=== PATIENT | male | born 1940 | race Caucasian/White ===

== ENCOUNTER 2016-10-06 17:19 | Inpatient (IN) | payer MEDICARE ==
[~2016-10-06 17:19] MED LIST: ACAR50TA3 PO; ACET325C PO; CARB15DR74 OP; CARV25TA2 PO; CHOL200025 PO; CLON0.1T PO; CYAN10008 PO; DOXA8TAB73 PO; FELO10TA3 PO; FERR-83 PO; FOLI1TAB18 PO; FURO40TA4 PO; GABA-502 PO; GLIP5TAB21 PO; MELA5TAB14 PO; METR500T19 PO; MULT-1073 PO; OXYC-474 PO; PRAV40TA PO; WARF4TAB6 PO; Warfarin per Pharmacist XX
[2016-10-06 17:32] VITALS: BP 134/61; PULSE 84; RESP 17; O2SAT 89
--- NOTE | 2016-10-06 18:15 | ED.REPORT ---
HPI-Dizziness / Weakness Date of Service Oct 06, 2016 ED Provider: Doc,Ed The patient is a 76 year old male with history of diabetes, hyperlipidemia, hypertension, CHF, atrial fibrillation, subacute caudate stroke, and peripheral neuropathy, who was brought to the emergency department by EMS for confusion and weakness. The patient has been in a nursing home home over the last few weeks. He has been improving and was going to be discharged home today. When his son called the patient today he noticed that he was confused and slurring his words. He was also weaker than normal today and has had some mild tremors to his upper extremities. He was normal last week. Nursing Notes Stated Complaint: WEAKNESS Chief Complaint: General Complaint Nursing Notes Reviewed: Yes Allergies: Coded Allergies: Penicillins (Verified Allergy, Unknown, 10/06/16) Scheduled ([Warfarin per Pharmacist]) 1 EA EA 1 EA XX DAILY@17 Acarbose (Acarbose) 50 Mg Tablet 50 MG PO DAILYWD Carboxymethylcellulose Sodium (Refresh Tears) 15 Ml Drops 15 ML OP BID 2 DROPS IN EACH EYE Carvedilol (Carvedilol) 25 Mg Tablet 25 MG PO BID Cholecalciferol (Vitamin D3) (Vitamin D3) 2,000 Unit Tablet 2,000 UNIT PO DAILY Clonidine (Clonidine) 0.1 Mg Tablet 0.1 MG PO BID Cyanocobalamin (Vitamin B-12) (Vitamin B-12) 1,000 Mcg Tablet 2,000 MCG PO DAILY Doxazosin Mesylate (Doxazosin Mesylate) 8 Mg Tablet 8 MG PO HS Felodipine ER (Felodipine ER) 10 Mg Tab.er.24h 10 MG PO QAM Ferrous Sulfate (Ferrous Sulfate) 325 Mg Tablet 325 MG PO DAILY Folic Acid (Folic Acid) 1 Mg Tablet 1 MG PO DAILY Furosemide (Furosemide) 40 Mg Tablet 40 MG PO BID Gabapentin (Gabapentin) 300 Mg Capsule 300 MG PO TID Glipizide ER (Glipizide ER) 10 Mg Tab.er.24 10 MG PO QAM Metronidazole (Metronidazole) 500 Mg Tablet 500 MG PO TID Multivits-Min/FA/Lycopene/Lut (Centrum Silver Tablet) 1 Each Tablet 1 EACH PO DAILY Pravastatin (Pravastatin) 40 Mg Tablet 40 MG PO HS Warfarin Sodium (Warfarin Sodium) 4 Mg Tablet 8 MG PO DAILY Scheduled PRN Acetaminophen (Acetaminophen) 325 Mg Capsule 650 MG PO Q4HR PRN PRN For Pain Melatonin (Melatonin) 5 Mg Tablet 5 MG PO HS PRN PRN For Insomnia Oxycodone (Roxicodone) 5 Mg Tablet 5 MG PO Q4H PRN PRN For Pain General Time Seen by MD: 18:15 Chief Complaint Generalized weakness, Other (confusion) Hx Obtained From: Patient, EMS Arrived By: Ambulance Onset Occurred: 1 day ago Symptom Duration: Since onset Severity: Current: No pain currently Severity: Maximum: No pain Recent Healthcare: No recent hospitalization Similar Sx Previous: Yes Past Medical History Past Medical History Notes: bilateral leg edema for several years 08/22/2016 Past Medical History 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) Peripheral neuropathy Arthritis cellulitis Urinary urgency/BPH Cataracts Hiatal hernia and GERD DM type II Depression Reports: Bleeding disorder, Congestive heart failure, Hyperlipidemia, Hypertension Reports: Atrial fibrillation Past Surgical History right knee replacement Reports: Cataract surgery, Tonsillectomy Family History Cancer in mother, cardiac in father Smoking History Unknown if Ever Smoker Social History Alcohol Use: Denies alcohol use Drug Use: Denies drug use Other Social History: Good social support, Lives in [place], Local resident Occupation lives with son 08/22/2016 Ambulatory Status Independent Review of Systems Constitutional: Reports: Weakness - generalized Neurologic: Reports: Confusion, Shaking, Slurred speech, Weakness Complete sys rev & neg: except as marked. Physical Exam Initial Vital Signs Vital Signs (First) Date Time Temp Pulse Resp B/P Pulse Ox O2 Delivery O2 Flow Rate FiO2 10/06/16 17:32 37.0 84 17 134/61 89 Room Air Initial VS: Reviewed ENT: Mucous membranes moist, Conjunctiva normal, No scleral icterus Neck: Supple, Non-tender, Full range of motion Abdomen / GI: Soft, Non-tender, No guarding, No rebound, No distention Lymphatic: No lymphadenopathy Extremities: Vascular intact, Neuro intact, No tenderness Skin: Warm, Dry, No cyanosis Psychiatric: Mood/affect normal, Behavior normal, Normal thought content General/Constitutional: Awake, Alert, No acute distress Smells of urine Head / Eyes: Atraumatic, Normocephalic, PERRL, EOMI, No nystagmus, Conjunctiva NL Respiratory / Chest: Atraumatic, Breath sounds NL, Breath sounds = bilat, No respiratory distress, No rales, No rhonchi, No wheezing Cardiovascular: Heart rate NL, Regular rhythm, Heart sounds NL, No murmurs, No rubs Lower Ext Edema: Positive: Bilateral 2+, Pitting Neurologic: Oriented X3, Speech NL Moving all extremities Interpretation & Diagnostics Lab Results Interpretation Result Diagram: 10/06/16190210/06/161902 Test 10/06/16 19:03 10/06/16 21:35 White Blood Count 15.9th/mm3 (3.8-10.1) Red Blood Count 3.93mil/mm3 (4.40-5.80) Hemoglobin 9.7g/dL (13.8-17.2) Hematocrit 32.3% (41.0-50.0) Mean Corpuscular Volume 82.2fL (81-100) Mean Corpuscular Hemoglobin 24.7pg (27.0-35.0) Mean Corpuscular Hemoglobin Concent 30.0% (32.0-37.0) Red Cell Distribution Width 17.6% (12.3-15.4) Platelet Count 243bil/L (150-400) Neutrophils (%) (Auto) 79.6% (40-74) Lymphocytes (%) (Auto) 10.1% (14-46) Monocytes (%) (Auto) 7.4% (4-12) Eosinophils (%) (Auto) 2.3% (0-5) Basophils (%) (Auto) 0.3% (0-3) Prothrombin Time 20.1sec (8.1-12.5) Prothromb Time International Ratio 1.85ratio Activated Partial Thromboplast Time 40.4sec (22.8-33.0) Sodium Level 141mEq/L (134-144) Potassium Level 3.7mEq/L (3.5-5.2) Chloride Level 100mEq/L (97-108) Carbon Dioxide Level 30mmol/L (18-29) Blood Urea Nitrogen 31mg/dL (8-27) Creatinine 1.49mg/dL (0.76-1.27) Estimat Glomerular Filtration Rate 49mL/min (>59) Glucose Level 130mg/dL (60-99) Calcium Level 8.7mg/dL (8.5-10.1) Total Bilirubin 0.5mg/dL (0.0-1.2) Aspartate Amino Transf (AST/SGOT) 11U/L (0-50) Alanine Aminotransferase (ALT/SGPT) 12U/L (0-44) Alkaline Phosphatase 63U/L (25-160) Ammonia 35ug/dL (18-53) Troponin T < 0.010ug/L (0.0-0.011) Pro-B-Type Natriuretic Peptide 2555pg/mL (0-486) Total Protein 7.4g/dL (6.4-8.4) Albumin 3.1g/dL (3.4-5.0) Hold Tapia Top Tube Received (Received) Urine Color Dark yellow (YELLOW) Urine Appearance Cloudy (CLEAR,HAZY) Urine pH 5.5 (5.0-8.0) Urine Specific [place] 1.020 (1.003-1.035) Urine Protein 100mg/dL (NEG,TRACE) Urine Glucose (UA) Negativemg/dL (NEGATIVE) Urine Ketones Negativemg/dL (NEGATIVE) Urine Occult Blood Large (NEGATIVE) Urine Nitrite Positive (NEGATIVE) Urine Bilirubin Negative (NEGATIVE) Urine Urobilinogen Normalmg/dL (NORMAL) Urine Leukocyte Esterase Moderate (NEGATIVE) Urine RBC Packed/hpf (0-2) Urine WBC Packed/hpf (0-5) Urine Epithelial Cells Few/hpf (NONE-MOD) Urine Crystals None seen (NONE SEEN) Urine Bacteria Many/hpf (NONE-FEW) Urine Hyaline Casts None/lpf (NONE) Urine Granular Casts None seen (NONE SEEN) Urine Waxy Casts None seen (NONE SEEN) Urine Red Blood Cell Casts None seen (NONE SEEN) Urine White Blood Cell Casts None seen (NONE SEEN) Urine Mucus None seen (None Seen) Urine Trichomonas None seen (NONE SEEN) Urine Yeast None (NONE SEEN) Urine Culture Reflexed Indicated ECG Interpretation ECG Interpretation: No STEMI Atrial fibrillation with a rate of 83 T wave inversion in aVR and aVL Unchanged from prior Time: 18:46 Interpreted by: ED physician X-Ray Chest Interpretation Chest Xray Interpretation: IMPRESSION: Trace right-sided pleural effusion. Patchy opacity in the right lung base compatible with atelectasis versus pneumonia. Dictated by: Maria E Beckford MD, PhD on 10/06/2016 at 19:34 Interpretation / Wet Read by: Interpret - Radiologist Re-Eval/Medical Decision Med Decision/Clinical Course 76-year-old male with extensive past medical history including hypertension, diabetes, CHF brought in by EMS for altered mental status. His son states that he is more confused and somnolent than usual. Patient has no complaints at this time. Differential diagnosis includes but is not limited to electrolyte abnormality versus urinary tract infection versus pneumonia versus hepatic encephalopathy. CBC shows leukocytosis worse from patient's baseline. Patient does have evidence of UTI. He has mild acute kidney injury. His proBNP is also elevated. I have not given him fluids as I am concerned for mild fluid overload. He does have evidence of pneumonia on chest x-ray, along with a urinary tract infection, both of which I treated with Rocephin. Given patient is altered from his urinary tract infection, and pneumonia, I have admitted him to the hospital. He is aware and amenable to plan at this time. Source of Hx: Old records, EMS, Family Consultation : Referral / Consult Name: Ny Cheney Consulted With: Hospitalist Call Returned at: 22:25 Enrollment Management Vice President: Will see patient, Agrees with eval, Agrees with plan, Accepts admit Counseled Regarding: Diagnosis, Lab results, Need for admission Patient Discharge & Departure Impression: Primary Impression: UTI (urinary tract infection) Urinary tract infection type: site unspecified Hematuria presence: without hematuria Qualified Code: N39.0 - Urinary tract infection, site not specified Disposition: ADMITTED TO HOSPITAL Discharge Condition All VS Reviewed: Yes Condition: Stable Referrals: Conner Newton MD (PCP) Maddie Attestation Portions of this note were transcribed by Aaliyah Saldivar. I, Dr. Teresa personally performed the history, physical exam and medical decision-making; I reviewed and confirmed the accuracy of the information in the transcribed note. Signed by : Maddie Manrique, 10/06/2016 and 2230. Conner Newton MD, Rebecca A MD Oct 06, 2016 18:15 Yariel,Aaliyah Thomas Oct 06, 2016 18:34
[2016-10-06 19:17] LABS: BASOPHILS % (AUTO) 0.3 % (0-3); EOSINOPHILS % (AUTO) 2.3 % (0-5); MONOCYTES % (AUTO) 7.4 % (4-12); Mean Corpuscular Hemoglobin 24.7 pg (27.0-35.0); Mean Corpuscular Volume 82.2 fL (81-100); NEUTROPHILS % (AUTO) 79.6 % (40-74); Platelet Count 243 bil/L (150-400)
[2016-10-06 19:34] LABS: INR 1.85 ratio
--- NOTE | 2016-10-06 19:36 | DRSVH ---
PROCEDURE: X-RAY CHEST ONE VIEW, PORTABLE ([id number]) INDICATIONS: confused TECHNIQUE: One view of the chest was acquired. COMPARISON: [facility], CR, XR CHEST 1VW (PORTABLE), 09/14/2016, 12:05. FINDINGS: Surgical changes and devices: None. Lungs and pleura: Trace right-sided pleural fluid collection is noted. Patchy airspace opacity note d in the right lung base which could represent atelectasis versus pneumonia. Mediastinum: Mediastinal contours appear normal. Heart size is normal. Bones and chest wall: No suspicious bony lesions. Overlying soft tissues appear unremarkable. IMPRESSION: Trace right-sided pleural effusion. Patchy opacity in the right lung base compatible wi th atelectasis versus pneumonia. Dictated by: Maria E Beckford MD, PhD on 10/06/2016 at 19:34 Approved by: Maria E Beckford MD, PhD on 10/06/2016 at 19:34
[2016-10-06 19:41] LABS: TROPONIN T < 0.010 ug/L (0.0-0.011)
[2016-10-06 21:31] VITALS: BP 130/74; PULSE 85; RESP 20; O2SAT 94
[2016-10-06 22:24] LABS: COLOR,URINE DARK YELLOW (YELLOW)
[2016-10-06 22:25] LABS: APPEARANCE,URINE CLOUDY (CLEAR,HAZY); OCCULT BLOOD,URINE LARGE (NEGATIVE); PH,URINE 5.5 (5.0-8.0); UROBILINOGEN,URINE NORMAL (NORMAL)
[2016-10-06] MEDS ORDERED: cefTRIAXone Inj 1,000 MG in IV Premix 1 EACH IV ONE (22:25)
[2016-10-06] MEDS ORDERED: Polyethylene Glycol (PEG) 17 Gm Powder PO PRN (22:35)
[2016-10-06] MEDS ORDERED: Alum-Mag Hydrox-Simeth 30 mL Suspension PO PRN (22:35)
[2016-10-06] MEDS ORDERED: Ondansetron 2 mg/mL 2 mL Inj IVPUSH PRN (22:35)
[2016-10-06 22:46] VITALS: BP 111/76; RESP 18; O2SAT 95
[2016-10-06 23:22] VITALS: BP 148/67; PULSE 83; RESP 18; O2SAT 93
[2016-10-06] MEDS ORDERED: 0.9% Sodium Chloride 250 ML ONE (23:30)
--- NOTE | 2016-10-06 23:30 | NUR ---
Admission Note pt admitted on stretcher to [facility] from ER at 2300, alert, oriented x2 (place and year),denies any pain/SOB/NV/Fever/chills, but burning sensation with urination. BP148/67 HR85, SPO2 94% on O2 2l per nc, afebrile. Morbid obese, 4-PA transfer stretcher to bed. Moderately decreased lung sounds bilaterally, few fine crackles at posterior LLs. HR regular, no murmur. Abdomen soft,nontender, BT hypoactive. Bilateral LEs: generalized dark red,non pitting edema, skin break down with a little serosanguineous drainage at left posterior LE. skin breakdown about 2x2 cm at left inner upper thigh. Redness,foul smell at bilateral groin, Panus and perineum. Nystatin requested. Some deformity of penis (not like this a month ago per son), Dr. Cheney made aware. ABX administered, call light oriented to pt. Care ongoing. Nasal MRSA sent.
[2016-10-07] VITALS (10 sets, daily range): BP systolic 121–167; BP diastolic 50–73; PULSE 82–109; RESP 18–32; O2SAT 88–98
--- NOTE | 2016-10-07 01:15 | PCM.HPMED ---
Subjective Date of Service Oct 07, 2016 Primary Provider: Admitting Physician: Ny Cheney DO Primary Care Physician: Conner Newton MD Attending Physician: Ny Cheney DO Admit Status: From the Emergency Department Chief Complaint: confusion, decreased ability to ambulate, urinary frequency and incontinence History of Present Illness: 76yoM with past history of CHF, CKD, diabetes, atrial fibrillation on chronic anticoagulation, CVA (02/2016), with recent admission admitted prior to discharge from [facility] due to increased confusion and decreased ability to ambulate. History obtained from son as patient is confused and difficult to interview. Patient was scheduled to discharge from [facility] the day of admission. Son noticed some increased confusion prior to discharge and decreased ability to ambulate and brought father to [facility] ED. No mention of slurring of words during interview. Review of Systems: Complete review of systems obtained. Positive as per HPI otherwise negative. Allergies Coded Allergies: Penicillins (Verified Allergy, Unknown, 10/06/16) oxycodone (Verified Adverse Reaction, Severe, 10/07/16) make pt very drowsy,stay in bed for a week per son. tramadol (Verified Adverse Reaction, Severe, 10/07/16) make pt very drowsy,stay in bed for a week per son. Home Medications No medication list available from [facility] pending As per last discharge 09/16/2016 Discharge Medications ([Warfarin per Pharmacist]) 1 EA EA 1 EA XX DAILY@17 Prescribed by: ANJALI KAHN DO Acarbose (Acarbose) 50 Mg Tablet 50 MG PO DAILYWD (Reported) Carboxymethylcellulose Sodium (Refresh Tears) 15 Ml Drops 15 ML OP BID (Reported ) 2 DROPS IN EACH EYE Carvedilol (Carvedilol) 25 Mg Tablet 25 MG PO BID Prescribed by: BETO KWONG MD Cholecalciferol (Vitamin D3) (Vitamin D3) 2,000 Unit Tablet 2,000 UNIT PO DAILY (Reported) Clonidine (Clonidine) 0.1 Mg Tablet 0.1 MG PO BID (Reported) Cyanocobalamin (Vitamin B-12) (Vitamin B-12) 1,000 Mcg Tablet 2,000 MCG PO DAILY (Reported) Doxazosin Mesylate (Doxazosin Mesylate) 8 Mg Tablet 8 MG PO HS (Reported) Felodipine ER (Felodipine ER) 10 Mg Tab.er.24h 10 MG PO QAM (Reported) Ferrous Sulfate (Ferrous Sulfate) 325 Mg Tablet 325 MG PO DAILY (Reported) Folic Acid (Folic Acid) 1 Mg Tablet 1 MG PO DAILY (Reported) Furosemide (Furosemide) 40 Mg Tablet 40 MG PO BID Prescribed by: ANJALI KAHN DO Gabapentin (Gabapentin) 300 Mg Capsule 300 MG PO TID (Reported) Glipizide ER (Glipizide ER) 10 Mg Tab.er.24 10 MG PO QAM (Reported) Metronidazole (Metronidazole) 500 Mg Tablet 500 MG PO TID Prescribed by: LEONORA TIRADO MD Multivits-Min/FA/Lycopene/Lut (Centrum Silver Tablet) 1 Each Tablet 1 EACH PO DAILY (Reported) Pravastatin (Pravastatin) 40 Mg Tablet 40 MG PO HS (Reported) Warfarin Sodium (Warfarin Sodium) 4 Mg Tablet 8 MG PO DAILY Prescribed by: ANJALI KAHN DO As needed Acetaminophen (Acetaminophen) 325 Mg Capsule 650 MG PO Q4HR PRN PRN For Pain ( Reported) Melatonin (Melatonin) 5 Mg Tablet 5 MG PO HS PRN PRN For Insomnia Prescribed by: BETO KWONG MD Oxycodone (Roxicodone) 5 Mg Tablet 5 MG PO Q4H PRN PRN For Pain (Reported) Additional med instructions Warfarin per anticoagulation clinic. PMH bilateral leg edema for several years 08/22/2016 Cataracts 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) Peripheral neuropathy Arthritis cellulitis Bleeding disorder, Congestive heart failure, Diabetes mellitus, Hyperlipidemia , Hypertension Atrial fibrillation history of cardioversion Hiatal hernia and GERD DM type II Depression Past Surgical History Urinary urgency/BPH right knee replacement tonsillectomy claudication evaluation per PCP Family History Mother: cancer Father: cardiac Social History Occupation: retired Hx Alcohol Use: Yes Alcoholic Drinks Per Day: occasionally 1 beer once a couple month Hx Substance Use: No Smoking Status: Unknown if Ever Smoker Exam Vital Signs Vital Sign - Last Date Time Temp Pulse Resp B/P Pulse Ox O2 Delivery O2 Flow Rate FiO2 10/06/16 23:22 36.7 83 18 148/67 93 Nasal Cannula 2.00 Intake and Output 10/06/16 10/06/16 10/07/16 Cumulative From/Thru 15:00 23:00 07:00 10/06/16 17:32 - 10/07/16 00:36 Intake Total 51 ml 51 ml Output Total 60 ml 60 ml Balance -60 ml 51 ml -9 ml Intake IV Total 51 ml 51 ml Output Urine Total 60 ml 60 ml Exam Exam General: Alert, Oriented to self, date, difficulties with location, Cooperative , No acute Distress Eyes: PERRLA, Scleral Anicteric Mouth: Mouth Normal, Dry Membranes Moist/[place] Neck: Supple, no Thyromegaly, jaeger present. Chest & Lungs: Clear to auscultation & percussion, No adventitious breath sounds, no crackles, no wheeze Cardiovascular: Normal S1, Normal S2, No Murmurs/Rubs/Gallops, Regular Rate/ Rhythm, (+ peripheral edema, unable to assess JVD) Pulses: Radial (present and equal), Dorsalis Pedi (present and equal) Abdomen: Soft, mild tenderness of skin under pannus with erythema, Normoactive bowel tones. Musculoskeletal: Unremarkable. Normal range of motion, no swollen or erythematous joints Extremities: + edema, chronic skin changes bilat erythema mild cyanosis, venous stasis, no clubbing, onychomycosis Skin: as per extremity and abdomen Neurological: Grossly neurologically intact, Normal Speech, Sensation Intact Lymphatic: Lymph nodes Cervical and Axillary not palpable. Lab and Diagnostics Result Diagram: 10/06/16190210/06/161902 X-Rays, CTs and MRIs Patient Name: SUSANA SHOOK JR MR#: [id number] Location: [facility] Ordering Phys: Naomie Teresa MD Date of Service: 10/06/161824 PROCEDURE: X-RAY CHEST ONE VIEW, PORTABLE ([id number]) INDICATIONS: confused TECHNIQUE: One view of the chest was acquired. COMPARISON: [facility], CR, XR CHEST 1VW (PORTABLE), 09/14/2016, 12 :05. FINDINGS: Surgical changes and devices: None. Lungs and pleura: Trace right-sided pleural fluid collection is noted. Patchy airspace opacity noted in the right lung base which could represent atelectasis versus pneumonia. Mediastinum: Mediastinal contours appear normal. Heart size is normal. Bones and chest wall: No suspicious bony lesions. Overlying soft tissues appear unremarkable. IMPRESSION: Trace right-sided pleural effusion. Patchy opacity in the right lung base compatible with atelectasis versus pneumonia. Assessment & Plan 76yoM with past history of CHF, CKD, diabetes, atrial fibrillation on chronic anticoagulation, CVA (02/2016), with recent admission admitted prior to discharge from [facility] due to increased confusion and decreased ability to ambulate found to have urinalysis consistent with UTI. UTI, acute, POA -anatomy concerning for genital abscess, consider US / urology consult -h/o BPH, increased frequency, incontinence -continue ceftriaxone -follow up cultures Delirium, acute, POA - likely secondary to acute UTI, potential a/w polypharmacy - treatment as above Leukocytosis, subacute, POA -history of chronically elevated WBC as per entries in EMR -elevated beyond past levels with left shift -secondary to infection Diastolic CHF, chronic -not with acute exacerbation -continue home medications when med rec is complete, currently pending Lower extremity edema, chronic -chronic as per EMR, with reported worsening of skin as per son -chronic venous insufficiency, mild increase erythema bilateral, low threshold to broaden abx coverage if worsening erythema -consider wound consult for leg care management HTN, chronic Atrial fibrillation, chronic -continue home medications when med rec complete currently pending -continue warfarin, dose per pharmacy, INR subtherapeutic (repeat INR in am) Subtherapeutic INR, acute -mildly subtherapeutic INR, will repeat in am -pharmacy to dose warfarin CKD, chronic -at baseline creatinine ~1.4 -continue to monitor -avoid nephrotoxic medications Diabetes, chronic -SSI, hold home medications BPH -continue home medications when med rec complete, currently pending Peripheral Neuropathy -continue home medications when med rec complete, currently pending Ny Cheney DO Oct 07, 2016 01:15 Ny Cheney DO Oct 07, 2016 01:15
[2016-10-07] MEDS: Nystatin 100,000 Unit/Gm 15 Gm Powder TOPICAL SCH ×3 (01:25→20:30)
[2016-10-07] MEDS ORDERED: Glucose 40% Oral Gel 15 Gm Tube PO PRN (01:45)
[2016-10-07] MEDS ORDERED: PRAV40TA PO (03:41)
[2016-10-07] MEDS ORDERED: LISI-571 PO (03:41)
[2016-10-07] MEDS ORDERED: WARF4TAB PO (03:41)
[2016-10-07] MEDS ORDERED: OXYB5TAB PO (03:41)
[2016-10-07 06:19] LABS: BASOPHILS % (AUTO) 0.3 % (0-3); EOSINOPHILS % (AUTO) 2.4 % (0-5); MONOCYTES % (AUTO) 7.7 % (4-12); Mean Corpuscular Hemoglobin 24.9 pg (27.0-35.0); Mean Corpuscular Volume 82.5 fL (81-100); NEUTROPHILS % (AUTO) 79.4 % (40-74); Platelet Count 235 bil/L (150-400)
--- NOTE | 2016-10-07 06:40 | NUR ---
Critical measure H/H Critical measure received at 0667: Hb/HCT 6.9/20.6. Previous once 9.7/32.3. VSS. Dr. Brewer paged at 1339, waiting for response.
[2016-10-07] MEDS ORDERED: Albuterol-Ipratropium 3 mL Inhalation Solution NEB PRN (07:30)
[2016-10-07] MEDS ORDERED: Furosemide 10 mg/mL 2 mL Inj IVPUSH ONE (07:35)
--- NOTE | 2016-10-07 07:44 | ABG ---
DateTimeAnalyzed 07:36:00 -_ pH ____7.266 - 7.350 7.450 pCO2 ___73.9__ -mmHg 35.0 45.0 pO2 ___52.6__ -mmHg 70.0 100 HCO3- ___32.5__ -mmol/L 22.0 26.0 ABE ____4.3__ -mmol/L -2.0 2.0 tHb ___10.4__ -g/dL 12.0 18.0 O2Hb ___76.7__ -% 95.0 COHb ____1.5__ -% 1.5 MetHb ____1.2__ -% 0.4 1.5 sO2 ___78.8__ -% 25.0 FIO2 ___21.0__ -% Drawn By lw - Date/Time Notified____ 07:43:00 -_ Oxygen Device 1 NRB - Notified By lw - Notified Whom ___Dr. Mlaughlin - B 737 -mmHg tO2 ___11.3__ -Vol% Marcell test _Positive -
--- NOTE | 2016-10-07 07:59 | NUR ---
attempted to give pt a nebulizer tx but unable. SaO2 decreased to 72% on neb tx. Pt returned to NRB.
[2016-10-07] MEDS: Insulin LISPRO 300 Unit/3 mL Inj SUBQ SCH ×4 (08:00→22:00)
--- NOTE | 2016-10-07 08:08 | DRSVH ---
PROCEDURE: X-RAY CHEST ONE VIEW, PORTABLE ([id number]) INDICATIONS: worsening SHORTNESS OF BREATH TECHNIQUE: One view of the chest was acquired. COMPARISON: [facility], CR, XR CHEST 1VW (PORTABLE), 10/06/2016, 18:40. FINDINGS: Surgical changes and devices: None. Lungs and pleura: Increased pulmonary vascularity. Mediastinum: Mediastinal contours appear normal. Heart size is normal. Bones and chest wall: No suspicious bony lesions. Overlying soft tissues appear unremarkable. IMPRESSION: Increased pulmonary vascularity, suggestive of edema. Dictated by: Liberty Yuen M.D. on 10/07/2016 at 8:07 Approved by: Liberty Yuen M.D. on 10/07/2016 at 8:07
[2016-10-07] MEDS ORDERED: Influenza (Adult) Vaccine 0.5 mL Syringe IM ONE (08:30)
[2016-10-07] MEDS ORDERED: Azithromycin Inj 500 MG in Dextrose 5% w/Vial Mate 250 ML IV SCH (08:30)
--- NOTE | 2016-10-07 08:49 | NUR ---
Transfer to [facility] Patient found hypoxic-SPO2in 80's, NC patient had removed nasal canula and was dusky in color. ABG's drawn, Lazix IV push given. Patient changed to rebreather mask at 15 ltr. Then transferred to [facility]. Report given to Navya Cruz.
[2016-10-07 10:29] LABS: INR 1.53 ratio
--- NOTE | 2016-10-07 10:44 | ABG ---
DateTimeAnalyzed 07:36:00 -_ pH ____7.266 - pCO2 ___73.9__ -mmHg pO2 ___52.6__ -mmHg HCO3- ___32.5__ -mmol/L ABE ____4.3__ -mmol/L tHb ___10.4__ -g/dL O2Hb ___76.7__ -% COHb ____1.5__ -% MetHb ____1.2__ -% sO2 ___78.8__ -% FIO2 __100.0__ -% Drawn By lw - Date/Time Notified____ 07:43:00 -_ Notified By lw - Notified Whom ___Dr. Mlaughlin - B 737 -mmHg tO2 ___11.3__ -Vol% Marcell test _Positive -
--- NOTE | 2016-10-07 11:52 | NUR ---
Rec'd to room 2020 from [facility]. Somnolent, unable to arouse significantly. Saturations low 90's on NRB 15L. Attempts to remove mask. Transitioned to BIPAP at 60% 05/06, tolerates without removing mask or agitation for ~2 hours at which time he will no longer leave mask in place, dismantles mask parts and is moderately agitated regarding continuing BiPAP. Switched to 5L NC with saturations 92-94%, RR 18-22, no evidence distress. Pt agreeable to O2 NC but adamantly refuses further use of BiPAP.
--- NOTE | 2016-10-07 13:37 | PCM.CONPHA ---
Subjective Date of Service: Oct 07, 2016 confusion, decreased ability to ambulate, urinary frequency and incontinence Reason for Pharmacy Consult: Anticoagulation Management Objective Vital Signs Date Time Temp Pulse Resp B/P Pulse Ox O2 Delivery O2 Flow Rate FiO2 10/07/16 12:55 95 22 121/61 94 60 10/07/16 11:30 81 20 92 10/07/16 08:45 95 22 121/61 94 60 10/07/16 07:47 37.4 109 32 163/73 88 Non-Rebreather 15.00 10/07/16 05:00 36.9 87 20 144/72 90 Nasal Cannula 3.00 10/06/16 23:22 36.7 83 18 148/67 93 Nasal Cannula 2.00 10/06/16 22:46 18 111/76 95 10/06/16 21:32 37.4 10/06/16 21:31 85 20 130/74 94 Room Air 10/06/16 20:15 Supplement Oxygen 10/06/16 17:32 37.0 84 17 134/61 89 Room Air Intake and Output 10/05/16 10/06/16 10/07/16 00:00 00:00 00:00 Output Total 60 ml Balance -60 ml Weight (Kilograms): 142.27 Test 10/06/16 19:03 10/06/16 21:35 10/07/16 05:50 10/07/16 10:02 Activated Partial Thromboplast Time 40.4sec (22.8-33.0) Total Bilirubin 0.5mg/dL (0.0-1.2) Aspartate Amino Transf (AST/SGOT) 11U/L (0-50) Alanine Aminotransferase (ALT/SGPT) 12U/L (0-44) Alkaline Phosphatase 63U/L (25-160) Ammonia 35ug/dL (18-53) Pro-B-Type Natriuretic Peptide 2555pg/mL (0-486) Total Protein 7.4g/dL (6.4-8.4) Albumin 3.1g/dL (3.4-5.0) Hold Tapia Top Tube Received (Received) Urine Color Dark yellow (YELLOW) Urine Appearance Cloudy (CLEAR,HAZY) Urine pH 5.5 (5.0-8.0) Urine Specific Smith 1.020 (1.003-1.035) Urine Protein 100mg/dL (NEG,TRACE) Urine Glucose (UA) Negativemg/dL (NEGATIVE) Urine Ketones Negativemg/dL (NEGATIVE) Urine Occult Blood Large (NEGATIVE) Urine Nitrite Positive (NEGATIVE) Urine Bilirubin Negative (NEGATIVE) Urine Urobilinogen Normalmg/dL (NORMAL) Urine Leukocyte Esterase Moderate (NEGATIVE) Urine RBC Packed/hpf (0-2) Urine WBC Packed/hpf (0-5) Urine Epithelial Cells Few/hpf (NONE-MOD) Urine Crystals None seen (NONE SEEN) Urine Bacteria Many/hpf (NONE-FEW) Urine Hyaline Casts None/lpf (NONE) Urine Granular Casts None seen (NONE SEEN) Urine Waxy Casts None seen (NONE SEEN) Urine Red Blood Cell Casts None seen (NONE SEEN) Urine White Blood Cell Casts None seen (NONE SEEN) Urine Mucus None seen (None Seen) Urine Trichomonas None seen (NONE SEEN) Urine Yeast None (NONE SEEN) Urine Culture Reflexed Indicated White Blood Count 15.5th/mm3 (3.8-10.1) Red Blood Count 3.82mil/mm3 (4.40-5.80) Hemoglobin 9.5g/dL (13.8-17.2) Hematocrit 31.5% (41.0-50.0) Mean Corpuscular Volume 82.5fL (81-100) Mean Corpuscular Hemoglobin 24.9pg (27.0-35.0) Mean Corpuscular Hemoglobin Concent 30.2% (32.0-37.0) Red Cell Distribution Width 17.8% (12.3-15.4) Platelet Count 235bil/L (150-400) Neutrophils (%) (Auto) 79.4% (40-74) Lymphocytes (%) (Auto) 9.9% (14-46) Monocytes (%) (Auto) 7.7% (4-12) Eosinophils (%) (Auto) 2.4% (0-5) Basophils (%) (Auto) 0.3% (0-3) Sodium Level 145mEq/L (134-144) Potassium Level 3.9mEq/L (3.5-5.2) Chloride Level 102mEq/L (97-108) Carbon Dioxide Level 30mmol/L (18-29) Blood Urea Nitrogen 27mg/dL (8-27) Creatinine 1.35mg/dL (0.76-1.27) Estimat Glomerular Filtration Rate 55mL/min (>59) Glucose Level 157mg/dL (60-99) Calcium Level 8.3mg/dL (8.5-10.1) Procalcitonin 0.07ng/mL (See Comment) Prothrombin Time 16.5sec (8.1-12.5) Prothromb Time International Ratio 1.53ratio Troponin T < 0.010ug/L (0.0-0.011) Assessment/Plan Assessment/Plan Pharmacy to dose warfarin. Indication: atrial fibrillation INR goal: 2-3 Antibiotics: levofloxacin. Called and spoke to Joahna in medical records at [facility] ([phone]). Received the following information: - Home dose: 9 mg on Monday, 8 mg on all other days of the week. - Last INR check prior to hospitalization: 2.21 on 10/03/16 - Last dose of warfarin: 10/05/16. INR: 10/07/2016: 1.53 Resume home dose of warfarin. Give warfarin 8 mg PO today at 1700. Pharmacy to continue to monitor and adjust dose. Thank you, Loly Sherwood Pharmacist Loly Sherwood Oct 07, 2016 13:37
[2016-10-07] MEDS: levoFLOXacin 500 mg Tablet PO SCH (14:04)
--- NOTE | 2016-10-07 17:19 | PCM.PNMED ---
Subjective Date of Service Oct 07, 2016 Subjective Patient is a 76yom with MHx significant for CKD, DMII, chronic afib, cva, and BPH who was recently discharged from [facility] for acute decompensated diastolic heart failure, while on his last day of rehab at [facility], he developed tremors and confusion. Upon admission, he was found to have florid UTI. Possible prostatitis. Patient was found on 15L Max Oxymask, somnolence, sating in the low 80s, with ABG acidotic, CO2 retained. Lasix 20mg IV was given,he was transfer to CCU/PCC for higher acuity of care. He was briefly placed on BIPAP with good effects and weened off to nasal canula. CRX showed b/l cephalization. On return visit, patient was alert, agitated with BIPAP. Exam Vital Signs Vital Sign - Last Date Time Temp Pulse Resp B/P Pulse Ox O2 Delivery O2 Flow Rate FiO2 10/07/16 12:55 95 22 121/61 94 60 10/07/16 11:45 CPAP/BIPAP 10/07/16 07:47 37.4 15.00 Intake and Output 10/06/16 10/06/16 10/07/16 Cumulative From/Thru 15:00 23:00 07:00 10/06/16 17:32 - 10/07/16 06:44 Intake Total 1651 ml 1651 ml Output Total 60 ml 2000 ml 2060 ml Balance -60 ml -349 ml -409 ml Intake Oral 1600 ml 1600 ml IV Total 51 ml 51 ml Output Urine Total 60 ml 2000 ml 2060 ml # Voids 4 4 # Bowel Movements 0 0 Exam Gen: morbidly obese. lying at 30 degree head tilt HEENT: Normocephalic, atraumatic. External ears without defect. Pupils equal, round, and reactive to light and accommodation. Anicteric sclerae, moist conjunctivae, and no lid lag. Neck: supple, large neck, cannot appreciate any JVD Cardio: irregular irregular rate and rhythm. cannot appreciate any murmurs, rubs, or gallops. Pulm: b/l air sound, no wheezes, rhonchi, crackles on the bases Abd: positive bowel tone. Soft, nontender, nondistended. Extremities: No clubbing, cyanosis, mild lower leg edema and lymphadenopathy. Skin: Normal temperature, turgor, and texture; raised nonerythematous lesion on foreskin of penile gland. Neuro: Cranial nerves grossly intact. Normal muscle strength, tone, and bulk. Awake and moving equally on all 4 limbs Psyc: alert and agitated. IVs and Medications Medications Reviewed: Medications were reviewed in detail Lab and Diagnostics Result Diagram: 10/07/16 0550 10/07/16 0550 X-Rays, CTs and MRIs Patient Name: SUSANA SHOOK JR MR#: [id number] Location: SED Ordering Phys: Naomie Teresa MD Date of Service: 10/06/16 7138 PROCEDURE: X-RAY CHEST ONE VIEW, PORTABLE ([id number]) INDICATIONS: confused TECHNIQUE: One view of the chest was acquired. COMPARISON: [facility], CR, XR CHEST 1VW (PORTABLE), 09/14/2016, 12 :05. FINDINGS: Surgical changes and devices: None. Lungs and pleura: Trace right-sided pleural fluid collection is noted. Patchy airspace opacity noted in the right lung base which could represent atelectasis versus pneumonia. Mediastinum: Mediastinal contours appear normal. Heart size is normal. Bones and chest wall: No suspicious bony lesions. Overlying soft tissues appear unremarkable. IMPRESSION: Trace right-sided pleural effusion. Patchy opacity in the right lung base compatible with atelectasis versus pneumonia. Assessment & Plan 76yoM with past history of CHF, CKD, diabetes, atrial fibrillation on chronic anticoagulation, CVA (02/2016), with recent admission admitted prior to discharge from [facility] due to increased confusion and decreased ability to ambulate found to have urinalysis consistent with UTI. Acute decompensated heart failure with preserved EF, present on admission, stable -- Echo () showed hypertensive heart. "concentric LV hypertrophy". -- Patient found hypoxic Hypercapnic respiratory failure 8hrs into inpatient. -- Initial bolus fluids likely trigger decompensation of diastolic heart failure. -- Symptoms improved with diurese, augment by BIPAP -- Repeat echo looking for wall motion abnormalities in the setting of elevated troponin. -- Lasix 40mg PO BID Complicated UTI, acute, POA -- UTI possible prostatitis in the setting BPH -- UA culture grew E.coli -- Started Levaquin 500mg daily. will need to continue this for 21days Delirium, acute, POA -- likely secondary to acute UTI and hypoxemia/hypercapnia Leukocytosis, subacute, POA -- history of chronically elevated WBC as per entries in EMR -- elevated beyond past levels with left shift -- secondary to infection Lower extremity edema, chronic -- likely a combination of venous valve incompetency and lymphadenia HTN, chronic -- Cont home meds includes clonidine, lisinopril, doxazosin, and felodipine -- Hold this meds if SBP <90 or MAP <65 Atrial fibrillation, chronic -- Cont home carvedilol -- continue warfarin, dose per pharmacy, INR subtherapeutic (repeat INR in am) Subtherapeutic INR, acute -- mildly subtherapeutic INR, will repeat in am -- pharmacy to dose warfarin CKD, chronic -- at baseline creatinine ~1.4 -- continue to monitor -- avoid nephrotoxic medications Diabetes, chronic -- SSI, holding glipizide BPH -- Cont oxybutynin Peripheral Neuropathy -- Cont home gabapentin Hypercholesteromeia, present on admission, stable -- Cont home pravastatin Disposition: anticipate patient will be here 24-48hrs for treatment before medically ready for discharge. VTE Mechanical Devices: Intermittant Pneumatic CD Time spent 35 minutes Attending Statement I have seen and evaluated patient at bedside in addition to directly supervising care provided by resident physician. I agree with above documentation. Given respiratory decompensation, urgent evaluation including ABG demonstrated a respiratory acidosis, likely secondary to poor breathing effort, possibly in setting of volume overload. Given indications for more aggressive therapy pt was transferred to PCU with BiPAP therapy and closer observation. He responded will to respiratory supper and diuresis, breathing improved by afternoon. Daniel Coleman DO Oct 07, 2016 17:19 Joe Huang DO Oct 08, 2016 12:20
--- NOTE | 2016-10-07 17:27 | DRSVH ---
[facility] [address] [place] [address] Echocardiogram Report Name: SUSANA SHOOK Study Date: 10/07/2016 Height: 70 in Hospital Exam Location: [facility] Weight: 314 lb Gender: Male BSA: 2.5 m2 : 1940 Age: 76 yrs BP: 121/61 mmHg Reason For Study: DECOMPENSATED DIASTOLIC HEART FAILURE Ordering Physician: HOSPITALIST SILVIOerformed By: David White Referring Physician: SYDNEY BELL Interpretation Summary The left ventricle is normal in size. There is mild concentric left ventricular hypertrophy. The ejection fraction is estimated to be 55-60%. There are no obvious focal wall motion abnormalities noted but poor endocardial definition reduces the sensitivity for the detection of such. The right ventricle is borderline dilated. Right ventricular systolic function is mildly reduced. The IVC is dilated (diameter is greater than 2.1 cm) yet it collapses greater than 50% with a sniff. This suggests a right atrial pressure of 8 mm Hg. There is mild aortic stenosis. No other echocardiographic abnormalities seen. Compared to the prior echo report on 05/06/2016, there is no significant change. Procedure: A two-dimensional transthoracic echocardiogram with color flow and Doppler was performed. The study quality was technically difficult. A contrast injection of Definity was performed to improve assessment of LV function. Comparison is made with the echocardiogram of 05/06/16. The patient was in atrial fibrillation with heart rates between 72-102 bpm during the exam. Left Ventricle: The left ventricle is normal in size. There is mild concentric left ventricular hypertrophy. The ejection fraction is estimated to be 55-60%. There are no obvious focal wall motion abnormalities noted but poor endocardial definition reduces the sensitivity for the detection of such. Diastolic function could not be accurately assessed due to atrial fibrillation. Right Ventricle: The right ventricle is borderline dilated. Right ventricular systolic function is mildly reduced. Atria: Both atria are severely dilated. The interatrial septum is intact with no evidence for an atrial septal defect. Mitral Valve: The mitral valve leaflets appear borderline thickened, but open well. The mitral valve leaflets are mildly calcified. There is no mitral regurgitation noted. Aortic Valve: The aortic valve is trileaflet. The aortic valve is mildly calcified. The peak aortic velocity is 2.3 m/sec. The aortic valve mean gradient is 12 mmHg. There is mild aortic stenosis. No aortic regurgitation is present. Tricuspid Valve: The tricuspid valve is not well visualized, but is grossly normal. Pulmonary artery pressures cannot be estimated because of the lack of a measurable TR jet velocity. Pulmonic Valve: The pulmonic valve is not well visualized. Great Vessels: The aortic root is normal size. The ascending aorta is mildly enlarged. The pulmonary artery is normal size. The IVC is dilated (diameter is greater than 2.1 cm) yet it collapses greater than 50% with a sniff. This suggests a right atrial pressure of 8 mm Hg. Pericardium/ Pleura There is no pericardial effusion. There is no pleural effusion. MMode/2D Measurements & Calculations LVIDd: 5.7 cm RA long axis LVOT diam LVIDs: 4.1 cm LA A2 area: 33.4 cm FS: 27.1 % LA A4 area: 35.3 cm RA area AoV Opening EPSS: 0.57 cm LA length (vol): 7.7 cm IVSd: 1.1 cm LA vol: 130.0 ml : 44.1 cm Ao root diam LVPWd: 1.2 cm LA vol index RA vol : 204.ml asc Aorta RA Diam: 3.9 cm IVC diam: 3.1 cm : 80.7 mm2 LV peterson. diameter/BSA LV sys. diameter/BSA (cm/m^2): 2.2 (cm/m^2): 1.6 Doppler Measurements & Calculations Ao V2 max: 232.0 cm/secMVA(VTI): 2.1 cm2Med Peak E' Damir TR max damir Ao max P.5 mmHg : 254.0 cm/sec Ao mean P.4 mmHg Lat Peak E' Damir TR max PG LVOT Max Damir : 11.2 cm/sec : 25.8 mmHg : 88.1 cm/sec PA V2 max ADALGISA(I,D): 1.6 cm : 101.3 cm/sec sev ratio: 0.40 PA mean PG : 2.1 mmHg MV V2 mean: 88.8 cm/secAo V2 mean LV V1 max PG PA V2 mean MV mean P.9 mmHg : 168.5 cm/sec : 68.4 cm/sec MV V2 VTI: 33.1 cm Ao V2 VTI LV V1 VTI: 18.1 cm PA pr(Accel) : 9.1 mmHg ADALGISA(V,D): 1.5 cm2 ADALGISA indexed to BSA (cm^2/m^2): 0.62 Reading Physician:05:26 PM
--- NOTE | 2016-10-07 18:24 | CONS ---
[address] [address] CONSULTATION REPORT PATIENT: SUSANA SHOOK : 1940 MR#: [id number] ADMIT: 10/06/2016 JOB ID: [id number] DATE OF SERVICE: 10/07/2016 INFECTIOUS DISEASE CONSULTATION: REASON FOR CONSULTATION: Complicated urinary tract infection in a debilitated obese gentleman. HISTORY OF PRESENT ILLNESS: The patient is a 76-year-old gentleman with a wide variety of medical problems including organic heart disease, diabetes, peripheral neuropathy, venous stasis changes and lymphedema, recurrent cellulitis, and unstable gait and inability to ambulate. The patient has had a wide has had a variety of hospitalizations recently including hospitalizations for diverticulitis, CHF, and group B strep bacteremia due to leg infections. He has been bouncing back and forth between this hospital, [facility], and his home on [place] which he shares with his adult son. Most recently the patient was at this facility with CHF exacerbation and was sent to [facility]. Yesterday his son went to [facility] to pick him up and take him home and found that the patient was obtunded and for that reason he was once again brought to this facility, admitted, and reevaluated. There is early evidence that the patient's encephalopathy may be due to a UTI and his mental status has already improved. ID consultation is requested regarding optimal antibiotic management and duration of therapy. The patient is not a terribly good historian, especially with respect to the chronology of recent events. He seems a bit unsure as to why he was sent back from [facility] to this location and really denies much in the way of focal complaints today. His son, who is with him in the room, says that about three weeks ago he had an abscess or a lesion on the right side of his scrotum which was of concern. The son is also very concerned about the father's ongoing urinary incontinence. At various times the patient has had Kenny catheters to try and manage this incontinence but he at this point, refuses to maintain them. He is apparently able to walk short distances and transfer using walker and other devices. This afternoon the patient and son both report his mental status is dramatically better and returning somewhere close to normal. The patient this afternoon denies pulmonary or GI symptoms. He continues to be incontinent of urine and has some itching in his legs. Otherwise he feels reasonably well. PAST MEDICAL HISTORY: 1. Organic heart disease. a. AFIB. b. CHF. 2. Hypertension. 3. Diabetes. 4. Peripheral neuropathy. 5. Chronic venous stasis changes with lymphedema of both lower extremities. 6. Caudate stroke 2016. 7. Limited mobility. 8. Morbid obesity. 9. Hyperlipidemia. 10. BPH. 11. Status post right total knee. SOCIAL HISTORY: The patient lives at [place] with his son. He is a nonsmoker and rarely drinks. 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 FAMILY HISTORY: Positive for stroke. Negative for TB. REVIEW OF SYSTEMS: Was done today. The patient is a man of few words but basically states that he has no headache. He does have visual change in that he had cataract surgery two months ago and his vision is dramatically better. No sores in the mouth. No trouble swallowing. No significant cough, shortness of breath, chest pain, nausea, vomiting, or diarrhea. He is incontinent of urine and has been for quite some time. He reports itching and chafing between his legs. He notes that his legs are red and swollen and have been for quite some time between the knee and ankle bilaterally. PHYSICAL EXAMINATION: Reveals a morbidly obese gentleman, weight 142 kg. He is afebrile, temp of 37.4. Blood pressure 121/61, pulse 100, respiratory rate 20, respirations 15 or so. He is saturating well. The patient is alert and as I remember him from my visit seeing him this summer in terms of his overall mentation. Head: Without trauma. Eyes: Without scleral icterus or conjunctivitis. Oral cavity: No thrush or hairy leukoplakia. Neck: Supple. Lungs: Reasonably clear anteriorly. Cardiac: Tones distant, without notable murmur. Abdomen: Quite obese. Soft and nontender. He has no Kenny catheter. There is no suprapubic fullness. The penis and scrotum were carefully examined. There is no evidence of genital abnormality or scrotal abscess. The area between the thighs is erythematous. According to the son, it is constantly wet due to his urinary incontinence and ill-fitting diapers. Below the knees the patient has a more classic venous stasis type change with some almost bubble-like features to the lymphedema. The pulses in his feet are somewhat diminished and his feet are swollen. There is no evidence for acute cellulitis of the lower extremities, however, at this point. The patient can move his extremities but is weak and has been bed-bound and quite limited here in the past few weeks due to his multiple hospitalizations and going back and forth to the SNF. LABORATORIES: Include white count 16,000 yesterday evening when he was transferred here, today is still 15, neutrophils 80%. Creatinine 1.35. Procalcitonin 0.07. Urinalysis packed with white cells. Urine culture: Gram-negative rods greater than 100,000 colonies. Sensitivities are pending. A MRSA screen is back and negative. A flu screen is back and negative. In terms of prior cultures, the patient had group B strep in his blood back in April secondary to cellulitis and that is the reason I saw him at that time. Otherwise he has not really had anything in the way of positive cultures. IMAGING: We have a chest x-ray which shows a possible mild pulmonary edema. IMPRESSION: The most parsimonious explanation for the patient's obtundation, which has already rapidly improved, is that he has had a complicated urinary tract infection due to gram-negative rods. There is no reason to think at this point that the patient is bacteremic as result of this process, but we do not actually have any blood cultures. The patient's son, and apparently some of the physicians, were concerned about a genital abnormality or scrotal abscess but we see no evidence for that at this time and the son reports that the abscess he saw on the right side of the scrotum three weeks ago has completely resolved based on our examining the area with his son today. At this point, I think the most appropriate course would be to simply wait and see what gram-negative maxwell grows in the urine and if it is sensitive to Cipro and/or levo we could discharge the patient in the relatively near future on an oral quinolone for about a two week course. Urology has been asked to see the patient and certainly if they believe that he has prostatitis that could be extended for four weeks. RECOMMENDATIONS: 1. Continue with levofloxacin as our sole antibiotic. 2. We await the culture and susceptibility tomorrow. If this organism is susceptible to quinolones I would embark on a two week course unless we get other directions from Urology. 3. We discussed with the son the need to keep the patient as clean and dry as possible to avoid skin irritation, which is obviously difficult in such a large and somewhat independent gentleman who does not wish to have a Kenny or any other apparatus. Obviously putting a Kenny in the patient would solve one problem in terms of skin irritation from incontinence but would create yet another way for this patient to become infected.
[2016-10-07] MEDS ORDERED: Furosemide 10 mg/mL 4 mL Inj ONE (19:59)
--- NOTE | 2016-10-07 20:10 | NUR ---
Mentation/Oxygenation.. [place] 0845 [place] [facility] [place] and worsening ABG. Placed on Bipap and slept for an hour. After that awoke, pulled off bipap and refused to have it replaced. Placed on oxymask and transitioned to a 6 liter nasal cannula which he tolerated well throughout shift. Was alert, conversant and appropriate but demanding and refusing care at times. Changed to floor care status per Dr Mueller. This evening pt had worsening Spo2 and was placed on the oxymask and Spo2 continued to worsen. Pt then placed on bipap and then had improved oxygenation. Son has been at the bedside and updated on status and plan of care.
[2016-10-07] MEDS: cloNIDine 0.1 mg Tablet PO SCH ×2 (20:30→23:12)
[2016-10-07] MEDS ORDERED: cefTRIAXone Inj 2,000 MG in Dextrose 5% Minibag Plus 50 ML IV SCH (23:30)
[2016-10-08] VITALS (10 sets, daily range): BP systolic 110–143; BP diastolic 50–70; PULSE 73–98; RESP 16–35; O2SAT 89–99
--- NOTE | 2016-10-08 01:05 | NUR ---
Mentation/BIPAP Pt took off BIPAP and SpO2 quickly dropped to low 80s/high 70s. Pt did report some SOB during obvious distress, but was more focused on the fact that he wanted a drink of water. This focus was almost to the point of obsession. Will only intermittently comply with BIPAP and will take off BIPAP (SpO2 high 90s on BIPAP) and wears Oxymask 8L. SpO2 only low 90s on Oxymask, but pt does not appear to be in distress. Extremely fidgety and constantly pulls off cords and monitoring equipment. When asked directly, he is A&O x 3. He does seem confused and very forgetful at times. Difficult to reason with pt. Will continue to monitor closely. Care ongoing
[2016-10-08 03:31] LABS: BASOPHILS % (AUTO) 0.3 % (0-3); EOSINOPHILS % (AUTO) 1.2 % (0-5); MONOCYTES % (AUTO) 6.3 % (4-12); Mean Corpuscular Hemoglobin 24.8 pg (27.0-35.0); Mean Corpuscular Volume 83.2 fL (81-100); NEUTROPHILS % (AUTO) 82.6 % (40-74); Platelet Count 224 bil/L (150-400)
[2016-10-08 03:49] LABS: INR 1.46 ratio
--- NOTE | 2016-10-08 05:37 | ABG ---
DateTimeAnalyzed 05:30:38 -_ pH ____7.497 - 7.350 7.450 pCO2 ___44.5__ -mmHg 35.0 45.0 pO2 127 -mmHg 70.0 100 HCO3- ___34.4__ -mmol/L 22.0 26.0 ABE ___10.3__ -mmol/L -2.0 2.0 tHb ____9.1__ -g/dL 12.0 18.0 O2Hb ___98.3__ -% 95.0 COHb ____1.1__ -% 1.5 MetHb ____0.1__ -% 0.4 1.5 sO2 ___99.5__ -% 25.0 FIO2 ___21.0__ -% PEEP ____9.0__ -cmH2O Set_RR 14 -b/min Vt __589.0__ -L Drawn By MD - Date/Time Notified____ 05:36:00 -_ Spontaneous_RR 19 -b/min Oxygen Device 1 ____BIPAP - Notified By MD - Notified Whom RN C.LORENZO - B 737 -mmHg K+ ____3.6__ -mmol/L tO2 ___12.9__ -Vol% Marcell test _Positive -
[2016-10-08] MEDS ORDERED: Potassium Chloride Oral 20 mEq SR Tab(K 3 - 3.7 & Creat < 2) PO ONE (06:40)
[2016-10-08] MEDS: Nystatin 100,000 Unit/Gm 15 Gm Powder TOPICAL SCH ×2 (07:34→19:54)
--- NOTE | 2016-10-08 07:46 | NUR ---
Agitation/Restlessness/BIPAP Pt continues to be agitated with care and pulls and O2 and monitor cords and lines. Agitated that night MD wanted him NPO for possible intubation d/t respiratory failure. Only intermittently wears BIPAP. Can only tolerate for ~1 hour and he rips off and start yelling. Uses call light frequently and inappropriately (feels it is negligence that we do not have more hospital staff available to scratch his arms and legs, despite several staff members who did so). MD and next shift aware. Care ongoing.
[2016-10-08] MEDS: levoFLOXacin 500 mg Tablet PO SCH (07:54)
[2016-10-08] MEDS: Felodipine 5 mg ER24 Tablet PO SCH (07:55)
[2016-10-08] MEDS: cloNIDine 0.1 mg Tablet PO SCH ×2 (07:56→19:54)
[2016-10-08] MEDS: Insulin LISPRO 300 Unit/3 mL Inj SUBQ SCH ×4 (08:00→23:23)
[2016-10-08] MEDS ORDERED: Influenza (Adult) Vaccine 0.5 mL Syringe IM ONE (08:30)
--- NOTE | 2016-10-08 12:03 | NUR ---
Social work Note - Initial Assessment Simeon Jimenez Jr is a 76 yr old who was admitted from [facility] for UTI. Pt has CHF, CKD, Afib and CVA in 2016. EMR reviewed: Pt has Medicare and AARP. His PCP is Dr Newton. Readmit score is 6 - High. See attached CM initial assessment. TRUCK DRIVER HELPER met with pt - pt was awake, grumpy. He states that he has been staying at [facility] for the past few weeks - he states that he hates it there - wants to go home with his son. He is living with son in [facility]. He was independent at baseline, drove. But he admits that he is weaker and dependent on care. He asked TRUCK DRIVER HELPER to call his son Madison. Madison identifies that he is DPOA. He states that he is worried that [facility] keeps getting pt infected and he would prefer to take pt home - BUT only if pt is able to ambulate on his own. PT evaluation is pending. Family will need him to return to [facility] if PT recommends SNF for rehab. Madison identifies that he is taking FMLA to be home with dad for the next three months. Pt has O2 at home through [facility]. TRUCK DRIVER HELPER spoke with Aracely at [facility] - [phone]. She states that pt can return at d/c if agreeable. Access given, Paperwork on chart. Plan: PT eval pending - To [facility] if recommended vs home with son and HH. BOYD Green Addendum: 10/08/16 at 1210 by ZANDRA KEE SS Amended: Links added.
--- NOTE | 2016-10-08 12:11 | NUR ---
MERCURY RECOVERER witnessed [facility]"s signature. Lorenza Macedo, SOL[employer]
[2016-10-08] MEDS ORDERED: Potassium Chloride 20 mEq SR Tablet PO ONE (16:45)
[2016-10-08] MEDS ORDERED: Furosemide 10 mg/mL 4 mL Inj IVPUSH ONE (16:45)
--- NOTE | 2016-10-08 17:29 | PCM.PNMED ---
Subjective Date of Service Oct 08, 2016 Subjective Simeon Jimenez is a 76 year old male with past medical history significant for CHF, CKD, diabetes, atrial fibrillation on chronic anticoagulation, CVA (02/2016) , with recent admission and discharge to [facility]. He is admitted from [facility] due to increased confusion and decreased ability to ambulate thought to be secondary to UTI. Hospital day 2. Overnight: Patient had increased oxygen requirements. Refused BiPAP at times and desaturated. Today: Patient on oxygen mask at 8 L. Patient states he has some shortness of breath but denies any chest pain, palpitations, dysuria, nausea, or vomiting. Discussed that it is important that he works with physical therapy today and continues to stay active. Remaining review of systems negative. Exam Vital Signs Vital Sign - Last Date Time Temp Pulse Resp B/P Pulse Ox O2 Delivery O2 Flow Rate FiO2 10/08/16 07:50 37.0 80 35 110/51 89 OxyMask 8.00 10/08/16 04:30 70 Intake and Output 10/07/16 10/07/16 10/08/16 Cumulative From/Thru 15:00 23:00 07:00 10/06/16 17:32 - 10/08/16 06:32 Intake Total 240 ml 800 ml 2691 ml Output Total 2060 ml Balance 240 ml 800 ml 631 ml Intake Oral 240 ml 800 ml 2640 ml IV Total 51 ml Output Urine Total 2060 ml # Voids 3 3 10 # Bowel Movements 2 1 3 Exam General: Morbidly obese, well-developed, well-nourished, appropriately interactive on oxygen mask HEENT: Normocephalic, atraumatic. Anicteric sclerae, moist conjunctivae, and no lid lag. Neck: Supple with full range of motion. Mild JVD. Cardiovascular: Irregularly irregular with no murmurs, rubs, or gallops appreciated Pulmonary: Clear to auscultation bilaterally with faint crackles in bases bilaterally. Requiring oxygen mask at 10-15 L. Abdomen: Bowel tones present. Soft and nontender Extremities: Chronic venous stasis and lower extremity edema. Neurological: Cranial nerves grossly intact. Psychiatric: Normal mood and affect. Alert and oriented to person, place, and time. Lab and Diagnostics Result Diagram: 10/08/16 0315 10/08/16 0315 X-Rays, CTs and MRIs X-RAY CHEST ONE VIEW, PORTABLE IMPRESSION: Increased pulmonary vascularity, suggestive of edema. Dictated by: Liberty Yuen M.D. on 10/07/2016 at 8:07 Approved by: Liberty Yuen M.D. on 10/07/2016 at 8:07 X-RAY CHEST ONE VIEW, PORTABLE IMPRESSION: Trace right-sided pleural effusion. Patchy opacity in the right lung base compatible with atelectasis versus pneumonia. Dictated by: Maria E Beckford MD, PhD on 10/06/2016 at 19:34 Approved by: Maria E Beckford MD, PhD on 10/06/2016 at 19:34 Cardiac Echo Impressions Echocardiogram Report Interpretation Summary The left ventricle is normal in size. There is mild concentric left ventricular hypertrophy. The ejection fraction is estimated to be 55-60%. There are no obvious focal wall motion abnormalities noted but poor endocardial definition reduces the sensitivity for the detection of such. The right ventricle is borderline dilated. Right ventricular systolic function is mildly reduced. The IVC is dilated (diameter is greater than 2.1 cm) yet it collapses greater than 50% with a sniff. This suggests a right atrial pressure of 8 mm Hg. There is mild aortic stenosis. No other echocardiographic abnormalities seen. Compared to the prior echo report on 05/06/2016, there is no significant change. Reading Physician:05:26 PM Additional Diagnostics DateTimeAnalyzed 05:30:38 -_ pH ____7.497 - 7.350 7.450 pCO2 ___44.5__ -mmHg 35.0 45.0 pO2 127 -mmHg 70.0 100 HCO3- ___34.4__ -mmol/L 22.0 26.0 Assessment & Plan Simeon Jimenez is a 76 year old male with past medical history significant for CHF, CKD, diabetes, atrial fibrillation on chronic anticoagulation, CVA (02/2016) , with recent admission and discharge to [facility]. He is admitted from [facility] due to increased confusion and decreased ability to ambulate thought to be secondary to UTI. Hospital day 2. 1. Acute decompensated heart failure with preserved EF, present on admission, worsening. -- Echo on 10/07 showed no significant change from that on 05/06/16. EF 55-60%. -- Patient with increasing oxygen needs. -- Additional dose of Lasix 40 mg IV given. -- Chest x-ray 10/07 showed increased pulmonary edema. Will repeat tomorrow. -- Lasix 40mg PO BID 2. Complicated UTI, present on admission, active. -- Urine culture grew ESBL. -- Antibiotics switched from Levaquin to ertapenem 1000 mg every 24 hours on . -- Infectious disease consulted. Appreciate time and expertise. 3. Delirium, as on admission, resolved. -- Likely secondary to acute UTI and hypoxemia/hypercapnia 4. Hypertension, present on admission, chronic. -- Home medications continued as follows: Lisinopril 5 mg daily Carvedilol 25 mg twice a day Clonidine 0.1 mg twice a day Felodipine 10 mg daily Doxazosin 8 mg nightly. 5. Atrial fibrillation, present on admission, chronic. -- Rate control with carvedilol. -- Continued warfarin per pharmacy. -- Monitoring on telemetry. 6. Subtherapeutic INR, present on admission -- mildly subtherapeutic INR, will repeat in am -- pharmacy to dose warfarin 7. Chronic kidney disease, present on admission, stable. -- Baseline creatinine 1.4. -- Avoid nephrotoxic medications. -- Continue to monitor. 8. Diabetes, present on admission, chronic. -- Insulin lispro per protocol. 9. BPH, present on admission, chronic. -- Continue oxybutynin 5 mg 3 times a day. 10. Peripheral neuropathy, present on admission, chronic. -- Continue gabapentin 300 mg 3 times a day. 11. Hypercholesterolemia, present on admission, stable -- Continue pravastatin 40 mg nightly. Disposition: Discharged likely to SNF. Discharge pending improvement in respiratory status and need for IV antibiotics. Pain Evaluation: Adequate Pain Control GI Prophylaxis: Not indicated VTE Prophylaxis: Theraputic Anticoag with Warfarin VTE Mechanical Devices: Intermittant Pneumatic CD Resuscitation Status: CPR: Attempt Resuscitation Attending Statement The patient was seen and examined together with Resident/House-staff on 10/08/16 and I agree with the history, exam and plan as outlined in the note above. BROCK KEENE DO Oct 08, 2016 08:06 Claude Mancini Oct 08, 2016 17:42
--- NOTE | 2016-10-08 17:45 | NUR ---
Respiratory/systemic/Cardiac Increasing oxygen demands, pt wearing 10 to 15L per oxy-mask. Desaturates down to mid 80s with minimal exertion, recovers slowly. Tolerated bipap while resting this afternoon. Atrial fib per bisque ware dipper, rate controlled. Normotensive. Low grade fever, 38.0 axillary. Remains alert and oriented x 3. Denies pain. Dr Nicholson updated on change in patient status, 40mg IV lasix & po potassium ordered.
[2016-10-08] MEDS ORDERED: 0.9% Sodium Chloride 250 ML ONE (17:59)
[2016-10-08] MEDS: Ertapenem Inj 1,000 MG in 0.9% Sodium Chloride 50 ML IV SCH (18:05)
[2016-10-09] VITALS (10 sets, daily range): BP systolic 122–147; BP diastolic 55–66; PULSE 73–90; RESP 16–20; O2SAT 88–97
[2016-10-09 03:35] LABS: BASOPHILS % (AUTO) 0.2 % (0-3); EOSINOPHILS % (AUTO) 1.7 % (0-5); MONOCYTES % (AUTO) 9.6 % (4-12); Mean Corpuscular Hemoglobin 25.2 pg (27.0-35.0); NEUTROPHILS % (AUTO) 71.9 % (40-74); Platelet Count 216 bil/L (150-400)
--- NOTE | 2016-10-09 05:51 | NUR ---
Respiratory/Agitation: SpO2: 94% on 15L oxymask at start of shift. Pt. placed in BiPAP, 70% FiO2 at HS. Pt. wearing BiPAP for large majority of shift, SpO2: 97-99% while wearing BiPAP. Pt. pleasant and cooperative throughout majority of shift, however at approximately 0500, pt. awoke and became extremely demanding towards staff, despite staff attempting to accommodate pt.'s multiple demands. Additionally, pt. began inappropriately using call britt at extremely high frequency despite staff members being in room very frequently to attempt to meet his multiple demands.
[2016-10-09] MEDS ORDERED: Potassium Chloride 20 mEq SR Tablet PO SCH (08:00)
--- NOTE | 2016-10-09 08:37 | DRSVH ---
PROCEDURE: X-RAY CHEST ONE VIEW, PORTABLE ([id number]) INDICATIONS: SHORTNESS OF BREATH TECHNIQUE: One view of the chest was acquired. COMPARISON: [facility], CR, XR CHEST 1VW (PORTABLE), 10/07/2016, 7:39. FINDINGS: Surgical changes and devices: None. Lungs and pleura: There is slightly improved aeration of the lungs when compared with the study dated 10/07/16. Diffuse interstitial opacities persist. Mediastinum: Mediastinal contours appear normal. Heart size is enlarged, as before. Bones and chest wall: No suspicious bony lesions. Overlying soft tissues appear unremarkable. IMPRESSION: Slightly improved aeration of the lungs with decreased interstitial opacities in the sett ing of cardiomegaly suggesting partial diuresis. Dictated by: Mary Ellen Perkins M.D. on 10/09/2016 at 8:34 Approved by: Mary Ellen Perkins M.D. on 10/09/2016 at 8:35
[2016-10-09] MEDS: Nystatin 100,000 Unit/Gm 15 Gm Powder TOPICAL SCH ×2 (09:00→20:18)
[2016-10-09] MEDS: Insulin LISPRO 300 Unit/3 mL Inj SUBQ SCH ×4 (09:08→23:30)
[2016-10-09] MEDS: Ertapenem Inj 1,000 MG in 0.9% Sodium Chloride 50 ML IV SCH (09:11)
[2016-10-09] MEDS: Felodipine 5 mg ER24 Tablet PO SCH (09:13)
[2016-10-09] MEDS: cloNIDine 0.1 mg Tablet PO SCH ×2 (09:13→20:07)
--- NOTE | 2016-10-09 11:00 | NUR ---
Evaluation completed. Please go to "Notes" then click on "Assessments and Notes" (bottom left corner of screen). Then select appropriate discipline tab on top of screen.
[2016-10-09 12:18] LABS: INR 1.45 ratio
--- NOTE | 2016-10-09 15:33 | PCM.PNMED ---
Subjective Date of Service Oct 09, 2016 Subjective Simeon Jimenez is a 76 year old male with past medical history significant for CHF, CKD, diabetes, atrial fibrillation on chronic anticoagulation, CVA (02/2016) , with recent admission and discharge to [facility]. He is admitted from [facility] due to increased confusion and decreased ability to ambulate thought to be secondary to UTI. Hospital day 3. Overnight: Patient became agitated and demanding towards the morning. Today: Patient was eating breakfast and was only complaining about the food choices. Patient states he has some shortness of breath but denies any chest pain, palpitations, dysuria, nausea, or vomiting. Remaining review of systems negative. Exam Vital Signs Vital Sign - Last Date Time Temp Pulse Resp B/P Pulse Ox O2 Delivery O2 Flow Rate FiO2 10/09/16 11:54 37.7 85 18 133/66 88 OxyMask 15.00 10/08/16 16:13 70 Intake and Output 10/08/16 10/08/16 10/09/16 Cumulative From/Thru 15:00 23:00 07:00 10/06/16 17:32 - 10/09/16 06:37 Intake Total 1550 ml 1162 ml 5403 ml Output Total 2060 ml Balance 1550 ml 1162 ml 3343 ml Intake Oral 1500 ml 1112 ml 5252 ml IV Total 50 ml 50 ml 151 ml Output Urine Total 2060 ml # Voids 4 3 17 # Bowel Movements 2 5 Exam General: Morbidly obese, well-developed, well-nourished, appropriately interactive on oxygen mask HEENT: Normocephalic, atraumatic. Anicteric sclerae, moist conjunctivae, and no lid lag. Neck: Supple with full range of motion. Mild JVD. Cardiovascular: Irregularly irregular with no murmurs, rubs, or gallops appreciated Pulmonary: Clear to auscultation bilaterally with faint crackles in bases bilaterally. Requiring oxygen mask at 10-15 L. Abdomen: Bowel tones present. Soft and nontender Extremities: Chronic venous stasis and lower extremity edema. Neurological: Cranial nerves grossly intact. Psychiatric: Normal mood and affect. Alert and oriented to person, place, and time. IVs and Medications Medications Reviewed: Medications were reviewed in detail Lab and Diagnostics Result Diagram: 10/09/16 0250 10/09/16 0250 X-Rays, CTs and MRIs X-RAY CHEST ONE VIEW, PORTABLE IMPRESSION: Increased pulmonary vascularity, suggestive of edema. Dictated by: Liberty Yuen M.D. on 10/07/2016 at 8:07 Approved by: Liberty Yuen M.D. on 10/07/2016 at 8:07 X-RAY CHEST ONE VIEW, PORTABLE IMPRESSION: Trace right-sided pleural effusion. Patchy opacity in the right lung base compatible with atelectasis versus pneumonia. Dictated by: Maria E Beckford MD, PhD on 10/06/2016 at 19:34 Approved by: Maria E Beckford MD, PhD on 10/06/2016 at 19:34 Cardiac Echo Impressions Interpretation Summary The left ventricle is normal in size. There is mild concentric left ventricular hypertrophy. The ejection fraction is estimated to be 55-60%. There are no obvious focal wall motion abnormalities noted but poor endocardial definition reduces the sensitivity for the detection of such.The right ventricle is borderline dilated. Right ventricular systolic function is mildly reduced. The IVC is dilated (diameter is greater than 2.1 cm) yet it collapses greater than 50% with a sniff. This suggests a right atrial pressure of 8 mm Hg. There is mild aortic stenosis. No other echocardiographic abnormalities seen. Compared to the prior echo report on 05/06/2016, there is no significant change. Reading Physician:05:26 PM Additional Diagnostics DateTimeAnalyzed 05:30:38 -_ pH ____7.497 - 7.350 7.450 pCO2 ___44.5__ -mmHg 35.0 45.0 pO2 127 -mmHg 70.0 100 HCO3- ___34.4__ -mmol/L 22.0 26.0 Assessment & Plan Simeon Jimenez is a 76 year old male with past medical history significant for CHF, CKD, diabetes, atrial fibrillation on chronic anticoagulation, CVA (02/2016) , with recent admission and discharge to [facility]. He is admitted from [facility] due to increased confusion and decreased ability to ambulate thought to be secondary to UTI. Hospital day 3. 1. Acute decompensated heart failure with preserved EF, present on admission, worsening. -Echo on 10/07 showed no significant change from that on 05/06/16. EF 55-60%. -Patient with increasing oxygen needs. -Chest x-ray 10/07 showed increased pulmonary edema, repeat chest x-ray does not really show much improvement -Lasix 40mg IV BID -Will add a one time dose of chlorthalidone and reassess 2. Complicated UTI, present on admission, active. -Urine culture grew ESBL. -Antibiotics switched from Levaquin to ertapenem on 10/08. -Infectious disease consulted. Appreciate time and expertise. -Per Dr. Raygoza patient can be discharged on 1 g ertapenem daily for the next 10 days. 3. Delirium, as on admission, resolved. -Likely secondary to acute UTI and hypoxemia/hypercapnia 4. Hypertension, present on admission, chronic. -Home medications continued as follows: Carvedilol 25 mg twice a day, Clonidine 0.1 mg twice a day, Felodipine 10 mg daily 5. Atrial fibrillation, present on admission, chronic. -Rate control with carvedilol. -Continued warfarin per pharmacy. -Monitoring on telemetry. 6. Subtherapeutic INR, present on admission -mildly subtherapeutic INR, will repeat in am -pharmacy to dose warfarin 7. CKD, present on admission, stable. -Uncertain if patient actually has CKD based on a few normal measurements of Cr in the last year. -Will hold Lisinopril for now -Continue to monitor 8. Diabetes, present on admission, chronic. -Insulin lispro per protocol. 9. BPH, present on admission, chronic. -Stop doxazosin 10. Peripheral neuropathy, present on admission, chronic. -Continue gabapentin 300 mg 3 times a day. 11. Hypercholesterolemia, present on admission, stable -Continue pravastatin 40 mg nightly. 12. Urinary incontinence -Patient was on doxazosin, which likely was contributing -Continue with oxybutynin Disposition: Discharged likely to SNF. Discharge pending improvement in respiratory status in the next couple of days. GI Prophylaxis: Not indicated VTE Prophylaxis: Theraputic Anticoag with Warfarin VTE Mechanical Devices: Intermittant Pneumatic CD Resuscitation Status: CPR: Attempt Resuscitation Attending Statement The patient was seen and examined together with Resident/House-staff on 10/09/16 and I agree with the history, exam and plan as outlined in the note above. Anna Phillips DO Oct 09, 2016 15:33 Claude Mancini Oct 09, 2016 17:13
--- NOTE | 2016-10-09 16:40 | PROG NOTE ---
[address] [address] PROGRESS NOTE PATIENT: SUSANA SHOOK : 1940 MR#: [id number] ADMIT: 10/06/2016 JOB ID: [id number] DATE: 10/09/2016 REASON FOR FOLLOWUP: Complicated urinary tract infection in a debilitated, morbidly obese gentleman. INTERVAL HISTORY: Recall this is a patient who was originally seen in consultation back on Monday, the . At that time, we were concerned that he had a complicated UTI but that he was not bacteremic. We were also worried about scrotal abscess but we did not find any evidence of that and recommended that a quinolone be continued as our primary antibiotic while we awaited susceptibilities. Over the weekend though susceptibilities have returned and it turns out, this is a very resistant gram-negative maxwell, which will not be amenable to treatment with quinolones. The patient was therefore switched to ertapenem by the house staff and they have discussed this decision with me this morning. The patient currently feels well. He reports that he is very weak and could only get out of bed with the help of two of the nursing staff but otherwise he feels relatively well. He denies fevers, chills, significant shortness of breath or belly pain. He states he would like to be discharged home as soon as possible to be with his son and his [place]. PHYSICAL EXAMINATION: Reveals a morbidly obese, almost immobile gentleman. I helped the nurses reposition him in bed and this was not easy to do suggesting he may not do well at home. Recall that he weighs almost 150 kg and is very debilitated. His current temperature 37.1, pulse 78, respiratory rate 18, blood pressure 129/59, saturating in the low 90s with supplemental oxygen. He is awake, alert. Oral cavity negative. Lungs with decreased breath sounds but no focal rales. Abdomen: Massively obese, soft, and nontender. The patient is not wearing a Kenny catheter. His backside was carefully examined. There is no skin breakdown or ulceration. No skin rashes noted. LABORATORIES: Include a white count which has declined to 9400. His creatinine is 1.53. His procalcitonin zero. Urine has grown an ESBL Klebsiella pneumoniae which is resistant to quinolones and really only sensitive to carbapenems. A chest x-ray done today shows improved aeration with decreased interstitial infiltrates. IMPRESSION: This is a complicated and debilitated gentleman with an extended-spectrum beta-lactamase Escherichia coli complicated urinary tract infection. There really are no other options besides ertapenem in terms of treating this patient. Meropenem or imipenem could be used but they would be unnecessarily broad. Aminoglycosides would be wildly toxic and inappropriate in this case. RECOMMENDATIONS: 1. Ertapenem 1 g once a day to be continued for a total of 10 days from the initiation day to the ertapenem. 2. This could be done in a group home facility which seems like a reasonable choice or the patient could be sent home with home IV infusion. It seems hard for me to believe that he will be able to be mobilized out of a recumbent position by his son, who is the only other person in the household and that he would require some intensive home health if he is to go home and be able to survive there with his son. I will be available to assist tomorrow if we decide to send him home with home IV antibiotics.
--- NOTE | 2016-10-09 18:44 | NUR ---
Hallucinating End of shift pt hallucinating trying to feed himself while RN at bs; son at bs states "he's been very tired and not wanting to wake up right now to eat." Oxymask 15L O2, SPO2 91-92% sometimes down to 86-87% and desats quickly when pt removes mask to talk on phone and eat SPO2 drops down to 68% and long time to recover. Will continue to monitor with frequent rounds.
[2016-10-09] MEDS: Furosemide 10 mg/mL 4 mL Inj IVPUSH SCH (20:05)
--- NOTE | 2016-10-09 20:20 | NUR ---
Obtunded: Pt. very difficult to wake during assessment. Requires repeated, loud verbal stimuli and light touch to even wake briefly. When pt. does wake briefly, he is only able to stay awake approximately 1 minute before falling back to sleep. Pt.'s speech mumbled and delayed. Son at bedside states that pt. "is not quite himself". Respiratory therapy notified, BiPAP placed on pt. FiO2: 70%. Physician notified of findings, orders received for ABG's. Addendum: 10/10/16 at 0430 by RASHEED HANSON RN ABG values in chart. Pt. remained on BiPAP throughout shift. Mentation cleared at this time.
[2016-10-09] MEDS ORDERED: Ertapenem Inj 1,000 MG in 0.9% Sodium Chloride 50 ML IV SCH (20:30)
--- NOTE | 2016-10-09 21:24 | ABG ---
DateTimeAnalyzed 21:18:00 -_ pH ____7.330 - 7.350 7.450 pCO2 ___68.2__ -mmHg 35.0 45.0 pO2 ___64.2__ -mmHg 69.0 116 HCO3- ___34.9__ -mmol/L 22.0 26.0 ABE ____7.9__ -mmol/L -2.0 2.0 tHb ____9.4__ -g/dL O2Hb ___90.0__ -% COHb ____1.4__ -% MetHb ____1.1__ -% sO2 ___92.3__ -% 25.0 FIO2 ___70.0__ -% CPAP __189.0__ -cmH2O Set_RR ___14.0__ -b/min Drawn By LT - Date/Time Notified____ 21:23:00 -_ Spontaneous_RR ___17.0__ -b/min Notified By LT - Notified Whom [facility] - B 747 -mmHg tO2 ___12.0__ -Vol% Marcell test _Positive -
--- NOTE | 2016-10-09 22:34 | PCM.EDPN ---
ED Note Date of Service Oct 09, 2016 The patient's son was accidentally exposed by needlestick to this patient's blood. The patient's chart was reviewed and no evidence of blood-borne pathogen testing was noted, so an exposure panel one was ordered by me. Bernard Goode MD Oct 09, 2016 22:34
[2016-10-10] VITALS (10 sets, daily range): BP systolic 111–138; BP diastolic 52–72; PULSE 65–88; RESP 16–25; O2SAT 90–96
--- NOTE | 2016-10-10 04:31 | NUR ---
Behavior: Pt. agitated towards staff, demanding non-urgent requests from staff at extremely high frequency. Using call britt for non-urgent needs approximately every 1-2 minutes. Discussed grouping requests with pt., however pt. does not appear to understand concept, as evidenced by pt. continuing to put call light on every couple of minutes. Charge nurse at bedside discussing pt.'s behavior with pt., however pt. continues to use call britt inappropriately.
[2016-10-10 05:02] LABS: BASOPHILS % (AUTO) 0.4 % (0-3); EOSINOPHILS % (AUTO) 4.1 % (0-5); MONOCYTES % (AUTO) 8.8 % (4-12); Mean Corpuscular Hemoglobin 24.9 pg (27.0-35.0); Mean Corpuscular Volume 86.5 fL (81-100); Platelet Count 247 bil/L (150-400)
[2016-10-10 05:18] LABS: INR 1.57 ratio
[2016-10-10 05:47] LABS: Magnesium 2.1 mg/dL (1.6-2.6)
[2016-10-10] MEDS ORDERED: KCl 40 mEq/D5W 500 mL 40 MEQ in IV Premix 500 EACH IV ONE (07:40)
[2016-10-10] MEDS: Ertapenem Inj 1,000 MG in 0.9% Sodium Chloride 50 ML IV SCH (08:52)
[2016-10-10] MEDS: Felodipine 5 mg ER24 Tablet PO SCH (08:56)
[2016-10-10] MEDS: Nystatin 100,000 Unit/Gm 15 Gm Powder TOPICAL SCH ×2 (08:56→20:43)
[2016-10-10] MEDS: Furosemide 10 mg/mL 4 mL Inj IVPUSH SCH ×2 (09:00→20:42)
[2016-10-10] MEDS: cloNIDine 0.1 mg Tablet PO SCH ×2 (09:00→20:42)
[2016-10-10] MEDS: Insulin LISPRO 300 Unit/3 mL Inj SUBQ SCH ×4 (09:01→20:43)
--- NOTE | 2016-10-10 09:46 | PCM.PHAPRO ---
Progress confusion, decreased ability to ambulate, urinary frequency and incontinence Warfarin Dosing Home dose 8mg/d x 9mg on Mon Admit IN 1.53 Recent Dosing: Date Oct 08-Oct 09-Oct 10-Oct 11-Oct 12-Oct 13-Oct 14-Oct 15-Sep INR 1.53 1.46 1.45 1.57 INR change -0.07 -0.01 0.12 Warf Dose 8 8 10X1 10mg x1 a/ Unclear resistance to warfarin, not vit K given p/ Another 10mg bump dose of 10mg Ziyad Oviedo S Pharm D Oct 10, 2016 09:46
--- NOTE | 2016-10-10 11:29 | PROG NOTE ---
[address] [address] PROGRESS NOTE PATIENT: SUSANA SHOOK : 1940 MR#: [id number] ADMIT: 10/06/2016 JOB ID: [id number] DATE: 10/10/2016 REASON FOR FOLLOWUP: Complicated ESBL urinary tract infection. INTERVAL HISTORY: Over the weekend, the patient has improved considerably. Today, he denies fevers, chills, or sweats. Says his respiratory status is "fine," and that he feels ready to go home. When pressed, however, the patient says he has not really gotten out of bed much in the past few days and is uncertain about his ability to transfer or take a few steps, which would be required for him to go home with his son. He has no residual symptoms of infection, however, at this time. PHYSICAL EXAMINATION: Reveals a bed-bound man who weighs 150 kg. Temperatures around 37 consistently, pulse 80, respiratory rate 16, blood pressure 128/52. He is saturating fairly well but requiring OxyMask to keep his sats above 90. He is awake and alert, and much more complete in his conversation than he has been in the past few days. His eyes are without conjunctivitis. Oral cavity negative. Lungs with relatively clear breath sounds anteriorly. Cardiac tones without new murmur. Abdomen quite obese, but nontender. LABORATORIES: Include a white count of 9200, platelets 247. Creatinine 1.43. LFTs are normal. HIV is negative. Micro studies include the Klebsiella pneumoniae which was isolated from urine on admission which is very resistant organism sensitive only to gentamicin and the carbapenems basically. Chest x-ray done yesterday shows slightly improved aeration of the lungs with decreased interstitial opacities consistent with improving congestive failure. IMPRESSION: This is a quite debilitated and morbidly obese, elderly gentleman, who I know from prior admissions, who was admitted this time with an extended spectrum beta-lactamases Klebsiella urinary tract infection. We have really no options other than ertapenem to successfully treat this highly resistant organism, and it should be continued to complete a total of 10 days of therapy, which would take us through until October 17, which would be another full week of treatment. RECOMMENDATIONS: 1. Ertapenem 1 g once a day through October 17. 2. At this point, I do not see this patient as being ready to go to the house on [address] with his adult son. The patient is very large and not very mobile at this point. In addition, he would require home IV infusions and probably would need a midline catheter through the . It would seem a better option to me that he go back to [facility] or some similar location and receive the ertapenem 1 g a day through October 17 through a peripheral IV as he simultaneously attempts to gain strength and mobility so that he can safely transitioned to the place on [address]. 3. The patient is doing great from an Infectious Disease point of view, and so I am going to go ahead and sign off, but if there is a need for me to become re-involved, especially to coordinate home IV therapy with antibiotics, please do not hesitate to call me.
--- NOTE | 2016-10-10 13:09 | NUR ---
Oxygenation PT on Oxymask 13L and sats are 90-93%, while eating the pt desats to 60's. NC applied at 6L and oxymask at bedside and will apply it as well when feeling SOB while eating only. After eating NC removed and just Oxymask is on. After lunch plan to use Bipap for a couple hours while napping.
--- NOTE | 2016-10-10 14:07 | NUR ---
NUTRITION ASSESSMENT Assess: 76 YO M admitted with UTI. Pt with mostly good PO intake. PMHX: bilateral leg edema, Subacute caudate stroke, peripheral neuropathy, arthritis, cellulitis, bleeding disorder, CHF, DM type 2, HLD, HTN, afib, hiatal hernia, GERD, Depression. DIET: Heart Healthy/Consistent Carb. PO intake 0-100%, mostly 100%. LABS: BUN 35, Cr 1.43, Glu 133, (10/09): Alb 2.6 MEDICATIONS: Reviewed. Coumadin, Lasix. GI: 3 BM (10/08) SKIN: No issues noted. WEIGHT: 147.6 kg, BMI 46.6 kg/m2, Ht: 70 in. Adj BW: 93.5 kg. ESTIMATED NEEDS: BMI Calories: 4808-1488 kcal/day (25-30 kcal/kg Adj. BW) Protein: 112-140 g/day (1.2-1.5 g/kg Adj. BW) NUTRITION DIAGNOSIS: 1) No diagnosis at this time. INTERVENTION: 1) No intervention at this time. MONITOR/EVALUATE: PO intake, diet tolerance, labs, GI/nutrition status. Follow per moderate nutrition risk guidelines.
--- NOTE | 2016-10-10 16:11 | PCM.PNMED ---
Subjective Date of Service Oct 10, 2016 Subjective Simeon Jimenez is a 76 year old male with past medical history significant for CHF, CKD, diabetes, atrial fibrillation on chronic anticoagulation, CVA (02/2016) , with recent admission and discharge to [facility]. He is admitted from [facility] due to increased confusion and decreased ability to ambulate thought to be secondary to UTI. Hospital day 4. Overnight: Patient became agitated and refused BPAP. Today: Patient states breathing is improved. He complains of not receiving breakfast yet this morning. Denies chest pain, palpitations, dysuria, nausea, or vomiting. Remaining review of systems negative. Exam Vital Signs Vital Sign - Last Date Time Temp Pulse Resp B/P Pulse Ox O2 Delivery O2 Flow Rate FiO2 10/10/16 04:02 37.0 85 20 135/68 96 BiPAP 70 10/09/16 20:03 14.00 Intake and Output 10/09/16 10/09/16 10/10/16 Cumulative From/Thru 15:00 23:00 07:00 10/06/16 17:32 - 10/10/16 06:02 Intake Total 1524 ml 1200 ml 8127 ml Output Total 1350 ml 3410 ml Balance 1524 ml -150 ml 4717 ml Intake Oral 1474 ml 1200 ml 7926 ml IV Total 50 ml 201 ml Output Urine Total 1350 ml 3410 ml # Voids 3 2 22 # Bowel Movements 5 Exam General: Morbidly obese, well-developed, well-nourished, appropriately interactive on oxygen mask HEENT: Normocephalic, atraumatic. Anicteric sclerae, moist conjunctivae, and no lid lag. Neck: Supple with full range of motion. Mild JVD. Cardiovascular: Irregularly irregular with no murmurs, rubs, or gallops appreciated Pulmonary: Clear to auscultation bilaterally with faint crackles in bases bilaterally. Requiring oxygen mask at 4-6 L. Abdomen: Bowel tones present. Soft and nontender Extremities: Chronic venous stasis and lower extremity edema. Neurological: Cranial nerves grossly intact. Psychiatric: Normal mood and affect. Alert and oriented to person, place, and time. Lab and Diagnostics Result Diagram: 10/10/16 0450 10/10/16 0450 X-Rays, CTs and MRIs X-RAY CHEST ONE VIEW, PORTABLE IMPRESSION: Increased pulmonary vascularity, suggestive of edema. Dictated by: Liberty Yuen M.D. on 10/07/2016 at 8:07 Approved by: Liberty Yuen M.D. on 10/07/2016 at 8:07 X-RAY CHEST ONE VIEW, PORTABLE IMPRESSION: Trace right-sided pleural effusion. Patchy opacity in the right lung base compatible with atelectasis versus pneumonia. Dictated by: Maria E Bcekford MD, PhD on 10/06/2016 at 19:34 Approved by: Maria E Beckford MD, PhD on 10/06/2016 at 19:34 Cardiac Echo Impressions Interpretation Summary The left ventricle is normal in size. There is mild concentric left ventricular hypertrophy. The ejection fraction is estimated to be 55-60%. There are no obvious focal wall motion abnormalities noted but poor endocardial definition reduces the sensitivity for the detection of such.The right ventricle is borderline dilated. Right ventricular systolic function is mildly reduced. The IVC is dilated (diameter is greater than 2.1 cm) yet it collapses greater than 50% with a sniff. This suggests a right atrial pressure of 8 mm Hg. There is mild aortic stenosis. No other echocardiographic abnormalities seen. Compared to the prior echo report on 05/06/2016, there is no significant change. Reading Physician:05:26 PM Assessment & Plan Simeon Jimenez is a 76 year old male with past medical history significant for CHF, CKD, diabetes, atrial fibrillation on chronic anticoagulation, CVA (02/2016) , with recent admission and discharge to [facility]. He is admitted from [facility] due to increased confusion and decreased ability to ambulate thought to be secondary to UTI. Hospital day 4. 1. Acute decompensated heart failure with preserved EF, present on admission, worsening. -Echo on 10/07 showed no significant change from that on 05/06/16. EF 55-60%. -Patient continues to require 3-4 L oxymask. -Chest x-ray 10/07 showed increased pulmonary edema, repeat chest x-ray shows minimal improvement. -Lasix 40mg IV BID. Additional 40 mg given this afternoon. 2. Complicated UTI, present on admission, active. -Urine culture grew ESBL. -Antibiotics switched from Levaquin to ertapenem on 10/08. -Infectious disease consulted. Appreciate time and expertise. -Per Dr. Raygoza patient can be discharged on 1 g ertapenem daily for the next 10 days. 3. Delirium, as on admission, resolved. -Likely secondary to acute UTI and hypoxemia/hypercapnia. 4. Hypertension, present on admission, chronic. -Home medications continued as follows: Carvedilol 25 mg twice a day, Clonidine 0.1 mg twice a day, Felodipine 10 mg daily 5. Atrial fibrillation, present on admission, chronic. -Rate control with carvedilol. -Continued warfarin per pharmacy. -Monitoring on telemetry. 6. Subtherapeutic INR, present on admission, -Mildly subtherapeutic INR, will repeat in am -Pharmacy to dose warfarin 7. CKD, present on admission, stable. -Uncertain if patient actually has CKD based on a few normal measurements of Cr in the last year. -Will hold Lisinopril for now -Continue to monitor 8. Diabetes, present on admission, chronic. -Insulin lispro per protocol. 9. BPH, present on admission, chronic. -Stop doxazosin 10. Peripheral neuropathy, present on admission, chronic. -Continue gabapentin 300 mg 3 times a day. 11. Hypercholesterolemia, present on admission, stable -Continue pravastatin 40 mg nightly. 12. Urinary incontinence -Patient was on doxazosin, which likely was contributing -Continue with oxybutynin Disposition: Discharged likely to SNF. Discharge pending improvement in respiratory status in the next couple of days. Pain Evaluation: Adequate Pain Control GI Prophylaxis: Not indicated VTE Prophylaxis: Theraputic Anticoag with Warfarin VTE Mechanical Devices: Intermittant Pneumatic CD Resuscitation Status: CPR: Attempt Resuscitation Attending Statement The patient was seen and examined together with Dr. Keene on 10/10/2016 and I agree with the history, exam and plan as outlined in the note above. . BROCK KEENE DO Oct 10, 2016 07:50 Natanael Phipps MD Oct 11, 2016 16:36
[2016-10-10] MEDS ORDERED: Furosemide 10 mg/mL 4 mL Inj IVPUSH ONE (16:20)
--- NOTE | 2016-10-10 19:08 | NUR ---
1530- 1700 DAYS Patient on 13L Oxymax and desats to low 80's when put on NC 6L to eat dinner. Sats in 90's with mask on, patient appears needy at times, repeated calls for ice, water, but does not want to be repositioned. VSS, dinner BG was 131, bilateral edema LE.
[2016-10-11] VITALS (11 sets, daily range): BP systolic 95–140; BP diastolic 51–78; PULSE 70–80; RESP 12–24; O2SAT 89–99
[2016-10-11 04:28] LABS: Mean Corpuscular Hemoglobin 24.5 pg (27.0-35.0); Mean Corpuscular Volume 84.6 fL (81-100)
[2016-10-11 04:44] LABS: INR 1.67 ratio
--- NOTE | 2016-10-11 07:25 | NUR ---
BIPAP/Itching Pt did well overnight. Put BIPAP on at 220 and tolerated for ~4 hours, then took off and was on 14L Oxymask through rest of night. SpO2 mid to high 90s. Appears to be breathing better and more comfortably. Efraín put out >3L last night. Will continue to monitor. Care ongoing Addendum: 10/11/16 at 0728 by PREMA VENTURA RN Pt also did report itching throughout body. Bed bath given as well as his lotion placed. He is requesting a possible anti itch lotion. Will mention to oncoming shift. Care ongoing
--- NOTE | 2016-10-11 08:15 | NUR ---
Social Work Note: Continued Discharge Planning Data& Assessment: Pt is not medically ready for discharge at this time. Pt was sleeping, EDUARDO confirmed discharge plan with pt son. Pt is accepted back at [facility] for continued rehab. EDUARDO met with pt and pt son at bedside. SW communicated that PT is recommended SNF and he will require continued rehab at time of discharge. Pt son explained pt will understand that he needs to go back to [facility]. Pt son is just anxious about pt medically improving at this time. Pt son denies any other needs at this time. SW to continue to follow. Plan: Anticipated return to [facility] for continued rehab when medically ready. No other discharge needs identified at this time. EDUARDO to continue to follow. AUDRA Lombardi
[2016-10-11] MEDS: Felodipine 5 mg ER24 Tablet PO SCH (09:13)
[2016-10-11] MEDS: Furosemide 10 mg/mL 4 mL Inj IVPUSH SCH ×2 (09:14→22:20)
[2016-10-11] MEDS: Ertapenem Inj 1,000 MG in 0.9% Sodium Chloride 50 ML IV SCH (09:15)
[2016-10-11] MEDS: Nystatin 100,000 Unit/Gm 15 Gm Powder TOPICAL SCH ×2 (09:15→22:21)
[2016-10-11] MEDS: Insulin LISPRO 300 Unit/3 mL Inj SUBQ SCH ×4 (09:23→22:00)
[2016-10-11] MEDS: cloNIDine 0.1 mg Tablet PO SCH ×2 (09:28→22:21)
[2016-10-11] MEDS ORDERED: Calamine 177 mL Lotion TOPICAL PRN (10:10)
[2016-10-11] MEDS ORDERED: Furosemide 10 mg/mL 2 mL Inj IVPUSH ONE (10:20)
--- NOTE | 2016-10-11 10:23 | PCM.PNMED ---
Subjective Date of Service Oct 11, 2016 Subjective Simeon Jimenez is a 76 year old male with past medical history significant for CHF, CKD, diabetes, atrial fibrillation on chronic anticoagulation, CVA (02/2016) , with recent admission and discharge to [facility]. He is admitted from [facility] due to increased confusion and decreased ability to ambulate thought to be secondary to UTI. Hospital day 5. Overnight: Patient alternated between BPAP and oxymask. No acute events. Today: Patient states breathing is improved. He continues to have diffuse itching will try applying calamine lotion. Denies chest pain, palpitations, dysuria, nausea, or vomiting. Remaining review of systems negative. Exam Vital Signs Vital Sign - Last Date Time Temp Pulse Resp B/P Pulse Ox O2 Delivery O2 Flow Rate FiO2 10/11/16 05:18 36.6 75 18 128/72 96 OxyMask 14.00 10/11/16 00:24 70 Intake and Output 10/10/16 10/10/16 10/11/16 Cumulative From/Thru 15:00 23:00 07:00 10/06/16 17:32 - 10/11/16 05:43 Intake Total 1474 ml 860 ml 11932 ml Output Total 3600 ml 7010 ml Balance 1474 ml -2740 ml 3451 ml Intake Oral 1474 ml 860 ml 98371 ml IV Total 201 ml Output Urine Total 3600 ml 7010 ml # Voids 3 25 # Bowel Movements 0 5 Exam General: Morbidly obese, well-developed, well-nourished, appropriately interactive on oxygen mask HEENT: Normocephalic, atraumatic. Anicteric sclerae, moist conjunctivae, and no lid lag. Neck: Supple with full range of motion. Mild JVD. Cardiovascular: Irregularly irregular with no murmurs, rubs, or gallops appreciated Pulmonary: Clear to auscultation bilaterally with faint crackles in bases bilaterally. Requiring oxygen mask at 4-6 L. Abdomen: Bowel tones present. Soft and nontender Extremities: Chronic venous stasis and lower extremity edema. Neurological: Cranial nerves grossly intact. Psychiatric: Normal mood and affect. Alert and oriented to person, place, and time. Lab and Diagnostics Result Diagram: 10/11/1634410/11/16344 X-Rays, CTs and MRIs X-RAY CHEST ONE VIEW, PORTABLE IMPRESSION: Increased pulmonary vascularity, suggestive of edema. Dictated by: Liberty Yuen M.D. on 10/07/2016 at 8:07 Approved by: Liberty Yuen M.D. on 10/07/2016 at 8:07 X-RAY CHEST ONE VIEW, PORTABLE IMPRESSION: Trace right-sided pleural effusion. Patchy opacity in the right lung base compatible with atelectasis versus pneumonia. Dictated by: Maria E Beckford MD, PhD on 10/06/2016 at 19:34 Approved by: Maria E Beckford MD, PhD on 10/06/2016 at 19:34 Cardiac Echo Impressions Interpretation Summary The left ventricle is normal in size. There is mild concentric left ventricular hypertrophy. The ejection fraction is estimated to be 55-60%. There are no obvious focal wall motion abnormalities noted but poor endocardial definition reduces the sensitivity for the detection of such.The right ventricle is borderline dilated. Right ventricular systolic function is mildly reduced. The IVC is dilated (diameter is greater than 2.1 cm) yet it collapses greater than 50% with a sniff. This suggests a right atrial pressure of 8 mm Hg. There is mild aortic stenosis. No other echocardiographic abnormalities seen. Compared to the prior echo report on 05/06/2016, there is no significant change. Reading Physician:05:26 PM Assessment & Plan Simeon Jimenez is a 76 year old male with past medical history significant for CHF, CKD, diabetes, atrial fibrillation on chronic anticoagulation, CVA (02/2016) , with recent admission and discharge to [facility]. He is admitted from [facility] due to increased confusion and decreased ability to ambulate thought to be secondary to UTI. Hospital day 5. 1. Acute decompensated heart failure with preserved EF, present on admission, improving. -Echo on 10/07 showed no significant change from that on 05/06/16. EF 55-60%. -Patient continues to require oxymask and BPAP overnight. -Chest x-ray 10/07 showed increased pulmonary edema, repeat chest x-ray shows minimal improvement. -Lasix 40mg IV BID. -UOP of 3600 ml over last 12 hours. 2. Complicated UTI, present on admission, active. -Urine culture grew ESBL. -Antibiotics switched from Levaquin to ertapenem on 10/08. -Ertapenem 1 g Q24H for 10 days. Course to be completed 10/17. -Infectious disease consulted. Appreciate time and expertise. 3. Delirium, present on admission, resolved. -Likely secondary to acute UTI and hypoxemia/hypercapnia. 4. Hypertension, present on admission, chronic. -Carvedilol 25 mg twice a day -Clonidine 0.1 mg twice a day -Felodipine 10 mg daily 5. Atrial fibrillation, present on admission, chronic. -Rate control with carvedilol. -Continued warfarin per pharmacy. -Monitoring on telemetry. 6. Subtherapeutic INR, present on admission, -Mildly subtherapeutic INR. -Current INR 1.67. -Pharmacy to dose warfarin 7. Acute on chronic kidney disease, present on admission, improving. -Uncertain if patient actually has CKD based on a few normal measurements of Cr in the last year. -Creatinine improved with aggressive diuresis will continue. -Will hold Lisinopril for now. -Continue to monitor. 8. Diabetes, present on admission, chronic. -Hemoglobin A1c 6.3 on 08/22/16. -Home regimen is Glipizide ER 10 mg QAM. -Insulin lispro per protocol. 9. BPH, present on admission, chronic. -Doxazosin stopped. 10. Peripheral neuropathy, present on admission, chronic. -Continue gabapentin 300 mg 3 times a day. 11. Hypercholesterolemia, present on admission, stable -Continue Pravastatin 40 mg nightly. 12. Urinary incontinence -Patient was on doxazosin, which likely was contributing -Continue with oxybutynin Disposition: Discharge likely to SNF. Discharge pending improvement in respiratory status and diuresis in the next 1-2 days. Pain Evaluation: Adequate Pain Control GI Prophylaxis: Not indicated VTE Prophylaxis: Theraputic Anticoag with Warfarin VTE Mechanical Devices: Intermittant Pneumatic CD Resuscitation Status: CPR: Attempt Resuscitation Attending Statement The patient was seen and examined together with Dr. Keene on 10/11/2016 and I agree with the history, exam and plan as outlined in the note above. . BROCK KEENE DO Oct 11, 2016 07:52 Natanael Phipps MD Oct 11, 2016 16:37
--- NOTE | 2016-10-11 15:02 | PCM.PHAPRO ---
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 Trend reversed. p/ Resume home dose. Ziyad Oviedo S Pharm D Oct 11, 2016 15:02
--- NOTE | 2016-10-11 18:45 | NUR ---
Pt. uncooperative Pt. uncooperative this afternoon, frequently taking off leads and oxy mask. Educated on need for all leads to remain in place. Pt. said he would be more comfortable sitting in a chair. More cooperative once we got him comfortably in a chair.
[2016-10-12] VITALS (7 sets, daily range): BP systolic 124–151; BP diastolic 54–73; PULSE 69–81; RESP 15–20; O2SAT 93–96
[2016-10-12 04:53] LABS: Mean Corpuscular Hemoglobin 24.5 pg (27.0-35.0); Mean Corpuscular Volume 83.4 fL (81-100)
[2016-10-12 05:10] LABS: INR 1.87 ratio
[2016-10-12 05:14] LABS: Magnesium 1.9 mg/dL (1.6-2.6); Phosphorus 4.1 mg/dL (2.5-4.9)
--- NOTE | 2016-10-12 05:35 | NUR ---
Respiratory/Fluid Restrictions Pt continued to remove oxymask during shift so 5L NC was applied in the place of 11L oxymask and would desat into the 70s-80s. Pt then began to remove the NC and would desat once again in the 70s-80s. Pt refused to abide by the 1500ml/24H fluid restriction and signed a waiver. The waiver is in the chart
[2016-10-12] MEDS: Ertapenem Inj 1,000 MG in 0.9% Sodium Chloride 50 ML IV SCH (08:33)
[2016-10-12] MEDS: Furosemide 10 mg/mL 4 mL Inj IVPUSH SCH ×2 (08:36→22:19)
[2016-10-12] MEDS: Felodipine 5 mg ER24 Tablet PO SCH (08:40)
[2016-10-12] MEDS: Nystatin 100,000 Unit/Gm 15 Gm Powder TOPICAL SCH ×2 (08:41→22:19)
[2016-10-12] MEDS: Insulin LISPRO 300 Unit/3 mL Inj SUBQ SCH ×4 (08:45→22:00)
[2016-10-12] MEDS: cloNIDine 0.1 mg Tablet PO SCH ×2 (08:51→22:18)
[2016-10-12] MEDS ORDERED: Potassium Chloride 20 mEq SR Tablet PO ONE (09:25)
--- NOTE | 2016-10-12 10:08 | DRSVH ---
PROCEDURE: X-RAY CHEST ONE VIEW, PORTABLE ([id number]) INDICATIONS: shortness of breath TECHNIQUE: One view of the chest was acquired. COMPARISON: [facility], CR, XR CHEST 1VW (PORTABLE), 10/09/2016, 6:03. FINDINGS: Surgical changes and devices: None. Lungs and pleura: No pleural effusions or pneumothorax. Lungs are difficult to accurately assess du e to very large body habitus and probably reduced inspiratory volume. There does appear to be a mild pulmonary edema pattern. Mediastinum: Mediastinal contours appear normal. Heart size is normal. Bones and chest wall: No suspicious bony lesions. Overlying soft tissues appear unremarkable. IMPRESSION: Suspect mild pulmonary edema given the appearance of the lung parenchyma, but body habitu s is large and inspiratory volume is reduced. False positive diagnosis of pulmonary edema is possibl e in this circumstance. Dictated by: Bright Wong M.D. on 10/12/2016 at 10:04 Approved by: Bright Wong M.D. on 10/12/2016 at 10:06
--- NOTE | 2016-10-12 10:24 | PCM.PNMED ---
Subjective Date of Service Oct 12, 2016 Subjective Simeon Jimenez is a 76 year old male with past medical history significant for CHF, CKD, diabetes, atrial fibrillation on chronic anticoagulation, CVA (02/2016) , with recent admission and discharge to [facility]. He is admitted from [facility] due to increased confusion and decreased ability to ambulate thought to be secondary to UTI. Hospital day 6. Overnight: Patient on oxymask overnight. Today: Patient without nasal cannula in place as he repeatedly removes and desaturated to the low 70s. Patient he does not feel he is improving. He denies chest pain, palpitations, dysuria, nausea, or vomiting. Remaining review of systems negative. Exam Vital Signs Vital Sign - Last Date Time Temp Pulse Resp B/P Pulse Ox O2 Delivery O2 Flow Rate FiO2 10/12/16 02:48 36.3 77 19 124/73 94 OxyMask 5.00 10/11/16 00:24 70 Intake and Output 10/11/16 10/11/16 10/12/16 Cumulative From/Thru 15:00 23:00 07:00 10/06/16 17:32 - 10/12/16 06:08 Intake Total 275 ml 936 ml 2046 ml 56640 ml Output Total 2950 ml 5100 ml 37608 ml Balance 275 ml -2014 ml -3054 ml -1342 ml Intake Oral 200 ml 936 ml 2026 ml 26347 ml IV Total 75 ml 0 ml 20 ml 296 ml Output Urine Total 2950 ml 5100 ml 39708 ml # Voids 25 # Bowel Movements 5 Exam General: Morbidly obese, well-developed, well-nourished, appropriately interactive. Nasal cannula off and patient desaturated to the low 70's. HEENT: Normocephalic, atraumatic. Anicteric sclerae, moist conjunctivae, and no lid lag. Neck: Supple with full range of motion. Mild JVD. Cardiovascular: Irregularly irregular with no murmurs, rubs, or gallops appreciated Pulmonary: Clear to auscultation bilaterally with faint crackles in bases bilaterally. Nasal cannula at 4 L. Abdomen: Bowel tones present. Soft and nontender Extremities: Chronic venous stasis and lower extremity edema. Neurological: Cranial nerves grossly intact. Psychiatric: Normal mood and affect. Alert and oriented to person, place, and time. Lab and Diagnostics Result Diagram: 10/12/16 0435 10/12/16 0435 X-Rays, CTs and MRIs X-RAY CHEST ONE VIEW, PORTABLE IMPRESSION: Suspect mild pulmonary edema given the appearance of the lung parenchyma, but body habitus is large and inspiratory volume is reduced. False positive diagnosis of pulmonary edema is possible in this circumstance. Dictated by: Bright Wong M.D. on 10/12/2016 at 10:04 Approved by: Bright Wong M.D. on 10/12/2016 at 10:06 X-RAY CHEST ONE VIEW, PORTABLE IMPRESSION: Increased pulmonary vascularity, suggestive of edema. Dictated by: Liberty Yuen M.D. on 10/07/2016 at 8:07 Approved by: Liberty Yuen M.D. on 10/07/2016 at 8:07 X-RAY CHEST ONE VIEW, PORTABLE IMPRESSION: Trace right-sided pleural effusion. Patchy opacity in the right lung base compatible with atelectasis versus pneumonia. Dictated by: Maria E Beckford MD, PhD on 10/06/2016 at 19:34 Approved by: Maria E Beckford MD, PhD on 10/06/2016 at 19:34 Cardiac Echo Impressions Interpretation Summary The left ventricle is normal in size. There is mild concentric left ventricular hypertrophy. The ejection fraction is estimated to be 55-60%. There are no obvious focal wall motion abnormalities noted but poor endocardial definition reduces the sensitivity for the detection of such.The right ventricle is borderline dilated. Right ventricular systolic function is mildly reduced. The IVC is dilated (diameter is greater than 2.1 cm) yet it collapses greater than 50% with a sniff. This suggests a right atrial pressure of 8 mm Hg. There is mild aortic stenosis. No other echocardiographic abnormalities seen. Compared to the prior echo report on 05/06/2016, there is no significant change. Reading Physician:05:26 PM Assessment & Plan Simeon Jimenez is a 76 year old male with past medical history significant for CHF, CKD, diabetes, atrial fibrillation on chronic anticoagulation, CVA (02/2016) , with recent admission and discharge to [facility]. He is admitted from [facility] due to increased confusion and decreased ability to ambulate thought to be secondary to UTI. Hospital day 6. 1. Acute decompensated heart failure with preserved EF, present on admission, improving. -Echo on 10/07 showed no significant change from that on 05/06/16. EF 55-60%. -Patient continues to require oxymask and BPAP overnight. -Chest x-ray 10/07 showed increased pulmonary edema, repeat chest x-ray today shows mild improvement. -Lasix 40 mg IV BID. Plan to switch to oral diuretics tomorrow. -UOP of 3 L over last 12 hours. 2. Complicated UTI, present on admission, active. -Urine culture grew ESBL. -Antibiotics switched from Levaquin to ertapenem on 10/08. -Ertapenem 1 g Q24H for 10 days. Course to be completed 10/17. -Infectious disease consulted. Appreciate time and expertise. 3. Delirium, present on admission, resolved. -Likely secondary to acute UTI and hypoxemia/hypercapnia. 4. Hypertension, present on admission, chronic. -Carvedilol 25 mg twice a day -Clonidine 0.1 mg twice a day -Felodipine 10 mg daily 5. Atrial fibrillation, present on admission, chronic. -Rate control with carvedilol. -Continued warfarin per pharmacy. -Monitoring on telemetry. 6. Subtherapeutic INR, present on admission, -Mildly subtherapeutic INR. -Current INR 1.67. -Pharmacy to dose warfarin 7. Acute on chronic kidney disease, present on admission, improving. -Uncertain if patient actually has CKD based on a few normal measurements of Cr in the last year. -Creatinine improved with aggressive diuresis will continue. -Will hold Lisinopril for now. -Continue to monitor. 8. Diabetes, present on admission, chronic. -Hemoglobin A1c 6.3 on 08/22/16. -Home regimen is Glipizide ER 10 mg QAM. -Insulin lispro per protocol. 9. BPH, present on admission, chronic. -Doxazosin stopped. 10. Peripheral neuropathy, present on admission, chronic. -Continue gabapentin 300 mg 3 times a day. 11. Hypercholesterolemia, present on admission, stable -Continue Pravastatin 40 mg nightly. 12. Urinary incontinence -Patient was on doxazosin, which likely was contributing. -Continue with oxybutynin. Disposition: Discharge likely to SNF. Discharge pending improvement in respiratory status and diuresis in the next 1-2 days. GI Prophylaxis: Not indicated VTE Prophylaxis: Theraputic Anticoag with Warfarin VTE Mechanical Devices: Intermittant Pneumatic CD Resuscitation Status: CPR: Attempt Resuscitation Attending Statement The patient was seen and examined together with Dr. Keene on 10/12/2016 and I agree with the history, exam and plan as outlined in the note above. . BROCK KEENE DO Oct 12, 2016 07:57 Natanael Phipps MD Oct 13, 2016 07:38
--- NOTE | 2016-10-12 11:58 | ABG ---
DateTimeAnalyzed 11:53:00 -_ pH ____7.394 - 7.350 7.450 pCO2 ___66.7__ -mmHg 35.0 45.0 pO2 ___65.7__ -mmHg 69.0 116 HCO3- ___39.9__ -mmol/L 22.0 26.0 ABE ___13.1__ -mmol/L -2.0 2.0 tHb ___10.0__ -g/dL O2Hb ___89.6__ -% COHb ____1.4__ -% MetHb ____1.2__ -% sO2 ___92.0__ -% 25.0 FIO2 ___90.0__ -% Drawn By jmw - Date/Time Notified____ 11:57:00 -_ Liter_Flow ___15.0__ -L/min Oxygen Device 1 __OXYMASK - Notified By JMW - Notified Whom DR YECENIA - B 764 -mmHg tO2 ___12.7__ -Vol% Marcell test _Positive -
--- NOTE | 2016-10-12 17:47 | NUR ---
Up in room with PT today, amb'd in room, sat in chair for some time, tolerated without incident. Has been more compliant with keeping his 02 on, desaturating quickly into the 60-70%s on room air. Denies SOB. Potassium replacement per protocol, follow-up level is 4.0. Brisk UOP via clemens cath, BMs X2. Remains in contact precautions. Supportive son at bedside intermittently.
[2016-10-13 03:23] VITALS: BP 137/68; PULSE 73; RESP 18; O2SAT 94
[2016-10-13 04:27] VITALS: PULSE 77
[2016-10-13 05:03] LABS: BASOPHILS % (AUTO) 0.2 % (0-3); EOSINOPHILS % (AUTO) 13.6 % (0-5); Mean Corpuscular Hemoglobin 24.9 pg (27.0-35.0); Mean Corpuscular Volume 83.3 fL (81-100); NEUTROPHILS % (AUTO) 64.1 % (40-74); Platelet Count 303 bil/L (150-400)
[2016-10-13 05:10] LABS: INR 2.12 ratio
--- NOTE | 2016-10-13 06:42 | NUR ---
Fluid Restrictions/GI/O2&Leads Pt was compliant with the fluid restrictions of 1500ml/24H and did not go over this amount of fluid intake. Pt was incontinent of 2 large bowel movements and two complete linen changes were made. Pt would remove O2 and tele leads multiple times during the shift. When pt removes O2 pt quickly desats into the 70s-80s.
[2016-10-13 08:00] VITALS: BP 138/67; PULSE 107; PULSE 74; PULSE 81; RESP 21; O2SAT 95
[2016-10-13] MEDS: Ertapenem Inj 1,000 MG in 0.9% Sodium Chloride 50 ML IV SCH (09:06)
[2016-10-13] MEDS: Felodipine 5 mg ER24 Tablet PO SCH (09:06)
[2016-10-13] MEDS: Nystatin 100,000 Unit/Gm 15 Gm Powder TOPICAL SCH ×2 (09:08→22:04)
[2016-10-13] MEDS: Insulin LISPRO 300 Unit/3 mL Inj SUBQ SCH ×4 (09:08→22:00)
--- NOTE | 2016-10-13 09:54 | PCM.PNMED ---
Subjective Date of Service Oct 13, 2016 Subjective Simeon Jimenez is a 76 year old male with past medical history significant for CHF, CKD, diabetes, atrial fibrillation on chronic anticoagulation, CVA (02/2016) , with recent admission and discharge to [facility]. He is admitted from [facility] due to increased confusion and decreased ability to ambulate thought to be secondary to UTI. Hospital day 7. Overnight: Patient on nasal cannula at 5L overnight. Patient continues to be very oxygen sensitive. Desaturating into the 60s if oxygen is removed. Today: Patient sitting in chair with nasal cannula in place. States breathing is improved. Up with physical therapy yesterday but only walked a few steps. He denies chest pain, palpitations, dysuria, nausea, or vomiting. Remaining review of systems negative. Exam Vital Signs Vital Sign - Last Date Time Temp Pulse Resp B/P Pulse Ox O2 Delivery O2 Flow Rate FiO2 10/13/16 04:27 77 10/13/16 03:23 36.7 18 137/68 94 Nasal Cannula 5.00 10/11/16 00:24 70 Intake and Output 10/12/16 10/12/16 10/13/16 Cumulative From/Thru 15:00 23:00 07:00 10/06/16 17:32 - 10/13/16 06:56 Intake Total 1086 ml 300 ml 00201 ml Output Total 1650 ml 3100 ml 49413 ml Balance -564 ml -2800 ml -4706 ml Intake Oral 1036 ml 300 ml 70428 ml IV Total 50 ml 346 ml Output Urine Total 1650 ml 3100 ml 65609 ml # Voids 25 # Bowel Movements 1 2 8 Exam General: Morbidly obese, well-developed, well-nourished, appropriately interactive. Nasal cannula in place. HEENT: Normocephalic, atraumatic. Anicteric sclerae, moist conjunctivae, and no lid lag. Neck: Supple with full range of motion. Mild JVD. Cardiovascular: Irregularly irregular with no murmurs, rubs, or gallops appreciated Pulmonary: Clear to auscultation bilaterally with decreased air movement in bases bilaterally. Nasal cannula at 4 L. Abdomen: Bowel tones present. Soft and nontender. Extremities: Chronic venous stasis and lower extremity edema. Neurological: Cranial nerves grossly intact. Psychiatric: Normal mood and affect. Alert and oriented to person, place, and time. Lab and Diagnostics Result Diagram: 10/13/16 0430 10/13/16 0430 X-Rays, CTs and MRIs X-RAY CHEST ONE VIEW, PORTABLE IMPRESSION: Suspect mild pulmonary edema given the appearance of the lung parenchyma, but body habitus is large and inspiratory volume is reduced. False positive diagnosis of pulmonary edema is possible in this circumstance. Dictated by: Bright Wong M.D. on 10/12/2016 at 10:04 Approved by: Bright Wong M.D. on 10/12/2016 at 10:06 X-RAY CHEST ONE VIEW, PORTABLE IMPRESSION: Increased pulmonary vascularity, suggestive of edema. Dictated by: Liberty Yuen M.D. on 10/07/2016 at 8:07 Approved by: Liberty Yuen M.D. on 10/07/2016 at 8:07 X-RAY CHEST ONE VIEW, PORTABLE IMPRESSION: Trace right-sided pleural effusion. Patchy opacity in the right lung base compatible with atelectasis versus pneumonia. Dictated by: Maria E Beckford MD, PhD on 10/06/2016 at 19:34 Approved by: Maria E Beckford MD, PhD on 10/06/2016 at 19:34 Cardiac Echo Impressions Interpretation Summary The left ventricle is normal in size. There is mild concentric left ventricular hypertrophy. The ejection fraction is estimated to be 55-60%. There are no obvious focal wall motion abnormalities noted but poor endocardial definition reduces the sensitivity for the detection of such.The right ventricle is borderline dilated. Right ventricular systolic function is mildly reduced. The IVC is dilated (diameter is greater than 2.1 cm) yet it collapses greater than 50% with a sniff. This suggests a right atrial pressure of 8 mm Hg. There is mild aortic stenosis. No other echocardiographic abnormalities seen. Compared to the prior echo report on 05/06/2016, there is no significant change. Reading Physician:05:26 PM Assessment & Plan Simeon Jimenez is a 76 year old male with past medical history significant for CHF, CKD, diabetes, atrial fibrillation on chronic anticoagulation, CVA (02/2016) , with recent admission and discharge to [facility]. He is admitted from [facility] due to increased confusion and decreased ability to ambulate thought to be secondary to UTI. Hospital day 7. 1. Acute decompensated heart failure with preserved EF, present on admission, improving. -Echo on 10/07 showed no significant change from that on 05/06/16. EF 55-60%. -Patient continues to require oxymask and BPAP overnight. -Chest x-ray 10/07 showed increased pulmonary edema, repeat chest x-ray today shows mild improvement. -Lasix 40 mg IV BID stopped on 10/12. -Torsemide 20 mg QD started on 10/13. -UOP of 2 L over last 12 hours. 2. Complicated UTI, present on admission, active. -Urine culture grew ESBL. -Antibiotics switched from Levaquin to ertapenem on 10/08. -Ertapenem 1 g Q24H for 10 days. Course to be completed 10/17. -Infectious disease consulted. Appreciate time and expertise. 3. Acute hypoxemic respiratory failure, present on admission, active. - Etiology likely multifactorial including decompensated diastolic heart failure , decondition, and possible underlying lung pathology. - Patient very oxygen sensitive. Oxygen requirements decreased. - CT chest planned for today. - Bilateral lower extremity doppler planned for today. 4. Delirium, present on admission, resolved. -Likely secondary to acute UTI and hypoxemia/hypercapnia. 5. Hypertension, present on admission, chronic. -Carvedilol 25 mg twice a day -Clonidine 0.1 mg twice a day -Felodipine 10 mg daily 6. Atrial fibrillation, present on admission, chronic. -Rate control with carvedilol. -Continued warfarin per pharmacy. -Monitoring on telemetry. 7. Subtherapeutic INR, present on admission, resolved. -Mildly subtherapeutic INR on admission. -Pharmacy to dose warfarin 8. Acute on chronic kidney disease, present on admission, improving. -Uncertain if patient actually has CKD based on a few normal measurements of Cr in the last year. -Creatinine improved with aggressive diuresis will continue. -Will hold Lisinopril for now. -Continue to monitor. 9. Diabetes, present on admission, chronic. -Hemoglobin A1c 6.3 on 08/22/16. -Home regimen is Glipizide ER 10 mg QAM. -Insulin lispro per protocol. 10. BPH, present on admission, chronic. -Doxazosin stopped. 11. Peripheral neuropathy, present on admission, chronic. -Continue gabapentin 300 mg 3 times a day. 12. Hypercholesterolemia, present on admission, stable -Continue Pravastatin 40 mg nightly. 13. Urinary incontinence -Patient was on doxazosin, which likely was contributing. -Continue with oxybutynin. -Outpatient urology follow up needed. Further discussion about possible condom catheter. Disposition: Discharge likely to SNF. Discharge pending improvement in respiratory status and diuresis in the next 1-2 days. Pain Evaluation: Adequate Pain Control GI Prophylaxis: Not indicated VTE Prophylaxis: Theraputic Anticoag with Warfarin VTE Mechanical Devices: Intermittant Pneumatic CD Resuscitation Status: CPR: Attempt Resuscitation Attending Statement The patient was seen and examined together with Dr. Keene on 10/13/2016 and I agree with the history, exam and plan as outlined in the note above. . BROCK KEENE DO Oct 13, 2016 09:54 Natanael Phipps MD Oct 15, 2016 15:17
[2016-10-13] MEDS: cloNIDine 0.1 mg Tablet PO SCH ×2 (10:17→22:03)
[2016-10-13 12:32] VITALS: BP 139/57; PULSE 77; RESP 22; O2SAT 95
--- NOTE | 2016-10-13 14:08 | NUR ---
Dcd Kenny cath at 1400 - tolerated well.
--- NOTE | 2016-10-13 14:09 | NUR ---
Brandond tele at 1400 per MD order.
--- NOTE | 2016-10-13 14:18 | DRSVH ---
PROCEDURE: CT CHEST WITHOUT CONTRAST ([id number]) INDICATIONS: shortness of breath TECHNIQUE: Noncontrast 5 mm thick sections acquired from the pulmonary apices to the posterior costophrenic angl es. 7 mm thick coronal and sagittal MIP reformats were then acquired. For radiation dose reduction, the following was used: automated exposure control, adjustment of mA and/or kV according to patient size. COMPARISON: None. FINDINGS: Image quality: Excellent. Lungs and pleura: Consolidation is present at the dependent lung bases bilaterally. There is mild int erlobular septal thickening and scattered groundglass opacities in the upper and mid lung suspicious for a component of pulmonary edema. There are small low density bilateral pleural effusions. No pneum othorax. Mediastinum: Heart size is enlarged. There are scattered atheromatous coronary artery calcifications . No pericardial effusion. There are borderline enlarged AP window lymph nodes. There are multiple sh otty subcentimeter mediastinal nodes as well. No hilar adenopathy. Thoracic aorta and central pulmona ry arteries are normal in size. Scattered atheromatous calcifications are present within the aortic a rch. Esophagus is normal in caliber. No hiatal hernia. Bones and chest wall: No suspicious bony lesions. No vertebral body compression fractures. No axil camila or supraclavicular adenopathy by size criteria. Thyroid gland is unremarkable. Abdomen: Visualized upper abdominal solid organs and bowel loops appear normal in the absence of con trast. IMPRESSION: 1. Consolidation at the bilateral lung bases with small pleural effusions suspicious for aspiration/i nfection. Short interval followup is recommended with resolution of the patient's symptoms to ensure there is no underlying pulmonary pathology. 2. Borderline enlarged mediastinal lymph nodes which may be reactive in nature. However, short interv al follow up is recommended. Dictated by: Mary Ellen Perkins M.D. on 10/13/2016 at 14:12 Approved by: Mary Ellen Perkins M.D. on 10/13/2016 at 14:16
[2016-10-13 16:22] VITALS: BP 135/75; PULSE 71; RESP 22; O2SAT 96
--- NOTE | 2016-10-13 18:05 | DRSVH ---
PROCEDURE: US VENOUS LEG DUPLEX BILATERAL INDICATIONS: shortness of breath TECHNIQUE: Real-time imaging, as well as color and pulse Doppler interrogation, were performed of the deep veins of both legs from the inguinal ligament to the popliteal fossa. COMPARISON: None. FINDINGS: The deep veins are normally compressible, and free of intraluminal thrombus. Color and pu lse Doppler demonstrate normal phasic intravascular flow. There is normal augmentation response to d istal compression maneuver. IMPRESSION: No evidence for deep venous thrombosis is found in the right lower extremity with this d uplex venous Doppler study. No evidence for deep venous thrombosis is found in the left lower extremity with this duplex venous D oppler study. Dictated by: Eric Schneider M.D. on 10/13/2016 at 18:02 Approved by: Eric Schneider M.D. on 10/13/2016 at 18:04
[2016-10-13 21:55] VITALS: BP 130/60; PULSE 75; RESP 16; O2SAT 96
[2016-10-14] VITALS (7 sets, daily range): BP systolic 111–142; BP diastolic 57–79; PULSE 67–78; RESP 16–20; O2SAT 96–100
[2016-10-14 03:55] LABS: BASOPHILS % (AUTO) 0.3 % (0-3); EOSINOPHILS % (AUTO) 13.2 % (0-5); MONOCYTES % (AUTO) 7.5 % (4-12); Mean Corpuscular Hemoglobin 24.7 pg (27.0-35.0); Mean Corpuscular Volume 84.4 fL (81-100); NEUTROPHILS % (AUTO) 61.8 % (40-74); Platelet Count 308 bil/L (150-400)
[2016-10-14 04:34] LABS: Magnesium 2.1 mg/dL (1.6-2.6)
--- NOTE | 2016-10-14 06:03 | NUR ---
Rest/GI/Skin/Respiratory Pt was able to sleep for a long period of time during the shift. Pt was incontinent during sleep and had to have a complete linen change. Pt c/o itchy skin after being incontinent and then cleaned up. Calamine lotion was applied to the pt's skin to help relieve the pt's itchiness without scratching and compromising the integrity of the pt's skin. Pt kept the 5L O2 via NC on throughout the shift and has not c/o SOB.
[2016-10-14] MEDS: Ertapenem Inj 1,000 MG in 0.9% Sodium Chloride 50 ML IV SCH (07:58)
[2016-10-14] MEDS: cloNIDine 0.1 mg Tablet PO SCH ×2 (07:59→20:41)
[2016-10-14] MEDS: Felodipine 5 mg ER24 Tablet PO SCH (07:59)
[2016-10-14] MEDS: Insulin LISPRO 300 Unit/3 mL Inj SUBQ SCH ×4 (08:00→21:45)
[2016-10-14] MEDS: Nystatin 100,000 Unit/Gm 15 Gm Powder TOPICAL SCH ×2 (08:30→20:42)
[2016-10-14 10:03] LABS: INR 2.09 ratio
--- NOTE | 2016-10-14 10:40 | PCM.PNMED ---
Subjective Date of Service Oct 14, 2016 Subjective Simeon Jimenez is a 76 year old male with past medical history significant for CHF, CKD, diabetes, atrial fibrillation on chronic anticoagulation, CVA (02/2016) , with recent admission and discharge to [facility]. He is admitted from [facility] due to increased confusion and decreased ability to ambulate thought to be secondary to UTI. Hospital day 8. Overnight: Patient on nasal cannula at 5L overnight. Patient continues to be very oxygen sensitive. Desaturating into the 60s if oxygen is removed. Today: Patient sitting in chair with nasal cannula in place. States breathing is improved. Up with physical therapy yesterday but only walked a few steps. He denies chest pain, palpitations, dysuria, nausea, or vomiting. Remaining review of systems negative. Exam Vital Signs Vital Sign - Last Date Time Temp Pulse Resp B/P Pulse Ox O2 Delivery O2 Flow Rate FiO2 10/14/16 03:42 36.6 67 20 139/79 96 Nasal Cannula 5.00 10/11/16 00:24 70 Intake and Output 10/13/16 10/13/16 10/14/16 Cumulative From/Thru 15:00 23:00 07:00 10/06/16 17:32 - 10/14/16 06:03 Intake Total 732 ml 400 ml 63512 ml Output Total 1300 ml 09210 ml Balance -568 ml 400 ml -4874 ml Intake Oral 672 ml 400 ml 13003 ml IV Total 60 ml 406 ml Output Urine Total 1300 ml 43019 ml # Voids 3 28 # Bowel Movements 1 9 Exam General: Morbidly obese, well-developed, well-nourished, appropriately interactive. Nasal cannula in place. HEENT: Normocephalic, atraumatic. Anicteric sclerae, moist conjunctivae, and no lid lag. Neck: Supple with full range of motion. Mild JVD. Cardiovascular: Irregularly irregular with no murmurs, rubs, or gallops appreciated Pulmonary: Clear to auscultation bilaterally with decreased air movement in bases bilaterally. Nasal cannula at 5 L. Abdomen: Bowel tones present. Soft and nontender. Extremities: Chronic venous stasis and lower extremity edema. Neurological: Cranial nerves grossly intact. Psychiatric: Normal mood and affect. Alert and oriented to person, place, and time. Lab and Diagnostics Result Diagram: 10/14/16 0340 10/14/16 0340 X-Rays, CTs and MRIs CT CHEST WITHOUT CONTRAST IMPRESSION: 1. Consolidation at the bilateral lung bases with small pleural effusions suspicious for aspiration/infection. Short interval followup is recommended with resolution of the patient's symptoms to ensure there is no underlying pulmonary pathology. 2. Borderline enlarged mediastinal lymph nodes which may be reactive in nature. However, short interval follow up is recommended. Dictated by: Mary Ellen Perkins M.D. on 10/13/2016 at 14:12 Approved by: Mary Ellen Perkins M.D. on 10/13/2016 at 14:16 X-RAY CHEST ONE VIEW, PORTABLE IMPRESSION: Suspect mild pulmonary edema given the appearance of the lung parenchyma, but body habitus is large and inspiratory volume is reduced. False positive diagnosis of pulmonary edema is possible in this circumstance. Dictated by: Bright Wong M.D. on 10/12/2016 at 10:04 Approved by: Bright Wong M.D. on 10/12/2016 at 10:06 X-RAY CHEST ONE VIEW, PORTABLE IMPRESSION: Increased pulmonary vascularity, suggestive of edema. Dictated by: Liberty Yuen M.D. on 10/07/2016 at 8:07 Approved by: Liberty Yuen M.D. on 10/07/2016 at 8:07 X-RAY CHEST ONE VIEW, PORTABLE IMPRESSION: Trace right-sided pleural effusion. Patchy opacity in the right lung base compatible with atelectasis versus pneumonia. Dictated by: Maria E Beckford MD, PhD on 10/06/2016 at 19:34 Approved by: Maria E Beckford MD, PhD on 10/06/2016 at 19:34 Cardiac Echo Impressions Interpretation Summary The left ventricle is normal in size. There is mild concentric left ventricular hypertrophy. The ejection fraction is estimated to be 55-60%. There are no obvious focal wall motion abnormalities noted but poor endocardial definition reduces the sensitivity for the detection of such.The right ventricle is borderline dilated. Right ventricular systolic function is mildly reduced. The IVC is dilated (diameter is greater than 2.1 cm) yet it collapses greater than 50% with a sniff. This suggests a right atrial pressure of 8 mm Hg. There is mild aortic stenosis. No other echocardiographic abnormalities seen. Compared to the prior echo report on 05/06/2016, there is no significant change. Reading Physician:05:26 PM Assessment & Plan Simeon Jimenez is a 76 year old male with past medical history significant for CHF, CKD, diabetes, atrial fibrillation on chronic anticoagulation, CVA (02/2016) , with recent admission and discharge to [facility]. He is admitted from [facility] due to increased confusion and decreased ability to ambulate thought to be secondary to UTI. Hospital day 8. 1. Acute decompensated heart failure with preserved EF, present on admission, improving. -Echo on 10/07 showed no significant change from that on 05/06/16. EF 55-60%. -Patient continues to require 5L nasal cannula. No need for BPAP overnight at this time. -Chest x-ray 10/07 showed increased pulmonary edema, repeat chest x-ray today shows mild improvement. -Torsemide 20 mg QD started on 10/13. 2. Complicated UTI, present on admission, active. -Urine culture grew ESBL. -Antibiotics switched from Levaquin to ertapenem on 10/08. -Ertapenem 1 g Q24H for 10 days. Course to be completed 10/17. -Infectious disease consulted. Appreciate time and expertise. 3. Acute hypoxemic respiratory failure, present on admission, active. - Etiology likely multifactorial including decompensated diastolic heart failure , decondition, and possible underlying lung pathology. - Patient very oxygen sensitive. Oxygen requirements decreased. - CT chest with consolidation at the bilateral lung bases with small pleural effusions and borderline enlarged mediastinal lymph nodes. - Bilateral lower extremity doppler negative for DVTs. - Pulmonology consulted. Appreciate time and expertise. 4. Delirium, present on admission, resolved. -Likely secondary to acute UTI and hypoxemia/hypercapnia. 5. Hypertension, present on admission, chronic. -Carvedilol 25 mg twice a day -Clonidine 0.1 mg twice a day -Felodipine 10 mg daily -Lisinopril 5 mg daily. -Torsemide 20 mg daily. 6. Atrial fibrillation, present on admission, chronic. -Rate control with carvedilol. -Continued warfarin per pharmacy. -Monitoring on telemetry. 7. Subtherapeutic INR, present on admission, resolved. -Mildly subtherapeutic INR on admission. -Pharmacy to dose warfarin 8. Acute on chronic kidney disease, present on admission, improving. -Uncertain if patient actually has CKD based on a few normal measurements of Cr in the last year. -Creatinine improved with aggressive diuresis. -Continue to monitor. 9. Diabetes, present on admission, chronic. -Hemoglobin A1c 6.3 on 08/22/16. -Home regimen is Glipizide ER 10 mg QAM. -Insulin lispro per protocol. 10. BPH, present on admission, chronic. -Doxazosin stopped. 11. Peripheral neuropathy, present on admission, chronic. -Continue gabapentin 300 mg 3 times a day. 12. Hypercholesterolemia, present on admission, stable -Continue Pravastatin 40 mg nightly. 13. Urinary incontinence -Patient was on doxazosin, which likely was contributing. -Continue with oxybutynin. -Outpatient urology follow up needed. Further discussion about possible condom catheter. Disposition: Discharge likely to SNF or home health. Discharge pending improvement in respiratory status in the next 1-2 days. GI Prophylaxis: Not indicated VTE Prophylaxis: Theraputic Anticoag with Warfarin VTE Mechanical Devices: Intermittant Pneumatic CD Resuscitation Status: CPR: Attempt Resuscitation Attending Statement The patient was seen and examined together with Dr. Keene on 10/14/2016 and I agree with the history, exam and plan as outlined in the note above. . BROCK KEENE DO Oct 14, 2016 10:40 Natanael Phipps MD Oct 15, 2016 15:17
--- NOTE | 2016-10-14 10:44 | PCM.CHPMED ---
Subjective Date of Service: Oct 14, 2016 Provider requesting consult: BROCK KEENE DO Primary Physician: Admitting Physician: Ny Cheney DO Primary Care Physician: Conner Newton MD Attending Physician: Ny Cheney DO Chief Complaint: Chief Complaint: Increasing oxygenation needs. History of Present Illness: Pulmonary consultation note: Problems: Acute hypoxic, (likely a chronic component at work here) hypercapnic respiratory failure requiring increased oxygen supplementation and intermittent BiPAP at night. Heart failure with preserved ejection fraction, multiple exacerbations. Metabolic alkalosis (likely secondary to chronic respiratory acidosis and contraction alkalosis d/t recent diuresis) with compensatory respiratory response, and a concomitant respiratory acidosis Klebsiella pneumoniae ESBL reproducer UTI with leukocytosis Acute kidney injury on Chronic kidney disease with chronic normocytic anemia Hypernatremia likely secondary to diuresis Atrial fibrillation on warfarin Diabetes type II Morbid obesity with severe deconditioning Simeon is a 76-year-old obese gentleman with history of heart failure with preserved ejection fraction (discharge from this hospital on 09/15/16 following hospitalization for exacerbation of his CHF with hypoxic respiratory failure), CKD, atrial fibrillation on chronic anticoagulation with warfarin, diabetes mellitus type II, and history of CVA in February 2016 who presented from [facility] on 10/07/16 with increased confusion, increased urinary frequency, and weakness. He is currently being treated for an ESBL UTI, and fluid overload with significant diuresis over the last several days (he has had approximately 17L in urine output). His mentation is reportedly rapidly improved over the course of his care here. Unfortunately, he has been requiring increasing amounts of oxygen supplementation for unclear reasons per primary hospitalist team. He has at times throughout his hospitalization required supplementation up to a max of 15 L per min and biopsy mask, and is currently receiving 5 L/min biopsy mask with saturations in the mid 90s, but reports that he desaturates to the 70s when oxygen is removed. The patient is reportedly not on home O2. When he was first admitted he was on 2 L/min. He has also been needing intermittent NPPV (also at night) with setting such as 18-19/ and FiO2 is 0.7. He reportedly got up and worked with PT yesterday, but was only able to take a couple of steps. Interval changes: Overnight, incontinence continues (his Kenny catheter was removed yesterday in addition to telemetry). No other events overnight. Today, he reports not being very clear on the events leading up to his admission. Though he does report that he has never had breathing problems like this before. He has never been on home O2. He reports that even when his oxygen saturations are low (such as they are at times here in the hospital), he does not have any symptoms associated with it (i.e. air hunger, dyspnea, etc.). He reports remarkable fatigue, any inability to "take a nap at any time." He denies being told that he snores or episodes of apnea, and has never had a sleep study. He does report a dry cough that started while here in the hospital. It is nonproductive and only a problem when he takes a deep breath in. It does not feel like a tickle in his throat, but he indicates that it comes from deeper in the lungs. He denies fevers/chills, headache, difficulty swallowing, painful swallowing, chest pain, pleuritic pain, dyspnea at this time, abdominal pain, nausea/ vomiting, diarrhea/constipation, pain in his legs, rash. He also reports that he feels dry, and asks for milk. Overall, rather poor historian (especially for recent events). Review of systems is otherwise negative except as noted above PMH Past Medical History Chronic venous stasis with lymphedema and bilateral leg edema for several years Cataracts status post surgery bilaterally Subacute caudate stroke (02/2016) Peripheral neuropathy likely secondary to diabetes Arthritis Recent admission of this hospital in summer for lower extremity cellulitis with group B streptococcus Heart failure with preserved ejection fraction Atrial fibrillation history of cardioversion, on chronic anticoagulation with warfarin Hiatal hernia and GERD DM type II, not on insulin Depression Hypertension Hyperlipidemia Morbid obesity with severe deconditioning BPH History of gout Seborrheic keratosis History of AK's Past Surgical History right knee replacement 2009 tonsillectomy Family history Father had a stroke and heart attack at the age of 59 and . Mother had an unknown cancer and at the age of 72. His sister is alive and well reportedly His grandparents lived into their 80s Negative for TB SOCIAL HISTORY: He is a former cigarette smoker who reportedly quit in 1970, but never used heavily. Reports rare alcohol use. Denies all other drug use He was born and raised in [facility]. He served in the [employer] in [facility] for a period of time, but no special training or exposures. 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 He notes that the only exposure that he had during the course of this job was to [place]. He reports a fever during that time. He moved up to [place] about a year ago based on a recommendation by his physician down in [place], "I needed cooler air." Upon moving to [place] he lived with his son in a single story home in [place]. His baseline activity even at that time was generally sitting around and not doing much. He notes that all of the chores and yard work where paid for and performed by third-libert[employer] professionals. He recently got a new puppy, and notes that he has had dogs and cats in the past. He denies ever keeping birds, or rabbits. He denies any other exposures. He currently resides at [facility] ([facility] Bedside Blood Glucose: 136 Home Medications Acarbose 50 mg daily Acetaminophen 650 mg every 4 hours as needed for pain Refresh Tears eyedrops, 2 drops in each eye twice a day Carvedilol 25 mg twice a day Vitamin D3 2000 units daily Clonidine 0.1 mg twice a day Vitamin B12 2000 g daily Doxazosin 8 mg at the bedtime Felodipine 10 mg daily Ferrous sulfate 325 mg daily Folic acid 1 mg daily Furosemide 40 mg twice a day Gabapentin 300 mg 3 times a day Glipizide 10 mg daily Lisinopril 5 mg daily Melatonin 5 mg at bedtime as needed for insomnia Report of metronidazole 500 mg 3 times a day (this comes with a tablet count of 21, so unsure) Multivitamin daily Oxybutynin 5 mg daily Oxycodone 5 mg every 4 hours as needed for pain Pravastatin 40 mg at bedtime Warfarin 8 mg daily (note of 9 mg just on Mondays?) Allergies: Coded Allergies: Penicillins (Verified Allergy, Unknown, 10/06/16) oxycodone (Verified Adverse Reaction, Severe, 10/07/16) make pt very drowsy,stay in bed for a week per son. tramadol (Verified Adverse Reaction, Severe, 10/07/16) make pt very drowsy,stay in bed for a week per son. Social History Alcoholic Drinks Per Day: occasionally 1 beer once a couple month Exam Vital Signs Vital Sign - Last Date Time Temp Pulse Resp B/P Pulse Ox O2 Delivery O2 Flow Rate FiO2 10/14/16 03:42 36.6 67 20 139/79 96 Nasal Cannula 5.00 10/11/16 00:24 70 Intake and Output 10/13/16 10/13/16 10/14/16 Cumulative From/Thru 15:00 23:00 07:00 10/06/16 17:32 - 10/14/16 06:03 Intake Total 732 ml 400 ml 04463 ml Output Total 1300 ml 54598 ml Balance -568 ml 400 ml -4874 ml Intake Oral 672 ml 400 ml 66814 ml IV Total 60 ml 406 ml Output Urine Total 1300 ml 00803 ml # Voids 3 28 # Bowel Movements 1 9 Additional Information: Gen.: Morbidly obese elderly gentleman lying/sitting in hospital bed in no acute distress. HEENT: Pupils are equal and reactive to light bilaterally, EOM intact, mucous membranes are somewhat dry but otherwise oral mucosa is unremarkable. Nasal cannula in place. Chest: Difficult to hear with the isolation stethoscope, but do not appreciated any significant rales, wheeze, rhonchi. He does cough (dry nonproductive) with deep respiration. Respiratory effort normal without accessory muscle use or tripoding. Cardiovascular: Irregularly irregular sounding with no appreciable murmur though heart sounds are somewhat distant. Do not appreciate any JVD, though difficult to ascertain given his habitus and jaeger. Radial pulses are 2+ bilaterally, posterior tibial pulses are difficult to palpate in the lower extremities given the degree of edema in the brawniness of the skin. Abdomen: soft, bowel tones present. Extremities: marked hyperpigmentation of the bilateral lower legs with weeping. Skin is brawny. Mild to moderate pitting/nonpitting edema in the bilateral lower extremities, and the skin appears quite wrinkled (expected given his massive diuresis). Skin: Seborrheic keratoses are scattered throughout. There is an area of crusted/scabbed, somewhat punctate, almost like excoriation of a rash of some kind on the left shoulder (patient was surprised to hear this, and denies any itch or discomfort). I do not appreciate this finding anywhere else on his skin. Neuro: Grossly intact, but was significant recent memory impairment. Urine output of greater than 6 L yesterday, with 4400 mL out already today. Total fluid balance for this admission is currently -4.8 L. Currently on 5 L/min O2 through nasal cannula Lines: Left dorsal hand peripheral. Lab and Diagnostics Labs Neutrophils 61.8%, eosinophils 13.2% INR 2.09 Calcium is 9.4, magnesium 2.1 His BNP at time of admission was 2555, and has not been repeated Hepatitis B surface antigen and hepatitis C antibody are both negative, HIV negative. Micro- Urine culture growing Klebsiella pneumoniae ESBL: Quite resistant, sensitive to ertapenem, gentamicin, imipenem, nitrofurantoin MRSA screen is negative Rapid influenza screen is negative Respiratory PCR is negative Result Diagram: 10/14/16 0340 10/14/16 0340 X-Rays, CTs and MRIs His chest x-ray time of admission did demonstrate a trace right-sided pleural effusion with some opacity in the right base. Subsequent chest x-rays have demonstrated varying degrees of fluid overload. CT scan of the chest without contrast performed 10/13/16 is part of a prompted this consultation. It does demonstrate now bilateral opacities in the lung bases with small bilateral pleural effusions. There is also what appears to be perhaps borderline enlarged mediastinal lymph nodes. Bilateral lower extremity Doppler was negative for DVT. 12-lead ECG ECG performed 10/06/16 demonstrates atrial fibrillation with a rate of 83. Interval durations within normal limits. Poor R-wave progression. No ST or T- wave changes suggestive of acute ischemic event. Additional Diagnostics: Echocardiogram performed 10/07/16 shows LV normal in size but with mild concentric hypertrophy. Estimated EF is 55-60%. No obvious focal wall motion abnormalities noted but poor definition of daily reducing sensitivity. Right ventricle is borderline dilated with mild reduction in systolic function. The IVC though dilated collapses greater than 50% with a sniff. There is mild aortic stenosis. This did not demonstrate significant change from echo performed 05/06/16. ABG today DateTimeAnalyzed 11:53:00 -_ pH ____7.394 - 7.350 7.450 pCO2 ___66.7__ -mmHg 35.0 45.0 pO2 ___65.7__ -mmHg 69.0 116 HCO3- ___39.9__ -mmol/L 22.0 26.0 sO2 ___92.0__ -% 25.0 FIO2 ___90.0__ -% (15 L/min via Oxymask) Assessment & Plan Assessment 1. Acute hypoxic, hypercapnic respiratory failure requiring increased oxygen supplementation and intermittent BiPAP at night.-This gentleman presentation with worsening hypoxia and his even hypercapnia as noted on the gases is a little unclear at this time. There is certainly consideration for contribution from his obesity (such as an obesity hypoventilation syndrome), potentially from an obstructive sleep apnea (given his significant risk and daytime sleepiness), from his metabolic alkalosis (attempt to compensate through hypoventilation), from his A. fib (though certainly rate controlled at this time ), from his heart failure with fluid overload, from his anemia, and certainly from his severe deconditioning. Given the multifactorial nature of this presentation, there is some concern that his full workup will require outpatient studies (such as pulmonary function testing, and sleep study). In addition to the above, he also has this new onset dry cough (he has underlying GERD, and that workup for dry cough is his rather comprehensive), but I do not appreciate any other signs or symptoms, or other findings in his workup at this time to suggest a pulmonary infection. His CT scan performed yesterday does have new findings compared to a CT angiogram of the chest performed in August little over a month ago. Notably, the changes are the very small bilateral pulmonary effusions, bilateral basilar opacities that look more like an atelectasis than anything else. However, there is a rather dense opacification that almost appears to be lobar or along the fissure in the right lower lobe. The image becomes somewhat blurred from motion artifact throughout most of the examination of the bases, so this makes interpretation of the CAT scan somewhat difficult. The differential for this dense opacification (which was not there a little over a month ago) is unclear and broad at this time. Though given the time course cancer seems fairly unlikely, and given his lack of infectious type symptoms, infectious process also seems somewhat less likely. Given his metabolic alkalosis, he may need a little bit of fluid back in order to slow down his attempt to compensate through hypoventilation. In the meantime it does make sense to supplement him with oxygen and BiPAP at night if needed. His history (insofar as he is able to give a) does not clearly indicate a path for diagnostic workup beyond what is been stated already above. Other current medical conditions, both acute and chronic, which further complicated his pulmonary evaluation: Heart failure with preserved ejection fraction, multiple exacerbations. Status post significant significant 17 L diuresis over the last several days. Metabolic alkalosis (likely secondary to chronic respiratory acidosis and contraction alkalosis d/t recent diuresis) with compensatory respiratory response, and a concomitant respiratory acidosis * Metabolic alkalosis as noted above. The concomitant primary respiratory acidosis is likely secondary to many of the processes contributing to his hypoxemia (such as obesity hypoventilation, and DENISHA). Klebsiella pneumoniae ESBL reproducer UTI with leukocytosis-infectious disease is following patient is receiving ertapenem Acute kidney injury on Chronic kidney disease with chronic normocytic anemia- nephrology is following Hypernatremia likely secondary to diuresis Atrial fibrillation on warfarin Diabetes type II Morbid obesity with severe deconditioning-certainly recommend that physical therapy continues to work with this gentleman. Recommendations: -Continue oxygen supplementation and BiPAP at night if needed. -Consideration for giving him a little bit of fluid back given the degree of metabolic alkalosis -He certainly needs to follow up with outpatient pulmonology, and consideration for pulmonary rehabilitation -Recommend outpatient PFTs with volume study (this is assuming the patient will be able to perform such studies), but could consider in clinic spirometry to start. -Recommend outpatient sleep study, and consideration for CPAP -Certainly, optimization of his other chronic illnesses would certainly help his respiratory status as detailed above. Thank you for consulting the pulmonary service on this patient. We will continue to follow along with you. CODE STATUS: Patient is full code DVT prophylaxis: Therapeutic warfarin GI prophylaxis: None Time spent in the evaluation and care of this patient: 45 minutes Problems: Pain Evaluation: Adequate Pain Control Attending Statement The patient was seen and examined together with Dr. Romo on 10/14/2016 and I agree with the history, exam and plan as outlined in the note above William Romo DO Oct 14, 2016 10:33 Sonny Ye MD Oct 30, 2016 13:27
--- NOTE | 2016-10-14 12:34 | NUR ---
NUTRITION FOLLOW-UP Assess: 76 YO M admitted with UTI and acute CHF. Pt on nasal cannula. [address] in [address]. PMHX: bilateral leg edema, Subacute caudate stroke, peripheral neuropathy, arthritis, cellulitis, bleeding disorder, CHF, DM type 2, HLD, HTN, afib, hiatal hernia, GERD, Depression. DIET: Heart Healthy/Consistent Carb. PO intake 50-100% of most meals LABS: Na 149, CO2 38, BUN 34, Cr 1.28, Glu 147 MEDICATIONS: Reviewed. Coumadin, Torsemide GI: 3 BM (10/13) SKIN: No issues noted. WEIGHT: 133.7 kg, BMI 42.3 kg/m2, Ht: 70 in. Adj BW: 90.0 kg. ESTIMATED NEEDS: BMI Calories: 7248-7885 kcal/day (25-30 kcal/kg Adj. BW) Protein: 110-135 g/day (1.2-1.5 g/kg Adj. BW) NUTRITION DIAGNOSIS: 1) No diagnosis at this time. INTERVENTION: 1) No intervention at this time. MONITOR/EVALUATE: PO intake, labs, nutrition status, POC. Follow per moderate nutrition risk guidelines.
--- NOTE | 2016-10-14 12:41 | PCM.PHAPRO ---
Progress Increasing oxygenation needs. Warfarin Dosing Indication: AFib Home dose 8mg/d x 9mg on Mon Admit INR 1.53 Recent Dosing: [facility] MB gsf gsf gsf gsf gsf gsf gsf Date Oct 08-Oct 09-Oct 10-Oct 11-Oct 12-Oct 13-Oct 14-Oct 15-Oct 16-Oct 17- Sep INR 1.53 1.46 1.45 1.57 1.67 1.87 2.12 2.09 INR change -0.07 -0.01 0.12 0.1 0.2 0.25 -0.03 Warf Dose 8 8 10X1 10mg x1 8MG 8MG 8mg/d 8 p/ Continue with home dosing. Ziyad Oviedo Pharm D Oct 14, 2016 12:41
--- NOTE | 2016-10-14 14:50 | NUR ---
OOB w/Nsg as tolerated Pt is encouraged to and would benefit from getting up and OOB w/nursing staff as often as tolerated (dangle EOB, use BSC instead of urinal/bedpan, etc) to help progress functional strength.
--- NOTE | 2016-10-14 17:36 | NUR ---
Social Work: Readiness for Discharge D: Pt discussed in morning rounds. Per MD team, pt not medically stable for discharge at this time but may be ready over the weekend. Pt currently on IV ABX until the . Pt will not be able to discharge to [facility] until this is complete due to the expense of medications. FLAT GRINDER OPERATOR met with pt and son, Madison, at bedside to review dcp. They agree with plan to return to [facility] once medically stable; Pt comes from [facility]. PASSR on file. PPW on chart. A: Pt who has been accepted at [facility] for continued strengthening and rehab P: Anticipate pt to discharge to [facility] with Dr. Martinez to follow once IV Abx is complete. AUDRA Dutta
--- NOTE | 2016-10-14 18:01 | NUR ---
O2 Pt has required 5L O2 NC throughout today. SOB with ambulation or lying flat. Pt got up with PT today and tolerated well. Afib 70's and 80's. 1500cc fluid restriction Dc'd, pt non compliant. Agitated with nursing care. Incontinent of urine and stool. Brief on, able to ambulate with x2 SBA to BSC.
[2016-10-15 04:26] VITALS: BP 135/70; PULSE 72; RESP 18; O2SAT 96
[2016-10-15 05:35] LABS: Mean Corpuscular Hemoglobin 24.4 pg (27.0-35.0)
[2016-10-15 05:44] LABS: INR 2.09 ratio
--- NOTE | 2016-10-15 07:24 | NUR ---
Respiratory/GI/Skin Pt SpO2 on 5L NC is 98-100%. Pt was titrated down to 4L NC with SpO2 97-99%. Gave report to oncoming RN that we are trying to titrate the pt's O2 down and get the pt to baseline. Per pt he has O2 at home but refuses to use it. Pt was incontinent of urine and stool and got an entire linen change. Pt c/o of itchy skin and lotion that the pt's son brought in was applied to pt multiple times throughout the shift.
--- NOTE | 2016-10-15 07:54 | PCM.PHAPRO ---
Progress Increasing oxygenation needs. Date Oct 08-Oct 09-Oct 10-Oct 11-Oct 12-Oct 13-Oct 14-Oct 15-Sep INR 1.53 1.46 1.45 1.57 1.67 1.87 2.12 2.09 2.09 INR change -0.07 -0.01 0.12 0.1 0.2 0.25 -0.03 Warf Dose 8 8 10X1 10mg x1 8MG 8MG 8mg/d 8 8 Tahir Ayala Oct 15, 2016 07:54
[2016-10-15] MEDS: cloNIDine 0.1 mg Tablet PO SCH ×2 (08:30→19:51)
[2016-10-15] MEDS: Ertapenem Inj 1,000 MG in 0.9% Sodium Chloride 50 ML IV SCH (08:30)
[2016-10-15] MEDS: Insulin LISPRO 300 Unit/3 mL Inj SUBQ SCH ×4 (08:30→22:00)
[2016-10-15] MEDS: Felodipine 5 mg ER24 Tablet PO SCH (08:31)
[2016-10-15] MEDS: Nystatin 100,000 Unit/Gm 15 Gm Powder TOPICAL SCH ×3 (08:32→19:55)
[2016-10-15 09:00] VITALS: BP 149/66; PULSE 80; RESP 18; O2SAT 99
--- NOTE | 2016-10-15 10:49 | NUR ---
[facility] Signed
--- NOTE | 2016-10-15 12:34 | PCM.PNMED ---
Subjective Date of Service Oct 15, 2016 Subjective Simeon Jimenez is a 76 year old male with past medical history significant for CHF, CKD, diabetes, atrial fibrillation on chronic anticoagulation, CVA (02/2016) , with recent admission and discharge to [facility]. He is admitted from [facility] due to increased confusion and decreased ability to ambulate thought to be secondary to UTI. Hospital day 9. Overnight: Patient on nasal cannula at 5L overnight. No acute events. Today: Patient sitting in chair with nasal cannula at 3L. States breathing is improved. Up with physical therapy yesterday but only walked in room. He denies chest pain, palpitations, dysuria, nausea, or vomiting. Remaining review of systems negative. Exam Vital Signs Vital Sign - Last Date Time Temp Pulse Resp B/P Pulse Ox O2 Delivery O2 Flow Rate FiO2 10/15/16 10:04 Supplement Oxygen 10/15/16 09:00 36.8 80 18 149/66 99 3.00 10/14/16 16:30 70 Intake and Output 10/14/16 10/14/16 10/15/16 Cumulative From/Thru 15:00 23:00 07:00 10/06/16 17:32 - 10/15/16 06:08 Intake Total 872 ml 800 ml 94590 ml Output Total 935 ml 700 ml 66329 ml Balance -63 ml 100 ml -4837 ml Intake Oral 872 ml 800 ml 63487 ml IV Total 406 ml Output Urine Total 935 ml 700 ml 59270 ml # Voids 28 # Bowel Movements 2 1 12 Exam General: Morbidly obese, well-developed, well-nourished, appropriately interactive. Nasal cannula in place. HEENT: Normocephalic, atraumatic. Anicteric sclerae, moist conjunctivae, and no lid lag. Neck: Supple with full range of motion. Mild JVD. Cardiovascular: Irregularly irregular with no murmurs, rubs, or gallops appreciated Pulmonary: Clear to auscultation bilaterally with decreased air movement in bases bilaterally. Nasal cannula at 3 L. Abdomen: Bowel tones present. Soft and nontender. Extremities: Chronic venous stasis and lower extremity edema. Neurological: Cranial nerves grossly intact. Psychiatric: Normal mood and affect. Alert and oriented to person, place, and time. Lab and Diagnostics Result Diagram: 10/15/1642310/15/16423 X-Rays, CTs and MRIs CT CHEST WITHOUT CONTRAST IMPRESSION: 1. Consolidation at the bilateral lung bases with small pleural effusions suspicious for aspiration/infection. Short interval followup is recommended with resolution of the patient's symptoms to ensure there is no underlying pulmonary pathology. 2. Borderline enlarged mediastinal lymph nodes which may be reactive in nature. However, short interval follow up is recommended. Dictated by: Mary Ellen Perkins M.D. on 10/13/2016 at 14:12 Approved by: Mary Ellen Perkins M.D. on 10/13/2016 at 14:16 X-RAY CHEST ONE VIEW, PORTABLE IMPRESSION: Suspect mild pulmonary edema given the appearance of the lung parenchyma, but body habitus is large and inspiratory volume is reduced. False positive diagnosis of pulmonary edema is possible in this circumstance. Dictated by: Bright Wong M.D. on 10/12/2016 at 10:04 Approved by: Bright Wong M.D. on 10/12/2016 at 10:06 X-RAY CHEST ONE VIEW, PORTABLE IMPRESSION: Increased pulmonary vascularity, suggestive of edema. Dictated by: Liberty Yuen M.D. on 10/07/2016 at 8:07 Approved by: Liberty Yuen M.D. on 10/07/2016 at 8:07 X-RAY CHEST ONE VIEW, PORTABLE IMPRESSION: Trace right-sided pleural effusion. Patchy opacity in the right lung base compatible with atelectasis versus pneumonia. Dictated by: Maria E Beckford MD, PhD on 10/06/2016 at 19:34 Approved by: Maria E Beckford MD, PhD on 10/06/2016 at 19:34 Cardiac Echo Impressions Interpretation Summary The left ventricle is normal in size. There is mild concentric left ventricular hypertrophy. The ejection fraction is estimated to be 55-60%. There are no obvious focal wall motion abnormalities noted but poor endocardial definition reduces the sensitivity for the detection of such.The right ventricle is borderline dilated. Right ventricular systolic function is mildly reduced. The IVC is dilated (diameter is greater than 2.1 cm) yet it collapses greater than 50% with a sniff. This suggests a right atrial pressure of 8 mm Hg. There is mild aortic stenosis. No other echocardiographic abnormalities seen. Compared to the prior echo report on 05/06/2016, there is no significant change. Reading Physician:05:26 PM Assessment & Plan Simeon Jimenez is a 76 year old male with past medical history significant for CHF, CKD, diabetes, atrial fibrillation on chronic anticoagulation, CVA (02/2016) , with recent admission and discharge to [facility]. He is admitted from [facility] due to increased confusion and decreased ability to ambulate thought to be secondary to UTI. Hospital day 9. 1. Acute decompensated heart failure with preserved EF, present on admission, improving. - Echo on 10/07 showed no significant change from that on 05/06/16. EF 55-60%. - Patient continues to require 3L nasal cannula. No need for BPAP overnight for the last 3 days. - Chest x-ray 10/07 showed increased pulmonary edema, repeat chest x-ray 10/13 shows improvement. - Torsemide 20 mg QD started on 10/13. 2. Complicated UTI, present on admission, active. - Urine culture grew ESBL. - Antibiotics switched from Levaquin to ertapenem on 10/08. - Ertapenem 1 g Q24H for 10 days. Course to be completed 10/17. - Infectious disease consulted. Appreciate time and expertise. 3. Acute hypoxemic respiratory failure, present on admission, improving. - Etiology likely multifactorial including decompensated diastolic heart failure , decondition, and possible underlying lung pathology. - Patient very oxygen sensitive. Oxygen requirements decreased. - CT chest with consolidation at the bilateral lung bases with small pleural effusions and borderline enlarged mediastinal lymph nodes. - Bilateral lower extremity doppler negative for DVTs. - Recommend outpatient pulmonology follow up, PFTs, sleep study, and pulmonary rehabilitation. - Pulmonology consulted. Appreciate time and expertise. 4. Delirium, present on admission, resolved. - Likely secondary to acute UTI and hypoxemia/hypercapnia. 5. Hypertension, present on admission, chronic. - Carvedilol 25 mg twice a day - Clonidine 0.1 mg twice a day - Felodipine 10 mg daily - Lisinopril 5 mg daily. - Torsemide 20 mg daily. 6. Atrial fibrillation, present on admission, chronic. - Rate control with carvedilol. - Continued warfarin per pharmacy. - Monitoring on telemetry. 7. Subtherapeutic INR, present on admission, resolved. -Mildly subtherapeutic INR on admission. -Pharmacy to dose warfarin 8. Acute on chronic kidney disease, present on admission, improving. - Uncertain if patient actually has CKD based on a few normal measurements of Cr in the last year. - Creatinine improved with aggressive diuresis. Continue to monitor. May need to decrease torsemide if creatinine increases tomorrow. 9. Diabetes, present on admission, chronic. - Hemoglobin A1c 6.3 on 08/22/16. - Home regimen is Glipizide ER 10 mg QAM. - Insulin lispro per protocol. 10. BPH, present on admission, chronic. - Doxazosin stopped. 11. Peripheral neuropathy, present on admission, chronic. - Continue gabapentin 300 mg 3 times a day. 12. Hypercholesterolemia, present on admission, stable - Continue Pravastatin 40 mg nightly. 13. Urinary incontinence - Patient was on doxazosin, which likely was contributing. - Continue with oxybutynin. - Outpatient urology follow up needed. Further discussion about possible condom catheter. Disposition: Discharge likely to SNF or home health. Discharge pending completion of Ertapenem course on 10/17. Pain Evaluation: Adequate Pain Control GI Prophylaxis: Not indicated VTE Prophylaxis: Theraputic Anticoag with Warfarin VTE Mechanical Devices: Intermittant Pneumatic CD Resuscitation Status: CPR: Attempt Resuscitation Attending Statement The patient was seen and examined together with Dr. Keene on 10/15/2016 and I agree with the history, exam and plan as outlined in the note above. . BROCK KEENE DO Oct 15, 2016 12:34 Natanael Phipps MD Oct 15, 2016 15:18
--- NOTE | 2016-10-15 14:00 | PROG NOTE ---
[address] [address] PROGRESS NOTE PATIENT: SUSANA SHOOK : 1940 MR#: [id number] ADMIT: 10/06/2016 JOB ID: [id number] DATE: 10/15/2016 PULMONARY FOLLOW UP NOTE: PROBLEM LIST: Acute hypoxic hypercapnic respiratory failure. The patient denies any pulmonary symptomatology whatsoever. States that he cat naps quite frequently. Has been doing this more frequently since he has been in the hospital. OBJECTIVE: Temperature 36.8. Pulse 72-80. Respiratory rate 18, blood pressure 149/66, O2 sat on 3 L is 99%. On 4 L, he was 96%. General appearance: No acute distress. Sitting up in a chair at bedside. Awaiting lunch. Chest shows markedly distant breath sounds, especially at the bases. Some odd pulmonary adventitious signs. No use of accessory muscles. Heart tones seem normal. Somewhat irregular. Abdomen is soft. ASSESSMENT: 1. Acute hypoxemic hypercarbic respiratory failure. Doing reasonably well. He is awake, alert and interacting easily. Do not think we need to change his medication regimen at this time. 2. Sleep apnea. Likely has hypoventilation syndrome. Whether the urinary tract infection has resulted in some perturbations of the system and worsening of underlying pulmonary mechanics is unclear. In any case, I would continue with the current regimen and consider re-evaluating him as outpatient. PLAN: 1. Continue current regimen. 2. Much of the evaluations that likely needs to be done is of the long-term variety and would be best accomplished as an outpatient.
--- NOTE | 2016-10-15 15:10 | NUR ---
O2 titration O2 at 4L NC this am and sats are 96%-99%. By afternoon the pt is wearing NC1L and sats are 93%-96%. Will continue to monitor.
--- NOTE | 2016-10-15 16:45 | NUR ---
TRANSFER TO [facility] FROM [facility] ARRIVED ON FLOOR A/O X 3 IN NO APPARENT DISTRESS. HRR, BS CL DENIES COUGH.SON AWARE OF PT'S TRANSFER NAD ARRIVED AT BEDSIDE.
[2016-10-15 16:52] VITALS: BP 135/76; PULSE 68; RESP 18; O2SAT 95
--- NOTE | 2016-10-15 17:09 | NUR ---
Transfer Report called to Najma Vitale RN, [facility] at around 1500. Pt was transferred to room 1021 at about 1630. Pt voided prior to leaving and new brief was placed, A&Ox3, walked to wheelchair. Son was notified of room change. Medications taken along with all belongings including cell phone and cell phone tin roller [employer].
[2016-10-15 21:05] VITALS: BP 129/72; PULSE 70; RESP 16; O2SAT 92
--- NOTE | 2016-10-16 02:40 | NUR ---
activity patient sitting up in chair. states "i don't want to sleep in my bed tonight." reviewed fall precautions. verbalized understanding. care ongoing.
[2016-10-16 04:28] VITALS: BP 137/78; PULSE 86; RESP 18; O2SAT 95
[2016-10-16] MEDS: Nystatin 100,000 Unit/Gm 15 Gm Powder TOPICAL SCH ×2 (08:30→20:30)
[2016-10-16 09:21] LABS: Mean Corpuscular Hemoglobin 24.5 pg (27.0-35.0); Mean Corpuscular Volume 80.7 fL (81-100)
[2016-10-16] MEDS ORDERED: 0.9% Sodium Chloride 100 ML ONE (09:22)
[2016-10-16] MEDS: Insulin LISPRO 300 Unit/3 mL Inj SUBQ SCH ×4 (09:28→20:51)
[2016-10-16] MEDS: Felodipine 5 mg ER24 Tablet PO SCH (09:29)
[2016-10-16] MEDS: Ertapenem Inj 1,000 MG in 0.9% Sodium Chloride 50 ML IV SCH (09:30)
[2016-10-16 09:41] LABS: INR 1.91 ratio
[2016-10-16] MEDS: cloNIDine 0.1 mg Tablet PO SCH ×2 (12:01→20:41)
[2016-10-16 13:20] VITALS: BP 118/62; PULSE 70; RESP 16; O2SAT 94
--- NOTE | 2016-10-16 13:46 | NUR ---
Urine Pt stated feeling like "I can't get all my pee out." MD aware. Bladder scan done on pt and only has 56ml. Repeat UA ordered for pt, but not able to obtain sample yet. Pt is aware to call if he needs to void. Pt has call light in reach.
--- NOTE | 2016-10-16 17:47 | PROG NOTE ---
[address] [address] PROGRESS NOTE PATIENT: SUSANA SHOOK : 1940 MR#: [id number] ADMIT: 10/06/2016 JOB ID: [id number] DATE: 10/16/2016 PULMONARY FOLLOWUP NOTE: PROBLEM: Chronic Hypoxemic Hypercarbic Respiratory Failure. SUBJECTIVE: The patientnever felt there has been problems with his breathing. Does complain mostly of tiredness. No cough or sputum production. OBJECTIVE: Temperature 36.6, pulse 70, respiratory rate 16, blood pressure 118/62. O2 sat has been variably on room air nasal cannula at variable flows but not over 4 L. Currently O2 sat of 94. General appearance: Overweight. Tired appearing. Chest: Moderately decreased breath sounds in upper lobes. Absent breath sounds in the lower lobes. No use of accessory muscles. Heart: Regular rhythm. Abdomen soft. Extremities: Indurated lower extremities from chronic edema. ASSESSMENT: Chronic hypoxemic hypercarbic respiratory failure. Suspect he has the obesity hypoventilation syndrome. Doing reasonably well. Workup can be completed as an outpatient. PLAN: 1. Consider complete PFTs and sleep study as an outpatient. 2. O2 goal should be 88% to 93%. MTDD
--- NOTE | 2016-10-16 19:29 | NUR ---
Activity Pt had no c/o pain. Intermittently agreeable to care. Declined to have me check skin, but then was agreeable late. Pt has significant desaturation when on RA and takes O2 off. At one pt had taken oxygen off and [employer] was reading 75% while pt was sleeping. Immediately put O2 on pt at 4L NC and when pt argued about having it on I educated him that his brain and organs were not getting enough oxygen and it was dangerous. Pt kept oxygen on after that. Still need UA for pt.
[2016-10-16 20:19] VITALS: BP 153/71; PULSE 75; RESP 20; O2SAT 94
--- NOTE | 2016-10-16 23:37 | NUR ---
o2 sat/ comfort dewsaturates when sleeping-takes o2 off. on 4 l per nc runs mid 90s %. denied pain q shift.
--- NOTE | 2016-10-17 04:13 | NUR ---
Activity Pt on 3L O2 via NC overnight, CPox 92-93% O2 sats. Pt request for sleeping pill and Melatonin 5mg given. Denies pain/sob. Able to sleep intermittently throughout shift. BG at 0325 was 147. Continue to monitor. Addendum: 10/17/16 at 0417 by IVETTE HORTA RN Unable to obtain UA yet since pt has been incontinent x2, continuing to try.
[2016-10-17 06:19] VITALS: BP 148/78; PULSE 57; RESP 16; O2SAT 94
[2016-10-17 06:49] LABS: BASOPHILS % (AUTO) 0.3 % (0-3); EOSINOPHILS % (AUTO) 10.1 % (0-5); MONOCYTES % (AUTO) 6.9 % (4-12); Mean Corpuscular Hemoglobin 24.6 pg (27.0-35.0); Mean Corpuscular Volume 83.5 fL (81-100); NEUTROPHILS % (AUTO) 60.4 % (40-74); Platelet Count 316 bil/L (150-400)
[2016-10-17 06:57] LABS: INR 1.95 ratio
[2016-10-17] MEDS: Nystatin 100,000 Unit/Gm 15 Gm Powder TOPICAL SCH (08:14)
[2016-10-17] MEDS: Insulin LISPRO 300 Unit/3 mL Inj SUBQ SCH ×2 (08:15→12:06)
[2016-10-17] MEDS: cloNIDine 0.1 mg Tablet PO SCH (08:16)
[2016-10-17] MEDS: Felodipine 5 mg ER24 Tablet PO SCH (08:17)
[2016-10-17] MEDS: Ertapenem Inj 1,000 MG in 0.9% Sodium Chloride 50 ML IV SCH (08:22)
[2016-10-17 08:38] LABS: ERYTHROCYTE SEDIMENTATION RATE 63 mm/hr (0-30)
--- NOTE | 2016-10-17 09:27 | PCM.PNMED ---
Subjective Date of Service Oct 17, 2016 Subjective Patient has no new complaints, other than having a little bit of difficulty urinating. Exam Vital Signs Vital Sign - Last Date Time Temp Pulse Resp B/P Pulse Ox O2 Delivery O2 Flow Rate FiO2 10/17/16 06:19 36.8 57 16 148/78 94 Nasal Cannula 4.00 10/14/16 16:30 70 Intake and Output 10/16/16 10/16/16 10/17/16 Cumulative From/Thru 15:00 23:00 07:00 10/06/16 17:32 - 10/17/16 06:19 Intake Total 604 ml 450 ml 87975 ml Output Total 658 ml 06149 ml Balance 604 ml -208 ml -3284 ml Intake Oral 544 ml 450 ml 92302 ml IV Total 60 ml 546 ml Output Urine Total 658 ml 07177 ml # Voids 2 3 35 # Bowel Movements 1 0 13 Exam Patient is lying supine in bed in no apparent distress. He is quite somnolent, however it is easily arousable. HEENT: Head is atraumatic normocephalic. Eyes: Pupils are equally round and reactive to light and accommodation. Extraocular muscles are intact. Sclera are white anicteric. Subconjunctival mucosa is pink. Ears and nose are unremarkable. Oropharynx: There is no mucosal lesions, there is no thrush, there is no pharyngitis. Neck: Is supple, there are no nodes, or masses, or tenderness. Chest: Is clear to auscultation and percussion. There are no rales, rhonchi, wheezes or rubs. Heart: Rate rhythm is regular. There is no murmur, rub or gallop. Abdomen: Good bowel sounds are present. Abdomen is obese, soft, nontender, no organomegaly or masses were appreciated. Extremities: Are symmetrical and well perfused. There is 1-2+ edema with chronic stasis dermatitis of both lower extremities, there is no cellulitis, no rash. Neurologic: There are no focal neurological deficits. Cranial nerves II through XII are intact. There are no sensory or motor deficits. Psychiatric: Patients mood is calm and shows no sign of agitation. Genital: Deferred Rectal: Deferred Lab and Diagnostics Result Diagram: 10/17/16 0605 10/17/16 0605 Microbiology Specimen: [id number] Collected: 10/06/16 Status: COMP Req#: [id number] Received: 10/06/16 Source: URINE CC Sp Desc : PP Subm Dr: Naomie Teresa MD Ordered: URINE CULT Procedure Result Verified Site Microbiology KIKE CULT URINE Final 10/08/16 Organism 1 K. [employer] U COLONY COUNT/QUANTITY >100,000 CFU/ml FLOOR/DOCTOR: SANDRINE/SURENDRA PLEASE NOTE This isolate has developed multiple resistance mechanisms to various classes of antibiotics. Consider Contact isolation precautions for in-patients. Contact Pharmacy. Consider Infectious Disease Specialist Consultation. Called to Annika/IC 10/08/16935 1. K. [employer] M.I.C Interp --------- ------ * AMOXICILLIN/CLAVULATE 16 I * AMPICILLIN >=32 R * CEFAZOLIN >=64 R * CEFEPIME R * CEFTRIAXONE >=64 R * CEFUROXIME SODIUM >=64 R * CIPROFLOXACIN >=4 R * ERTAPENEM <=0.5 S * GENTAMICIN <=1 S * IMIPENEM <=1 S * LEVOFLOXACIN >=8 R * NITROFURANTOIN 32 S * TETRACYCLINE >=16 R * TOBRAMYCIN >=16 R * TRIMETHOPRIM/SULFAMETHOXAZOLE >=320 R X-Rays, CTs and MRIs CT CHEST WITHOUT CONTRAST IMPRESSION: 1. Consolidation at the bilateral lung bases with small pleural effusions suspicious for aspiration/infection. Short interval followup is recommended with resolution of the patient's symptoms to ensure there is no underlying pulmonary pathology. 2. Borderline enlarged mediastinal lymph nodes which may be reactive in nature. However, short interval follow up is recommended. Dictated by: Mary Ellen Perkins M.D. on 10/13/2016 at 14:12 Approved by: Mary Ellen Perkins M.D. on 10/13/2016 at 14:16 X-RAY CHEST ONE VIEW, PORTABLE IMPRESSION: Suspect mild pulmonary edema given the appearance of the lung parenchyma, but body habitus is large and inspiratory volume is reduced. False positive diagnosis of pulmonary edema is possible in this circumstance. Dictated by: Bright Wong M.D. on 10/12/2016 at 10:04 Approved by: Bright Wong M.D. on 10/12/2016 at 10:06 X-RAY CHEST ONE VIEW, PORTABLE IMPRESSION: Increased pulmonary vascularity, suggestive of edema. Dictated by: Liberty Yuen M.D. on 10/07/2016 at 8:07 Approved by: Liberty Yuen M.D. on 10/07/2016 at 8:07 X-RAY CHEST ONE VIEW, PORTABLE IMPRESSION: Trace right-sided pleural effusion. Patchy opacity in the right lung base compatible with atelectasis versus pneumonia. Dictated by: Maria E Beckford MD, PhD on 10/06/2016 at 19:34 Approved by: Maria E Beckford MD, PhD on 10/06/2016 at 19:34 Cardiac Echo Impressions Interpretation Summary The left ventricle is normal in size. There is mild concentric left ventricular hypertrophy. The ejection fraction is estimated to be 55-60%. There are no obvious focal wall motion abnormalities noted but poor endocardial definition reduces the sensitivity for the detection of such.The right ventricle is borderline dilated. Right ventricular systolic function is mildly reduced. The IVC is dilated (diameter is greater than 2.1 cm) yet it collapses greater than 50% with a sniff. This suggests a right atrial pressure of 8 mm Hg. There is mild aortic stenosis. No other echocardiographic abnormalities seen. Compared to the prior echo report on 05/06/2016, there is no significant change. Reading Physician:05:26 PM Assessment & Plan Simeon Jimenez is a 76 year old male with past medical history significant for CHF, CKD, diabetes, atrial fibrillation on chronic anticoagulation, CVA (02/2016) , with recent admission and discharge to [facility]. He is admitted from [facility] due to increased confusion and decreased ability to ambulate thought to be secondary to UTI. Hospital day 9. 1. Acute decompensated heart failure with preserved EF, present on admission, improving. - Echo on 10/07 showed no significant change from that on 05/06/16. EF 55-60%. - Patient continues to require 3L nasal cannula. No need for BPAP overnight for the last 3 days. - Chest x-ray 10/07 showed increased pulmonary edema, repeat chest x-ray 10/13 shows improvement. - Torsemide 20 mg QD started on 10/13. 2. Complicated UTI, present on admission, active. - Urine culture grew ESBL. - Antibiotics switched from Levaquin to ertapenem on 10/08. - Ertapenem 1 g Q24H for 10-14 days. - Infectious disease consulted. Appreciate time and expertise. 3. Acute hypoxemic respiratory failure, present on admission, improving. - Etiology likely multifactorial including decompensated diastolic heart failure , decondition, and possible underlying lung pathology. - Patient very oxygen sensitive. Oxygen requirements decreased. - CT chest with consolidation at the bilateral lung bases with small pleural effusions and borderline enlarged mediastinal lymph nodes. - Bilateral lower extremity doppler negative for DVTs. - Recommend outpatient pulmonology follow up, PFTs, sleep study, and pulmonary rehabilitation. - Pulmonology consulted. Appreciate time and expertise. 4. Delirium, present on admission, resolved. - Likely secondary to acute UTI and hypoxemia/hypercapnia. 5. Hypertension, present on admission, chronic. - Carvedilol 25 mg twice a day - Clonidine 0.1 mg twice a day - Felodipine 10 mg daily - Lisinopril 5 mg daily. - Torsemide 20 mg daily. 6. Atrial fibrillation, present on admission, chronic. - Rate control with carvedilol. - Continued warfarin per pharmacy. - Monitoring on telemetry. 7. Subtherapeutic INR, present on admission, resolved. -Mildly subtherapeutic INR on admission. -Pharmacy to dose warfarin 8. Acute on chronic kidney disease, present on admission, improving. - Uncertain if patient actually has CKD based on a few normal measurements of Cr in the last year. - Creatinine improved with aggressive diuresis. Continue to monitor. May need to decrease torsemide if creatinine increases tomorrow. 9. Diabetes, present on admission, chronic. - Hemoglobin A1c 6.3 on 08/22/16. - Home regimen is Glipizide ER 10 mg QAM. - Insulin lispro per protocol. 10. BPH, present on admission, chronic. - Doxazosin stopped. - At Flomax 0.4 mg by mouth daily start 11. Peripheral neuropathy, present on admission, chronic. - Continue gabapentin 300 mg 3 times a day. 12. Hypercholesterolemia, present on admission, stable - Continue Pravastatin 40 mg nightly. 13. Urinary incontinence - Patient was on doxazosin, which likely was contributing. - Continue with oxybutynin. - Outpatient urology follow up needed. Further discussion about possible condom catheter. Disposition: Discharge likely to SNF or home health. Pain Evaluation: Adequate Pain Control GI Prophylaxis: Not indicated VTE Prophylaxis: Theraputic Anticoag with Warfarin VTE Mechanical Devices: Intermittant Pneumatic CD Resuscitation Status: CPR: Attempt Resuscitation José Miguel Wright MD Oct 17, 2016 09:27
--- NOTE | 2016-10-17 09:50 | NUR ---
Social Work: DENI DENI signed
--- NOTE | 2016-10-17 11:25 | PCM.PHAPRO ---
Progress Warfarin Management by Pharmacy: -Indication: afib -Home dose 8mg/d x 9mg on Mon -Admit INR 1.53 Recent Dosing: [facility] gsf gsf gsf gsf gsf gsf gsf Date Oct 08-Oct 09-Oct 10-Oct 11-Oct 12-Oct 13-Oct 14-Oct 15-Oct 16-Oct 17- Sep INR 1.53 1.46 1.45 1.57 1.67 1.87 2.12 2.09 2.09 1.95 INR change -0.07 -0.01 0.12 0.1 0.2 0.25 -0.03 Warf Dose 8 8 10X1 10mg x1 8MG 8MG 8mg/d 8 -Plan: Inr 1.95 today. Will continue with pt's home dose of warfarin 9mg this evening [facility] Oct 17, 2016 11:25
[2016-10-17 11:36] LABS: APPEARANCE,URINE HAZY (CLEAR,HAZY); COLOR,URINE STRAW (YELLOW); OCCULT BLOOD,URINE NEGATIVE (NEGATIVE); UROBILINOGEN,URINE NORMAL (NORMAL)
--- NOTE | 2016-10-17 12:51 | PCM.DIMED ---
Discharge Instructions Date of Service Oct 17, 2016 Dates of Hospitalization Oct 06, 2016 at 22:15 Discharge Diagnosis Discharge Diagnosis UTI with an ESBL Klebsiella Diet Heart Healthy Activity Outpatient Physical Therapy (PT to evaluate and treat) Call your provider Fever or Chills, Shortness of breath, Bleeding, Chest pain, Vomitting, Excessive diarrhea, Weakness (unilateral), Other Patient Instructions Follow-up Provider: Conner Newton MD Follow-up with PCP in: 1 week José Miguel Wright MD Oct 17, 2016 12:51
[2016-10-17] MEDS ORDERED: TAMS0.4C98 PO (13:02)
[2016-10-17] MEDS ORDERED: TORS20TA PO (13:02)
[2016-10-17] MEDS ORDERED: IPRA3AMP NEB (13:02)
[2016-10-17] MEDS ORDERED: SENN-133 PO (13:02)
[2016-10-17 13:33] VITALS: BP 125/65; PULSE 67; RESP 18; O2SAT 99
--- NOTE | 2016-10-17 15:32 | NUR ---
Discharge note- Patient alert and oriented. Denies complaints. Up in chair and tolerated activity well. Discharged to [facility] with personal belongings via cabulance. Report given to admitting nurse.
--- NOTE | 2016-10-17 16:21 | NUR ---
Social Work: Readiness for discharge: sort line worker met with patient and patient's son at bedside and notified them of discharge orders. They voiced understanding and was in agreement. Patient will discharge to [facility] via cabulance. Patient diacharge packet and summary were faxed to the facility and Lyubov at [facility] confirmed receipt. Marisa Read LMSW, MOOK
--- NOTE | 2016-10-26 12:46 | PCM.DC.MED ---
Discharge Summary Date of Service Oct 17, 2016 Dates of Hospitalization Date of Hospital Admission Oct 06, 2016 at 22:15 Date of Discharge: Oct 17, 2016 Providers: Admitting Physician: Ny Cheney DO Primary Care Physician: Conner Newton MD Attending Physician: Ny Cheney DO Diagnosis at Time of Discharge Diagnosis at Time of Discharge UTI with an ESBL Klebsiella Consultations Pulmonary Consultation and Infectious Disease Procedures XRay, CTs & MRIs CT CHEST WITHOUT CONTRAST IMPRESSION: 1. Consolidation at the bilateral lung bases with small pleural effusions suspicious for aspiration/infection. Short interval followup is recommended with resolution of the patient's symptoms to ensure there is no underlying pulmonary pathology. 2. Borderline enlarged mediastinal lymph nodes which may be reactive in nature. However, short interval follow up is recommended. Dictated by: Mary Ellen Perkins M.D. on 10/13/2016 at 14:12 Approved by: Mary Ellen Perkins M.D. on 10/13/2016 at 14:16 X-RAY CHEST ONE VIEW, PORTABLE IMPRESSION: Suspect mild pulmonary edema given the appearance of the lung parenchyma, but body habitus is large and inspiratory volume is reduced. False positive diagnosis of pulmonary edema is possible in this circumstance. Dictated by: Bright Wong M.D. on 10/12/2016 at 10:04 Approved by: Bright Wong M.D. on 10/12/2016 at 10:06 X-RAY CHEST ONE VIEW, PORTABLE IMPRESSION: Increased pulmonary vascularity, suggestive of edema. Dictated by: Liberty Yuen M.D. on 10/07/2016 at 8:07 Approved by: Liberty Yuen M.D. on 10/07/2016 at 8:07 X-RAY CHEST ONE VIEW, PORTABLE IMPRESSION: Trace right-sided pleural effusion. Patchy opacity in the right lung base compatible with atelectasis versus pneumonia. Dictated by: Maria E Beckford MD, PhD on 10/06/2016 at 19:34 Approved by: Maria E Beckford MD, PhD on 10/06/2016 at 19:34 Cardiac Echo Impression Interpretation Summary The left ventricle is normal in size. There is mild concentric left ventricular hypertrophy. The ejection fraction is estimated to be 55-60%. There are no obvious focal wall motion abnormalities noted but poor endocardial definition reduces the sensitivity for the detection of such.The right ventricle is borderline dilated. Right ventricular systolic function is mildly reduced. The IVC is dilated (diameter is greater than 2.1 cm) yet it collapses greater than 50% with a sniff. This suggests a right atrial pressure of 8 mm Hg. There is mild aortic stenosis. No other echocardiographic abnormalities seen. Compared to the prior echo report on 05/06/2016, there is no significant change. Reading Physician:05:26 PM Brief History Simeon is a 76-year-old obese gentleman with history of heart failure with preserved ejection fraction (discharge from this hospital on 09/15/16 following hospitalization for exacerbation of his CHF with hypoxic respiratory failure), CKD, atrial fibrillation on chronic anticoagulation with warfarin, diabetes mellitus type II, and history of CVA in February 2016 who presented from [facility] on 10/07/16 with increased confusion, increased urinary frequency, and weakness. The patient was admitted to the hospitalist service for further evaluation and treatment. Hospital Course Simeon Jimenez is a 76 year old male with past medical history significant for CHF, CKD, diabetes, atrial fibrillation on chronic anticoagulation, CVA (02/2016) , with recent admission and discharge to [facility]. He is admitted from [facility] due to increased confusion and decreased ability to ambulate thought to be secondary to UTI. Hospital day 10. 1. Acute decompensated heart failure with preserved EF, present on admission, improving. - Echo on 10/07 showed no significant change from that on 05/06/16. EF 55-60%. - Patient continues to require 3L nasal cannula. No need for BPAP overnight for the last 3 days. - Chest x-ray 10/07 showed increased pulmonary edema, repeat chest x-ray 10/13 shows improvement. - Torsemide 20 mg QD started on 10/13. 2. Complicated UTI, present on admission, active. - Urine culture grew ESBL. - Antibiotics switched from Levaquin to ertapenem on 10/08. - Ertapenem 1 g Q24H for 10-14 days. - Infectious disease consulted. Appreciate time and expertise. 3. Acute hypoxemic respiratory failure, present on admission, improving. - Etiology likely multifactorial including decompensated diastolic heart failure , decondition, and possible underlying lung pathology. - Patient very oxygen sensitive. Oxygen requirements decreased. - CT chest with consolidation at the bilateral lung bases with small pleural effusions and borderline enlarged mediastinal lymph nodes. - Bilateral lower extremity doppler negative for DVTs. - Recommend outpatient pulmonology follow up, PFTs, sleep study, and pulmonary rehabilitation. - Pulmonology consulted. Appreciate time and expertise. 4. Delirium, present on admission, resolved. - Likely secondary to acute UTI and hypoxemia/hypercapnia. 5. Hypertension, present on admission, chronic. - Carvedilol 25 mg twice a day - Clonidine 0.1 mg twice a day - Felodipine 10 mg daily - Lisinopril 5 mg daily. - Torsemide 20 mg daily. 6. Atrial fibrillation, present on admission, chronic. - Rate control with carvedilol. - Continued warfarin per pharmacy. - Monitoring on telemetry. 7. Subtherapeutic INR, present on admission, resolved. -Mildly subtherapeutic INR on admission. -Pharmacy to dose warfarin 8. Acute on chronic kidney disease, present on admission, improving. - Uncertain if patient actually has CKD based on a few normal measurements of Cr in the last year. - Creatinine improved with aggressive diuresis. Continue to monitor. May need to decrease torsemide if creatinine increases tomorrow. 9. Diabetes, present on admission, chronic. - Hemoglobin A1c 6.3 on 08/22/16. - Home regimen is Glipizide ER 10 mg QAM. - Insulin lispro per protocol. 10. BPH, present on admission, chronic. - Doxazosin stopped. - At Flomax 0.4 mg by mouth daily start 11. Peripheral neuropathy, present on admission, chronic. - Continue gabapentin 300 mg 3 times a day. 12. Hypercholesterolemia, present on admission, stable - Continue Pravastatin 40 mg nightly. 13. Urinary incontinence - Patient was on doxazosin, which likely was contributing. - Continue with oxybutynin. - Outpatient urology follow up needed. Further discussion about possible condom catheter. Disposition: Discharge to [facility] today.. Exam Exam Patient is comfortable sitting up in a wheelchair waiting to be discharged back to [facility]. He is much more awake and alert and has no new complaints. HEENT: Head is atraumatic normocephalic. Eyes: Pupils are equally round and reactive to light and accommodation. Extraocular muscles are intact. Sclera are white anicteric. Subconjunctival mucosa is pink. Ears and nose are unremarkable. Oropharynx: There is no mucosal lesions, there is no thrush, there is no pharyngitis. Neck: Is supple, there are no nodes, or masses, or tenderness. Chest: Is clear to auscultation and percussion. There are no rales, rhonchi, wheezes or rubs. Heart: Rate, rhythm is regular. There is no murmur, rub or gallop. Abdomen: Good bowel sounds are present. Abdomen is obese, soft, nontender, no organomegaly or masses were appreciated. Extremities: Are symmetrical and well perfused. There is 1-2+ edema with chronic stasis dermatitis of both lower extremities, there is no cellulitis, no rash. Neurologic: There are no focal neurological deficits. Cranial nerves II through XII are intact. There are no sensory or motor deficits. Psychiatric: Patients mood is calm and shows no sign of agitation. Genital: Deferred Rectal: Deferred Test 10/06/16 19:03 10/07/16 10:02 10/09/16 22:59 10/12/16 04:35 Activated Partial Thromboplast Time 40.4sec (22.8-33.0) Ammonia 35ug/dL (18-53) Pro-B-Type Natriuretic Peptide 2555pg/mL (0-486) Hold Tapia Top Tube Received (Received) Troponin T < 0.010ug/L (0.0-0.011) Hepatitis B Surface Antigen Negative (Negative) Hepatitis C Antibody <0.1s/co ratio (0.0-0.9) HIV (1&2) Ag and Ab, 4th Generation Non reactive (Non Reactive) HIV (1&2) Antibody Rapid Negative (Negative) Phosphorus Level 4.1mg/dL (2.5-4.9) Test 10/15/16 04:24 10/17/16 06:05 10/17/16 11:10 Magnesium Level 2.0mg/dL (1.6-2.6) White Blood Count 10.8th/mm3 (3.8-10.1) Red Blood Count 4.23mil/mm3 (4.40-5.80) Hemoglobin 10.4g/dL (13.8-17.2) Hematocrit 35.3% (41.0-50.0) Mean Corpuscular Volume 83.5fL (81-100) Mean Corpuscular Hemoglobin 24.6pg (27.0-35.0) Mean Corpuscular Hemoglobin Concent 29.5% (32.0-37.0) Red Cell Distribution Width 17.2% (12.3-15.4) Platelet Count 316bil/L (150-400) Neutrophils (%) (Auto) 60.4% (40-74) Lymphocytes (%) (Auto) 21.9% (14-46) Monocytes (%) (Auto) 6.9% (4-12) Eosinophils (%) (Auto) 10.1% (0-5) Basophils (%) (Auto) 0.3% (0-3) Erythrocyte Sedimentation Rate 63mm/hr (0-30) Prothrombin Time 21.2sec (8.1-12.5) Prothromb Time International Ratio 1.95ratio Sodium Level 146mEq/L (134-144) Potassium Level 4.3mEq/L (3.5-5.2) Chloride Level 100mEq/L (97-108) Carbon Dioxide Level 34mmol/L (18-29) Blood Urea Nitrogen 42mg/dL (8-27) Creatinine 1.47mg/dL (0.76-1.27) Estimat Glomerular Filtration Rate 50mL/min (>59) Glucose Level 168mg/dL (60-99) Calcium Level 9.2mg/dL (8.5-10.1) Total Bilirubin 0.2mg/dL (0.0-1.2) Aspartate Amino Transf (AST/SGOT) 14U/L (0-50) Alanine Aminotransferase (ALT/SGPT) 20U/L (0-44) Alkaline Phosphatase 87U/L (25-160) C-Reactive Protein 1.6mg/dL (0.0-0.5) Total Protein 6.6g/dL (6.4-8.4) Albumin 2.8g/dL (3.4-5.0) Procalcitonin < 0.05ng/mL (See Comment) Urine Color Straw (YELLOW) Urine Appearance Hazy (CLEAR,HAZY) Urine pH 6.0 (5.0-8.0) Urine Specific [place] 1.015 (1.003-1.035) Urine Protein Negativemg/dL (NEG,TRACE) Urine Glucose (UA) Negativemg/dL (NEGATIVE) Urine Ketones Negativemg/dL (NEGATIVE) Urine Occult Blood Negative (NEGATIVE) Urine Nitrite Negative (NEGATIVE) Urine Bilirubin Negative (NEGATIVE) Urine Urobilinogen Normalmg/dL (NORMAL) Urine Leukocyte Esterase Negative (NEGATIVE) Urine RBC 0-2/hpf (0-2) Urine WBC 0-5/hpf (0-5) Urine Epithelial Cells Occasional/hpf (NONE-MOD) Urine Crystals None seen (NONE SEEN) Urine Bacteria None/hpf (NONE-FEW) Urine Hyaline Casts None/lpf (NONE) Urine Granular Casts None seen (NONE SEEN) Urine Waxy Casts None seen (NONE SEEN) Urine Red Blood Cell Casts None seen (NONE SEEN) Urine White Blood Cell Casts None seen (NONE SEEN) Urine Mucus None seen (None Seen) Urine Trichomonas None seen (NONE SEEN) Urine Yeast None (NONE SEEN) Urinalysis Comment None Urine Culture Reflexed Not indicated Microbiology Results Specimen: [id number] Collected: 10/06/16 Status: COMP Re#: [id number] Received: 10/06/16 Source: URINE CC Sp Desc : PP Subm Dr: Naomie Teresa MD Ordered: URINE CULT Procedure Result Verified Site Microbiology KIKE CULT URINE Final 10/08/16 Organism 1 K. PNEUMONIAE ESBL [employer] COUNSEL[employer] U COLONY COUNT/QUANTITY >100,000 CFU/ml FLOOR/DOCTOR: SANDRINE/SURENDRA PLEASE NOTE This isolate has developed multiple resistance mechanisms to various classes of antibiotics. Consider Contact isolation precautions for in-patients. Contact Pharmacy. Consider Infectious Disease Specialist Consultation. Called to Annika/NEW 10/08/16 0936 1. K. PNEUMONIAE [employer]BL [employer] COUN[employer] M.I.C Interp --------- ------ * AMOXICILLIN/CLAVULATE 16 I * AMPICILLIN >=32 R * CEFAZOLIN >=64 R * CEFEPIME R * CEFTRIAXONE >=64 R * CEFUROXIME SODIUM >=64 R * CIPROFLOXACIN >=4 R * ERTAPENEM <=0.5 S * GENTAMICIN <=1 S * IMIPENEM <=1 S * LEVOFLOXACIN >=8 R * NITROFURANTOIN 32 S * TETRACYCLINE >=16 R * TOBRAMYCIN >=16 R * TRIMETHOPRIM/SULFAMETHOXAZOLE >=320 R Discharge Medications Discharge Medications Carboxymethylcellulose Sodium (Refresh Tears) 15 Ml Drops 15 ML OP BID (Reported ) 2 DROPS IN EACH EYE Carvedilol (Carvedilol) 25 Mg Tablet 25 MG PO BID Prescribed by: BETO KWONG MD Cholecalciferol (Vitamin D3) (Vitamin D3) 2,000 Unit Tablet 2,000 UNIT PO DAILY (Reported) Clonidine (Clonidine) 0.1 Mg Tablet 0.1 MG PO BID (Reported) Cyanocobalamin (Vitamin B-12) (Vitamin B-12) 1,000 Mcg Tablet 2,000 MCG PO DAILY (Reported) Felodipine ER (Felodipine ER) 10 Mg Tab.er.24h 10 MG PO QAM (Reported) Ferrous Sulfate (Ferrous Sulfate) 325 Mg Tablet 325 MG PO DAILY (Reported) Folic Acid (Folic Acid) 1 Mg Tablet 1 MG PO DAILY (Reported) Gabapentin (Gabapentin) 300 Mg Capsule 300 MG PO TID (Reported) Glipizide ER (Glipizide ER) 10 Mg Tab.er.24 10 MG PO QAM (Reported) Lisinopril (Lisinopril) 5 Mg Tablet 5 MG PO DAILY (Reported) Metronidazole (Metronidazole) 500 Mg Tablet 500 MG PO TID Prescribed by: LEONORA TIRADO MD Multivits-Min/FA/Lycopene/Lut (Centrum Silver Tablet) 1 Each Tablet 1 EACH PO DAILY (Reported) Oxybutynin Chloride ER (Oxybutynin Chloride ER) 5 Mg Tab.er.24 5 MG PO DAILY ( Reported) Pravastatin (Pravastatin) 40 Mg Tablet 40 MG PO HS (Reported) Tamsulosin (Flomax) 0.4 Mg Capsule 0.4 MG PO DAILY Prescribed by: JOSE WRIGHT MD Torsemide (Demadex) 20 Mg Tablet 20 MG PO DAILY Prescribed by: JOSE WRIGHT MD Warfarin Sodium (Warfarin Sodium) 4 Mg Tablet 8 MG PO DAILY Prescribed by: ANJALI KAHN DO Warfarin Sodium (Coumadin) 4 Mg Tablet 9 MG PO QPM (Reported) take on monday As needed Acetaminophen (Acetaminophen) 325 Mg Capsule 650 MG PO Q4HR PRN PRN For Pain ( Reported) Ipratropium/Albuterol Sulfate (Iprat-Albut 0.5-3(2.5) mg/3 mL Inhalant Soln) 3 Ml Ampul.neb 3 ML NEB Q4H PRN PRN For Shortness of Breath Prescribed by: JOSE WRIGHT MD Melatonin (Melatonin) 5 Mg Tablet 5 MG PO HS PRN PRN For Insomnia Prescribed by: BETO KWONG MD Oxycodone (Roxicodone) 5 Mg Tablet 5 MG PO Q4H PRN PRN For Pain (Reported) Sennosides (Senna) 8.6 Mg Tablet 17.2 MG PO BID PRN PRN For Constipation Prescribed by: JOSE WRIGHT MD Followup Plan Disposition: The patient is being discharged to [facility] Discharge Diet: Heart Healthy Discharge Activity: Outpatient Physical Therapy (PT to evaluate and treat) Follow-up Provider: Conner Newton MD Follow-up with PCP in: 1 week Time spent Time spent on the discharge of this patient was over 30 minutes, over half of which was involved in the counseling and coordination of care. José Miguel Wright MD Oct 26, 2016 12:46
== END 2016-10-17 15:02 | DRG 291 ==
LOC: EDBD 17:19 → SED 17:19 → MPC 22:15 → PCC 10-07 08:45 → OSC 10-15 17:15
PROVIDERS: ADMIT Internal Medicine; ATTEND Internal Medicine
PROC: 4A033R1 Measurement of Arterial Saturation, Peripheral, Percutaneous Approach (ICD-10-PCS; principal; 2016-10-07)
PROC: 3E0234Z Introduction of Serum, Toxoid and Vaccine into Muscle, Percutaneous Approach (ICD-10-PCS; 2016-10-08)
DX: I50.33 Acute on chronic diastolic (congestive) heart failure (principal); J96.01 Acute respiratory failure with hypoxia; J96.02 Acute respiratory failure with hypercapnia; N39.0 Urinary tract infection, site not specified; E66.2 Morbid (severe) obesity with alveolar hypoventilation; Z68.42 Body mass index [BMI] 45.0-49.9, adult; E78.5 Hyperlipidemia, unspecified; Z79.01 Long term (current) use of anticoagulants; Z86.73 Personal history of transient ischemic attack (TIA), and cerebral infarction without residual deficits; K21.9 Gastro-esophageal reflux disease without esophagitis; R41.0 Disorientation, unspecified; I48.2 Chronic atrial fibrillation; I10 Essential (primary) hypertension; E11.42 Type 2 diabetes mellitus with diabetic polyneuropathy; E78.00 Pure hypercholesterolemia, unspecified; N40.0 Benign prostatic hyperplasia without lower urinary tract symptoms; B96.1 Klebsiella pneumoniae [K. pneumoniae] as the cause of diseases classified elsewhere; Z16.23 Resistance to quinolones and fluoroquinolones; Z79.84 Long term (current) use of oral hypoglycemic drugs; Z23 Encounter for immunization

== ENCOUNTER 2017-01-07 18:24 | Inpatient (IN) | payer MEDICARE ==
[~2017-01-07] VITALS: Ht 177.8 cm; Wt 130.4 kg
[~2017-01-07 18:24] MED LIST changes: -ACAR50TA3 PO; -DOXA8TAB73 PO; -FURO40TA4 PO; +IPRA3AMP NEB; +LISI-571 PO; +OXYB5TAB PO; +SENN-133 PO; +TAMS0.4C98 PO; +TORS20TA PO; +WARF4TAB PO; -Warfarin per Pharmacist XX
[2017-01-07 18:32] VITALS: BP 131/86; PULSE 71; O2SAT 100
--- NOTE | 2017-01-07 18:32 | ED.REPORT ---
HPI-Rash / Abscess Date of Service Jan 07, 2017 ED Provider: Bernard Goode MD A 76 year old male with a history of hypertension, peripheral neuropathy, cellulitis, diabetes, atrial fibrillation and chronic bilateral leg edema is brought to the ED via EMS due to worsening bilateral leg edema and itching. The pt's chronic lower extremity edema has worsened recently with increasing redness , swelling, itching and hives. The pt denies shortness of breath or respiratory distress. Nursing Notes Stated Complaint: RASH ON LEGS Nursing Notes Reviewed: Yes Allergies: Coded Allergies: Penicillins (Verified Allergy, Unknown, 10/06/16) oxycodone (Verified Adverse Reaction, Severe, 10/07/16) make pt very drowsy,stay in bed for a week per son. tramadol (Verified Adverse Reaction, Severe, 10/07/16) make pt very drowsy,stay in bed for a week per son. Scheduled Acarbose (Acarbose) 25 Mg Tablet 25 MG PO QID Ascorbic Acid (Vitamin C) 500 Mg Capsule.er 500 MG PO BID Carboxymethylcellulose Sodium (Refresh Tears) 15 Ml Drops 15 ML OP BID 2 DROPS IN EACH EYE Carvedilol (Carvedilol) 25 Mg Tablet 25 MG PO BID Chlorthalidone (Chlorthalidone) 25 Mg Tablet 25 MG PO DAILY Cholecalciferol (Vitamin D3) (Vitamin D3) 2,000 Unit Tablet 2,000 UNIT PO DAILY Cyanocobalamin (Vitamin B-12) (Vitamin B-12) 1,000 Mcg Tablet 2,000 MCG PO DAILY Ferrous Sulfate (Ferrous Sulfate) 325 Mg Tablet 325 MG PO DAILY Folic Acid (Folic Acid) 1 Mg Tablet 1 MG PO DAILY Gabapentin (Gabapentin) 300 Mg Capsule 300 MG PO TID Glipizide ER (Glipizide ER) 10 Mg Tab.er.24 10 MG PO QAM Insulin Glargine (Lantus U100 Solostar Insulin Pen) 100 Unit/1 Ml Insuln.pen 4 UNIT SUBQ HS Lisinopril (Lisinopril) 5 Mg Tablet 5 MG PO DAILY Metronidazole (Metronidazole) 500 Mg Tablet 500 MG PO TID Multivits-Min/FA/Lycopene/Lut (Centrum Silver Tablet) 1 Each Tablet 1 EACH PO DAILY Oxybutynin Chloride ER (Oxybutynin Chloride ER) 10 Mg Tab.er.24 10 MG PO DAILY Potassium Chloride (Potassium Chloride) 20 Meq Tab.er.prt 20 MEQ PO DAILY TAKE WITH FOOD Pravastatin (Pravastatin) 40 Mg Tablet 40 MG PO HS Sertraline HCl (Sertraline) 50 Mg Tablet 50 MG PO DAILY Spironolactone (Spironolactone) 50 Mg Tablet 50 MG PO DAILY Tamsulosin (Flomax) 0.4 Mg Capsule 0.4 MG PO DAILY Torsemide (Demadex) 20 Mg Tablet 20 MG PO DAILY Warfarin Sodium (Coumadin) 4 Mg Tablet 10 MG PO QPM Sun, Mon, Wed, Fri Warfarin Sodium (Warfarin Sodium) 7.5 Mg Tablet 7.5 MG PO , , Mon Scheduled PRN Acetaminophen (Acetaminophen) 325 Mg Capsule 650 MG PO Q4HR PRN PRN For Pain Melatonin (Melatonin) 5 Mg Tablet 5 MG PO HS PRN PRN For Insomnia General Time Seen by MD: 18:30 Chief Complaint Other (bilateral lower extremity edema) Hx Obtained From: Patient, EMS Arrived By: Ambulance Onset Occurred: 5 - 8 hours ago Symptom Duration: Since onset Recent Healthcare: Recent doctor visit, Recent hospitalization Similar Sx Previous: Yes Past Medical History Past Medical History Notes: bilateral leg edema for several years 08/22/2016 Past Medical History 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) Peripheral neuropathy Arthritis cellulitis Urinary urgency/BPH Cataracts Hiatal hernia and GERD DM type II Depression Reports: Bleeding disorder, Congestive heart failure, Hyperlipidemia, Hypertension Reports: Atrial fibrillation Past Surgical History right knee replacement Reports: Cataract surgery, Tonsillectomy Family History Cancer in mother, cardiac in father Social History Alcohol Use: Denies alcohol use Drug Use: Denies drug use Other Social History: Good social support, Lives in correction, Local resident Occupation lives with son 08/22/2016 Ambulatory Status Independent Review of Systems Review of Systems Note: lower extremity swelling and redness denies respiratory distress Respiratory: Denies: Non-productive cough, Shortness of breath Cardiovascular: Denies: Chest pain GI: Denies: Abdominal pain, Vomiting Skin: Reports Itching Allergy / Immune: Reports: Hives Complete sys rev & neg: except as marked. Physical Exam Initial Vital Signs Vital Signs (First) Date Time Temp Pulse Resp B/P Pulse Ox O2 Delivery O2 Flow Rate FiO2 01/07/17 18:32 36.6 71 131/86 100 Room Air 01/07/17 21:12 24 Initial VS: Reviewed General/Constitutional: Awake, Alert Skin: Atraumatic, Color NL, No rash, Warm, Dry Head / Eyes: Atraumatic, Normocephalic, PERRL, EOMI ENT: Atraumatic, Airway patent, Mucous membranes moist Respiratory / Chest: Atraumatic, Breath sounds NL, Breath sounds = bilat, No respiratory distress Cardiovascular: Heart rate NL, Regular rhythm, Heart sounds NL Upper Extremity / MS: Atraumatic, Full range of motion Lower Extremity / Pelvis / MS: Full range of motion chronic venous stasis changes lower extremities, severe with open ulcerations erythema, swelling and excoriation extending to knees Neurologic: Oriented X3, Speech NL, No motor deficits, No sensory deficits Neck: Atraumatic, Supple, Full range of motion Abdomen: Atraumatic, Soft, Non-tender Back: Atraumatic, Full range of motion Psychiatric: Affect NL, Mood NL Interpretation & Diagnostics Lab Results Interpretation Result Diagram: 01/07/17 1830 01/07/17 2203 Test 01/07/17 18:30 01/07/17 20:09 01/07/17 21:43 01/07/17 22:03 White Blood Count 11.6th/mm3 (3.8-10.1) Red Blood Count 4.65mil/mm3 (4.40-5.80) Hemoglobin 12.4g/dL (13.8-17.2) Hematocrit 39.5% (41.0-50.0) Mean Corpuscular Volume 84.9fL (81-100) Mean Corpuscular Hemoglobin 26.7pg (27.0-35.0) Mean Corpuscular Hemoglobin Concent 31.4% (32.0-37.0) Red Cell Distribution Width 20.7% (12.3-15.4) Platelet Count 394bil/L (150-400) Neutrophils (%) (Auto) 61.8% (40-74) Lymphocytes (%) (Auto) 25.8% (14-46) Monocytes (%) (Auto) 8.6% (4-12) Eosinophils (%) (Auto) 2.9% (0-5) Basophils (%) (Auto) 0.5% (0-3) Hold Purple Top Tube Received (Received) Prothrombin Time 26.6sec (8.1-12.5) Prothromb Time International Ratio 2.44ratio Hold Blue Top Tube Received (Received) Magnesium Level 2.1mg/dL (1.6-2.6) Total Bilirubin 0.4mg/dL (0.0-1.2) Aspartate Amino Transf (AST/SGOT) 15U/L (0-50) Alanine Aminotransferase (ALT/SGPT) 20U/L (0-44) Alkaline Phosphatase 70U/L (25-160) Total Protein 8.1g/dL (6.4-8.4) Albumin 3.8g/dL (3.4-5.0) Hold [place] Top Tube Received (Received) Lactic Acid Level 0.8mmol/L (0.4-2.0) Urine Color Yellow (YELLOW) Urine Appearance Clear (CLEAR,HAZY) Urine pH 5.5 (5.0-8.0) Urine Specific [place] 1.010 (1.003-1.035) Urine Protein Negativemg/dL (NEG,TRACE) Urine Glucose (UA) Negativemg/dL (NEGATIVE) Urine Ketones Negativemg/dL (NEGATIVE) Urine Occult Blood Negative (NEGATIVE) Urine Nitrite Negative (NEGATIVE) Urine Bilirubin Negative (NEGATIVE) Urine Urobilinogen Normalmg/dL (NORMAL) Urine Leukocyte Esterase Negative (NEGATIVE) Urine RBC 0-2/hpf (0-2) Urine WBC 0-5/hpf (0-5) Urine Epithelial Cells Occasional/hpf (NONE-MOD) Urine Crystals None seen (NONE SEEN) Urine Bacteria None/hpf (NONE-FEW) Urine Hyaline Casts None/lpf (NONE) Urine Granular Casts None seen (NONE SEEN) Urine Waxy Casts None seen (NONE SEEN) Urine Red Blood Cell Casts None seen (NONE SEEN) Urine White Blood Cell Casts None seen (NONE SEEN) Urine Mucus None seen (None Seen) Urine Trichomonas None seen (NONE SEEN) Urine Yeast None (NONE SEEN) Urine Culture Reflexed Not indicated Sodium Level 136mEq/L (134-144) Potassium Level 5.6mEq/L (3.5-5.2) Chloride Level 105mEq/L (97-108) Carbon Dioxide Level 18mmol/L (18-29) Blood Urea Nitrogen 75mg/dL (8-27) Creatinine 2.43mg/dL (0.76-1.27) Estimat Glomerular Filtration Rate 28mL/min (>59) Glucose Level 134mg/dL (60-99) Calcium Level 9.7mg/dL (8.5-10.1) ECG Interpretation ECG Interpretation: atrial fibrillation with a rate of 78 inferior infarct, old probable anterior infarct, old tall, peaked T waves Time: 20:04 Interpreted by: ED physician Re-Eval/Medical Decision Med Decision/Clinical Course 76-year-old male who presents for a worsening obvious rash on his legs. He has chronic venous stasis changes. It appears that he has been excoriating them. He has not have a fever and does not have a white count and the rash does not look significantly worse than when I saw him in September. However he is noted to be hyperkalemic and have acute on chronic kidney failure. He was treated aggressively with multiple modalities to reduce his potassium. This was effective. His case was discussed with Dr. Mcneill, hospitalist service and with Dr. Charlton, desktop operator. He will be admitted to the hospitalist service, [facility]. Source of Hx: Old records Re-Evaluation/Progress #1: Time of Eval: 21:10 Re-Evaluation/Progress Note: Spoke with the pt's son on the phone regarding the pt's case. Situation and plan for admission are discussed. Re-Evaluation/Progress #2: Time of Eval: 21:31 Patient Status: Condition improved Re-Evaluation/Progress Note: Pt rechecked, who is resting comfortably. He is informed of the diagnosis and need for admission. The pt understands and agrees with the plan. All questions are addressed at this time. Consultation #1: Referral / Consult Name: Rachel Dennison MD Consulted With: Nephrology Call Returned at: 21:35 Master Fire Control Technician: Agrees with eval, Agrees with plan Note: Consulted with Dr. Elizondo, nephrology, regarding pt's case. Dr. Elizondo agrees to consult. Consultation #2: Referral / Consult Name: Ministerio Mcneill MD Consulted With: Hospitalist Call Returned at: 22:12 Master Fire Control Technician: Agrees with eval, Agrees with plan, Accepts admit Note: Spoke to Dr. Mcneill, hospitalist, regarding pt's case. Dr. Mcneill requests a CT and accepts the pt's admission. Counseled Regarding: Diagnosis, Lab results, Need for admission Discharge & Departure Impression: Primary Impression: Hyperkalemia Additional Impression: [id number] kidney injury Disposition: ADMITTED TO HOSPITAL Discharge Condition All VS Reviewed: Yes Condition: Stable Referrals: Conner Newton MD (PCP) Crit Care Except Billable Proc Time Spent: 30-74 minutes Services Performed: Patient management by me, Time spent at bedside, Reviewing test results, Reviewing imaging, Discussing patient care, Documentation in record, Time with fam/surrogate Critical Care Notes: Aggressive multimodality one-to-one management of hyperkalemia secondary to acute renal failure. Shaunibyris Attestation Portions of this note were transcribed by Ian Sanchez. I, Dr. Goode personally performed the history, physical exam and medical decision-making; I reviewed and confirmed the accuracy of the information in the transcribed note. Signed by: Maddie Lynne, 01/07/17 and 1851. copies to: Conner Newton MD, Howard L MD Jan 07, 2017 18:32 IAN SANCHEZ Jan 07, 2017 18:49
[2017-01-07] MEDS ORDERED: Triamcinolone 0.1% 30 Gm Cream TOPICAL ONE (18:55)
[2017-01-07 19:36] LABS: BASOPHILS % (AUTO) 0.5 % (0-3); EOSINOPHILS % (AUTO) 2.9 % (0-5); MONOCYTES % (AUTO) 8.6 % (4-12); Mean Corpuscular Hemoglobin 26.7 pg (27.0-35.0); Mean Corpuscular Volume 84.9 fL (81-100); NEUTROPHILS % (AUTO) 61.8 % (40-74); Platelet Count 394 bil/L (150-400)
[2017-01-07 19:46] LABS: Magnesium 2.1 mg/dL (1.6-2.6)
[2017-01-07] MEDS ORDERED: 0.9% Sodium Chloride 1,000 ML IV ONE (20:04)
[2017-01-07] MEDS ORDERED: Furosemide 10 mg/mL 2 mL Inj IVPUSH ONE (20:05)
[2017-01-07] MEDS ORDERED: Sodium Bicarb (50 mEq) 8.4% 1 mEq/mL 50 mL Syringe IVPUSH ONE (20:05)
[2017-01-07] MEDS ORDERED: Insulin Human REGular-Omnicell 100 Unit/mL IV ONE (20:05)
[2017-01-07] MEDS ORDERED: Sodium Polystyrene Sulfonate 0.25 Gm/mL 500 mL Suspension PO ONE (20:05)
[2017-01-07] MEDS ORDERED: Calcium GLUCOnate 10% (Gm) 1 Gm/10 mL Inj IVPUSH PRN (20:10)
[2017-01-07 21:12] VITALS: BP 113/51; PULSE 75; RESP 24; O2SAT 96
[2017-01-07 22:12] LABS: APPEARANCE,URINE CLEAR (CLEAR,HAZY); COLOR,URINE YELLOW (YELLOW)
[2017-01-07 22:13] LABS: OCCULT BLOOD,URINE NEGATIVE (NEGATIVE); PH,URINE 5.5 (5.0-8.0); UROBILINOGEN,URINE NORMAL (NORMAL)
[2017-01-07] MEDS: 0.9% Sodium Chloride 1,000 ML IV SCH (22:14)
[2017-01-07] MEDS ORDERED: SERT50TA9 PO (22:15)
[2017-01-07] MEDS ORDERED: POTA20TA16 PO (22:15)
[2017-01-07] MEDS ORDERED: Ondansetron 2 mg/mL 2 mL Inj IVPUSH PRN (22:15)
[2017-01-07] MEDS ORDERED: ACAR25TA2 PO (22:15)
[2017-01-07] MEDS ORDERED: Polyethylene Glycol (PEG) 17 Gm Powder PO PRN (22:15)
[2017-01-07] MEDS ORDERED: OXYB10TA PO (22:15)
[2017-01-07] MEDS ORDERED: ASCO500C6 PO (22:15)
[2017-01-07] MEDS ORDERED: SPIR50TA2 PO (22:15)
[2017-01-07] MEDS ORDERED: HYG25 PO (22:15)
[2017-01-07] MEDS ORDERED: INSU100I13 SUBQ (22:15)
[2017-01-07] MEDS ORDERED: Alum-Mag Hydrox-Simeth 30 mL Suspension PO PRN (22:15)
[2017-01-07] MEDS ORDERED: WARF7.5T4 PO (22:15)
[2017-01-07 22:44] VITALS: BP 126/55; PULSE 80; RESP 15; O2SAT 97
[2017-01-07] MEDS ORDERED: Glucose 40% Oral Gel 15 Gm Tube PO PRN (23:00)
[2017-01-07 23:17] LABS: INR 2.44 ratio
[2017-01-07 23:33] VITALS: BP 130/75; PULSE 73; RESP 16; O2SAT 98
[2017-01-08] VITALS (8 sets, daily range): BP systolic 123–134; BP diastolic 62–88; PULSE 75–98; RESP 16–20; O2SAT 96–98
[2017-01-08] MEDS: Heparin 5,000 Unit/mL Inj SUBQ SCH ×3 (00:30→16:30)
--- NOTE | 2017-01-08 01:13 | NUR ---
NEW ADMIT Pt to the floor @ 2320, pt stated he could not walk or move from stretcher on his own, slide board used. Pt very agitated, resistant to care and agitated with admission process. Pt refused most of the physical assessment and IV fluids. Pt wished to be left alone. Nursing staff attempted to help change pts clothes, but pt became extremely agitated and refused all care. Pt stated he would take care of it himself. Call light within reach, admit complete.
--- NOTE | 2017-01-08 01:56 | NUR ---
TELE Pt removed his tele and refused to be monitored, and monitoring engineer aware. Addendum: 01/08/17 at 0503 by RICH MONTANO RN Pt's son was able to talk pt into putting tele back on. Pt is less combative and more cooperative with son in room.
--- NOTE | 2017-01-08 03:35 | PCM.HPMED ---
Subjective Date of Service Jan 07, 2017 Primary Provider: Admitting Physician: Ministerio Mcneill MD Primary Care Physician: Conner Newton MD Attending Physician: Ministerio Mcneill MD Admit Status: From the Emergency Department, Full Admit, [facility] Telemetry Chief Complaint: Worsening leg edema History of Present Illness: Simeon Jimenez JR is a 76 year old male with Hypertension, peripheral neuropathy, cellulitis, diabetes, Chronic atrial fibrillation and chronic bilateral leg edema is brought to [facility] Emergency department via EMS due to worsening bilateral leg edema and itching. The pt's chronic lower extremity edema has worsened recently with increasing redness, swelling, itching and hives. The pt denies shortness of breath or respiratory distress. He continued to have chronic wounds on both his legs with ongoing dressing and wound care. He denies any chest pain currently. He somehow is very uncooperative and refused to answers. Patient was on Bactrim for treatment of his leg wounds and cellulitis. He has chronic kidney disease stage 3. Case discussed with Dr Goode, he spoke to Dr Elizondo concerning the worsening kidney function and hyperkalemia. Review of Systems: Pertinent positives as noted in HPI. All other systems were reviewed and are negative Allergies Coded Allergies: Penicillins (Verified Allergy, Unknown, 10/06/16) oxycodone (Verified Adverse Reaction, Severe, 10/07/16) make pt very drowsy,stay in bed for a week per son. tramadol (Verified Adverse Reaction, Severe, 10/07/16) make pt very drowsy,stay in bed for a week per son. Home Medications From [facility], not yet confirmed Simeon Jimenez. [id number] 1940 01/02/2017 04:00 PM Page: 09/22 acarbose 50 mg tablet take 1 tablet by oral route 3 times every day at the start (with the first bite) of each main meal pt takes 50mg 3 times a day Acidophilus Probiotic Blend 175 mg capsule Bactrim DS 800 mg-160 mg tablet take 1 tablet by oral route every 12 hours blood-glucose meter kit check blood sugar 1-2 times a day carvedilol 25 mg tablet take 1 tablet by oral route 2 times every day with food chlorthalidone 25 mg tablet take 1 tablet by oral route every day ferrous sulfate 325 mg (65 mg iron) tablet,delayed release take 1 tablet by ORAL route 2 times every day folic acid 1 mg tablet take 1 tablet by oral route every day gabapentin 300 mg capsule take 1 capsule by oral route 3 times every day Centrum Silver 1 tablet by mouth daily glipizide ER 10 mg tablet, extended release 24 hr take 1 tablet by oral route every day with breakfast Humalog KwikPen 100 unit/mL subcutaneous inject by subcutaneous route 4 units 3 times a day with meals Humulin R 100 unit/mL injection solution 4 units subQ with each main meal and additional units per sliding scale KETOCONAZOLE 2% CRE Apply topically to affected area(s) of the face and back every day pt is not taking lancets check blood sugar once a day Lantus Solostar 100 unit/mL (3 mL) subcutaneous insulin pen inject by subcutaneous route 4 units at bedtime lisinopril 5 mg tablet take 1 tablet by oral route every day Lubricant Eye (cmc-glycerin) 0.5 %-0.9 % drops pt is not using this at this time melatonin 5 mg tablet Take 1 tablet 20 minutes prior to bedtime as needed for sleep oxybutynin chloride ER 10 mg tablet,extended release 24 hr take 1 tablet by oral route every day potassium chloride ER 20 mEq tablet,extended release take 1 tablet by oral route every day with food pravastatin 40 mg tablet take 1 tablet by oral route every day pt takes 40mg at bedtime senna 8.6 mg capsule take 2 capsule by oral route every day at bedtime sertraline 25 mg tablet take 1 tablet by oral route every day for 1 week, then increase to 2 tablets daily spironolactone 50 mg tablet take 1 tablet by oral route every day tamsulosin 0.4 mg capsule take 1 capsule by oral route every day 1/2 hour following the same meal each day torsemide 20 mg tablet take 1 tablet by oral route in the morning and 1 at noon or early afternoon TRIAMCINOLONE 0.1% CRE Apply by topical route two times daily a thin film to the affected skin areas of forearms and legs Tylenol Arthritis Pain 650 mg tablet,extended release take 1 tablet by ORAL route 4 times every day as needed for back pain Vitamin B-12 1,000 mcg tablet 2 tablets po QD Vitamin D3 2,000 unit Cap take 1 tablet by mouth daily warfarin 1 mg tablet take 3 tablet by oral route every day warfarin 5 mg tablet take 1.5 tablets (7.5mg) . and Sat. and 2 tablets (10mg) all other days of the week. 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 Surgical History right knee replacement tonsillectomy Family History Mother: cancer Father: cardiac Social History Hx Alcohol Use: No Hx Substance Use: No Hx Tobacco Use: No Smoking Status: Never Smoker Living Arrangement: Assisted Living (Where the Heart is) Exam Vital Signs Vital Sign - Last Date Time Temp Pulse Resp B/P Pulse Ox O2 Delivery O2 Flow Rate FiO2 01/07/17 22:44 80 15 126/55 97 Nasal Cannula 2 01/07/17 21:12 36.6 Exam General: Alert, Oriented X3, Cooperative, No acute Distress Eyes: PERRLA, Scleral Anicteric Mouth: Mouth Normal, Mucous Membranes Moist/[place] Neck: Supple, no Thyromegaly, trachea central. Chest & Lungs: Clear to auscultation & percussion, No adventitious breath sounds, no crackles, no wheeze Cardiovascular: Normal S1, Normal S2, No Murmurs/Rubs/Gallops, Regular Rate/ Rhythm, Murmur, Other (No JVD, no peripheral edema) Pulses: Radial (present and equal), Dorsalis Pedi (present and equal) Abdomen: Soft, Non-tender, Non-distended, Normoactive bowel tones. Musculoskeletal: Unremarkable. Normal range of motion, no swollen or erythematous joints Extremities: No edema, no cyanosis, no clubbing. Skin: No rashes. Warm and dry, no erythematous areas Neurological: Grossly neurologically intact, has generalized weakness, Normal Speech, Sensation Intact Lymphatic: Lymph nodes Cervical and Axillary not palpable. Lab and Diagnostics Labs Laboratory Tests Test 01/07/17 18:30 01/07/17 20:09 01/07/17 21:43 01/07/17 22:03 White Blood Count 11.6th/mm3 (3.8-10.1) Red Blood Count 4.65mil/mm3 (4.40-5.80) Hemoglobin 12.4g/dL (13.8-17.2) Hematocrit 39.5% (41.0-50.0) Mean Corpuscular Volume 84.9fL (81-100) Mean Corpuscular Hemoglobin 26.7pg (27.0-35.0) Mean Corpuscular Hemoglobin Concent 31.4% (32.0-37.0) Red Cell Distribution Width 20.7% (12.3-15.4) Platelet Count 394bil/L (150-400) Neutrophils (%) (Auto) 61.8% (40-74) Lymphocytes (%) (Auto) 25.8% (14-46) Monocytes (%) (Auto) 8.6% (4-12) Eosinophils (%) (Auto) 2.9% (0-5) Basophils (%) (Auto) 0.5% (0-3) Hold Purple Top Tube Received (Received) Hold Blue Top Tube Received (Received) Sodium Level 134mEq/L (134-144) 136mEq/L (134-144) Potassium Level 7.8mEq/L (3.5-5.2) 7.3mEq/L (3.5-5.2) 5.6mEq/L (3.5-5.2) Chloride Level 103mEq/L (97-108) 105mEq/L (97-108) Carbon Dioxide Level 19mmol/L (18-29) 18mmol/L (18-29) Blood Urea Nitrogen 78mg/dL (8-27) 75mg/dL (8-27) Creatinine 2.49mg/dL (0.76-1.27) 2.43mg/dL (0.76-1.27) Estimat Glomerular Filtration Rate 27mL/min (>59) 28mL/min (>59) Glucose Level 103mg/dL (60-99) 134mg/dL (60-99) Calcium Level 9.8mg/dL (8.5-10.1) 9.7mg/dL (8.5-10.1) Magnesium Level 2.1mg/dL (1.6-2.6) Total Bilirubin 0.4mg/dL (0.0-1.2) Aspartate Amino Transf (AST/SGOT) 15U/L (0-50) Alanine Aminotransferase (ALT/SGPT) 20U/L (0-44) Alkaline Phosphatase 70U/L (25-160) Total Protein 8.1g/dL (6.4-8.4) Albumin 3.8g/dL (3.4-5.0) Hold [place] Top Tube Received (Received) Lactic Acid Level 0.8mmol/L (0.4-2.0) Urine Color Yellow (YELLOW) Urine Appearance Clear (CLEAR,HAZY) Urine pH 5.5 (5.0-8.0) Urine Specific [place] 1.010 (1.003-1.035) Urine Protein Negativemg/dL (NEG,TRACE) Urine Glucose (UA) Negativemg/dL (NEGATIVE) Urine Ketones Negativemg/dL (NEGATIVE) Urine Occult Blood Negative (NEGATIVE) Urine Nitrite Negative (NEGATIVE) Urine Bilirubin Negative (NEGATIVE) Urine Urobilinogen Normalmg/dL (NORMAL) Urine Leukocyte Esterase Negative (NEGATIVE) Urine RBC 0-2/hpf (0-2) Urine WBC 0-5/hpf (0-5) Urine Epithelial Cells Occasional/hpf (NONE-MOD) Urine Crystals None seen (NONE SEEN) Urine Bacteria None/hpf (NONE-FEW) Urine Hyaline Casts None/lpf (NONE) Urine Granular Casts None seen (NONE SEEN) Urine Waxy Casts None seen (NONE SEEN) Urine Red Blood Cell Casts None seen (NONE SEEN) Urine White Blood Cell Casts None seen (NONE SEEN) Urine Mucus None seen (None Seen) Urine Trichomonas None seen (NONE SEEN) Urine Yeast None (NONE SEEN) Urine Culture Reflexed Not indicated Microbiology 01/07/17 Blood Culture, Received Pending Result Diagram: 01/07/17 1830 01/07/17 2203 Assessment & Plan Simeon Jimenez JR is a 76 year old male with Hypertension, peripheral neuropathy, cellulitis, diabetes, Chronic atrial fibrillation and chronic bilateral leg edema is brought to [facility] Emergency department via EMS due to worsening bilateral leg edema and itching. 1. Acute Hyperkalemia. Present on admission. improving Likely due to worsening kidney disease and also exposure to Bactrim. Spirolactone also causes Hyperkalemia - monitor on telemetry - Kayexalate given, Regular insulin - holding Spironolactone 2. Acute on Chronic Kidney Disease. 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 baseline creatinine ~1.4. No proteinuria. Patient was on Bactrim as outpatient for cellulitis. Possible patient has pre renal azotemia - avoid nephrotoxic insults - holding Lisinopril and diuretics - Dr Elizondo consulted - CT scan without contrast to rule out obstructive causes such as Kidney stones of Bladder obstructions 3 Diastolic CHF, chronic - not with acute exacerbation despite his worsening leg edema - hold diuretics and assess daily 4 Lower extremity edema, chronic Due to chronic venous insufficiency, mild increase erythema bilateral, low threshold to broaden abx coverage if worsening erythema - wound consult requested 5 Hypertension, chronic - continuing beta blockers while holding KELLIE inhibitor 6 Atrial fibrillation, chronic on Coumadin -continue rate control medications with Carvedilol 25 mg bid -continue warfarin, dose per pharmacy, INR checked 7 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 Resuscitation Status: CPR: Attempt Resuscitation Ministerio Mcneill MD Jan 07, 2017 22:52
[2017-01-08] MEDS: Insulin LISPRO 300 Unit/3 mL Inj SUBQ SCH ×4 (08:00→20:35)
--- NOTE | 2017-01-08 08:02 | DRSVH ---
PROCEDURE: CT ABDOMEN AND PELVIS WITHOUT CONTRAST ([id number]) INDICATIONS: acute kidney injury, rule out obstruction uropathy TECHNIQUE: Noncontrast 5 mm thick sections acquired from the diaphragms to the symphysis. 5 mm coronal and sagi ttal reformats were then performed. For radiation dose reduction, the following was used: automated exposure control, adjustment of mA and/or kV according to patient size. COMPARISON: None. FINDINGS: Image quality: Excellent. ABDOMEN: Lung bases: Atelectasis noted in the dependent portion of the lung bases. Heart size is enlarged. Solid organs: Liver and spleen are normal in size. Gallbladder is within normal limits. Pancreas i s normal in contours. No adrenal nodules. Kidneys are normal in size, without hydronephrosis. 2 mm nonobstructing stone is noted in the superior pole of the left kidney. Hypoattenuating lesions noted in the kidneys which may represent cysts, but cannot be definitively characterize without the benefit of intravenous contrast. Peritoneum and bowel: Unenhanced bowel loops demonstrate normal wall thickness and caliber. Scattere d colonic diverticula are noted without evidence of diverticulitis. No free fluid or air. The appendi x is normal. Nodes and vessels: No retroperitoneal or mesenteric adenopathy by size criteria. Aorta and inferior vena cava are normal in caliber. Scattered atherosclerotic calcifications noted in the abdominal pel sarmad vasculature. Miscellaneous: No ventral hernias. PELVIS: Genitourinary: Bladder wall thickness is normal. Miscellaneous: No inguinal hernias or adenopathy. Bones: No suspicious bony lesions. No vertebral body compression fractures. Degenerative disc disea se and facet arthropathy are noted in the spine. IMPRESSION: 1. No hydronephrosis. 2. 2 mm nonobstructing left renal stone. 3. Colonic diverticulosis without evidence of diverticulitis. 4. Atherosclerosis including the visualized coronary vasculature 5. Cardiomegaly. Dictated by: Maria E Beckford MD, PhD on 01/08/2017 at 7:54 Approved by: Maria E Beckford MD, PhD on 01/08/2017 at 8:00
[2017-01-08] MEDS: 0.9% Sodium Chloride 1,000 ML IV SCH ×2 (08:04→17:35)
[2017-01-08] MEDS ORDERED: TORS20TA3 PO (08:27)
[2017-01-08] MEDS ORDERED: WARF10TA4 PO (08:29)
[2017-01-08 08:30] LABS: Mean Corpuscular Hemoglobin 26.9 pg (27.0-35.0); Mean Corpuscular Volume 84.2 fL (81-100)
[2017-01-08 08:42] LABS: INR 1.98 ratio
--- NOTE | 2017-01-08 10:54 | NUR ---
Evaluation completed. Please go to "Notes" then click on "Assessments and Notes" (bottom left corner of screen). Then select appropriate discipline tab on top of screen.
--- NOTE | 2017-01-08 14:28 | PCM.PNMED ---
Subjective Date of Service Jan 08, 2017 Subjective Denies any new issues/complaints Exam Vital Signs Vital Sign - Last Date Time Temp Pulse Resp B/P Pulse Ox O2 Delivery O2 Flow Rate FiO2 01/08/17 12:13 36.9 82 20 134/88 96 Room Air 01/07/17 22:44 2 Intake and Output 01/07/17 01/07/17 01/08/17 Cumulative From/Thru 15:00 23:00 07:00 01/07/17 18:32 - 01/08/17 05:10 Intake Total 1000 ml 400 ml 1400 ml Output Total 500 ml 200 ml 700 ml Balance 500 ml 200 ml 700 ml Intake Oral 400 ml 400 ml IV Total 1000 ml 1000 ml Output Urine Total 500 ml 200 ml 700 ml Bladder Scan Volume Amount 559mls # Voids 2 2 General: Alert, Cooperative, No Acute Distress Head: Normal Eyes: Scleral Anicteric Mouth: Mucous Membr Moist/[place] Neck: Supple Chest & Lungs: Chest Wall Normal, Clear to auscultation & percussion Cardiovascular: Regular Rate/Rhythm Abdomen: Non-tender, Non-distended, Normoactive bowel tones, Soft Extremities: Edema (2+ edema in LE bilat) Skin: Other (chronic venous stasis change in LE bilat) Neurological: Grossly Neurologically Intact, Normal Speech IVs and Medications Medications Reviewed: Medications were reviewed in detail Lab and Diagnostics Result Diagram: 01/08/17 0801/08/17 0810 Assessment & Plan 76 year old male with Hypertension, peripheral neuropathy, cellulitis, diabetes , Chronic atrial fibrillation and chronic bilateral leg edema is brought to [facility] Emergency department via EMS due to worsening bilateral leg edema and itching. 1. Acute Hyperkalemia. Present on admission. Ongoing Likely due to worsening kidney disease and also exposure to Bactrim. Spirolactone also causes Hyperkalemia - monitor on telemetry - Kayexalate given, Regular insulin - holding Spironolactone - nephrology consulted. will followup with recs 2. Acute on Chronic Kidney Disease. Present on admission - possible urinary retention. Kenny cath placement today - avoid nephrotoxic insults - holding Lisinopril and diuretics - followup with nephrology consult recs 3. Diastolic CHF, chronic - not with acute exacerbation despite his worsening leg edema - hold diuretics and assess daily 4. Lower extremity edema, chronic Due to chronic venous insufficiency, mild increase erythema bilateral, low threshold to broaden abx coverage if worsening erythema - wound care consult 5. Hypertension, chronic - continuing beta blockers while holding KELLIE inhibitor 6. Atrial fibrillation, chronic on Coumadin - continue rate control medications with Carvedilol 25 mg bid - continue warfarin, dose per pharmacy, INR checked 7. 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 BPH - continue Flomax 0.4 mg daily Dispo: 2-4 days Resuscitation Status: CPR: Attempt Resuscitation Claude Mancini Jan 08, 2017 14:28
--- NOTE | 2017-01-08 15:04 | NUR ---
Social Work Note: Initial Assessment Data& Assessment: EMR reviewed. SW met with pt and pt son at bedside to discuss discharge planning, SW role explained. Jacob Jimenez Jr is a 76 year old male admitted on 01/07/2017 for hyperkalemia. Pt has Medicare and AARP insurance coverage. Pt sees Dr. Conner Newton for primary care. Pt lives at [facility] facility on the assisted side. Pt does not drive and uses a walker or wheelchair at baseline for ambulation assistance. Pt is currently open with [facility] and RN for wound care, pt and pt son would like to resume these services, access provided. Pt son also interested in a bath aid under [facility] if [facility] can guarantee a male bath aid. Pt has had a hx at [facility]. Pt does not have [facility] insurance or VA benefits. SW confirmed DPOA paperwork on file is current and placed a copy on pt chart. Wound Care consult pending. Pt son also interested in speaking with Palliative care as pt has struggled with multiple hospital admissions these past couple of months and pt son has noticed a decline in his overall health and motivation to thrive. Pt son explained he has started the conversations surrounding goals of care and quality of life with pt, but could use some extra support. Pt son also explained that pt would respond best to a male palliative care provider if possible. SW to communicate this to MD. Pt and pt son deny any other needs at this time. SW to continue to follow. Plan: Anticipated discharge back to the [facility] pending bedside assessment and with resume [facility], RN, and [facility]ER HAND. Pt son confirmed he will transport pt home when medically ready if [facility] is not able to transport pt. Pt and pt son deny any other needs at this time. SW to continue to follow. AUDRA Lombardi Addendum: 01/08/17 at 1512 by SEBAS STEWART Amended: Links added.
--- NOTE | 2017-01-08 15:21 | CONS ---
[address] [address] CONSULTATION REPORT PATIENT: SUSANA SHOOK : 1940 MR#: [id number] ADMIT: 01/07/2017 JOB ID: [id number] DATE OF SERVICE: 01/08/2017 REQUESTING PHYSICIAN: Dr. Mcneill REASON FOR CONSULTATION: Management of abnormal kidney function. CHIEF COMPLAINT: Worsening itching. PRESENT ILLNESS: This is a 76-year-old, male, with significant past medical history of chronic kidney disease stage 3, hypertension, type 2 diabetes, chronic lower extremity swelling, dyslipidemia, BPH, who presented to the hospital with a complaint of itchiness. The patient is known to our service. He has been followed up by Dr. Rogers. The last visit with Dr. Rogers was on December 20, 2016. During the visit, his blood pressure was well controlled at 128/62. The patient was on chlorthalidone, torsemide, and spironolactone, treating for lower extremity swelling and high blood pressure. He was taking lisinopril as well for the blood pressure control and proteinuria. During my visit today, he seems irritable. He does not provide me any history. However, his son is at the bedside with him. The son reported that he was started on Bactrim, treating for foot ulcers, and it was given by his family doctor. Of note, his initial blood work showed a potassium of 7.8, creatinine of 2.49. His baseline serum creatinine has ranged between 1.6-2. According to outpatient record, his serum creatinine was 1.9 and potassium was 4.8 on December 27, 2016. The patient reports no fever, no chills. No chest pain. No shortness of breath. No dysuria, no hematuria. He did not mention anything about difficulty urinating. CT of the abdomen and pelvis was done last night showed no hydronephrosis. The son reported that the lower extremity swelling has improved overall. The patient takes Tylenol. He does not use any NSAIDs. PAST MEDICAL HISTORY: 1. Chronic kidney disease, stage 3. 2. Hypertension with hypertensive nephrosclerosis. 3. Type 2 diabetes with nephropathy and neuropathy. 4. BPH. 5. Depression. 6. Chronic atrial fibrillation. 7. CHF. 8. Dyslipidemia. PAST SURGICAL HISTORY: Right knee replacement. Cataract surgery, tonsillectomy. FAMILY HISTORY: Positive for cancer in her mother and heart disease in her father. No kidney disease in the family. SOCIAL HISTORY: Denies current use of alcohol, tobacco, or illicit drugs. He lives in the assisted living. REVIEW OF SYSTEMS: Fourteen point review of system was performed. MEDICATIONS: Reviewed. PHYSICAL EXAMINATION: Vitals: Temperature 36.9, pulse 82, respiratory 20, blood pressure 134/88, O2 sat 96% on room air. General appearance: Awake, alert, oriented x3. No acute distress. Irritable. HEENT: No pallor. No jaundice. No JVD. No lymphadenopathy. No thyroid enlargement. Dry mucous membranes. Heart: Regular rhythm. Normal S1, S2. No murmur, rubs, or gallops. Lungs: Clear to auscultation bilaterally. No wheezing. No rhonchi. Abdomen: Soft, nontender, nondistended. Active bowel sounds. Positive for pressure-like symptoms on the suprapubic area. No hepatosplenomegaly. Extremity: Chronic skin changes noted on lower extremity and 1+ edema noted. Dressing on both feet. LABORATORY: Sodium 137, potassium 6.0, chloride 105, bicarb 17, BUN 71, creatinine 2.53. UA: PH 5.5, specific gravity 1.010, RBCs 0-2, WBCs 0-5, WBC 11.1. Hemoglobin 12.1. ASSESSMENT: 1. Severe hyperkalemia secondary to medications and renal insufficiency. Patient was recently started on Bactrim treating for ulcers. On top of that, patient is on lisinopril and spironolactone. Those medications obviously lead to hyperkalemia. 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 2. Acute kidney injury on chronic kidney disease stage 3 secondary to medication. We need to rule out urinary retention. Also need to rule out acute interstitial nephritis given recent administration of Bactrim. 3. Hypertension with hypertensive nephrosclerosis. 4. Type 2 diabetes with nephropathy and neuropathy. 5. Chronic atrial fibrillation on anticoagulant. 6. BPH with history of urinary retention. 7. Depression. 8. CHF. 9. Dyslipidemia. PLANS: 1. Continue to hold diuretic. Will recommend to check postvoid residual. Recommend to insert Kenny catheter if urine volume over 200 cc. 2. Avoid all nephrotoxins. 3. Hold Bactrim. 4. Check urine eosinophils. 5. Continue normal saline at 100 cc/hour for 1 L. 6. We will repeat BNP in the afternoon. Will give medical management for the hyperkalemia accordingly. Continue to monitor closely. No urgent dialysis indicated at this moment. Thank you for the consultation. We will monitor along with you. EMILYD
--- NOTE | 2017-01-08 17:42 | NUR ---
Agitation/Urine retention Patient is easily frustrated and agitated. Verbally lashes out at caregivers when upset. Calm reassuring approach helpful. Refuses care/ medication frequently, however his son can persuade him to cooperate for most things. Son is very helpful and say for us to call anytime. Patient unable to to urinate this AM. Attempted to bladder scan patient but patient stated it was painful and became extremely agitated. Clemens catheter placed by this RN per MD. 800 mL pale yellow urine immediately drained via catheter. Patient tolerating indwelling clemens well. Patient now denies abd pain when pressure applied.
--- NOTE | 2017-01-08 23:54 | NUR ---
TELE/CLEMENS/LEG WOUNDS Pt refused tele and clemens MD hannah d/c'd. Pt agitated and refuses most care. Pt did allow nursing staff to remove leg dressings, as they needed to be changed, but refused to have dressings replaced. Legs open to air with no drainage @ this time.
[2017-01-09] MEDS: Heparin 5,000 Unit/mL Inj SUBQ SCH ×3 (00:30→16:30)
[2017-01-09 02:35] LABS: BASOPHILS % (AUTO) 0.4 % (0-3); EOSINOPHILS % (AUTO) 2.4 % (0-5); MONOCYTES % (AUTO) 8.8 % (4-12); Mean Corpuscular Volume 83.3 fL (81-100); NEUTROPHILS % (AUTO) 63.3 % (40-74); Platelet Count 357 bil/L (150-400)
[2017-01-09 03:07] LABS: Magnesium 1.9 mg/dL (1.6-2.6); Phosphorus 4.7 mg/dL (2.5-4.9)
[2017-01-09] MEDS: Insulin LISPRO 300 Unit/3 mL Inj SUBQ SCH ×4 (08:00→21:33)
--- NOTE | 2017-01-09 08:41 | NUR ---
Refusal of Care This RN entered pt room to perform morning assessments. Pt was agitated and in process of blood draw. Introductions were made and pt told RN that she did not need to be in the room and would not allow assessments. Blood glucose was assessed using blood from blood draw. Addendum: 01/09/17 at 1104 by YASMIN JOHNSON RN Pt reapproached at 0945. As this RN entered room he was yelling for someone to scratch his back. The AUTOMOTIVE PARTS ADVISOR was in room and responded to his request. The pt refused to be assessed a second time. Stated to come back later. He was given the option of getting his meds and being assessed in 30 minutes, which he agreed to.
[2017-01-09 09:11] LABS: INR 1.37 ratio
[2017-01-09 10:40] VITALS: BP 119/70; PULSE 63; RESP 20; O2SAT 99
--- NOTE | 2017-01-09 10:50 | PCM.CONPHA ---
Subjective Date of Service: Jan 09, 2017 Reason for Pharmacy Consult: Anticoagulation Management Objective Vital Signs Date Time Temp Pulse Resp B/P Pulse Ox O2 Delivery O2 Flow Rate FiO2 01/08/17 20:30 36.6 78 18 130/78 97 Room Air 01/08/17 20:00 84 01/08/17 16:41 36.8 80 18 129/84 97 Room Air 01/08/17 12:13 36.9 82 20 134/88 96 Room Air 01/08/17 11:01 77 Intake and Output 01/07/17 01/08/17 01/09/17 00:00 00:00 00:00 Intake Total 1000 ml 1783 ml Output Total 500 ml 1300 ml Balance 500 ml 483 ml Weight (Kilograms): 130.200 Height (Feet): 5 Height (Inches): 10.00 Test 01/07/17 18:30 01/07/17 20:09 01/07/17 21:43 01/08/17 08:10 Hold Purple Top Tube Received (Received) Hold Blue Top Tube Received (Received) Total Bilirubin 0.4mg/dL (0.0-1.2) Aspartate Amino Transf (AST/SGOT) 15U/L (0-50) Alanine Aminotransferase (ALT/SGPT) 20U/L (0-44) Alkaline Phosphatase 70U/L (25-160) Total Protein 8.1g/dL (6.4-8.4) Albumin 3.8g/dL (3.4-5.0) Lactic Acid Level 0.8mmol/L (0.4-2.0) Urine Color Yellow (YELLOW) Urine Appearance Clear (CLEAR,HAZY) Urine pH 5.5 (5.0-8.0) Urine Specific [place] 1.010 (1.003-1.035) Urine Protein Negativemg/dL (NEG,TRACE) Urine Glucose (UA) Negativemg/dL (NEGATIVE) Urine Ketones Negativemg/dL (NEGATIVE) Urine Occult Blood Negative (NEGATIVE) Urine Nitrite Negative (NEGATIVE) Urine Bilirubin Negative (NEGATIVE) Urine Urobilinogen Normalmg/dL (NORMAL) Urine Leukocyte Esterase Negative (NEGATIVE) Urine RBC 0-2/hpf (0-2) Urine WBC 0-5/hpf (0-5) Urine Epithelial Cells Occasional/hpf (NONE-MOD) Urine Crystals None seen (NONE SEEN) Urine Bacteria None/hpf (NONE-FEW) Urine Hyaline Casts None/lpf (NONE) Urine Granular Casts None seen (NONE SEEN) Urine Waxy Casts None seen (NONE SEEN) Urine Red Blood Cell Casts None seen (NONE SEEN) Urine White Blood Cell Casts None seen (NONE SEEN) Urine Mucus None seen (None Seen) Urine Trichomonas None seen (NONE SEEN) Urine Yeast None (NONE SEEN) Urine Culture Reflexed Not indicated Activated Partial Thromboplast Time 38.1sec (22.8-33.0) Test 01/08/17 11:25 01/08/17 13:38 01/09/17 02:27 01/09/17 08:50 Hold Zeigler Top Tube Received (Received) Urine Random Creatinine 41mg/dL (22-328) Urine Random Total Protein 7mg/dL (0-15) White Blood Count 12.1th/mm3 (3.8-10.1) Red Blood Count 4.55mil/mm3 (4.40-5.80) Hemoglobin 12.3g/dL (13.8-17.2) Hematocrit 37.9% (41.0-50.0) Mean Corpuscular Volume 83.3fL (81-100) Mean Corpuscular Hemoglobin 27.0pg (27.0-35.0) Mean Corpuscular Hemoglobin Concent 32.5% (32.0-37.0) Red Cell Distribution Width 20.2% (12.3-15.4) Platelet Count 357bil/L (150-400) Neutrophils (%) (Auto) 63.3% (40-74) Lymphocytes (%) (Auto) 24.7% (14-46) Monocytes (%) (Auto) 8.8% (4-12) Eosinophils (%) (Auto) 2.4% (0-5) Basophils (%) (Auto) 0.4% (0-3) Sodium Level 141mEq/L (134-144) Potassium Level 5.3mEq/L (3.5-5.2) Chloride Level 104mEq/L (97-108) Carbon Dioxide Level 18mmol/L (18-29) Blood Urea Nitrogen 66mg/dL (8-27) Creatinine 2.24mg/dL (0.76-1.27) Estimat Glomerular Filtration Rate 31mL/min (>59) Glucose Level 143mg/dL (60-99) Calcium Level 9.3mg/dL (8.5-10.1) Phosphorus Level 4.7mg/dL (2.5-4.9) Magnesium Level 1.9mg/dL (1.6-2.6) Parathyroid Hormone (Intact) 20pg/mL (15-65) Prothrombin Time 14.8sec (8.1-12.5) Prothromb Time International Ratio 1.37ratio Assessment/Plan Assessment/Plan Pt is a 76yo male on warfarin for chronic afib, admitted to the hospital for renal insufficiency and hyperkalemia. Pt's home dose warfarin 7.5mg Tue, [place], Sat and 10 mg on Sun, Mon, Wed and Fri. INR today was 1.37, pt is on subcut heparin. Pt has missed at least 2 days of warfarin. Will give warfarin 10mg PO tonight. INRs ordered qday. Pharmacy will follow this pt's warfarin therapy. June Ramirez S PharmD Jan 09, 2017 10:50
--- NOTE | 2017-01-09 11:27 | NUR ---
Palliative Care Palliative Care received verbal order from Dr Mcdonald 01/09/17 to assist with goals of care. Patient is a 76 year old man with hypertension, peripheral neuropathy, cellulitis, diabetes, chronic atrial fibrillation and chronic bilateral leg edema. He was admitted 01/07/17 due to worsening bilateral leg edema and itching. Per nursing notes, patient has been refusing care/RN assessments. Patient resides at [facility]. Madison Jimenez (son) [phone], Palliative Care to follow. Kristyn Fink
--- NOTE | 2017-01-09 12:57 | NUR ---
Refusal of Blood Sugar Management this RN entered pt room. Upon entry pt stated that he was sleeping and didn't want to be disturbed. He was informed that it was lunch time and asked if it was ok to check his blood sugar. Pt stated "No". This RN apologized for disturbing his sleep and left the room.
--- NOTE | 2017-01-09 13:03 | NUR ---
Wound Care [facility] Patient agitated upon process control specialist arrival, however with redirection from RN, patient agreeable to wound assessment to bilateral Legs. Patient with minimal edema to bilateral legs. Moderate erythema to bilateral ankles, approx 6 inches up leg and circumference around leg. Patient with many scabbed areas with intact skin underneath. Multiple small open areas with minimal bloody drainage noted to bilateral legs, from mid calf to just above ankle. More open areas noted on right lateral leg than on left leg. Cleaned bilateral legs with warm soapy washcloth to remove loose scabs and rinsed well. Applied moisturizing cream and Vaseline to bilateral legs knees to ankles. covered open areas on right leg with abd pad. Wrapped both legs with Kerlix, secured with plastic tape. Patient denies pain during treatment and declines further skin assessment stating "I'm fine everywhere else except the itching on my back." Patient allows process control specialist to look at lower back. No rash or skin breakdown noted. RN states she has not observed any open areas to patients back. Patient reports he will receive follow up wound care at [facility] rather than [place] due to closer to home. Nursing to change dressings to bilateral legs q48 hours and PRN soiling, as patient is agreeable. Wound care to follow as needed.
--- NOTE | 2017-01-09 15:01 | PCM.PNNEPH ---
Subjective Date of Service Jan 09, 2017 Subjective Pt refused medical attention. v/s, labs and meds reviewed. Exam Vital Signs Vital Sign - Last Date Time Temp Pulse Resp B/P Pulse Ox O2 Delivery O2 Flow Rate FiO2 01/09/17 10:40 36.9 63 20 119/70 99 Room Air 01/07/17 22:44 2 Intake and Output 01/08/17 01/08/17 01/09/17 Cumulative From/Thru 15:00 23:00 07:00 01/07/17 18:32 - 01/09/17 06:27 Intake Total 1383 ml 900 ml 3683 ml Output Total 1100 ml 1000 ml 2800 ml Balance 283 ml -100 ml 883 ml Intake Oral 583 ml 500 ml 1483 ml IV Total 800 ml 400 ml 2200 ml Output Urine Total 1100 ml 1000 ml 2800 ml # Voids 2 Exam unable to examine the patient. Lab and Diagnostics Result Diagram: 01/09/17 0227 01/09/17 1405 Plan Impression 1. Severe hyperkalemia secondary to medications (bactrim, lisinopril and aldactone ) and RTA type 4. improving. 2. Acute kidney injury on chronic kidney disease stage 3 secondary to medications and possible overdiuresis. CT abd/pelvis showed no hydronephrosis. 3. Hypertension with hypertensive nephrosclerosis. 4. Type 2 diabetes with nephropathy and neuropathy. 5. Chronic atrial fibrillation on anticoagulant. 6. BPH with history of urinary retention. 7. Depression. 8. CHF. 9. Dyslipidemia. Plan: D/c IVF. continue to hold all diuretics. will reassess his volume status on the daily basis if he allows us to. add kayexalate 15 gm PO x1. Low K diet, 2g/day. Rachle Dennison MD Jan 09, 2017 15:01
--- NOTE | 2017-01-09 15:56 | PCM.CONPAL ---
Date of Service Jan 09, 2017 Date of Hospital Admission: Jan 07, 2017 at 22:30 Date of Palliative Consult: Jan 09, 2017 Requesting Provider: Eileen Mcdonald DO Reason Palliative Care Consult: Goals of Care Discussion Reason for Consultation Palliative Care received verbal order from Dr Mcdonald 01/09/17 to assist with goals of care. Patient is a 76 year old man with hypertension, peripheral neuropathy , cellulitis, diabetes, chronic atrial fibrillation and chronic bilateral leg edema. He was admitted 01/07/17 due to worsening bilateral leg edema and itching. Per nursing notes, patient has been refusing care/RN assessments. Patient resides at [facility]. Madison Jimenez (son) [phone], Hospital Unit @time of consult: [facility] ( rm 2000) Palliative Care Recommendation Summary of palliative recommendations: -Symptom management (Pain/other) -DPOA/Advanced Directives/POLST: 1. Code status is currently Full Code. 2. Pt has a previously completed HCPOA, dated 11/30/16, copy in chart. His HCPOA is his son: Madison Jimenez, H: [phone]/ O: [phone]. 3. No prior POLST. -Family/emotional support -Spiritual support Patient Goals: TBD. Dr. Herron left message for son Madison to try to arrange a family meeting with son and patient and Pall Care Team. Additional Medical Diagnoses with primary management by Hospitalist team include : 1. Severe hyperkalemia secondary to medications (bactrim, lisinopril and aldactone ) and RTA type 4. improving. 2. Acute kidney injury on chronic kidney disease stage 3 secondary to medications and possible overdiuresis. CT abd/pelvis showed no hydronephrosis. 3. Hypertension with hypertensive nephrosclerosis. 4. Type 2 diabetes with nephropathy and neuropathy. 5. Chronic atrial fibrillation on anticoagulant. 6. BPH with history of urinary retention. 7. Depression. 8. Chronic diastolic CHF. 9. Dyslipidemia. 10. Lower extremity edema, chronic, due to chronic venous insufficiency. Problems: Resuscitation Status Resuscitation Status: CPR: Attempt Resuscitation Pt History History of Present Illness Simeon Jimenez JR is a 76 year old male with hypertension, peripheral neuropathy, cellulitis, diabetes, chronic atrial fibrillation and chronic bilateral leg edema is brought to [facility] Emergency department via EMS due to worsening bilateral leg edema and itching. The pt's chronic lower extremity edema has worsened recently with increasing redness, swelling, itching and hives. The pt denies shortness of breath or respiratory distress. He continued to have chronic wounds on both his legs with ongoing dressing and wound care. He denies any chest pain currently. When admitted 01/08, he was very uncooperative and refused to answer questions. Patient was on Bactrim for treatment of his leg wounds and cellulitis. He has chronic kidney disease stage 3. 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 Surgical History right knee replacement tonsillectomy Family History Mother: cancer Father: cardiac Social History Hx Alcohol Use: No Hx Substance Use: No Hx Tobacco Use: No Smoking Status: Never Smoker Living Arrangement: Assisted Living (Where the [facility] is) Medications Current Medications: Current Medications Calcium Gluconate 1 gm Q5MIN PRN IVPUSH Last administered on 01/07/17 20:52; Admin Dose 1 GM; Start 01/07/17 at 20:10 Heparin Sodium (Porcine) 5000 unit 5,000 unit Q8 SUBQ Last administered on 08:03; Admin Dose 5,000 UNIT; Start 01/08/17 at 00:30 Sodium Chloride 1,000 ml @ 100 mls/hr Q10H IV; Start 01/07/17 at 22:14; Stop at 17:53; Status DC Al Hydrox/Mg Hydrox/Simethicone 30 ml Q6H PRN PO; Start 01/07/17 at 22:15 Ondansetron HCl 4 to 8 mg Q4H PRN IVPUSH; Start 01/07/17 at 22:15 Senna 17.2 mg BID PRN PO; Start 01/07/17 at 22:15 Polyethylene Glycol 17 gm DAILY PRN PO; Start 01/07/17 at 22:15 Acetaminophen 650 mg Q4H PRN PO Last administered on 01/08/17 04:53; Admin Dose 650 MG; Start 01/07/17 at 22:15 Insulin Human Lispro Nutritional Dose to be given pr... [facility] SUBQ; Start at 08:00 Carvedilol 25 mg BID PO Last administered on 01/09/17 10:39; Admin Dose 25 MG; Start 01/09/17 at 08:30 Gabapentin 300 mg TID PO Last administered on 01/09/17 15:08; Admin Dose 300 MG ; Start 01/09/17 at 08:30 Tamsulosin HCl 0.4 mg DAILY PO Last administered on 01/09/17 10:39; Admin Dose 0.4 MG; Start 01/09/17 at 08:30 Pharmacy Consult 1 ea DAILY@17 XX; Start 01/09/17 at 17:00 Diphenhydramine HCl 25 mg Q4H PRN PO; Start 01/09/17 at 11:05 Scheduled Acarbose (Acarbose) 25 Mg Tablet 25 MG PO TID Ascorbic Acid (Vitamin C) 500 Mg Capsule.er 500 MG PO BID Carboxymethylcellulose Sodium (Refresh Tears) 15 Ml Drops 15 ML OP BID 2 DROPS IN EACH EYE Carvedilol (Carvedilol) 25 Mg Tablet 25 MG PO BID Chlorthalidone (Chlorthalidone) 25 Mg Tablet 25 MG PO DAILY Cholecalciferol (Vitamin D3) (Vitamin D3) 2,000 Unit Tablet 2,000 UNIT PO DAILY Cyanocobalamin (Vitamin B-12) (Vitamin B-12) 1,000 Mcg Tablet 2,000 MCG PO DAILY Ferrous Sulfate (Ferrous Sulfate) 325 Mg Tablet 325 MG PO BID Folic Acid (Folic Acid) 1 Mg Tablet 1 MG PO DAILY Gabapentin (Gabapentin) 300 Mg Capsule 300 MG PO TID Glipizide ER (Glipizide ER) 10 Mg Tab.er.24 10 MG PO QAM Insulin Glargine (Lantus U100 Solostar Insulin Pen) 100 Unit/1 Ml Insuln.pen 4 UNIT SUBQ HS Lisinopril (Lisinopril) 5 Mg Tablet 5 MG PO DAILY Multivits-Min/FA/Lycopene/Lut (Centrum Silver Tablet) 1 Each Tablet 1 EACH PO DAILY Oxybutynin Chloride ER (Oxybutynin Chloride ER) 10 Mg Tab.er.24 10 MG PO DAILY Potassium Chloride (Potassium Chloride) 20 Meq Tab.er.prt 20 MEQ PO DAILY TAKE WITH FOOD Pravastatin (Pravastatin) 40 Mg Tablet 40 MG PO HS Sertraline HCl (Sertraline) 50 Mg Tablet 50 MG PO DAILY Spironolactone (Spironolactone) 50 Mg Tablet 50 MG PO DAILY Tamsulosin (Flomax) 0.4 Mg Capsule 0.4 MG PO DAILY Torsemide (Torsemide) 20 Mg Tablet 40 MG PO DAILY Warfarin Sodium (Warfarin Sodium) 7.5 Mg Tablet 7.5 MG PO Tues, , Mon Warfarin Sodium (Warfarin Sodium) 10 Mg Tablet 10 MG PO Sun, mon, wed, fri. Scheduled PRN Acetaminophen (Acetaminophen) 325 Mg Capsule 650 MG PO Q4HR PRN PRN For Pain Melatonin (Melatonin) 5 Mg Tablet 5 MG PO HS PRN PRN For Insomnia Objective Findings Exam Vital Sign - Last Date Time Temp Pulse Resp B/P Pulse Ox O2 Delivery O2 Flow Rate FiO2 01/09/17 10:40 36.9 63 20 119/70 99 Room Air 01/07/17 22:44 2 Intake and Output 01/08/17 01/08/17 01/09/17 Cumulative From/Thru 15:00 23:00 07:00 01/07/17 18:32 - 01/09/17 06:27 Intake Total 1383 ml 900 ml 3683 ml Output Total 1100 ml 1000 ml 2800 ml Balance 283 ml -100 ml 883 ml Intake Oral 583 ml 500 ml 1483 ml IV Total 800 ml 400 ml 2200 ml Output Urine Total 1100 ml 1000 ml 2800 ml # Voids 2 Objective Pt refused exam, stating he was sleeping. Lab and Diagnostics Result Diagram: 01/09/17 0227 01/09/17 1405 Lab/Diagnostics Lab and Imaging results reviewed in detail in EMR. Time spent Total time 50 minutes; >50% face to face with patient and/or family, providing counselling regarding plans and recommendations, and in care coordination with his/her medical teams. Daisy Herron MD Jan 09, 2017 15:56
--- NOTE | 2017-01-09 16:23 | NUR ---
ANAY Signed AUDRA Lombardi
[2017-01-09 17:04] VITALS: BP 111/75; PULSE 64; RESP 18; O2SAT 94
--- NOTE | 2017-01-09 17:21 | PCM.PNMED ---
Subjective Date of Service Jan 09, 2017 Subjective Patient is aggressive and rude, he screams at the medical team and does not cooperate. Exam Vital Signs Vital Sign - Last Date Time Temp Pulse Resp B/P Pulse Ox O2 Delivery O2 Flow Rate FiO2 01/09/17 10:40 36.9 63 20 119/70 99 Room Air 01/07/17 22:44 2 Intake and Output 01/08/17 01/08/17 01/09/17 Cumulative From/Thru 15:00 23:00 07:00 01/07/17 18:32 - 01/09/17 06:27 Intake Total 1383 ml 900 ml 3683 ml Output Total 1100 ml 1000 ml 2800 ml Balance 283 ml -100 ml 883 ml Intake Oral 583 ml 500 ml 1483 ml IV Total 800 ml 400 ml 2200 ml Output Urine Total 1100 ml 1000 ml 2800 ml # Voids 2 Exam General: Aggressive, non cooperative Chest & Lungs: Clear to auscultation anteriorly and posteriorly bilaterally Cardiovascular: Regular Rate/Rhythm +S1/S2, systolic murmur auscultated Extremities: Edema, erythema bilaterally HEENT: extraocular eye muscles intact, Neck soft supple, trachea midline, nomocephalic/atraumatic Psych: mood and affect were agitated IVs and Medications Medications Reviewed: Medications were reviewed in detail Lab and Diagnostics Result Diagram: 01/09/17 0227 01/09/17 1405 X-Rays, CTs and MRIs PROCEDURE: CT ABDOMEN AND PELVIS WITHOUT CONTRAST IMPRESSION: 1. No hydronephrosis. 2. 2 mm nonobstructing left renal stone. 3. Colonic diverticulosis without evidence of diverticulitis. 4. Atherosclerosis including the visualized coronary vasculature 5. Cardiomegaly. Dictated and approved by: Maria E Beckford MD, PhD on 01/08/2017 at 7:54 Assessment & Plan 76 year old male with Hypertension, peripheral neuropathy, cellulitis, diabetes , Chronic atrial fibrillation and chronic bilateral leg edema is brought to [facility] Emergency department via EMS due to worsening bilateral leg edema and itching. Acute Hyperkalemia, present on admission. Active Likely due to worsening kidney disease and also exposure to Bactrim, Lisinopril. Spirolactone - Monitor on telemetry - Kayexalate given, 15 gm x 1 - Holding Spironolactone - Low potassium diet - Nephrology following Acute on Chronic Kidney Disease, present on admission. Active - Secondary to medications and possible overdiuresis - Avoid nephrotoxic insults - Holding Lisinopril and diuretics - CT abd/pelvis showed no hydronephrosis - Reassess patient's s volume status on the daily basis (patient has been refusing care) Diastolic Congestive Heart Failure, chronic. Presumed stable - Not with acute exacerbation despite his worsening leg edema - Hold diuretics and assess daily Lower extremity edema, chronic, present on admission. Active Due to chronic venous insufficiency, mild increase erythema bilateral, low threshold to broaden abx coverage if worsening erythema - Wound care following Hypertension, chronic. Presumed stable - Continuing beta blockers while holding KELLIE inhibitor Atrial fibrillation, chronic on Coumadin - Continue rate control medications with Carvedilol 25 mg bid - Continue warfarin, dose per pharmacy, INR checked Diabetes Type 2 with nephropathy and neuropathy - Low correction Lispro algorithm - Hemoglobin A1c pending - Holding Glipizide - Continuing Gabapentin 300 mg tid Benign prostatic hypertrophy, chronic. Presumed stable - History of urinary retention - Continue Flomax 0.4 mg daily Depression -Continue Sertaline 50 mg daily Dispo: 2-3 days pending clinical status VTE Prophylaxis: Sub-Q Heparin (Unfractionated) Resuscitation Status: CPR: Attempt Resuscitation Attending Statement The patient was seen and examined together with Dr. Whittaker on 01/10/17 and I have added additional information to the note above. Kasia Whittaker DO Jan 09, 2017 17:21 Nicole Montes DO Jan 10, 2017 13:11
[2017-01-09] MEDS: diphenhydrAMINE 25 mg Capsule PO PRN (18:29)
[2017-01-09 21:28] VITALS: BP 145/85; PULSE 81; RESP 16; O2SAT 95
[2017-01-10] MEDS: Heparin 5,000 Unit/mL Inj SUBQ SCH ×3 (00:20→16:30)
[2017-01-10 02:34] LABS: BASOPHILS % (AUTO) 0.4 % (0-3); EOSINOPHILS % (AUTO) 2.3 % (0-5); MONOCYTES % (AUTO) 9.1 % (4-12); Mean Corpuscular Hemoglobin 26.7 pg (27.0-35.0); Mean Corpuscular Volume 84.6 fL (81-100); NEUTROPHILS % (AUTO) 58.5 % (40-74); Platelet Count 291 bil/L (150-400)
[2017-01-10 02:48] LABS: INR 1.32 ratio
[2017-01-10 02:56] VITALS: BP 122/66; PULSE 72; RESP 20; O2SAT 99
[2017-01-10 03:08] LABS: Vitamin D, 25-Hydroxy 31.7 ng/mL (30.0-100.0)
--- NOTE | 2017-01-10 05:01 | NUR ---
Care Activity Pt agreeable to interventions at HS; allowed medications, VS, and assessment. AOx1, slightly confused to location and time; passive affect. Pt moving independently in room. Refused 0030 heparin injection. VSS. No telemetry.
[2017-01-10] MEDS: Insulin LISPRO 300 Unit/3 mL Inj SUBQ SCH ×3 (08:00→17:06)
[2017-01-10] MEDS: diphenhydrAMINE 25 mg Capsule PO PRN (08:40)
[2017-01-10 08:47] VITALS: BP 124/73; PULSE 74; RESP 16; O2SAT 97
--- NOTE | 2017-01-10 09:07 | PCM.PALLBR ---
Palliative Care Recommendation Summary of palliative recommendations: -Symptom management (Pain/other) -DPOA/Advanced Directives/POLST: 1. Code status was listed on EMR as FULL CODE, however, Dr. Herron clarified with family today that there is a prior POLST that pt signed stating: DNR/DNI/ Limited interventions with no tube feeding. We will change code status order in chart electronically today. 2. Pt has a previously completed HCPOA, dated 11/30/16, copy in chart. His HCPOA is his son: Madison Jimenez, H: [phone] There is now a copy of pt's original POLST in paper chart. -Family/emotional support: Son James is an excellent advocate for his father. Patient Goals: 1. Pt and son want to get a sleep study test done for pt as he has had a correction problem with inadequate rest and morning fatigue. 2. Pt and son have a long list of things they want to do together before pt dies. This includes some travel and they think Don will feel a lot better if he has a portable CPAP machine to use on their travels. 3. Pt is not sure he would want dialysis, but is willing to change his eating habits and medications to try to improve his kidney function. Kirit Ramirez supports this. Additional Medical Diagnoses with primary management by Hospitalist team include : 1. Severe hyperkalemia secondary to medications (bactrim, lisinopril and aldactone ) and RTA type 4. improving. 2. Acute kidney injury on chronic kidney disease stage 3 secondary to medications and possible overdiuresis. CT abd/pelvis showed no hydronephrosis. 3. Hypertension with hypertensive nephrosclerosis. 4. Type 2 diabetes with nephropathy and neuropathy. 5. Chronic atrial fibrillation on anticoagulant. 6. BPH with history of urinary retention. 7. Depression. 8. Chronic diastolic CHF. 9. Dyslipidemia. 10. Lower extremity edema, chronic, due to chronic venous insufficiency. Problems: Resuscitation Status Resuscitation Status: DNR/DNI:Do Not Resuscitate/Intubate Limited Interventions: BiPAP, Medications and IV Fluid POLST Updates/Changes Antibiotics: Use ABX if can Prolong Life Artificially Admin Nutrition: No Artifical Nutrition by Tube . Advanced Care Planning Address: POLST, Code status change Total time 65 minutes; >50% face to face with patient and/or family, providing counselling regarding plans and recommendations, and in care coordination with his/her medical teams. I also spent an additional 30 minutes counseling for advanced care planning with the patient/the patients family/the surrogate decision maker. Palliative Brief Note Date of Service Jan 10, 2017 . Reason for Consultation Palliative Care received verbal order from Dr Mcdonald 01/09/17 to assist with goals of care. Patient is a 76 year old man with hypertension, peripheral neuropathy , cellulitis, diabetes, chronic atrial fibrillation and chronic bilateral leg edema. He was admitted 01/07/17 due to worsening bilateral leg edema and itching. Per nursing notes, patient has been refusing care/RN assessments. Patient resides at [facility]. His son reports that nursing staff administers the patient's meds. Madison Jimenez (son) [phone] Hospital Location @time of consult: [facility] ( 2000) Patient Identification: Simeon Jimenez JR is a 76 year old male with hypertension, peripheral neuropathy, cellulitis, diabetes, CKD 3, chronic atrial fibrillation and chronic bilateral leg edema is brought to [facility] Emergency department via EMS and admitted 01/08/17 for worsening bilateral leg edema and itching. Hospital Course: He is being treated for severe hyperkalemia and RTA type 4 by nephrology. He is gradually improving. Exam General: pt is very pleasant today and makes good eye contact, speech is clear. HEENT: head NC/AT, PERRL, EOMI, nonicteric sclerae, no gross lesions head or neck. Lungs: clear breath sounds, slightly diminished. Heart: S1,S2 rrr Abdomen: obese, slightly distended. No tenderness, rebound, guarding, masses, or hepatosplenomegaly. Extremities: 2+ pitting edema at BLEs, plus chronic brawny induration. Skin: no rashes. Lab and Diagnostics 01/10/17 0212 Daisy Herron MD Jan 10, 2017 09:07 Daisy Herron MD Jan 10, 2017 09:07
--- NOTE | 2017-01-10 09:18 | PCM.PNNEPH ---
Subjective Date of Service Jan 10, 2017 Subjective Mr. Jimenez is well-known to me from previous inpatient and outpatient evaluations. He has a history of chronic kidney disease secondary to diabetic and hypertensive nephropathy. Complicating his picture is chronic noncompliance with diet and fluid restriction. He is currently a resident at a rehabilitation facility and was last seen in my office several weeks ago. At that time he was having progressive orthopnea and lower extremity edema. I changed his diuretics from furosemide to torsemide and he has had significant improvement in both his lower extremity edema and his orthopnea. He was admitted with what appeared to be a rash on both distal lower extremities where he has chronic venous stasis and venous insufficiency. In addition he also has a history of a type IV renal tubular acidosis with hyperkalemia from his diabetes and chronic kidney disease. This morning he is resting a bit more comfortably and is less irritable. His intake and output for the last 24 hours shows 1850 N and 1250 out. His blood pressure is good and he denies any current chest pain, cough, wheezing, nausea or vomiting. His sodium is 135, potassium 5.5, chloride 103, bicarbonate 18, BUN and creatinine were 55 and 2.02. Exam Vital Signs Vital Sign - Last Date Time Temp Pulse Resp B/P Pulse Ox O2 Delivery O2 Flow Rate FiO2 01/10/17 08:47 36.7 74 16 124/73 97 Room Air 01/07/17 22:44 2 Intake and Output 01/09/17 01/09/17 01/10/17 Cumulative From/Thru 15:00 23:00 07:00 01/07/17 18:32 - 01/10/17 06:05 Intake Total 950 ml 300 ml 4933 ml Output Total 250 ml 3050 ml Balance 700 ml 300 ml 1883 ml Intake Oral 950 ml 300 ml 2733 ml IV Total 2200 ml Output Urine Total 250 ml 3050 ml # Voids 1 1 4 # Bowel Movements 1 1 Exam Neck is supple without adenopathy, thyromegaly, or jugular venous distention. Lungs are clear to auscultation though somewhat diminished. Abdomen is distended with slightly diminished bowel sounds. There was no tenderness, rebound, guarding, masses, or hepatosplenomegaly. The liver is mildly pulsatile. Extremities shows some mild to moderate pitting edema confined to both distal lower extremities. There is also evidence of chronic brawny induration. A sterile dressing is in place and was not removed. Skin turgor is good and your is no evidence of any rashes. Lab and Diagnostics Result Diagram: 01/10/1721101/10/17211 X-Rays, CTs and MRIs PROCEDURE: CT ABDOMEN AND PELVIS WITHOUT CONTRAST IMPRESSION: 1. No hydronephrosis. 2. 2 mm nonobstructing left renal stone. 3. Colonic diverticulosis without evidence of diverticulitis. 4. Atherosclerosis including the visualized coronary vasculature 5. Cardiomegaly. Dictated and approved by: Maria E Beckford MD, PhD on 01/08/2017 at 7:54 Plan Impression Impression #1 acute on chronic kidney injury #2 type IV renal tubular acidosis # 3 hyperkalemia number for diabetic nephropathy #5 hypertension with hypertensive heart disease and hypertensive nephrosclerosis. Recommendations #1 I would like to start sodium bicarbonate tablets 650 mg one twice a day. Delbert Rogers DO Jan 10, 2017 09:18
--- NOTE | 2017-01-10 13:35 | NUR ---
Faxed clinicals to [facility] per AEROPHYSICIST
--- NOTE | 2017-01-10 14:37 | NUR ---
Social Work- Readiness for Discharge Data: EMR reviewed. Pt is on day 3 of hospitalization for hyperkalemia per H&P. Pt is nearing discharge, nephrology has cleared pt for home. PT recommends home with continued HH PT services. Pt resides at [facility] and will require a bedside assessment prior to discharge. CUE SELECTOR spoke with Jade, evens at [facility], who requested clinical information be faxed to [phone]. UR Specialist faxed this information, Jade to update CUE SELECTOR about bedside assessment. Pt agreeable to assessment. Pt is open with [facility], PT. Pt will need resume HH orders at discharge. Assessment: Pt who is open with [facility] RN PT. Plan: Pt to return to [facility] with resume [facility] RN PT pending bedside assessment. CUE SELECTOR awaiting confirmation from Jade at [facility] regarding pt's assessment. Pt to be transported either by [facility] or pt's son can transport. SW will continue to follow. AUDRA Billings
[2017-01-10] MEDS ORDERED: DIPH25CA6 PO (14:42)
[2017-01-10] MEDS ORDERED: SODI650T PO (14:43)
--- NOTE | 2017-01-10 14:46 | PCM.DIMED ---
Kasia Whittaker DO 01/10/17 1439: Discharge Instructions Date of Service Jan 10, 2017 Dates of Hospitalization Jan 07, 2017 at 22:30 Discharge Diagnosis Discharge Diagnosis Acute Hyperkalemia, present on admission. Improved Acute on Chronic Kidney Disease, present on admission. Active Diastolic Congestive Heart Failure, chronic. Presumed stable Lower extremity edema, chronic, present on admission. Active Hypertension, chronic. 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 Presumed stable Depression, chronic, Presumed stable Medication Instructions Please start taking Sodium Bicarbonate 650 mg twice a day. Please discontinue Lisinopril and Spirolactone for now due to hyperkalemia and CKD, follow up with your PCP in one week for repeat BMP and to discuss further medical treatment of CKD and HTN. You can continue taking Banadryl as prescribed for itching as needed. Diet Renal Diet Activity Home Health Phyical Therapy (Resume home health physical therapy) Call your provider Fever or Chills, Shortness of breath, Bleeding, Chest pain, Vomitting, Excessive diarrhea, Weakness (unilateral) Patient Instructions Follow-up Provider: Conner Newton MD Follow-up with PCP in: 1 week (BMP needs to be repeated one week after discharge from the hospital ) Nicole Montes DO 01/16/17 1727: Discharge Instructions Attending's Statement The patient was seen and examined together with Dr. Whittaker on 01/10/17 and I agree with the history, exam and plan as outlined in the note above. Kasia Whittaker DO Jan 10, 2017 14:39 Nicole Montes DO January 16, 2017 17:27
--- NOTE | 2017-01-10 14:55 | PCM.DC.MED ---
Discharge Summary Date of Service Jan 10, 2017 Dates of Hospitalization Date of Hospital Admission Jan 07, 2017 at 22:30 Date of Discharge: Jan 10, 2017 Providers: Admitting Physician: Ministerio Mcneill MD Primary Care Physician: Conner Newton MD Attending Physician: Ministerio Mcneill MD Diagnosis at Time of Discharge Diagnosis at Time of Discharge Acute Hyperkalemia, present on admission. Improved Acute on Chronic Kidney Disease, present on admission. Active Diastolic Congestive Heart Failure, chronic. Presumed stable Lower extremity edema, chronic, present on admission. Active Hypertension, chronic. 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 Presumed stable Depression, chronic, Presumed stable Consultations Nephrology, Dr. Rogers Procedures XRay, CTs & MRIs PROCEDURE: CT ABDOMEN AND PELVIS WITHOUT CONTRAST IMPRESSION: 1. No hydronephrosis. 2. 2 mm nonobstructing left renal stone. 3. Colonic diverticulosis without evidence of diverticulitis. 4. Atherosclerosis including the visualized coronary vasculature 5. Cardiomegaly. Dictated and approved by: Maria E Beckford MD, PhD on 01/08/2017 at 7:54 Brief History Per Admitting Physician: Ministerio Mcneill MD: History of Present Illness: Simeon Jimenez JR is a 76 year old male with Hypertension, peripheral neuropathy, cellulitis, diabetes, Chronic atrial fibrillation and chronic bilateral leg edema is brought to [facility] Emergency department via EMS due to worsening bilateral leg edema and itching. The pt's chronic lower extremity edema has worsened recently with increasing redness, swelling, itching and hives. The pt denies shortness of breath or respiratory distress. He continued to have chronic wounds on both his legs with ongoing dressing and wound care. He denies any chest pain currently. He somehow is very uncooperative and refused to answers. Patient was on Bactrim for treatment of his leg wounds and cellulitis. He has chronic kidney disease stage 3. Case discussed with Dr Goode, he spoke to Dr Elizondo concerning the worsening kidney function and hyperkalemia . Hospital Course 76 year old male with Hypertension, peripheral neuropathy, cellulitis, diabetes , Chronic atrial fibrillation and chronic bilateral leg edema is brought to [facility] Emergency department via EMS due to worsening bilateral leg edema and itching. Acute Hyperkalemia, present on admission. Improved Likely due to worsening kidney disease and also exposure to Bactrim, Lisinopril. Spirolactone - Nephrology was consulted, patient was monitored on telemetry, treated with Kayexalate,Spironolactone and Lisinopril were discontinued until seen by Dr. Newton, patient's PCP. Low potassium diet recommended. Acute on Chronic Kidney Disease, present on admission. Active - Secondary to medications and possible overdiuresis. Avoided nephrotoxic insults, discontinued Lisinopril, avoided diuretics during hospital stay. CT abd /pelvis showed no hydronephrosis. Recommended close follow up with PCP after discharge. Diastolic Congestive Heart Failure, chronic. Presumed stable - Not with acute exacerbation despite his worsening leg edema. Diuretics were held during the hospital stay. Lower extremity edema, chronic, present on admission. Active Due to chronic venous insufficiency, mild increase erythema bilateral, low threshold to broaden antibiotic coverage. Wound care was following. Per patient , he would receive follow up wound care at [facility] Hypertension, chronic. Presumed stable - Continued beta blockers while holding KELLIE inhibitor Atrial fibrillation, chronic on Coumadin - Continue rate control medications with Carvedilol 25 mg bid. 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 Continued Gabapentin 300 mg tid Benign prostatic hypertrophy, chronic. Presumed stable - History of urinary retention. Continued Flomax 0.4 mg daily Depression. Presumed stable -Continued Sertaline 50 mg daily Patient has been discharged to the [facility] in a stable condition. Exam Vital Signs (Last) Date Time Temp Pulse Resp B/P Pulse Ox O2 Delivery O2 Flow Rate FiO2 01/10/17 08:47 36.7 74 16 124/73 97 Room Air 01/07/17 22:44 2 Exam General: Alert, Oriented X3, Cooperative, No acute Distress Eyes: PERRLA, Scleral Anicteric Mouth: Mouth Normal, Mucous Membranes Moist/[place] Neck: Supple, no Thyromegaly, trachea central. Chest & Lungs: Clear to auscultation & percussion, No adventitious breath sounds, no crackles, no wheeze Cardiovascular: Normal S1, Normal S2, No Murmurs/Rubs/Gallops, Regular Rate/ Rhythm, Murmur Abdomen: Soft, Non-tender, Non-distended, Normoactive bowel tones. Extremities: No edema, no cyanosis, no clubbing. Skin: No rashes. Warm and dry. Minimal edema to bilateral legs. Moderate erythema to bilateral ankles, approx 6 inches up leg and circumference around leg. Many scabbed areas with intact skin underneath. Multiple small open areas with minimal bloody drainage from mid calf to just above ankle. Neurological: Grossly neurologically intact, has generalized weakness, Normal Speech, Sensation Intact Test 01/07/17 18:30 01/07/17 20:09 01/07/17 21:43 01/08/17 08:10 Hold Purple Top Tube Received (Received) Hold Blue Top Tube Received (Received) Hemoglobin A1c 7.0% (4.8-5.6) Lactic Acid Level 0.8mmol/L (0.4-2.0) Urine Color Yellow (YELLOW) Urine Appearance Clear (CLEAR,HAZY) Urine pH 5.5 (5.0-8.0) Urine Specific [place] 1.010 (1.003-1.035) Urine Protein Negativemg/dL (NEG,TRACE) Urine Glucose (UA) Negativemg/dL (NEGATIVE) Urine Ketones Negativemg/dL (NEGATIVE) Urine Occult Blood Negative (NEGATIVE) Urine Nitrite Negative (NEGATIVE) Urine Bilirubin Negative (NEGATIVE) Urine Urobilinogen Normalmg/dL (NORMAL) Urine Leukocyte Esterase Negative (NEGATIVE) Urine RBC 0-2/hpf (0-2) Urine WBC 0-5/hpf (0-5) Urine Epithelial Cells Occasional/hpf (NONE-MOD) Urine Crystals None seen (NONE SEEN) Urine Bacteria None/hpf (NONE-FEW) Urine Hyaline Casts None/lpf (NONE) Urine Granular Casts None seen (NONE SEEN) Urine Waxy Casts None seen (NONE SEEN) Urine Red Blood Cell Casts None seen (NONE SEEN) Urine White Blood Cell Casts None seen (NONE SEEN) Urine Mucus None seen (None Seen) Urine Trichomonas None seen (NONE SEEN) Urine Yeast None (NONE SEEN) Urine Culture Reflexed Not indicated Activated Partial Thromboplast Time 38.1sec (22.8-33.0) Test 01/08/17 11:25 01/08/17 13:38 01/09/17 02:27 01/10/17 02:12 Hold [place] Top Tube Received (Received) Urine Random Creatinine 41mg/dL (22-328) Urine Random Total Protein 7mg/dL (0-15) Phosphorus Level 4.7mg/dL (2.5-4.9) Magnesium Level 1.9mg/dL (1.6-2.6) Prostate Specific Antigen 2.2ng/mL (0.0-4.0) Vitamin D 25-Hydroxy 31.7ng/mL (30.0-100.0) Parathyroid Hormone (Intact) 20pg/mL (15-65) White Blood Count 10.5th/mm3 (3.8-10.1) Red Blood Count 4.49mil/mm3 (4.40-5.80) Hemoglobin 12.0g/dL (13.8-17.2) Hematocrit 38.0% (41.0-50.0) Mean Corpuscular Volume 84.6fL (81-100) Mean Corpuscular Hemoglobin 26.7pg (27.0-35.0) Mean Corpuscular Hemoglobin Concent 31.6% (32.0-37.0) Red Cell Distribution Width 20.2% (12.3-15.4) Platelet Count 291bil/L (150-400) Neutrophils (%) (Auto) 58.5% (40-74) Lymphocytes (%) (Auto) 29.3% (14-46) Monocytes (%) (Auto) 9.1% (4-12) Eosinophils (%) (Auto) 2.3% (0-5) Basophils (%) (Auto) 0.4% (0-3) Prothrombin Time 14.2sec (8.1-12.5) Prothromb Time International Ratio 1.32ratio Sodium Level 140mEq/L (134-144) Potassium Level 4.6mEq/L (3.5-5.2) Chloride Level 106mEq/L (97-108) Carbon Dioxide Level 20mmol/L (18-29) Blood Urea Nitrogen 55mg/dL (8-27) Creatinine 2.09mg/dL (0.76-1.27) Estimat Glomerular Filtration Rate 33mL/min (>59) Glucose Level 142mg/dL (60-99) Calcium Level 9.5mg/dL (8.5-10.1) Total Bilirubin 0.3mg/dL (0.0-1.2) Aspartate Amino Transf (AST/SGOT) 12U/L (0-50) Alanine Aminotransferase (ALT/SGPT) 16U/L (0-44) Alkaline Phosphatase 63U/L (25-160) Total Protein 7.2g/dL (6.4-8.4) Albumin 3.5g/dL (3.4-5.0) Discharge Medications Discharge Medications Acarbose (Acarbose) 25 Mg Tablet 25 MG PO TID (Reported) Ascorbic Acid (Vitamin C) 500 Mg Capsule.er 500 MG PO BID (Reported) Carboxymethylcellulose Sodium (Refresh Tears) 15 Ml Drops 15 ML OP BID (Reported ) 2 DROPS IN EACH EYE Carvedilol (Carvedilol) 25 Mg Tablet 25 MG PO BID Prescribed by: BETO KWONG MD Chlorthalidone (Chlorthalidone) 25 Mg Tablet 25 MG PO DAILY (Reported) Cholecalciferol (Vitamin D3) (Vitamin D3) 2,000 Unit Tablet 2,000 UNIT PO DAILY (Reported) Cyanocobalamin (Vitamin B-12) (Vitamin B-12) 1,000 Mcg Tablet 2,000 MCG PO DAILY (Reported) Ferrous Sulfate (Ferrous Sulfate) 325 Mg Tablet 325 MG PO BID (Reported) Folic Acid (Folic Acid) 1 Mg Tablet 1 MG PO DAILY (Reported) Gabapentin (Gabapentin) 300 Mg Capsule 300 MG PO TID (Reported) Glipizide ER (Glipizide ER) 10 Mg Tab.er.24 10 MG PO QAM (Reported) Insulin Glargine (Lantus U100 Solostar Insulin Pen) 100 Unit/1 Ml Insuln.pen 4 UNIT SUBQ HS (Reported) Multivits-Min/FA/Lycopene/Lut (Centrum Silver Tablet) 1 Each Tablet 1 EACH PO DAILY (Reported) Oxybutynin Chloride ER (Oxybutynin Chloride ER) 10 Mg Tab.er.24 10 MG PO DAILY ( Reported) Pravastatin (Pravastatin) 40 Mg Tablet 40 MG PO HS (Reported) Sertraline HCl (Sertraline) 50 Mg Tablet 50 MG PO DAILY (Reported) Sodium Bicarbonate (Sodium Bicarbonate) 650 Mg Tablet 650 MG PO BID Prescribed by: RADHAMES WHITTAKER DO Tamsulosin (Flomax) 0.4 Mg Capsule 0.4 MG PO DAILY Prescribed by: JOSE WEBB MD Torsemide (Torsemide) 20 Mg Tablet 40 MG PO DAILY (Reported) Warfarin Sodium (Warfarin Sodium) 7.5 Mg Tablet 7.5 MG PO Tu, Th, Sat ( Reported) Warfarin Sodium (Warfarin Sodium) 10 Mg Tablet 10 MG PO Sun, mon, wed, fri. ( Reported) As needed Acetaminophen (Acetaminophen) 325 Mg Capsule 650 MG PO Q4HR PRN PRN For Pain ( Reported) Melatonin (Melatonin) 5 Mg Tablet 5 MG PO HS PRN PRN For Insomnia Prescribed by: BETO KWONG MD diphenhydrAMINE HCl (Benadryl) 25 Mg Capsule 25 MG PO Q4 PRN PRN For Itching Prescribed by: RADHAMES WHITTAKER DO Additional med instructions Please start taking Sodium Bicarbonate 650 mg twice a day. Please discontinue Lisinopril and Spirolactone for now due to hyperkalemia and CKD, follow up with your PCP in one week for repeat BMP and to discuss further medical treatment of CKD and HTN. You can continue taking Banadryl as prescribed for itching as needed. Followup Plan Discharge Diet: Renal Diet Discharge Activity: Limited until seen by PCP Follow-up Provider: Conner Newton MD Follow-up with PCP in: 1 week (BMP needs to be repeated one week after discharge from the hospital ) Attending Statement The patient was seen and examined together with Dr. Whittaker on 01/10/17 and I agree with the history, exam and plan as outlined in the note above. copies to: Conner Newton MD, Oksana S DO Jan 10, 2017 14:55 Nicole Montes DO January 16, 2017 17:29 Radhames Whittaker DO Jan 10, 2017 14:55
--- NOTE | 2017-01-10 15:09 | NUR ---
Care Activity Pt has been pleasant and cooperative with all cares during this shift provided by RN, except refusal of his heparin injection. Cares and medications have been bundled together so as to lessen agitation by patient of continuous interruptions while he is resting. Pt has been offered a shower by [employer], but has refused at this time, although he says he may be willing during nightshift before he goes to bed. Pt also refused to participate in PT evaluation.
--- NOTE | 2017-01-10 15:25 | NUR ---
Palliative care note [facility] D/A: Met with pt and his son Madison, along with Dr. Herron. (Please note that Madison can be reached at either [phone] or [phone].) Pt agrees to talk today but is also notably non participatory and unable to recount what led to his current hospitalization. Discussion regarding pt current Stage III kidney disease and possible need for dialysis down the road. Description of dialysis as well. At this point, POLST is discussed and team learns that pt actually has a POLST. Note that chart contains pt DPOA paperwork which is also scanned into the EMR. POLST filled out on 11/30/16 with pt PCP Conner Newton and is signed by pt. He elects to be DNAR as well as limited interventions. Pt son is listed as his substation design draftsperson. Pt elects to use antibx if life can be sustained and Dr. Newton also noted to please discuss/determine use of antibx as needed. Pt does not wish to have medically assisted nutrition by tube. Pt and son elect to continue same POLST for the time being. Son and pt appear very close and son indicates that he has many things that he still wishes to do with his dad. They have planned a cruise to [place]. 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 Patient did not wish for the son to follow his lead into the [employer] business and Madison now works for [employer]. Plan continues to be for pt to return to [facility], with son investigating the possibility of a move to the assisted side. P: Palliative to follow as needed. Ignacia NIX
--- NOTE | 2017-01-10 16:03 | NUR ---
Social Work-- Discharge Data: EMR reviewed. Pt is on day 3 of hospitalization for hyperkalemia per H&P. Pt to discharge today. PT recommends home with continued HH PT services. STAFF DEVELOPMENT COORDINATOR RN spoke with Jade regarding bedside assessment, Jade states that pt does not require bedside assessment prior to discharge. EDUARDO spoke with son Madison regarding discharge, Madison available to pick pt up tonight at 1930. [facility], RN, pt, and pt's family all updated and agreeable to plan. Pt to discharge home with resume [facility] PT transport via POV. Assessment: Pt who is open with [facility]. Plan: Pt does not require bedside assessment. Pt to return to [facility] with resume [facility] PT. Pt's son to transport via POV at 1930. AUDRA Billings
[2017-01-10 16:14] VITALS: BP 123/74; PULSE 98; RESP 19; O2SAT 93
--- NOTE | 2017-01-10 19:32 | NUR ---
Discharge Pt discharged with son via wheelchair at approx. 1920; all belongings sent with pt. Written and verbal discharge instructions given to patient and son; both verbalized understanding. All questions answered.
== END 2017-01-10 19:20 | disposition home or self-care (01) | DRG 683 ==
LOC: SED 18:24 → PCC 22:30
PROVIDERS: ADMIT Hospitalist; ATTEND Hospitalist
DX: N17.9 Acute kidney failure, unspecified (principal); I50.32 Chronic diastolic (congestive) heart failure; E87.5 Hyperkalemia; I48.2 Chronic atrial fibrillation; K44.9 Diaphragmatic hernia without obstruction or gangrene; E11.22 Type 2 diabetes mellitus with diabetic chronic kidney disease; N40.1 Benign prostatic hyperplasia with lower urinary tract symptoms; R39.15 Urgency of urination; I12.9 Hypertensive chronic kidney disease with stage 1 through stage 4 chronic kidney disease, or unspecified chronic kidney disease; N18.3 Chronic kidney disease, stage 3 (moderate); E78.5 Hyperlipidemia, unspecified; E11.42 Type 2 diabetes mellitus with diabetic polyneuropathy; G47.33 Obstructive sleep apnea (adult) (pediatric); E11.21 Type 2 diabetes mellitus with diabetic nephropathy; Z66 Do not resuscitate; Z79.01 Long term (current) use of anticoagulants; Z79.4 Long term (current) use of insulin

== ENCOUNTER 2017-05-01 12:19 | Inpatient (IN) | payer MEDICARE ==
[~2017-05-01] VITALS: Ht 180.3 cm; Wt 100.0 kg
[~2017-05-01 12:19] MED LIST changes: +ACAR25TA2 PO; +ASCO500C6 PO; -CLON0.1T PO; +DIPH25CA6 PO; -FELO10TA3 PO; +HYG25 PO; +INSU100I13 SUBQ; -IPRA3AMP NEB; -LISI-571 PO; -METR500T19 PO; +OXYB10TA PO; -OXYB5TAB PO; -OXYC-474 PO; -SENN-133 PO; +SERT50TA9 PO; +SODI650T PO; -TORS20TA PO; +TORS20TA3 PO; +WARF10TA4 PO; -WARF4TAB PO; -WARF4TAB6 PO; +WARF7.5T4 PO
--- NOTE | 2017-05-01 12:20 | ED.REPORT ---
HPI-General Illness Date of Service May 01, 2017 ED Provider: Renaldo Mack MD Pt is a 76 year old male anticoagulated on Warfarin with a history of HTN, CHF, IDDM, a-fib, CVA, who presents to the ED via EMS from [facility] complaining of generalized weakness onset yesterday. He describes his condition as "too weak to get up". He fell yesterday and he is unsure of why, although he suspects he tripped. He does not think he injured anything and denies any pain. He also reports that he has not urinated since yesterday which is abnormal. Pt denies abdominal pain, dysuria, SOB, chest pain, headache, confusion, back pain, or neck pain. He was last admitted late December 2016 for hyperkalemia after presenting to the ED with complaints of increased lower extremity edema. Nursing Notes Stated Complaint: WEAKNESS Nursing Notes Reviewed: Yes Allergies: Coded Allergies: Penicillins (Verified Allergy, Unknown, 10/06/16) oxycodone (Verified Adverse Reaction, Severe, 10/07/16) make pt very drowsy,stay in bed for a week per son. tramadol (Verified Adverse Reaction, Severe, 10/07/16) make pt very drowsy,stay in bed for a week per son. Scheduled Acarbose (Acarbose) 25 Mg Tablet 25 MG PO TID Ascorbic Acid (Vitamin C) 500 Mg Capsule.er 500 MG PO BID Carboxymethylcellulose Sodium (Refresh Tears) 15 Ml Drops 15 ML OP BID 2 DROPS IN EACH EYE Carvedilol (Carvedilol) 25 Mg Tablet 25 MG PO BID Chlorthalidone (Chlorthalidone) 25 Mg Tablet 25 MG PO DAILY Cholecalciferol (Vitamin D3) (Vitamin D3) 2,000 Unit Tablet 2,000 UNIT PO DAILY Cyanocobalamin (Vitamin B-12) (Vitamin B-12) 1,000 Mcg Tablet 2,000 MCG PO DAILY Ferrous Sulfate (Ferrous Sulfate) 325 Mg Tablet 325 MG PO BID Folic Acid (Folic Acid) 1 Mg Tablet 1 MG PO DAILY Gabapentin (Gabapentin) 300 Mg Capsule 300 MG PO TID Glipizide ER (Glipizide ER) 10 Mg Tab.er.24 10 MG PO QAM Insulin Glargine (Lantus U100 Solostar Insulin Pen) 100 Unit/1 Ml Insuln.pen 4 UNIT SUBQ HS Multivits-Min/FA/Lycopene/Lut (Centrum Silver Tablet) 1 Each Tablet 1 EACH PO DAILY Oxybutynin Chloride ER (Oxybutynin Chloride ER) 10 Mg Tab.er.24 10 MG PO DAILY Pravastatin (Pravastatin) 40 Mg Tablet 40 MG PO HS Sertraline HCl (Sertraline) 50 Mg Tablet 50 MG PO DAILY Sodium Bicarbonate (Sodium Bicarbonate) 650 Mg Tablet 650 MG PO BID Tamsulosin (Flomax) 0.4 Mg Capsule 0.4 MG PO DAILY Torsemide (Torsemide) 20 Mg Tablet 40 MG PO DAILY Warfarin Sodium (Warfarin Sodium) 7.5 Mg Tablet 7.5 MG PO , , Mon Warfarin Sodium (Warfarin Sodium) 10 Mg Tablet 10 MG PO Sun, mon, wed, fri. Scheduled PRN Acetaminophen (Acetaminophen) 325 Mg Capsule 650 MG PO Q4HR PRN PRN For Pain Melatonin (Melatonin) 5 Mg Tablet 5 MG PO HS PRN PRN For Insomnia diphenhydrAMINE HCl (Benadryl) 25 Mg Capsule 25 MG PO Q4 PRN PRN For Itching General Time Seen by MD: 12:45 Chief Complaint Weakness Hx Obtained From: Patient, EMS Arrived By: Ambulance Sudden in Onset?: No Onset Occurred: Yesterday Symptom Duration: Since onset Severity: Current: No pain currently Severity: Maximum: No pain Recent Healthcare: No recent doctor visit, No recent hospitalization Similar Sx Previous: No Past Medical History Past Medical History Notes: bilateral leg edema for several years 08/22/2016 Past Medical History 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) Peripheral neuropathy Arthritis cellulitis Urinary urgency/BPH Cataracts Hiatal hernia and GERD DM type II Depression Bleeding disorder per EMR - no mention of specifics Reports: Congestive heart failure, Hyperlipidemia, Hypertension Reports: Atrial fibrillation Past Surgical History right knee replacement Reports: Cataract surgery, Tonsillectomy Family History Cancer in mother, cardiac in father Smoking History Never Smoker Social History Alcohol Use: Denies alcohol use Drug Use: Denies drug use Other Social History: Good social support, Lives in correction, Local resident Occupation lives with son 08/22/2016 Ambulatory Status Independent Review of Systems Full Review of Systems Constitutional: Reports: Weakness - generalized Respiratory: Denies: Shortness of breath Cardiovascular: Denies: Chest pain GI: Denies: Abdominal pain Male: Reports Urination decreased, Denies Dysuria, Denies Urinary frequency Musculoskeletal: Denies: Back pain, Neck pain Neurologic: Denies: Confusion, Headache Complete sys rev & neg: except as marked. Physical Exam Vital Signs Vital Signs Date Time Temp Pulse Resp B/P Pulse Ox O2 Delivery O2 Flow Rate FiO2 05/01/17 17:10 69 12 158/77 97 Room Air 05/01/17 15:30 62 16 96 Room Air 05/01/17 12:22 36.8 60 11 165/59 98 Room Air Initial VS: Reviewed, Vital signs abnormal Head / Eyes: Atraumatic, Normocephalic ENT: Mucous membranes moist, Conjunctiva normal Neck: Supple, Full range of motion Extremities: Vascular intact, Neuro intact, No swelling, No tenderness Skin: Warm, Dry, No cyanosis Neurologic: Alert, Oriented, Nonfocal Psychiatric: Mood/affect normal, Behavior normal, Normal thought content General/Constitutional: Awake, Alert, No acute distress, Cooperative, Not toxic appearing Appearance / Presentation: Positive: Obese Disheveled Respiratory / Chest: Breath sounds NL, Breath sounds = bilat, No respiratory distress, No rales, No rhonchi, No wheezing Cardiovascular: Heart rate NL, Regular rhythm, Heart sounds NL, No murmurs Abdomen: Soft, Non-tender Obese Lower Extremity / Pelvis / MS: Atraumatic, Full range of motion, No edema Venous stasis changes of the lower extremities Interpretation & Diagnostics Lab Results Interpretation Result Diagram: 05/01/17 1430 05/01/17 1430 Test 05/01/17 14:30 05/01/17 16:09 White Blood Count 10.8th/mm3 (3.8-10.1) Red Blood Count 5.27mil/mm3 (4.40-5.80) Hemoglobin 15.2g/dL (13.8-17.2) Hematocrit 45.5% (41.0-50.0) Mean Corpuscular Volume 86.3fL (81-100) Mean Corpuscular Hemoglobin 28.8pg (27.0-35.0) Mean Corpuscular Hemoglobin Concent 33.4% (32.0-37.0) Red Cell Distribution Width 14.1% (12.3-15.4) Platelet Count 251bil/L (150-400) Neutrophils (%) (Auto) 71.2% (40-74) Lymphocytes (%) (Auto) 19.2% (14-46) Monocytes (%) (Auto) 6.7% (4-12) Eosinophils (%) (Auto) 2.1% (0-5) Basophils (%) (Auto) 0.6% (0-3) Prothrombin Time 14.1sec (8.1-12.5) Prothromb Time International Ratio 1.31ratio Sodium Level 138mEq/L (134-144) Potassium Level 3.3mEq/L (3.5-5.2) Chloride Level 95mEq/L (97-108) Carbon Dioxide Level 28mmol/L (18-29) Blood Urea Nitrogen 35mg/dL (8-27) Creatinine 1.30mg/dL (0.76-1.27) Estimat Glomerular Filtration Rate 57mL/min (>59) Glucose Level 223mg/dL (60-99) Calcium Level 9.8mg/dL (8.5-10.1) Magnesium Level 1.7mg/dL (1.6-2.6) Total Bilirubin 0.4mg/dL (0.0-1.2) Aspartate Amino Transf (AST/SGOT) 12U/L (0-50) Alanine Aminotransferase (ALT/SGPT) 13U/L (0-44) Alkaline Phosphatase 80U/L (25-160) Troponin T < 0.010ug/L (0.0-0.011) Total Protein 7.7g/dL (6.4-8.4) Albumin 3.9g/dL (3.4-5.0) Hold Tapia Top Tube Received (Received) Urine Color Straw (YELLOW) Urine Appearance Clear (CLEAR,HAZY) Urine pH 7.0 (5.0-8.0) Urine Specific [place] 1.010 (1.003-1.035) Urine Protein Tracemg/dL (NEG,TRACE) Urine Glucose (UA) Negativemg/dL (NEGATIVE) Urine Ketones Negativemg/dL (NEGATIVE) Urine Occult Blood Negative (NEGATIVE) Urine Nitrite Negative (NEGATIVE) Urine Bilirubin Negative (NEGATIVE) Urine Urobilinogen Normalmg/dL (NORMAL) Urine Leukocyte Esterase Negative (NEGATIVE) Urine RBC 0-2/hpf (0-2) Urine WBC 0-5/hpf (0-5) Urine Epithelial Cells None/hpf (NONE-MOD) Urine Crystals None seen (NONE SEEN) Urine Bacteria None/hpf (NONE-FEW) Urine Hyaline Casts None/lpf (NONE) Urine Granular Casts None seen (NONE SEEN) Urine Waxy Casts None seen (NONE SEEN) Urine Red Blood Cell Casts None seen (NONE SEEN) Urine White Blood Cell Casts None seen (NONE SEEN) Urine Mucus None seen (None Seen) Urine Trichomonas None seen (NONE SEEN) Urine Yeast None (NONE SEEN) Urinalysis Comment None ECG Interpretation ECG Interpretation: Atrial fibrillation, rate 78 Inferior Q waves No change from prior Time: 13:43 Interpreted by: ED physician X-Ray Chest Interpretation Chest Xray Interpretation: IMPRESSION: No acute cardiopulmonary disease. Dictated by: Primitivo Uriostegui M.D. on 05/01/2017 at 13:42 Approved by: Primitivo Uriostegui M.D. on 05/01/2017 at 13:43 View: Portable, 1 view Interpretation / Wet Read by: Interpret - Radiologist CT Head Interpretation IMPRESSION: 1. No acute intracranial abnormality. 2. Confluent white matter hypodensities redemonstrated which are nonspecific but may represent severe chronic small vessel ischemic changes. 3. Mild cerebral volume loss. Dictated by: Saad Padilla M.D. on 05/01/2017 at 13:55 Approved by: Saad Padilla M.D. on 05/01/2017 at 13:59 Study: Head CT no contrast Interpretation / Wet Read by: Interpret - Radiologist Re-Eval/Medical Decision Med Decision/Clinical Course Patient presents after a fall yesterday and generalized weakness. No identifiable injuries can be found, the patient is demented and generally asymptomatic. Laboratory values are significant for hypokalemia which is mild. The sun is at bedside and said that his dad has had a rapid decline functionally. Evidently, his care facility has refused the patient. Social work has gotten involved, contacted the [facility], who confirms that they have declined to allow the patient back. The son is incapable of caring for the patient and refuses to take the patient home. Social work had made phone calls to try and place the patient in the halfway however this was uneventful. Will plan to admit this patient until placement can be found. Source of Hx: Old records Time of Eval: 16:15 Patient Status: Condition improved Re-Evaluation/Progress Note: Pt rechecked. Son states that pt is progressively declining to the point of difficulty moving from bed to chair. The weakness today is normal for him. Time of Eval: 18:33 Re-Evaluation/Progress Note: Pt rechecked. He can't go back to [facility] because they are refusing him. The SN[facility] has not call back. The son is unable to care for the patient at home and refusing to take the patient home. Son is agreeable to admission to look for placement. Consultation #1: Consulted With: cafeteria worker Call Returned at: 15:23 Wet Primer Powder Blender: Will see patient, Agrees with eval, Agrees with plan Note: Discussed pt's case with manager social media. She states that pt cannot be returned to the [facility] because they put him under emergency conditions because he is extremely unsafe. Consultation #2: Referral / Consult Name: Susana Irving MD Call Returned at: 19:10 Wet Primer Powder Blender: Accepts admit Counseled Regarding: Diagnosis, Lab results, Need for admission Discharge & Departure Primary Impression: Dementia Dementia type: unspecified type Dementia behavioral disturbance: without behavioral disturbance Qualified Code: F03.90 - Unspecified dementia without behavioral disturbance Additional Impressions: Fall from ground level Atrial fibrillation Atrial fibrillation type: unspecified Qualified Code: I48.91 - Unspecified atrial fibrillation Anticoagulated on warfarin Disposition: ADMITTED TO HOSPITAL Discharge Condition All VS Reviewed: Yes Condition: Stable Referrals: Conner Newton MD (PCP) Scribe Attestation Portions of this note were transcribed by Aislinn Ford and Nikko Reyes. I, Dr. Murray, personally performed the history, physical exam and medical decision-making; I reviewed and confirmed the accuracy of the information in the transcribed note. copies to: Conner Newton MD, Timothy Sonya BYERS May 01, 2017 12:20 Aislinn Ford May 01, 2017 12:58 NIKKO REYES May 01, 2017 13:27
--- NOTE | 2017-05-01 12:21 | ED.REPORT ---
HPI-General Illness Date of Service May 01, 2017 ED Provider: Nursing Notes Stated Complaint: WEAKNESS Allergies: Coded Allergies: Penicillins (Verified Allergy, Unknown, 10/06/16) oxycodone (Verified Adverse Reaction, Severe, 10/07/16) make pt very drowsy,stay in bed for a week per son. tramadol (Verified Adverse Reaction, Severe, 10/07/16) make pt very drowsy,stay in bed for a week per son. Scheduled Acarbose (Acarbose) 25 Mg Tablet 25 MG PO TID Ascorbic Acid (Vitamin C) 500 Mg Capsule.er 500 MG PO BID Carboxymethylcellulose Sodium (Refresh Tears) 15 Ml Drops 15 ML OP BID 2 DROPS IN EACH EYE Carvedilol (Carvedilol) 25 Mg Tablet 25 MG PO BID Chlorthalidone (Chlorthalidone) 25 Mg Tablet 25 MG PO DAILY Cholecalciferol (Vitamin D3) (Vitamin D3) 2,000 Unit Tablet 2,000 UNIT PO DAILY Cyanocobalamin (Vitamin B-12) (Vitamin B-12) 1,000 Mcg Tablet 2,000 MCG PO DAILY Ferrous Sulfate (Ferrous Sulfate) 325 Mg Tablet 325 MG PO BID Folic Acid (Folic Acid) 1 Mg Tablet 1 MG PO DAILY Gabapentin (Gabapentin) 300 Mg Capsule 300 MG PO TID Glipizide ER (Glipizide ER) 10 Mg Tab.er.24 10 MG PO QAM Insulin Glargine (Lantus U100 Solostar Insulin Pen) 100 Unit/1 Ml Insuln.pen 4 UNIT SUBQ HS Multivits-Min/FA/Lycopene/Lut (Centrum Silver Tablet) 1 Each Tablet 1 EACH PO DAILY Oxybutynin Chloride ER (Oxybutynin Chloride ER) 10 Mg Tab.er.24 10 MG PO DAILY Pravastatin (Pravastatin) 40 Mg Tablet 40 MG PO HS Sertraline HCl (Sertraline) 50 Mg Tablet 50 MG PO DAILY Sodium Bicarbonate (Sodium Bicarbonate) 650 Mg Tablet 650 MG PO BID Tamsulosin (Flomax) 0.4 Mg Capsule 0.4 MG PO DAILY Torsemide (Torsemide) 20 Mg Tablet 40 MG PO DAILY Warfarin Sodium (Warfarin Sodium) 7.5 Mg Tablet 7.5 MG PO Tues, Th, Sat Warfarin Sodium (Warfarin Sodium) 10 Mg Tablet 10 MG PO Sun, mon, wed, fri. 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) Peripheral neuropathy Arthritis cellulitis Urinary urgency/BPH Cataracts Hiatal hernia and GERD DM type II Depression Reports: Bleeding disorder, Congestive heart failure, Hyperlipidemia, Hypertension Reports: Atrial fibrillation Past Surgical History right knee replacement Reports: Cataract surgery, Tonsillectomy Family History Cancer in mother, cardiac in father Smoking History Never Smoker Social History Alcohol Use: Denies alcohol use Drug Use: Denies drug use Other Social History: Good social support, Lives in pen[place], Local resident Occupation lives with son 08/22/2016 Ambulatory Status Independent Discharge & Departure Referrals: Conner Newton MD (PCP) Renaldo Murray DO May 01, 2017 12:21
[2017-05-01 12:22] VITALS: BP 165/59; PULSE 60; RESP 11; O2SAT 98
[2017-05-01] MEDS ORDERED: 0.9% Sodium Chloride 500 ML IV ONE (13:10)
--- NOTE | 2017-05-01 13:44 | DRSVH ---
PROCEDURE: X-RAY CHEST ONE VIEW, PORTABLE ([id number]) INDICATIONS: generalized weakness TECHNIQUE: One view of the chest was acquired. COMPARISON: [facility], CT, CT CHEST WO CON, 10/13/2016, 13:21. [facility], CR, XR CHEST 1VW (PORTABLE), 10/12/2016, 8:56. FINDINGS: Surgical changes and devices: None. Lungs and pleura: No pleural effusions or pneumothorax. Lungs are clear. Mediastinum: Mediastinal contours appear normal. Heart size is normal. Bones and chest wall: No suspicious bony lesions. Overlying soft tissues appear unremarkable. IMPRESSION: No acute cardiopulmonary disease. Dictated by: Primitivo Uriostegui M.D. on 05/01/2017 at 13:42 Approved by: Primitivo Uriostegui M.D. on 05/01/2017 at 13:43
--- NOTE | 2017-05-01 14:01 | DRSVH ---
PROCEDURE: CT BRAIN WITHOUT CONTRAST ([id number]) INDICATIONS: fall on coumadin TECHNIQUE: Noncontrast 4.5 mm thick angled axial sections acquired from the foramen magnum to the vertex, with c oronal reformats. COMPARISON: [facility], CT, CT BRAIN WO CON, 05/04/2016, 18:01. FINDINGS: Image quality: Excellent. CSF spaces: Basal cisterns are patent. No extra-axial fluid collections. There is mild cerebral vo lume loss, with resultant ventricular and sulcal prominence. Brain: No intracranial hemorrhage, mass, or mass effect. There are confluent subcortical, periventr icular and deep white matter hypodensities which are nonspecific but may represent severe chronic sma ll vessel ischemic changes. There is intracranial internal carotid artery atherosclerosis. Skull and face: Calvarium and visualized facial bones appear intact, without suspicious lesions. Sinuses: Visualized sinuses demonstrate mucosal polyps or sinus retention cysts within the inferior maxillary sinuses. Mastoid air cells are clear. IMPRESSION: 1. No acute intracranial abnormality. 2. Confluent white matter hypodensities redemonstrated which are nonspecific but may represent sever e chronic small vessel ischemic changes. 3. Mild cerebral volume loss. Dictated by: Saad Padilla M.D. on 05/01/2017 at 13:55 Approved by: Saad Padilla M.D. on 05/01/2017 at 13:59
[2017-05-01 14:43] LABS: BASOPHILS % (AUTO) 0.6 % (0-3); EOSINOPHILS % (AUTO) 2.1 % (0-5); MONOCYTES % (AUTO) 6.7 % (4-12); Mean Corpuscular Hemoglobin 28.8 pg (27.0-35.0); Mean Corpuscular Volume 86.3 fL (81-100); NEUTROPHILS % (AUTO) 71.2 % (40-74); Platelet Count 251 bil/L (150-400)
[2017-05-01 14:56] LABS: INR 1.31 ratio
[2017-05-01 15:03] LABS: TROPONIN T < 0.010 ug/L (0.0-0.011)
[2017-05-01 15:13] LABS: Magnesium 1.7 mg/dL (1.6-2.6)
[2017-05-01] MEDS ORDERED: Potassium Chloride 20 mEq SR Tablet PO ONE (15:20)
[2017-05-01 15:30] VITALS: PULSE 62; RESP 16; O2SAT 96
[2017-05-01 16:21] LABS: APPEARANCE,URINE CLEAR (CLEAR,HAZY); COLOR,URINE STRAW (YELLOW)
[2017-05-01 16:22] LABS: OCCULT BLOOD,URINE NEGATIVE (NEGATIVE); UROBILINOGEN,URINE NORMAL (NORMAL)
[2017-05-01 17:10] VITALS: BP 158/77; PULSE 69; RESP 12; O2SAT 97
--- NOTE | 2017-05-01 18:13 | NUR ---
ED FEDERAL LAW CLERK Note D/A: Pt was brought into the ED by son after [facility] enacted an "emergency move out notice" due to pt recent falls, noncompliance with medications and incontinence. FEDERAL LAW CLERK spoke with Onel from the [facility] who states that pt son had provided them with a move out notice but they had to begin the emergency move out notice today due to it being unsafe for the pt for him to return to [facility] as they are unable to meet his needs and ensure his safety or care. Pt sons states that he has made calls in the community but was not having any success with placement. Pt son states that pt recently qualified for Medicaid. Pt son preference is for [facility] as pt has been a pt there many times before as a SNF pt. FEDERAL LAW CLERK left voicemail for [facility] Director Blayne ) with a request for immediate call back for an emergent placement. FEDERAL LAW CLERK awaiting call back but as it is after hours of regular admissions staff to review clinicals it is not likely we will here back regarding possible placement tonight. Pt son feels like it would be unsafe for pt to be home with him tonight and doesn't feel like he can meet patients needs. FEDERAL LAW CLERK to reach out to all nursing facilities in [facility] regarding possible placement if [facility] is unable to accept. FEDERAL LAW CLERK to continue to follow. Plan: Pt who requires placement. Voicemail left for [facility] Director on his cell phone. FEDERAL LAW CLERK to reach out to all nursing facilities in [facility] regarding possible placement if [facility] is unable to accept. AUDRA Lombardi
[2017-05-01] MEDS ORDERED: Alum-Mag Hydrox-Simeth 30 mL Suspension PO PRN ×2 (19:15→20:15)
[2017-05-01] MEDS ORDERED: Ondansetron 2 mg/mL 2 mL Inj IVPUSH PRN ×2 (19:15→20:15)
[2017-05-01] MEDS ORDERED: WARF7.5T4 PO (19:51)
[2017-05-01] MEDS ORDERED: INSU100I13 SUBQ (19:51)
[2017-05-01] MEDS ORDERED: POTA-62 PO (19:51)
[2017-05-01] MEDS ORDERED: KTC2C15 TP (19:51)
[2017-05-01 20:04] VITALS: BP 149/84; PULSE 63; RESP 18; O2SAT 96
[2017-05-01] MEDS ORDERED: Polyethylene Glycol (PEG) 17 Gm Powder PO PRN (20:15)
[2017-05-01] MEDS ORDERED: HYDROcodone-APAP 5-325 mg Tablet PO PRN (20:15)
--- NOTE | 2017-05-01 20:28 | PCM.HPMED ---
Subjective Date of Service May 01, 2017 Primary Provider: Admitting Physician: Susana Irving MD Primary Care Physician: Conner Newton MD Attending Physician: Susana Irving MD Admit Status: From the Emergency Department, 23-Hour Observation, Non-Telemetry Chief Complaint: Ground-level falls and generalized weakness History of Present Illness: Is a 76-year-old male with a history of dementia peripheral neuropathy diabetes and atrial fibrillation who has been having multiple ground-level falls at [facility]. They are not able to take care of him there anymore and sent him to the emergency room he denies any lightheadedness denies any chest pain denies any shortness of breath. Also keep in mind he is not great historian but son is at bedside. Last admission here was 01/07/2017 or hyperkalemia and worsening leg edema. According to the son he has been in and out of nursing homes and more recently has been at the [facility]. Review of Systems: All other review of systems are reviewed and are negative except for as in history of present illness. Allergies Coded Allergies: Penicillins (Verified Allergy, Unknown, 10/06/16) oxycodone (Verified Adverse Reaction, Severe, 10/07/16) make pt very drowsy,stay in bed for a week per son. tramadol (Verified Adverse Reaction, Severe, 10/07/16) make pt very drowsy,stay in bed for a week per son. 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) Peripheral neuropathy Arthritis cellulitis Urinary urgency/BPH Cataracts Hiatal hernia and GERD DM type II Depression Reports: Bleeding disorder, Congestive heart failure, Hyperlipidemia, Hypertension Reports: Atrial fibrillation Past Surgical History right knee replacement Reports: Cataract surgery, Tonsillectomy Family History Father with a history of cardiac problems Social History Hx Alcohol Use: No Hx Substance Use: No Hx Tobacco Use: No Smoking Status: Never Smoker Living Arrangement: Assisted Living Exam Vital Signs Vital Sign - Last Date Time Temp Pulse Resp B/P Pulse Ox O2 Delivery O2 Flow Rate FiO2 05/01/17 20:04 36.4 63 18 149/84 96 Room Air Exam Constitutional: Elderly obese gentleman in no acute distress Head: Normocephalic and traumatic Eyes: PERRLA CMI Mouth: Dry mucosa Neck: No adenopathy Chest: Clear to auscultation Cor: Irregular regular rate and rhythm S1-S2 Abdomen: Soft nontender bowel sounds present Extremities: Trace bipedal edema with chronic venous stasis changes noted Neuro: He is alert he is oriented to person and place only, moves all extremities equally Psych: Difficult to assess as somewhat of a blunted affect Skin: No rashes Lab and Diagnostics Labs Laboratory Tests 72 Hours Test 05/01/17 14:30 05/01/17 16:09 White Blood Count 10.8th/mm3 (3.8-10.1) Red Blood Count 5.27mil/mm3 (4.40-5.80) Hemoglobin 15.2g/dL (13.8-17.2) Hematocrit 45.5% (41.0-50.0) Mean Corpuscular Volume 86.3fL (81-100) Mean Corpuscular Hemoglobin 28.8pg (27.0-35.0) Mean Corpuscular Hemoglobin Concent 33.4% (32.0-37.0) Red Cell Distribution Width 14.1% (12.3-15.4) Platelet Count 251bil/L (150-400) Neutrophils (%) (Auto) 71.2% (40-74) Lymphocytes (%) (Auto) 19.2% (14-46) Monocytes (%) (Auto) 6.7% (4-12) Eosinophils (%) (Auto) 2.1% (0-5) Basophils (%) (Auto) 0.6% (0-3) Prothrombin Time 14.1sec (8.1-12.5) Prothromb Time International Ratio 1.31ratio Sodium Level 138mEq/L (134-144) Potassium Level 3.3mEq/L (3.5-5.2) Chloride Level 95mEq/L (97-108) Carbon Dioxide Level 28mmol/L (18-29) Blood Urea Nitrogen 35mg/dL (8-27) Creatinine 1.30mg/dL (0.76-1.27) Estimat Glomerular Filtration Rate 57mL/min (>59) Glucose Level 223mg/dL (60-99) Calcium Level 9.8mg/dL (8.5-10.1) Magnesium Level 1.7mg/dL (1.6-2.6) Total Bilirubin 0.4mg/dL (0.0-1.2) Aspartate Amino Transf (AST/SGOT) 12U/L (0-50) Alanine Aminotransferase (ALT/SGPT) 13U/L (0-44) Alkaline Phosphatase 80U/L (25-160) Troponin T < 0.010ug/L (0.0-0.011) Total Protein 7.7g/dL (6.4-8.4) Albumin 3.9g/dL (3.4-5.0) Hold Tapia Top Tube Received (Received) Urine Color Straw (YELLOW) Urine Appearance Clear (CLEAR,HAZY) Urine pH 7.0 (5.0-8.0) Urine Specific [place] 1.010 (1.003-1.035) Urine Protein Tracemg/dL (NEG,TRACE) Urine Glucose (UA) Negativemg/dL (NEGATIVE) Urine Ketones Negativemg/dL (NEGATIVE) Urine Occult Blood Negative (NEGATIVE) Urine Nitrite Negative (NEGATIVE) Urine Bilirubin Negative (NEGATIVE) Urine Urobilinogen Normalmg/dL (NORMAL) Urine Leukocyte Esterase Negative (NEGATIVE) Urine RBC 0-2/hpf (0-2) Urine WBC 0-5/hpf (0-5) Urine Epithelial Cells None/hpf (NONE-MOD) Urine Crystals None seen (NONE SEEN) Urine Bacteria None/hpf (NONE-FEW) Urine Hyaline Casts None/lpf (NONE) Urine Granular Casts None seen (NONE SEEN) Urine Waxy Casts None seen (NONE SEEN) Urine Red Blood Cell Casts None seen (NONE SEEN) Urine White Blood Cell Casts None seen (NONE SEEN) Urine Mucus None seen (None Seen) Urine Trichomonas None seen (NONE SEEN) Urine Yeast None (NONE SEEN) Urinalysis Comment None Result Diagram: 05/01/17 1430 05/01/17 1430 X-Rays, CTs and MRIs PROCEDURE: CT BRAIN WITHOUT CONTRAST ([id number]) INDICATIONS: fall on coumadin TECHNIQUE: Noncontrast 4.5 mm thick angled axial sections acquired from the foramen magnum to the vertex, with coronal reformats. COMPARISON: [facility], CT, CT BRAIN WO CON, 05/04/2016, 18:01. FINDINGS: Image quality: Excellent. CSF spaces: Basal cisterns are patent. No extra-axial fluid collections. There is mild cerebral volume loss, with resultant ventricular and sulcal prominence. Brain: No intracranial hemorrhage, mass, or mass effect. There are confluent subcortical, periventricular and deep white matter hypodensities which are nonspecific but may represent severe chronic small vessel ischemic changes. There is intracranial internal carotid artery atherosclerosis. Skull and face: Calvarium and visualized facial bones appear intact, without suspicious lesions. Sinuses: Visualized sinuses demonstrate mucosal polyps or sinus retention cysts within the inferior maxillary sinuses. Mastoid air cells are clear. IMPRESSION: 1. No acute intracranial abnormality. 2. Confluent white matter hypodensities redemonstrated which are nonspecific but may represent severe chronic small vessel ischemic changes. 3. Mild cerebral volume loss. Dictated by: Saad Padilla M.D. on 05/01/2017 at 13:55 Approved by: Saad Padilla M.D. on 05/01/2017 at 13:59 12-lead ECG A fib at 78,incomplete LBBB,poor R wave progression across the precordium. 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
[2017-05-01 22:00] VITALS: BP 171/61; PULSE 65; RESP 17; O2SAT 95
[2017-05-01] MEDS ORDERED: Glucose 40% Oral Gel 15 Gm Tube PO PRN (23:00)
[2017-05-02 03:00] VITALS: BP 169/91; PULSE 63; RESP 17; O2SAT 96
--- NOTE | 2017-05-02 06:10 | NUR ---
Admit note: Pt. arrived at the unit approx. 2130 via gurney accompanied by ED staff and son, Transferred to bed with 3 PA with slide board, alert with forgetfulness, oriented to call light and rm, bed in lowest position and shirlene alarm in place, Pt. SBP in 170s, asymptomatic, aware, Resistive to care, approx. 6 am pt. pulled IV out, hard stick, left VM to IVT, hourly checks, will continue to monitor.
[2017-05-02] MEDS: Heparin 5,000 Unit/mL Inj SUBQ SCH ×2 (08:12→21:23)
[2017-05-02] MEDS ORDERED: Dextrose 10% 250 ML IV PRN ×2 (08:30→14:10)
[2017-05-02 08:45] VITALS: BP 185/82; PULSE 63; RESP 18; O2SAT 96
--- NOTE | 2017-05-02 09:44 | NUR ---
Social Work Note: Continued Discharge Planning Data& Assessment: SHOE LAY OUT PLANNER spoke with Lyubov from [facility] who will review pt to see if they would be able to accept pt as a LTC pt. Lyubov to contact SHOE LAY OUT PLANNER with an update. SHOE LAY OUT PLANNER to continue to follow. Plan: Pt requires LTC placement as he now requires higher level of care than assisted living. Pt son does not feel like pt's needs could be met at his home and pt is unsafe to return to [facility] where he came from. Anne Marie Burciaga reviewing pt at this time. SHOE LAY OUT PLANNER to continue to follow. AUDRA Lombardi Addendum: 05/02/17 at 1209 by SEBAS DAVEY SS Anne Marie Burciaga states they do not have an appropriate bed for pt at this time. If appropriate bed should arise, they plan to call SHOE LAY OUT PLANNER to inform them of the opening. Per pt son, pt is recently eligible for Medicaid, SHOE LAY OUT PLANNER faxed ELADIO referral to begin the process for LTC evaluation. AUDRA Lombardi Addendum: 05/02/17 at 1517 by SEBAS DAVEY SS Per pt son, pt has already [facility], pt CM is June Cho ([phone] main [facility] number) and pt has been assigned as a Medium 5 patient with a daily rate of $75.00 a day. SHOE LAY OUT PLANNER left a voicemail with [facility] with a request to call back. SHOE LAY OUT PLANNER to connect with pt CM regarding LTC and placement. SHOE LAY OUT PLANNER to continue to follow. AUDRA Lombardi
[2017-05-02 09:49] LABS: BASOPHILS % (AUTO) 0.4 % (0-3); EOSINOPHILS % (AUTO) 2.4 % (0-5); MONOCYTES % (AUTO) 8.6 % (4-12); Mean Corpuscular Volume 87.6 fL (81-100); NEUTROPHILS % (AUTO) 66.7 % (40-74); Platelet Count 217 bil/L (150-400)
[2017-05-02 10:14] LABS: Magnesium 1.6 mg/dL (1.6-2.6); Phosphorus 2.8 mg/dL (2.5-4.9)
[2017-05-02] MEDS: Insulin LISPRO 300 Unit/3 mL Inj SUBQ SCH ×4 (10:15→21:25)
--- NOTE | 2017-05-02 11:15 | NUR ---
Evaluation completed. Please go to "Notes" then click on "Assessments and Notes" (bottom left corner of screen). Then select appropriate discipline tab on top of screen.
[2017-05-02 12:54] VITALS: BP 160/100; PULSE 90; RESP 16; O2SAT 96
[2017-05-02] MEDS ORDERED: diphenhydrAMINE 25 mg Capsule PO PRN (13:40)
[2017-05-02] MEDS ORDERED: Non-Formulary Medication (Glipizide ER 10 MG) PO SCH (13:40)
[2017-05-02] MEDS ORDERED: Glucose 40% Oral Gel 15 Gm Tube PO PRN (13:40)
--- NOTE | 2017-05-02 15:40 | PCM.PNMED ---
Subjective Date of Service May 02, 2017 Subjective Patient confused and oriented only to place. He states he has been having generalized weakness for the last few weeks and had multiple falls Exam Vital Signs Vital Sign - Last Date Time Temp Pulse Resp B/P Pulse Ox O2 Delivery O2 Flow Rate FiO2 05/02/17 12:54 36.6 90 16 160/100 96 Room Air Intake and Output 05/01/17 05/01/17 05/02/17 Cumulative From/Thru 15:00 23:00 07:00 05/01/17 12:22 - 05/02/17 06:34 Intake Total 240 ml 240 ml Balance 240 ml 240 ml Intake Oral 240 ml 240 ml # Voids 1 1 Exam Constitutional: Elderly obese gentleman in no acute distress Head: Normocephalic and traumatic Eyes: PERRLA CMI Mouth: Dry mucosa Neck: No adenopathy Chest: Clear to auscultation Cor: Irregular regular rate and rhythm S1-S2 Abdomen: Soft nontender bowel sounds present Extremities: Trace bipedal edema with chronic venous stasis changes noted Neuro: He is alert he is oriented to person and place only, moves all extremities equally Psych: Difficult to assess as somewhat of a blunted affect Skin: No rashes IVs and Medications Medications Reviewed: Medications were reviewed in detail Lab and Diagnostics Result Diagram: 05/02/17 0935 05/02/17 0935 X-Rays, CTs and MRIs PROCEDURE: CT BRAIN WITHOUT CONTRAST ([id number]) INDICATIONS: fall on coumadin TECHNIQUE: Noncontrast 4.5 mm thick angled axial sections acquired from the foramen magnum to the vertex, with coronal reformats. COMPARISON: [facility], CT, CT BRAIN WO CON, 05/04/2016, 18:01. FINDINGS: Image quality: Excellent. CSF spaces: Basal cisterns are patent. No extra-axial fluid collections. There is mild cerebral volume loss, with resultant ventricular and sulcal prominence. Brain: No intracranial hemorrhage, mass, or mass effect. There are confluent subcortical, periventricular and deep white matter hypodensities which are nonspecific but may represent severe chronic small vessel ischemic changes. There is intracranial internal carotid artery atherosclerosis. Skull and face: Calvarium and visualized facial bones appear intact, without suspicious lesions. Sinuses: Visualized sinuses demonstrate mucosal polyps or sinus retention cysts within the inferior maxillary sinuses. Mastoid air cells are clear. IMPRESSION: 1. No acute intracranial abnormality. 2. Confluent white matter hypodensities redemonstrated which are nonspecific but may represent severe chronic small vessel ischemic changes. 3. Mild cerebral volume loss. Dictated by: Saad Padilla M.D. on 05/01/2017 at 13:55 Approved by: Saad Padilla M.D. on 05/01/2017 at 13:59 12-lead ECG A fib at 78,incomplete LBBB,poor R wave progression across the precordium. Assessment & Plan #Recurrent ground-level falls, subacute, present on admission -Unclear etiology -May be due to his peripheral neuropathy as a contributing factor -Patient had evidence severe chronic small vessel ischemic changes on CT brain . MRI requested to see if any new stroke but patient not able to fit in our MRI machine due to size -Patient has history of atrial fibrillation on warfarin. Unable to do MRI and see if pattern is ischemic or embolic. Patient very high risk for bleeding due to multiple falls.will hold off warfarin and switch to aspirin until workup is completed and patient's fall risk improved.this may increase risk of stroke if embolic. Called family to discuss options but no response -vit d,b12 level requested -PT consultation, retail office manager and outreach and education social worker consultation #Generalized weakness, subacute, present on admission -Slightly hypokalemic and we will replete potassium #Suspected vascular dementia -cognition significantly worsened from prior admission in December per EDUARDO Martinez -CT with possible severe chronic small vessel ischemic changes #Chronic kidney disease stage III, present on admission -Avoid nephrotoxic agents -cr 1.3, baseline 2.0 #Diastolic congestive heart failure, chronic -Currently stable #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 -We will place on subcutaneous insulin correction dose protocol -Check hemoglobin A1c #Atrial fibrillation, chronic -Does not appear to be on warfarin at this time but waiting for medication reconciliation and would advise against it given his multiple falls -Is rate controlled #DVT prophylaxis -We will use SCDs and subcutaneous prophylactic heparin twice a day #CODE STATUS -Patient is full code Disposition: Patient needs long-term placement due to recurrent falls and progressive dementia.Anne Marie Burciaga is reviewing VTE Prophylaxis: Sub-Q Heparin (Unfractionated), SCDs Resuscitation Status: CPR: Attempt Resuscitation Xander Rosa MD May 02, 2017 15:40
[2017-05-02 16:00] VITALS: BP 160/116; PULSE 95; RESP 16; O2SAT 98
--- NOTE | 2017-05-02 16:18 | NUR ---
Social Work Note: Initial Assessment Data& Assessment: EMR reviewed. WEASAND TRIMMER met discussed pt baseline information and discharge planning with pt son/DPOA Madison Jimenez ([phone]), SW role explained. Discharge Planning Checklist provided. Simeon Jimenez jr. is a 76 year old male admitted under observation for dementia on 05/01/2017. Pt has Medicare and AARP Supplemental insurance coverage. However, pt son states that he has recently been signed up for Medicaid. Pt sees Conner Newton MD for primary care. Pt has been to [facility] in the past and has had [facility] PT and RN in the past as well. Pt does not have LTC insurance or VA benefits. Pt typically requires a walker or wheelchair for ambulation. Pt has been living at [facility] but has been having recent falls and requiring more assistance with ADL's (see previous WEASAND TRIMMER notes). Pt son had previously provided [facility] with a move out notice, however with most recent falls and pt not taking his insulin, the facility put an emergency move out notice in place as it was no longer safe for the pt to live at their facility. Pt son had been looking for other placement in the community without success. Per pt son, pt assigned Home and Health Technical Writer June Overton ([phone]) and was assigned a daily rate of $75 for LTC placement. WEASAND TRIMMER left mandy Watkins CM a voicemail and request to call back to discuss pt daily rate and placement. Pt DPOA/AD paperwork obtained and placed on pt chart. Pt son denies any needs at this time besides any aid in obtaining placement for pt. WEASAND TRIMMER to continue to follow. Plan: Anticipated discharge to SNF for LTC vs. [facility] pending acceptances. WEASAND TRIMMER to follow up with pt CAROLE Cho regarding pt rate and placement, awaiting call back at this time. WEASAND TRIMMER to continue to follow. AUDRA Lombardi Addendum: 08/15/17 at 1628 by SEBAS STEWART Amended: Links added.
--- NOTE | 2017-05-02 16:28 | NUR ---
Evaluation completed. Please go to "Notes" then click on "Assessments and Notes" (bottom left corner of screen). Then select appropriate discipline tab on top of screen.
--- NOTE | 2017-05-02 17:18 | NUR ---
Shift Report Patient SBA, shirlene on d/t forgetting limitations, awaiting placement at care facility.
[2017-05-02] MEDS ORDERED: Insulin GLARgine 100 Unit/mL Syringe SUBQ SCH (21:00)
[2017-05-02] MEDS: Artificial Tears 15 mL Ophthalmic Solution AFFECT_EYE SCH (21:23)
[2017-05-02 21:44] VITALS: BP 166/91; PULSE 74; RESP 17; O2SAT 97
[2017-05-03 01:13] LABS: Vitamin D, 25-Hydroxy 21.5 ng/mL (30.0-100.0)
[2017-05-03 03:19] VITALS: BP 159/83; PULSE 72; RESP 17; O2SAT 95
--- NOTE | 2017-05-03 06:21 | NUR ---
Safety Hourly checks, shirlene alarm in place d/t hx. of falls, bed in lowest position, call light in reach, all needs attended.
[2017-05-03] MEDS: Insulin LISPRO 300 Unit/3 mL Inj SUBQ SCH ×4 (07:35→21:00)
[2017-05-03 08:08] LABS: BASOPHILS % (AUTO) 0.5 % (0-3); EOSINOPHILS % (AUTO) 2.8 % (0-5); MONOCYTES % (AUTO) 8.5 % (4-12); Mean Corpuscular Hemoglobin 29.3 pg (27.0-35.0); Mean Corpuscular Volume 87.8 fL (81-100); NEUTROPHILS % (AUTO) 63.6 % (40-74); Platelet Count 223 bil/L (150-400)
[2017-05-03 08:30] VITALS: BP 165/87; PULSE 64; RESP 20; O2SAT 96
[2017-05-03] MEDS: Artificial Tears 15 mL Ophthalmic Solution AFFECT_EYE SCH ×2 (08:33→20:58)
[2017-05-03 08:35] LABS: Magnesium 1.7 mg/dL (1.6-2.6)
[2017-05-03] MEDS: Potassium Chloride 20 mEq SR Tablet PO SCH (08:35)
[2017-05-03] MEDS: Tolterodine ER 4 mg ER24 Capsule PO SCH (08:36)
[2017-05-03] MEDS: Heparin 5,000 Unit/mL Inj SUBQ SCH ×2 (08:39→20:58)
[2017-05-03] MEDS ORDERED: Insulin GLARgine 100 Unit/mL Syringe SUBQ ONE (09:05)
[2017-05-03] MEDS ORDERED: Potassium Chloride 20 mEq SR Tablet PO ONE (09:10)
--- NOTE | 2017-05-03 11:07 | NUR ---
Case Management: COS to inpatient per MD order today. Will attempt to reach son by phone to present ANAY - he will be in during evening hours today per nursing. Will attempt telephone contact for ANAY explanation.
--- NOTE | 2017-05-03 13:08 | NUR ---
NURSING HOME TRANSFER : Gave access and faxed Facesheet to NORA,Tomasa HIDALGO. Patient my be private pay
--- NOTE | 2017-05-03 13:10 | NUR ---
Case Managment: Phoned patient's son Madison Jimenez at [phone] - [facility] explained and he agreed to sign patient's ANAY when he arrives this evening to visit. Patient is unable to complete. Patient's son will ask the nurse for this form when he comes in.
--- NOTE | 2017-05-03 16:05 | NUR ---
The pt is safely tolerating least restrictive diet. ST will sign off. Please reorder if the pt demonstrated new or worsening symptoms.
--- NOTE | 2017-05-03 16:21 | NUR ---
Social Work: Continued d/c planning Data: Pt is on day 2 of hospitalization. EMR reviewed. Pt discussed in multidisciplinary rounds. TRIM STENCIL MAKER received a phone call from June Cho [facility]. TRIM STENCIL MAKER called her back, confirmed that daily rate is $74.05 with a B medium classification. June requested updated clinicals, UR specialist faxed them to her at [phone]. ABRAHAM's, memory care, and SNF's currently being explored. Assessment: Pt with dementia. Currently not capable of self care. Plan: Continue calling for placement and continue working with [facility] CAROLE Watkins with disposition. TRIM STENCIL MAKER will continue to follow. AUDRA Armas
--- NOTE | 2017-05-03 16:24 | NUR ---
per SALES AND MARKETING DIRECTOR req faxed H&P to pt's CAROLE Carl,
[2017-05-03 16:30] VITALS: BP 152/87; PULSE 72; RESP 16; O2SAT 96
--- NOTE | 2017-05-03 16:42 | PCM.PNMED ---
Subjective Date of Service May 03, 2017 Subjective patient continues to have generalized weakness . kidney function continues to worsen . Exam Vital Signs Vital Sign - Last Date Time Temp Pulse Resp B/P Pulse Ox O2 Delivery O2 Flow Rate FiO2 05/03/17 08:30 36.5 64 20 165/87 96 Room Air Intake and Output 05/02/17 05/02/17 05/03/17 Cumulative From/Thru 15:00 23:00 07:00 05/01/17 12:22 - 05/03/17 05:40 Intake Total 200 ml 480 ml 360 ml 1280 ml Output Total 425 ml 100 ml 525 ml Balance 200 ml 55 ml 260 ml 755 ml Intake Oral 200 ml 480 ml 360 ml 1280 ml Output Urine Total 425 ml 100 ml 525 ml # Voids 1 Exam Constitutional: Elderly obese gentleman in no acute distress Head: Normocephalic and traumatic Eyes: PERRLA CMI Mouth: Dry mucosa Neck: No adenopathy Chest: Clear to auscultation Cor: Irregular regular rate and rhythm S1-S2 Abdomen: Soft nontender bowel sounds present Extremities: Trace bipedal edema with chronic venous stasis changes noted Neuro: He is alert he is oriented to person and place only, moves all extremities equally Psych: Difficult to assess as somewhat of a blunted affect Skin: No rashes IVs and Medications Medications Reviewed: Medications were reviewed in detail Lab and Diagnostics Result Diagram: 05/03/17 0751 05/03/17 0751 X-Rays, CTs and MRIs PROCEDURE: CT BRAIN WITHOUT CONTRAST ([id number]) INDICATIONS: fall on coumadin TECHNIQUE: Noncontrast 4.5 mm thick angled axial sections acquired from the foramen magnum to the vertex, with coronal reformats. COMPARISON: [facility], CT, CT BRAIN WO CON, 05/04/2016, 18:01. FINDINGS: Image quality: Excellent. CSF spaces: Basal cisterns are patent. No extra-axial fluid collections. There is mild cerebral volume loss, with resultant ventricular and sulcal prominence. Brain: No intracranial hemorrhage, mass, or mass effect. There are confluent subcortical, periventricular and deep white matter hypodensities which are nonspecific but may represent severe chronic small vessel ischemic changes. There is intracranial internal carotid artery atherosclerosis. Skull and face: Calvarium and visualized facial bones appear intact, without suspicious lesions. Sinuses: Visualized sinuses demonstrate mucosal polyps or sinus retention cysts within the inferior maxillary sinuses. Mastoid air cells are clear. IMPRESSION: 1. No acute intracranial abnormality. 2. Confluent white matter hypodensities redemonstrated which are nonspecific but may represent severe chronic small vessel ischemic changes. 3. Mild cerebral volume loss. Dictated by: Saad Padilla M.D. on 05/01/2017 at 13:55 Approved by: Saad Padilla M.D. on 05/01/2017 at 13:59 12-lead ECG A fib at 78,incomplete LBBB,poor R wave progression across the precordium. Assessment & Plan #Recurrent ground-level falls, subacute, present on admission -Unclear etiology. Onset seems subacute in the last few weeks -May be due to his peripheral neuropathy as a contributing factor -Patient had evidence severe chronic small vessel ischemic changes on CT brain . MRI requested to see if any new stroke but patient not able to fit in our MRI machine due to size -Patient has history of atrial fibrillation on warfarin. Unable to do MRI and see if pattern is ischemic or embolic. Patient very high risk for bleeding due to multiple falls.will hold off warfarin and switch to aspirin until workup is completed and patient's fall risk improved.this may increase risk of stroke if embolic. Called family to discuss options but no response -vit d,b12 21.5. Started 2000 units daily -PT consultation, grizzly worker and nephrology social worker consultation # suspected DAGO on Chronic kidney disease stage III, present on admission -Initial cr 1.3, worsened to 1.6 today. Prior baseline 2.0. 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 -We will place on subcutaneous insulin correction dose protocol - hemoglobin A1c 9.5, consistent with poor control -inceased lantus from 8U to 12 U hs #Atrial fibrillation, chronic -Switched warfarin to ASA as above -Is rate controlled #DVT prophylaxis -We will use SCDs and subcutaneous prophylactic heparin twice a day #CODE STATUS -Patient is full code changed to inpatient given workup of suspected Dago Disposition: Patient needs long-term placement due to recurrent falls and progressive dementia.Anne Marie Burciaga is reviewing VTE Prophylaxis: Sub-Q Heparin (Unfractionated), SCDs Resuscitation Status: CPR: Attempt Resuscitation Xander Rosa MD May 03, 2017 16:42
[2017-05-03] MEDS ORDERED: Insulin GLARgine 100 Unit/mL Syringe SUBQ SCH (21:00)
[2017-05-03 21:28] VITALS: BP 159/85; PULSE 86; RESP 17; O2SAT 94
[2017-05-04 05:28] VITALS: BP 172/93; PULSE 62; RESP 17; O2SAT 97
--- NOTE | 2017-05-04 05:50 | NUR ---
Nurse Note NOC Shift Patient is alert and oriented to self and place, forgetful and [place]. He denies pain or any discomfort. BP elevated this morning 172/93, pt assymptomatic. MD notified, morning dose Coreg given per MD order. Pt was incontinent multiple times tonight. Anna care provided as needed. Pt slept well most of the night.
[2017-05-04 06:54] LABS: BASOPHILS % (AUTO) 0.6 % (0-3); EOSINOPHILS % (AUTO) 3.1 % (0-5); MONOCYTES % (AUTO) 8.1 % (4-12); Mean Corpuscular Hemoglobin 29.4 pg (27.0-35.0); Mean Corpuscular Volume 87.8 fL (81-100); NEUTROPHILS % (AUTO) 62.4 % (40-74); Platelet Count 219 bil/L (150-400)
[2017-05-04 08:10] VITALS: BP 150/88; PULSE 60; RESP 18; O2SAT 96
[2017-05-04] MEDS: Insulin LISPRO 300 Unit/3 mL Inj SUBQ SCH ×4 (08:14→22:11)
[2017-05-04] MEDS: Artificial Tears 15 mL Ophthalmic Solution AFFECT_EYE SCH ×2 (08:15→20:22)
[2017-05-04] MEDS: Heparin 5,000 Unit/mL Inj SUBQ SCH ×2 (08:18→20:23)
[2017-05-04] MEDS: Potassium Chloride 20 mEq SR Tablet PO SCH (08:18)
[2017-05-04] MEDS: Tolterodine ER 4 mg ER24 Capsule PO SCH (08:18)
[2017-05-04] MEDS ORDERED: Potassium Chloride 20 mEq SR Tablet PO ONE (08:50)
--- NOTE | 2017-05-04 09:09 | DRSVH ---
PROCEDURE: US RENAL SONOGRAM INDICATIONS: DAGO TECHNIQUE: Real-time scanning was performed of the kidneys and bladder, with image documentation. COMPARISON: None. FINDINGS: Examination limited by body habitus. Kidneys: Kidneys are normal in size. Right kidney measures 12.3 cm long; left kidney measures 11.2 cm long. Right renal cortical thickness is 1.1 cm; left renal cortical thickness is 1.2 cm. Renal c ortical echotexture is normal. No hydronephrosis or nephrolithiasis. No suspicious solid mass lesio ns. Bladder: Urinary bladder is gross unremarkable. Patient is unable to void. No ureteral jets are seen . Miscellaneous: No free pelvic fluid. IMPRESSION: No hydronephrosis. Dictated by: Justin Belle M.D. on 05/04/2017 at 9:07 Approved by: Justin Belle M.D. on 05/04/2017 at 9:08
[2017-05-04] MEDS ORDERED: 0.9% NaCl + KCl 20 mEq/L 1,000 ML IV SCH (10:15)
--- NOTE | 2017-05-04 11:30 | PCM.CHPMED ---
Subjective Date of Service: May 04, 2017 Primary Physician: Admitting Physician: Susana Irving MD Primary Care Physician: Conner Newton MD Attending Physician: Xander Rosa MD Chief Complaint: Chief Complaint: DAGO. hypokalemia History of Present Illness: Mr. Jimenez is a 76-year-old male with past medical history of dementia, peripheral neuropathy, diabetes and atrial fibrillation who was admitted to the ED secondary to ground-level fall suffered at a assisted living facility. Review of records and speaking with the patient it appears that this admission is social admit in nature and that the facility can no longer care for him adequately. Patient denies any pain or discomfort does state that he fell but has no injuries from the fall. States that he has not felt sick of recent denies fevers. Does state that he has had a decrease in his urinary output recently which is accompanied with decrease in his oral intake. Nephrology consult in for increasing creatinine levels. Patient denies chest pain, shortness breath, abdominal pain, flank pain, difficulty urinating or pain with urination, extremity numbness swelling or tingling. Review of Systems: A comprehensive review of systems was conducted with the patient and found to be negative except as above in the history of present illness. 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) Peripheral neuropathy Arthritis cellulitis Urinary urgency/BPH Cataracts Hiatal hernia and GERD DM type II Depression Reports: Bleeding disorder, Congestive heart failure, Hyperlipidemia, Hypertension Reports: Atrial fibrillation Bedside Blood Glucose: 190 Surgical History Her admission H&P right knee replacement Reports: Cataract surgery, Tonsillectomy Home Medications Home medications reported: Acetaminophen 650 mg by mouth every 4 hours when necessary Carboxy methylcellulose sodium 50 mL drops Carvedilol 25 mg by mouth twice a day Thalitone 25 mg by mouth daily Benadryl 25 mg by mouth every 4 when necessary Glipizide 10 mg by mouth every morning Insulin glargine 8 units subcutaneous at bedtime Ketoconazole 15 g topical daily Oxybutynin chloride ER 10 mg by mouth daily Potassium chloride ER 20 meq every by mouth daily Sertraline 50 mg by mouth daily Flomax 0.4 mg by mouth daily Torsemide 40 mg by mouth daily Warfarin 7.5 mg by mouth daily Allergies: Coded Allergies: Penicillins (Verified Allergy, Unknown, 05/01/17) oxycodone (Verified Adverse Reaction, Severe, 05/01/17) make pt very drowsy,stay in bed for a week per son. tramadol (Verified Adverse Reaction, Severe, 05/01/17) make pt very drowsy,stay in bed for a week per son. Family History Family History Father with a history of cardiac problems Social History Hx Alcohol Use: NoHx Substance Use: NoHx Tobacco Use: No Smoking Status: Never Smoker Living Arrangement: Assisted Living Exam Vital Signs Vital Sign - Last Date Time Temp Pulse Resp B/P Pulse Ox O2 Delivery O2 Flow Rate FiO2 05/04/17 08:10 36.7 60 18 150/88 96 Room Air Intake and Output 05/03/17 05/03/17 05/04/17 Cumulative From/Thru 15:00 23:00 07:00 05/01/17 12:22 - 05/04/17 06:47 Intake Total 100 ml 1380 ml Output Total 525 ml Balance 100 ml 855 ml Intake Oral 100 ml 1380 ml Output Urine Total 525 ml # Voids 3 4 General: Obese male sitting in a side chair in no acute distress, flat and distant affect HEENT: Normocephalic, atraumatic. External ears without defect. Pupils equal, round, and reactive to light and accommodation. Dry mucosa Neck: JVD difficult to appreciate secondary to body habitus as well as substantial facial hair Cardiovascular: Irregular rhythm with regular rate, no murmurs Pulmonary: Clear to auscultation bilaterally with no crackles. Normal respiratory effort with no use of accessory muscles. Abdomen: Soft, nontender, nondistended. Extremities: No lower extremity edema. Lower extremity venous stasis Skin: Normal temperature, turgor, and texture. Substantial skin flakes over torso, dandruff Neurological: Cranial nerves grossly intact Psychiatric: Flat affect Lab and Diagnostics Result Diagram: 05/04/1715 05/04/1715 X-Rays, CTs and MRIs . X-RAY CHEST ONE VIEW, PORTABLE IMPRESSION: No acute cardiopulmonary disease. Dictated by: Primitivo Uriostegui M.D. on 05/01/2017 CT BRAIN WITHOUT CONTRAST IMPRESSION: 1. No acute intracranial abnormality. 2. Confluent white matter hypodensities redemonstrated which are nonspecific but may represent severe chronic small vessel ischemic changes. 3. Mild cerebral volume loss. Dictated by: Saad Padilla M.D. on 05/01/2017 US RENAL SONOGRAM IMPRESSION: No hydronephrosis. Dictated by: Justin Belle M.D. on 05/04/2017 Assessment & Plan Assessment Acute on chronic kidney injury -Creatinine baseline approximately 2 -Creatinine 1.3 on admit 05/01/2017 has trended up to 1.76 today 05/04/2070 -Minimal urinary output, 100 mL over the last 24 hours -Ultrasound showed no hydronephrosis, a limited exam secondary to body habitus -Bladder scan pending -IV fluids ordered -Hold diuretics -Avoid nephrotoxic agents -Continue to monitor Hypokalemia -Potassium 3.3 on admit, gissel to 3.8 then trended back down. 3.2 today -Continue potassium repletion -Continue magnesium replacement Pt was seen and examined. Case discussed with Dr. Vo. Agree with assessment and plan as outlined above. Fadi Elizondo MD. Problems: Pain Evaluation: Adequate Pain Control VTE Prophylaxis: Sub-Q Heparin (Unfractionated), SCDs Resuscitation Status: CPR: Attempt Resuscitation ESTER VO DO May 04, 2017 11:30 Rachel Dennison MD May 04, 2017 15:02
--- NOTE | 2017-05-04 14:02 | NUR ---
Case Management: Patient's ANAY signed by son and in chart 05/02 evening - per nursing, son did not want a copy. Kobe Lyle RN
--- NOTE | 2017-05-04 14:35 | NUR ---
RETIREMENT TRANSFER FOLLOW UP : Called and spoke with Rody at [facility] and she was not aware patient had 60-day wellness stay. She is reviewing and will call me back. She can not have any more LTC patients at this time. Spoke with Wandy at [facility] and she did not receive facesheet yesterday. Refaxed Spoke with Michelle at [facility] and she did not receive initial facesheet, refaxed 05/04/17. Updated SECURITY ASSOCIATE Addendum: 05/04/17 at 1513 by IRA BUTLER CM Faxed referral to [facility] and [facility] as well, patient is currently needing rehab and is already in the process with [facility] to secure LTC. Patient had 60 day wellness period. Updated SECURITY ASSOCIATE
--- NOTE | 2017-05-04 15:14 | PCM.PNMED ---
Subjective Date of Service May 04, 2017 Subjective Continues to have generalized weakness. Kidney function continues to worsen. Diuretics on hold. Exam Vital Signs Vital Sign - Last Date Time Temp Pulse Resp B/P Pulse Ox O2 Delivery O2 Flow Rate FiO2 05/04/17 08:10 36.7 60 18 150/88 96 Room Air Intake and Output 05/03/17 05/03/17 05/04/17 Cumulative From/Thru 15:00 23:00 07:00 05/01/17 12:22 - 05/04/17 06:47 Intake Total 100 ml 1380 ml Output Total 525 ml Balance 100 ml 855 ml Intake Oral 100 ml 1380 ml Output Urine Total 525 ml # Voids 3 4 Exam Constitutional: Elderly obese gentleman in no acute distress Head: Normocephalic and traumatic Eyes: PERRLA CMI Mouth: Dry mucosa Neck: No adenopathy Chest: Clear to auscultation Cor: Irregular regular rate and rhythm S1-S2 Abdomen: Soft nontender bowel sounds present Extremities: Trace bipedal edema with chronic venous stasis changes noted Neuro: He is alert he is oriented to person and place only, moves all extremities equally Psych: Difficult to assess as somewhat of a blunted affect Skin: No rashes IVs and Medications Medications Reviewed: Medications were reviewed in detail Lab and Diagnostics Result Diagram: 05/04/1761405/04/17614 X-Rays, CTs and MRIs PROCEDURE: CT BRAIN WITHOUT CONTRAST ([id number]) INDICATIONS: fall on coumadin TECHNIQUE: Noncontrast 4.5 mm thick angled axial sections acquired from the foramen magnum to the vertex, with coronal reformats. COMPARISON: [facility], CT, CT BRAIN WO CON, 05/04/2016, 18:01. FINDINGS: Image quality: Excellent. CSF spaces: Basal cisterns are patent. No extra-axial fluid collections. There is mild cerebral volume loss, with resultant ventricular and sulcal prominence. Brain: No intracranial hemorrhage, mass, or mass effect. There are confluent subcortical, periventricular and deep white matter hypodensities which are nonspecific but may represent severe chronic small vessel ischemic changes. There is intracranial internal carotid artery atherosclerosis. Skull and face: Calvarium and visualized facial bones appear intact, without suspicious lesions. Sinuses: Visualized sinuses demonstrate mucosal polyps or sinus retention cysts within the inferior maxillary sinuses. Mastoid air cells are clear. IMPRESSION: 1. No acute intracranial abnormality. 2. Confluent white matter hypodensities redemonstrated which are nonspecific but may represent severe chronic small vessel ischemic changes. 3. Mild cerebral volume loss. Dictated by: Saad Padilla M.D. on 05/01/2017 at 13:55 Approved by: Saad Padilla M.D. on 05/01/2017 at 13:59 12-lead ECG A fib at 78,incomplete LBBB,poor R wave progression across the precordium. Assessment & Plan # DAGO on Chronic kidney disease stage III, present on admission -Initial cr 1.3, worsened to 1.7 today. Prior baseline 2.0. Unclear if he has a new baseline. KUB US unremarkable.hold torsemide -Nephrology consulted and started him on IV fluids. -Avoid nephrotoxic agents #Recurrent ground-level falls, subacute, present on admission -Unclear etiology. Onset seems subacute in the last few weeks -May be due to his peripheral neuropathy as a contributing factor. it is also possible he has some dehydration due to poor oral intake given ongoing DAGO . IV fluids started by nephrology -Patient had evidence severe chronic small vessel ischemic changes on CT brain . MRI requested to see if any new stroke but patient not able to fit in our MRI machine due to size -Patient has history of atrial fibrillation on warfarin. Unable to do MRI and see if pattern is ischemic or embolic. Patient very high risk for bleeding due to multiple falls.will hold off warfarin and switch to aspirin until workup is completed and patient's fall risk improved.this may increase risk of stroke if embolic. Called family to discuss options but no response -vit d,b12 21.5. 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 -We will place on subcutaneous insulin correction dose protocol - hemoglobin A1c 9.5, consistent with poor control -increased lantus from 8U to 12 U hs #Atrial fibrillation, chronic -Switched warfarin to ASA as above -Is rate controlled #DVT prophylaxis -We will use SCDs and subcutaneous prophylactic heparin twice a day #CODE STATUS -Patient is full code changed to inpatient given workup of suspected Dago Disposition: Patient needs long-term placement due to recurrent falls and progressive dementia.Anne Marie Burciaga is reviewing VTE Prophylaxis: Sub-Q Heparin (Unfractionated), SCDs Resuscitation Status: CPR: Attempt Resuscitation Xander Rosa MD May 04, 2017 15:14
--- NOTE | 2017-05-04 15:30 | NUR ---
Behavior/mobility Pt gruff with his responses at times. Cooperative with taking medication, blood sugar checks and coverage. 1 person assist w/FWW. Notify pt of need for PVR, stated "i am taking a nap"
[2017-05-04 16:20] VITALS: BP 175/86; PULSE 66; RESP 18; O2SAT 96
[2017-05-04 16:23] VITALS: BP 171/124; PULSE 65
--- NOTE | 2017-05-04 16:30 | NUR ---
Behavior Pt unaware of incont, pull up completely soaked, liquid present on floor all way to window. In process of changing ortho VS attempted, lying and sitting no problem but pt unable to stand up long enough to get BP/HR. Agitated, in frustration lifted and placed FWW forefully rattling back onto floor. Sat down, refused osvaldo care, able to change brief as was partially removed before standing up. Currently sitting at edge of bed. Addendum: 05/04/17 at 1701 by TU BERGMAN RN PVR not after void as pt unaware he was incont. Scan showed 23 ml.
[2017-05-04 18:16] VITALS: BP 144/85
[2017-05-04] MEDS: Insulin GLARgine 100 Unit/mL Syringe SUBQ SCH (21:15)
--- NOTE | 2017-05-04 21:46 | NUR ---
IV Start Pt. pulled his IV out in tacked around 2044. Another IV was started in his Rt. hand 22g, patent to continue his fluid order.
[2017-05-04 22:16] VITALS: BP 141/84; PULSE 89; RESP 18; O2SAT 94
[2017-05-05 02:30] VITALS: BP 180/96; PULSE 68; RESP 16; O2SAT 96
--- NOTE | 2017-05-05 05:18 | NUR ---
Urine on floor Pt. seems to be urinating on the floor from his bed. The floor had to be cleaned 3 time this shift so far. Pt. refuses to use urinal or call for assistance. If asked he denies his is doing it and refuses to even talk about it. IV fluid finished and Pt. is SL. S TM
[2017-05-05 05:41] VITALS: BP 163/82; PULSE 74; RESP 16; O2SAT 96
[2017-05-05 06:24] LABS: BASOPHILS % (AUTO) 0.6 % (0-3); EOSINOPHILS % (AUTO) 3.9 % (0-5); MONOCYTES % (AUTO) 7.7 % (4-12); Mean Corpuscular Volume 89.1 fL (81-100); NEUTROPHILS % (AUTO) 63.6 % (40-74); Platelet Count 264 bil/L (150-400)
[2017-05-05 08:23] VITALS: BP 158/86; PULSE 60; RESP 12; O2SAT 96
[2017-05-05] MEDS: Heparin 5,000 Unit/mL Inj SUBQ SCH ×2 (08:25→21:08)
[2017-05-05] MEDS: Insulin LISPRO 300 Unit/3 mL Inj SUBQ SCH ×4 (08:26→21:09)
[2017-05-05] MEDS: Potassium Chloride 20 mEq SR Tablet PO SCH (08:27)
[2017-05-05] MEDS: Tolterodine ER 4 mg ER24 Capsule PO SCH (08:27)
[2017-05-05] MEDS: Artificial Tears 15 mL Ophthalmic Solution AFFECT_EYE SCH ×3 (08:30→21:07)
--- NOTE | 2017-05-05 08:37 | NUR ---
GROUP HOME TRANSFER : [facility] is coming in today to do bedside assessment today and see if they can meet patients needs. Updated JET SKI MECHANIC Addendum: 05/05/17 at 1607 by IRA BUTLER [facility] is not able to accept this patient. Refaxed facesheet to [facility] Updated JET SKI MECHANIC
--- NOTE | 2017-05-05 09:00 | PCM.PNNEPH ---
ESTER VO DO 05/05/17 0900: Subjective Date of Service May 05, 2017 Subjective Pt has had multiple behavioral issues over the last 24hrs, most notably repeatedly urinating on the floor of his hospital room and in his hospital bed. When asked about this he has no recollection of doing this. He states that he feels fine and is in no pain. Creatinine has trended down to 1.5, urinary output is recorded at [id number] but this is inaccurate secondary to multiple incontinent episodes as well as urinating on the floor. Exam Vital Signs Vital Sign - Last Date Time Temp Pulse Resp B/P Pulse Ox O2 Delivery O2 Flow Rate FiO2 05/05/17 08:23 60 12 158/86 96 Room Air 05/05/17 05:41 36.8 Intake and Output 05/04/17 05/04/17 05/05/17 Cumulative From/Thru 15:00 23:00 07:00 05/01/17 12:22 - 05/05/17 05:42 Intake Total 600 ml 1750 ml 3730 ml Output Total 250 ml 775 ml Balance 350 ml 1750 ml 2955 ml Intake Oral 600 ml 800 ml 2780 ml IV Total 950 ml 950 ml Output Urine Total 250 ml 775 ml # Voids 1 3 8 Exam General: Obese male laying in hospital bed in no acute distress, flat affect but answers questions appropriately HEENT: Normocephalic, atraumatic. External ears without defect. Pupils equal, round, and reactive to light and accommodation. Dry mucosa Cardiovascular: Irregular rhythm with regular rate, no murmurs Pulmonary: Clear to auscultation bilaterally with no crackles. Normal respiratory effort with no use of accessory muscles. Abdomen: Soft, nontender, nondistended. Extremities: No lower extremity edema. Lower extremity venous stasis Skin: Normal temperature, turgor, and texture. Neurological: Cranial nerves grossly intact Psychiatric: Flat affect IVs and Medications Medications Reviewed: Medications were reviewed in detail Lab and Diagnostics Result Diagram: 05/05/1760405/05/17604 X-Rays, CTs and MRIs . X-RAY CHEST ONE VIEW, PORTABLE IMPRESSION: No acute cardiopulmonary disease. Dictated by: Primitivo Uriostegui M.D. on 05/01/2017 CT BRAIN WITHOUT CONTRAST IMPRESSION: 1. No acute intracranial abnormality. 2. Confluent white matter hypodensities redemonstrated which are nonspecific but may represent severe chronic small vessel ischemic changes. 3. Mild cerebral volume loss. Dictated by: Saad Padilla M.D. on 05/01/2017 US RENAL SONOGRAM IMPRESSION: No hydronephrosis. Dictated by: Justin Belle M.D. on 05/04/2017 12-lead ECG A fib at 78,incomplete LBBB,poor R wave progression across the precordium. Plan Impression Acute on chronic kidney injury -Creatinine baseline approximately 2 -Creatinine 1.3 on admit 05/01/2017 Peak of 1.76 now trending back down - 1.5 today 05/05/2017 -Minimal recorded urinary output, many more voids that have not been recorded -Ultrasound showed no hydronephrosis, a limited exam secondary to body habitus -Bladder scan pending? -Continue IV fluids -Hold diuretics -Avoid nephrotoxic agents -Continue to monitor Hypokalemia -Potassium 3.3 on admit, 3.5 today -K and Mg repletion given -Continue to monitor electrolyte status and replace as needed -Continue Oral K supplementation Rachel Dennison MD 05/05/17 1446: Exam Lab and Diagnostics Result Diagram: 05/05/17 0605 05/05/17 0605 Plan Impression Pt was seen and examined. Case discussed with Dr. Vo. Agree with assessment and plan as outlined above. Will sign off, please do not hesitate to call with any questions or concerns. Thank you for the consultation. Fadi Elizondo MD. ESTER VO DO May 05, 2017 09:00 Rachel Dennison MD May 05, 2017 14:46
--- NOTE | 2017-05-05 11:47 | PCM.DIMED ---
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 Workup revealed that you are dehydrated with some kidney injury. Treated with IV fluids. Symptoms and kidney injury improved. Please keep yourself hydrated.I have lowered your diuretic/water pill torsemide from 40 mg by mouth daily to 20 mg by mouth daily. I have stopped your warfarin and switched to aspirin for now until your risk of fall is reassessed by PCP. Your vitamin D level is low which may have contributed to fall and I started you vitamin D supplements. I have increased your Lantus from 8 units to 10 units at bedtime. Please check your blood glucose 3 times a day and follow-up with PCP for further insulin dose adjustment. Follow-up Provider: Conner Newton MD Follow-up with PCP in: 1 week (1 week after discharge from longterm facility) Xander Rosa MD May 05, 2017 11:47
[2017-05-05] MEDS ORDERED: INSU100I13 SUBQ (11:49)
[2017-05-05] MEDS ORDERED: TORS20TA3 PO (11:49)
[2017-05-05] MEDS ORDERED: CHOL100043 PO (11:49)
[2017-05-05] MEDS ORDERED: ASPI81TA3 PO (11:49)
[2017-05-05 15:11] VITALS: BP 154/79; PULSE 68; RESP 12; O2SAT 95
--- NOTE | 2017-05-05 15:16 | NUR ---
Status Pt refused shower/clean up this am and afternoon. Pt amenable to get in chair for linen change. Pt refused help with brief stating "I can do it, I need privacy". Pt able to use urinal this afternoon. [place] chair alarm on while up in chair. Will continue to monitor. Addendum: 05/05/17 at 1750 by LATISHA HOOK RN Pt continues to refuse help with brief changing/washing and gets agitated with offers. Will monitor and encourage self care as able.
--- NOTE | 2017-05-05 19:14 | PCM.PNMED ---
Subjective Date of Service May 05, 2017 Subjective generalized weakness improving , patient had episode of confusion last night and peed on the floor .Dago improving Exam Vital Signs Vital Sign - Last Date Time Temp Pulse Resp B/P Pulse Ox O2 Delivery O2 Flow Rate FiO2 05/05/17 15:11 36.9 68 12 154/79 95 Room Air Intake and Output 05/04/17 05/04/17 05/05/17 Cumulative From/Thru 15:00 23:00 07:00 05/01/17 12:22 - 05/05/17 05:42 Intake Total 600 ml 1750 ml 3730 ml Output Total 250 ml 775 ml Balance 350 ml 1750 ml 2955 ml Intake Oral 600 ml 800 ml 2780 ml IV Total 950 ml 950 ml Output Urine Total 250 ml 775 ml # Voids 1 3 8 Exam Constitutional: Elderly obese gentleman in no acute distress Head: Normocephalic and traumatic Eyes: PERRLA CMI Mouth: Dry mucosa Neck: No adenopathy Chest: Clear to auscultation Cor: Irregular regular rate and rhythm S1-S2 Abdomen: Soft nontender bowel sounds present Extremities: Trace bipedal edema with chronic venous stasis changes noted Neuro: He is alert he is oriented to person and place only, moves all extremities equally Psych: Difficult to assess as somewhat of a blunted affect Skin: No rashes IVs and Medications Medications Reviewed: Medications were reviewed in detail Lab and Diagnostics Result Diagram: 05/05/1760405/05/17604 X-Rays, CTs and MRIs . X-RAY CHEST ONE VIEW, PORTABLE IMPRESSION: No acute cardiopulmonary disease. Dictated by: Primitivo Uriostegui M.D. on 05/01/2017 CT BRAIN WITHOUT CONTRAST IMPRESSION: 1. No acute intracranial abnormality. 2. Confluent white matter hypodensities redemonstrated which are nonspecific but may represent severe chronic small vessel ischemic changes. 3. Mild cerebral volume loss. Dictated by: Saad Padilla M.D. on 05/01/2017 US RENAL SONOGRAM IMPRESSION: No hydronephrosis. Dictated by: Justin Belle M.D. on 05/04/2017 12-lead ECG A fib at 78,incomplete LBBB,poor R wave progression across the precordium. Assessment & Plan # DAGO on Chronic kidney disease stage III, present on admission -Initial cr 1.3, worsened to 1.7 today. Prior baseline 2.0. Unclear if he has a new baseline. KUB US unremarkable.hold torsemide -Nephrology consulted and started him on IV fluids. -Avoid nephrotoxic agents #Recurrent ground-level falls, subacute, present on admission -Unclear etiology. probably due to dehydration given symptoms improving with IVF and DAGO also improving . will lower torsemide to 20 from 40 daily up on discharge , Onset seems subacute in the last few weeks -May be due to his peripheral neuropathy as a contributing factor. it is also possible he has some dehydration due to poor oral intake given ongoing DAGO . IV fluids started by nephrology -Patient had evidence severe chronic small vessel ischemic changes on CT brain . MRI requested to see if any new stroke but patient not able to fit in our MRI machine due to size -Patient has history of atrial fibrillation on warfarin. Unable to do MRI and see if pattern is ischemic or embolic. Patient very high risk for bleeding due to multiple falls.will hold off warfarin and switch to aspirin until workup is completed and patient's fall risk improved.this may increase risk of stroke if embolic. Called family to discuss options but no response -vit d,b12 21.5. 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 -We will place on subcutaneous insulin correction dose protocol - hemoglobin A1c 9.5, consistent with poor control -increased lantus from 8U to 12 U hs #Atrial fibrillation, chronic -Switched warfarin to ASA as above -Is rate controlled #DVT prophylaxis -We will use SCDs and subcutaneous prophylactic heparin twice a day #CODE STATUS -Patient is full code inpatient Disposition: ready for discharge,awaitng [facility] bedside eval to accept updated Son today VTE Prophylaxis: Sub-Q Heparin (Unfractionated), SCDs Resuscitation Status: CPR: Attempt Resuscitation Xander Rosa MD May 05, 2017 19:14
[2017-05-05 20:59] VITALS: BP 166/94; PULSE 66; RESP 18; O2SAT 94
[2017-05-05] MEDS: Insulin GLARgine 100 Unit/mL Syringe SUBQ SCH (21:08)
--- NOTE | 2017-05-06 05:42 | NUR ---
Shift note patient continues to be incontinent of copious amounts of urine, declined he is and refusing to get oob,eventually he awoke disorientated to place but sat up in bed and asked for a new T-shirt, which I responded with offer for a gown, he adamantly refused insisting he wanted a T-shirt," I get I'll just wear this till it dries out!" He did ask to dry his back wherein I was able to cleanse and dry yet he still wouldn't remove T-Shirt, he did allow me to change bed linen but insisted his brief did not need change will continue to try to encourage oob and changing
[2017-05-06 06:25] VITALS: BP 164/79; PULSE 48; RESP 17; O2SAT 96
[2017-05-06] MEDS: Heparin 5,000 Unit/mL Inj SUBQ SCH ×2 (08:30→21:22)
[2017-05-06] MEDS: Artificial Tears 15 mL Ophthalmic Solution AFFECT_EYE SCH ×3 (08:30→20:30)
[2017-05-06 09:39] LABS: BASOPHILS % (AUTO) 0.5 % (0-3); EOSINOPHILS % (AUTO) 3.1 % (0-5); MONOCYTES % (AUTO) 7.3 % (4-12); Mean Corpuscular Hemoglobin 29.1 pg (27.0-35.0); Mean Corpuscular Volume 88.3 fL (81-100); NEUTROPHILS % (AUTO) 68.4 % (40-74); Platelet Count 260 bil/L (150-400)
[2017-05-06] MEDS: Tolterodine ER 4 mg ER24 Capsule PO SCH (09:43)
[2017-05-06] MEDS: Potassium Chloride 20 mEq SR Tablet PO SCH (09:43)
[2017-05-06 10:00] VITALS: BP 158/77; PULSE 88; RESP 18; O2SAT 95
[2017-05-06] MEDS: Insulin LISPRO 300 Unit/3 mL Inj SUBQ SCH ×4 (10:11→21:12)
[2017-05-06 10:18] LABS: Magnesium 1.8 mg/dL (1.6-2.6)
[2017-05-06] MEDS ORDERED: LORazepam 1 mg Tablet PO PRN (14:05)
--- NOTE | 2017-05-06 14:14 | PCM.PNMED ---
Subjective Date of Service May 06, 2017 Subjective Generalized weakness improving. Patient has intermittent confusion and agitation. Exam Vital Signs Vital Sign - Last Date Time Temp Pulse Resp B/P Pulse Ox O2 Delivery O2 Flow Rate FiO2 05/06/17 06:25 36.4 48 17 164/79 96 Room Air Intake and Output 05/05/17 05/05/17 05/06/17 Cumulative From/Thru 15:00 23:00 07:00 05/01/17 12:22 - 05/06/17 06:29 Intake Total 500 ml 480 ml 4710 ml Output Total 300 ml 1075 ml Balance 200 ml 480 ml 3635 ml Intake Oral 500 ml 480 ml 3760 ml IV Total 950 ml Output Urine Total 300 ml 1075 ml # Voids 2 3 13 Exam Constitutional: Elderly obese gentleman in no acute distress Head: Normocephalic and traumatic Eyes: PERRLA CMI Mouth: Dry mucosa Neck: No adenopathy Chest: Clear to auscultation Cor: Irregular regular rate and rhythm S1-S2 Abdomen: Soft nontender bowel sounds present Extremities: Trace bipedal edema with chronic venous stasis changes noted Neuro: He is alert he is oriented to person and place only, moves all extremities equally Psych: Difficult to assess as somewhat of a blunted affect Skin: No rashes IVs and Medications Medications Reviewed: Medications were reviewed in detail Lab and Diagnostics Result Diagram: 05/06/1792005/06/17920 X-Rays, CTs and MRIs . X-RAY CHEST ONE VIEW, PORTABLE IMPRESSION: No acute cardiopulmonary disease. Dictated by: Primitivo Uriostegui M.D. on 05/01/2017 CT BRAIN WITHOUT CONTRAST IMPRESSION: 1. No acute intracranial abnormality. 2. Confluent white matter hypodensities redemonstrated which are nonspecific but may represent severe chronic small vessel ischemic changes. 3. Mild cerebral volume loss. Dictated by: Saad Padilla M.D. on 05/01/2017 RENAL SONOGRAM IMPRESSION: No hydronephrosis. Dictated by: Justin Belle M.D. on 05/04/2017 12-lead ECG A fib at 78,incomplete LBBB,poor R wave progression across the precordium. Assessment & Plan # DAGO on Chronic kidney disease stage III, present on admission -Initial cr 1.3, worsened to 1.7 today. Prior baseline 2.0. Unclear if he has a new baseline. KUB US unremarkable.held torsemide.will resume at lower dose of 20daily -Nephrology consulted and started him on IV fluids. Discontinue fluids now -Avoid nephrotoxic agents #Recurrent ground-level falls, subacute, present on admission -Unclear etiology. probably due to dehydration given symptoms improving with IVF and DAGO also improving . will lower torsemide to 20 from 40 daily up on discharge , Onset seems subacute in the last few weeks -May be due to his peripheral neuropathy as a contributing factor. it is also possible he has some dehydration due to poor oral intake given ongoing DAGO . IV fluids started by nephrology -Patient had evidence severe chronic small vessel ischemic changes on CT brain . MRI requested to see if any new stroke but patient not able to fit in our MRI machine due to size -Patient has history of atrial fibrillation on warfarin. Unable to do MRI and see if pattern is ischemic or embolic. Patient very high risk for bleeding due to multiple falls.will hold off warfarin and switch to aspirin until workup is completed and patient's fall risk improved.this may increase risk of stroke if embolic. Called family to discuss options but no response -vit d,b12 21.5. 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
[2017-05-06 17:54] VITALS: BP 166/82; PULSE 66; RESP 16; O2SAT 95
--- NOTE | 2017-05-06 19:38 | NUR ---
Care Refusal Pt refuses a lot of care, medications, interventions and personal care. Pt had urine soaked bed, brief and clothing, finally able to get linens and brief changed a few times this shift. Pt c/t refuse to remove urine soaked t shirt. Pt is very confused and difficult to reorient, getting combative and violent at times. Given time pt usually returns to complaint passive state.
[2017-05-06] MEDS: Insulin GLARgine 100 Unit/mL Syringe SUBQ SCH (21:22)
[2017-05-06 21:26] VITALS: BP 147/100; PULSE 69; RESP 18; O2SAT 94
--- NOTE | 2017-05-07 03:09 | NUR ---
Behavior Patient was acceptable to VS, BS check and med pass then just after midnight could hear him urinating on floor, SAFETY TECHNICIAN attempted to go clean and he started yelling get out of my bedroom I don't need no one to clean I can myself informed concern of falling he stated don't concern yourself Ill be somewhere else tomorrow! Placed towels on floor to cover urine will attempt to clean later this am Addendum: 05/07/17 at 0641 by MIRIAM CHICAS RN Was able to get AM VS and clean floor declines to get oob
[2017-05-07 06:27] VITALS: BP 141/81; PULSE 65; RESP 18; O2SAT 95
[2017-05-07] MEDS: Insulin LISPRO 300 Unit/3 mL Inj SUBQ SCH ×4 (08:48→22:00)
[2017-05-07] MEDS: Artificial Tears 15 mL Ophthalmic Solution AFFECT_EYE SCH ×2 (08:49→20:30)
[2017-05-07] MEDS: Potassium Chloride 20 mEq SR Tablet PO SCH (08:49)
[2017-05-07] MEDS: Heparin 5,000 Unit/mL Inj SUBQ SCH ×2 (08:49→20:55)
[2017-05-07] MEDS: Tolterodine ER 4 mg ER24 Capsule PO SCH (08:50)
[2017-05-07 09:08] LABS: BASOPHILS % (AUTO) 0.7 % (0-3); EOSINOPHILS % (AUTO) 3.3 % (0-5); MONOCYTES % (AUTO) 6.3 % (4-12); Mean Corpuscular Hemoglobin 29.4 pg (27.0-35.0); Mean Corpuscular Volume 88.1 fL (81-100); NEUTROPHILS % (AUTO) 67.4 % (40-74); Platelet Count 243 bil/L (150-400)
[2017-05-07 11:30] VITALS: BP 143/85; PULSE 65; RESP 16; O2SAT 96
--- NOTE | 2017-05-07 12:15 | NUR ---
Social Work: Readiness for Discharge/Multidisciplinary Rounds D: EMR reviewed. Pt is on day 6 of hospitalization. Pt discussed in multidisciplinary rounds and is medically stable for discharge to SNF for PT needs today. SW to follow-up on SNF referrals sent to [facility] and [facility]. T/C to Ivonne at [facility] regarding referral - Ivonne stated that they are willing to accept pt for rehab but not for LTC - if pt does not have LTC care plan in place, [facility] can't take pt at this time. If family has LTC care plan in place after pt meets PT goals at SNF, then [facility] will reconsider. SW will follow-up with family regarding LTC care plans. T/C to Nano at [facility] regarding referral - Nano stated they are not wiling to take pt because he had prior stay at [facility] and only has 29 MCR days remaining - [facility] doesn't have LTC beds available at this time and based on review, believe pt would need more than 29 days. SW confirmed that pt came from [facility] - Nano stated that she would review file with Renetta tomorrow and get back to regarding LTC plan. SW to follow-up with family regarding LTC care plan. If family has confirmed LTC plan after SNF, both facilities would be willing to re-review pt and likely accept. A: Pt for whom a SNF is medically necessary for PT rehab. P: SW to follow-up with family regarding LTC care plan. If family has confirmed LTC plan after SNF, both facilities would be willing to re-review pt and likely accept. AUDRA Maddox Addendum: 05/07/17 at 1736 by SHERIDAN STEWART T/C to pt's son Madison regarding ANAY - pt's son acknowledged and agreeable. EDUARDO updated pt's son - if he can find LTC placement, [facility] and [facility] will accept pt if LTC plan is in place. Madison confirmed he is calling daily and is working as hard as he can. EDUARDO confirmed SNF placement is an option if he can secure LTC plan. Madison agreeable. AUDRA Maddox
--- NOTE | 2017-05-07 15:12 | PCM.PNMED ---
Subjective Date of Service May 07, 2017 Subjective no new events or complaints ,awaiting placement . gets confused intermittently Exam Vital Signs Vital Sign - Last Date Time Temp Pulse Resp B/P Pulse Ox O2 Delivery O2 Flow Rate FiO2 05/07/17 06:27 36.4 65 18 141/81 95 Room Air Intake and Output 05/06/17 05/06/17 05/07/17 Cumulative From/Thru 15:00 23:00 07:00 05/01/17 12:22 - 05/07/17 06:27 Intake Total 800 ml 480 ml 5990 ml Output Total 200 ml 1275 ml Balance 600 ml 480 ml 4715 ml Intake Oral 800 ml 480 ml 5040 ml IV Total 950 ml Output Urine Total 200 ml 1275 ml # Voids 4 2 19 Exam Constitutional: Elderly obese gentleman in no acute distress Head: Normocephalic and traumatic Eyes: PERRLA CMI Mouth: Dry mucosa Neck: No adenopathy Chest: Clear to auscultation Cor: Irregular regular rate and rhythm S1-S2 Abdomen: Soft nontender bowel sounds present Extremities: Trace bipedal edema with chronic venous stasis changes noted Neuro: He is alert he is oriented to person and place only, moves all extremities equally Psych: Difficult to assess as somewhat of a blunted affect Skin: No rashes IVs and Medications Medications Reviewed: Medications were reviewed in detail Lab and Diagnostics Result Diagram: 05/07/17 0855 05/07/17 0855 X-Rays, CTs and MRIs . X-RAY CHEST ONE VIEW, PORTABLE IMPRESSION: No acute cardiopulmonary disease. Dictated by: Primitivo Uriostegui M.D. on 05/01/2017 CT BRAIN WITHOUT CONTRAST IMPRESSION: 1. No acute intracranial abnormality. 2. Confluent white matter hypodensities redemonstrated which are nonspecific but may represent severe chronic small vessel ischemic changes. 3. Mild cerebral volume loss. Dictated by: Saad Padilla M.D. on 05/01/2017 US RENAL SONOGRAM IMPRESSION: No hydronephrosis. Dictated by: Justin Belle M.D. on 05/04/2017 12-lead ECG A fib at 78,incomplete LBBB,poor R wave progression across the precordium. Assessment & Plan # DAGO on Chronic kidney disease stage III, present on admission -Initial cr 1.3, peaked at 1.7 . Prior baseline 2.0. seems he has a new baseline. KUB US unremarkable.held torsemide. resumed at lower dose of 20 daily -DAGO due to prerenal due to poor renal intake in setting of diuretic use -Nephrology consulted and started him on IV fluids. Discontinue fluids now -Avoid nephrotoxic agents #Recurrent ground-level falls, subacute, present on admission -Unclear etiology. probably due to dehydration given symptoms improving with IVF and DAGO also improving . will lower torsemide to 20 from 40 daily up on discharge , Onset seems subacute in the last few weeks -May be due to his peripheral neuropathy as a contributing factor. it is also possible he has some dehydration due to poor oral intake given ongoing DAGO . IV fluids started by nephrology .now discontinued -Patient had evidence severe chronic small vessel ischemic changes on CT brain . MRI requested to see if any new stroke but patient not able to fit in our MRI machine due to size -Patient has history of atrial fibrillation on warfarin. Unable to do MRI and see if pattern is ischemic or embolic. Patient very high risk for bleeding due to multiple falls.will hold off warfarin and switch to aspirin until patient's fall risk improved.this may increase risk of stroke if embolic. discussed with Son and agrees to discontinuing warfarin until patient is deemed stable for AC from fall perspective -vit d,b12 21.5. 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
--- NOTE | 2017-05-07 16:26 | NUR ---
Mentation Patient was cooperative today, able to change beddings but declines personal care. He said " I don't need any help", we will keep trying. Patient is using urinal this shift and compliant with meds and Blood glucose check. Awaiting for placement. Will continue to monitor.
[2017-05-07 20:51] VITALS: BP 170/93; PULSE 62; RESP 19; O2SAT 95
[2017-05-07] MEDS: Insulin GLARgine 100 Unit/mL Syringe SUBQ SCH (20:56)
[2017-05-08 06:00] VITALS: BP 170/84; PULSE 66; RESP 17; O2SAT 97
--- NOTE | 2017-05-08 06:36 | NUR ---
Shift note Uneventful night though did not want to get oob or have anything to drink eat at HS and he fortunately used urinal through night
[2017-05-08] MEDS: Insulin LISPRO 300 Unit/3 mL Inj SUBQ SCH ×4 (08:03→22:08)
[2017-05-08] MEDS: Artificial Tears 15 mL Ophthalmic Solution AFFECT_EYE SCH ×2 (08:03→20:28)
[2017-05-08] MEDS: Heparin 5,000 Unit/mL Inj SUBQ SCH ×2 (08:03→20:25)
[2017-05-08] MEDS: Potassium Chloride 20 mEq SR Tablet PO SCH (08:03)
[2017-05-08] MEDS: Tolterodine ER 4 mg ER24 Capsule PO SCH (08:04)
[2017-05-08 11:28] VITALS: BP 157/99; PULSE 64; RESP 16; O2SAT 95
--- NOTE | 2017-05-08 13:26 | PCM.PNMED ---
Subjective Date of Service May 08, 2017 Subjective Patient more oriented and interactive. He is more cooperative with care . Awaiting placement Exam Vital Signs Vital Sign - Last Date Time Temp Pulse Resp B/P Pulse Ox O2 Delivery O2 Flow Rate FiO2 05/08/17 11:28 36.4 64 16 157/99 95 Room Air Intake and Output 05/07/17 05/07/17 05/08/17 Cumulative From/Thru 15:00 23:00 07:00 05/01/17 12:22 - 05/08/17 06:31 Intake Total 1070 ml 480 ml 7540 ml Output Total 1250 ml 1200 ml 3725 ml Balance -180 ml -720 ml 3815 ml Intake Oral 1070 ml 480 ml 6590 ml IV Total 950 ml Output Urine Total 1250 ml 1200 ml 3725 ml # Voids 19 # Bowel Movements 0 0 Exam Constitutional: Elderly obese gentleman in no acute distress Head: Normocephalic and traumatic Eyes: PERRLA CMI Mouth: Dry mucosa Neck: No adenopathy Chest: Clear to auscultation Cor: Irregular regular rate and rhythm S1-S2 Abdomen: Soft nontender bowel sounds present Extremities: Trace bipedal edema with chronic venous stasis changes noted Neuro: He is alert he is oriented to person and place only, moves all extremities equally Psych: Difficult to assess as somewhat of a blunted affect Skin: No rashes IVs and Medications Medications Reviewed: Medications were reviewed in detail Lab and Diagnostics Result Diagram: 05/07/17 0855 05/07/17 0855 X-Rays, CTs and MRIs . X-RAY CHEST ONE VIEW, PORTABLE IMPRESSION: No acute cardiopulmonary disease. Dictated by: Primitivo Uriostegui M.D. on 05/01/2017 CT BRAIN WITHOUT CONTRAST IMPRESSION: 1. No acute intracranial abnormality. 2. Confluent white matter hypodensities redemonstrated which are nonspecific but may represent severe chronic small vessel ischemic changes. 3. Mild cerebral volume loss. Dictated by: Saad Padilla M.D. on 05/01/2017 US RENAL SONOGRAM IMPRESSION: No hydronephrosis. Dictated by: Justin Belle M.D. on 05/04/2017 12-lead ECG A fib at 78,incomplete LBBB,poor R wave progression across the precordium. Assessment & Plan # DAOG on Chronic kidney disease stage III, present on admission -Initial cr 1.3, peaked at 1.7 . Prior baseline 2.0. seems he have a new baseline which is yet TBD ,probably 1.3. KUB US unremarkable.initially held torsemide. resumed at lower dose of 20 daily -DAGO due to prerenal due to poor renal intake in setting of diuretic use -Nephrology consulted and started him on IV fluids. Discontinued fluids 05/06 -Avoid nephrotoxic agents #Recurrent ground-level falls, subacute, present on admission -Unclear etiology. probably due to dehydration given symptoms improving with IVF and DAGO also improving . will lower torsemide to 20 from 40 daily up on discharge , Onset seems subacute in the last few weeks -May be due to his peripheral neuropathy as a contributing factor. it is also possible he has some dehydration due to poor oral intake given ongoing DAGO . IV fluids started by nephrology .now discontinued -Patient had evidence severe chronic small vessel ischemic changes on CT brain . MRI requested to see if any new stroke but patient not able to fit in our MRI machine due to size -Patient has history of atrial fibrillation on warfarin. Unable to do MRI and see if pattern is ischemic or embolic. Patient very high risk for bleeding due to multiple falls.will hold off warfarin and switch to aspirin until patient's fall risk improved.this may increase risk of stroke if embolic. discussed with Son and agrees to discontinuing warfarin until patient is deemed stable for AC from fall perspective -vit d,b12 21.5. 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
--- NOTE | 2017-05-08 13:54 | NUR ---
NUTRITION ASSESSMENT: ASSESS: 76YO M admit with DAGO on CKD stg III, evidence of severe chonic small vessel ischemic changes on brain CT-unable to do MRI to assess related to pt inability to fit in machine per MD notes. Pt with suspected dementia with delirium, notes this a.m. from MD report increased orientation. Pt has maintained good po intake. PMHX: DM Type II, CHF,CKD III, Afib DIET: Dysphagia mechanical (ST). PO 75-100% LABS: Alb 3.8, A1c 9.5, Glu 179, Cr 1.47, BUN 36 MEDS: Reviewed GI: No BM WEIGHT: 100.0kg (05/01) BMI: 30.7; EST.NEEDS: OBESITY/ACUTE ON CKD (20-25kcal/kg;1.1-1.2g/kg IBW) Kcal: 8120-5301 Pro: 70-85g NUTRITION DIAGNOSIS: (1) Chew/swallowing difficulty related to mild dysphagia as evidenced by modified diet texture per ST. INTERVENTION: (1) Diet per ST. MONITOR/EVALUATE: Follow diet per St, monitor labs, po intake. F/U per low risk guidelines.
--- NOTE | 2017-05-08 14:10 | NUR ---
Social Work Note: Continued Discharge Planning Data& Assessment: Per [facility] SNF and [facility] SN[facility], they would consider accepting pt as a SNF pt for the remainder of his 29 Medicare days once pt has a LTC placement secured for when he completes his rehab. TRACK LAYING EQUIPMENT OPERATOR left voicemail for Pt Home and Community Services CM June Cho ([phone]) requesting a call back and inquiring about which facilities or AFH's have been ruled out as placement options for pt. Pt son is also making inquires in the community for possible LTC placement options for pt. TRACK LAYING EQUIPMENT OPERATOR to continue to follow. Plan: Anticipated discharge to SNF for rehab once LTC placement is secured. TRACK LAYING EQUIPMENT OPERATOR to connect with pt Home and Community Services CM regarding placement options. TRACK LAYING EQUIPMENT OPERATOR to continue to follow. AUDRA Lombardi
[2017-05-08 17:45] VITALS: BP 160/86; PULSE 62; RESP 18; O2SAT 95
--- NOTE | 2017-05-08 19:23 | NUR ---
Compliance Issues Pt took most meds, only refusing insulin once at lunch. Pt c/t refuse cleaning and changing almost always, able to change linens and brief once today.
[2017-05-08 20:30] VITALS: BP 143/84; PULSE 86; RESP 18; O2SAT 94
[2017-05-08] MEDS: Insulin GLARgine 100 Unit/mL Syringe SUBQ SCH (20:55)
[2017-05-09 01:19] VITALS: BP 153/84; PULSE 66; RESP 16; O2SAT 96
[2017-05-09 05:36] VITALS: BP 129/71; PULSE 62; RESP 16; O2SAT 96
--- NOTE | 2017-05-09 05:47 | NUR ---
No Issues Pt. took all medications as per order an unused urine appropriately. VSS. Pass down was that he was medically stable just trying to fine a place to discharge to.
[2017-05-09] MEDS: Insulin LISPRO 300 Unit/3 mL Inj SUBQ SCH ×4 (07:41→22:13)
[2017-05-09] MEDS: Artificial Tears 15 mL Ophthalmic Solution AFFECT_EYE SCH ×2 (07:43→20:30)
[2017-05-09] MEDS: Potassium Chloride 20 mEq SR Tablet PO SCH (07:44)
[2017-05-09] MEDS: Tolterodine ER 4 mg ER24 Capsule PO SCH (07:45)
[2017-05-09] MEDS: Heparin 5,000 Unit/mL Inj SUBQ SCH ×2 (07:48→20:30)
[2017-05-09 08:40] LABS: BASOPHILS % (AUTO) 0.4 % (0-3); EOSINOPHILS % (AUTO) 2.9 % (0-5); Mean Corpuscular Hemoglobin 29.1 pg (27.0-35.0); Mean Corpuscular Volume 87.5 fL (81-100); NEUTROPHILS % (AUTO) 70.8 % (40-74); Platelet Count 265 bil/L (150-400)
[2017-05-09 09:02] LABS: Magnesium 1.9 mg/dL (1.6-2.6)
--- NOTE | 2017-05-09 11:33 | NUR ---
[facility] PLACEMENT AND LTC FOLLOW UP: Spoke with Johana at [facility] and she is going to review this patient in depth and get back to me. Patient is strictly needing rehab at this point and is not custodial care. Patient has [facility] CAROLE Watkins working on LTC placement actively. Spoke with DIRECTOR OF RESTAURANT and she left message for June at [facility] as there may be acceptance for patient at [facility] in [place] post rehab.
--- NOTE | 2017-05-09 15:51 | PCM.PNMED ---
Subjective Date of Service May 09, 2017 Subjective No new complaints or events. Awaiting placement. Exam Vital Signs Vital Sign - Last Date Time Temp Pulse Resp B/P Pulse Ox O2 Delivery O2 Flow Rate FiO2 05/09/17 05:36 37.0 62 16 129/71 96 Room Air Intake and Output 05/08/17 05/08/17 05/09/17 Cumulative From/Thru 15:00 23:00 07:00 05/01/17 12:22 - 05/09/17 05:46 Intake Total 400 ml 0 ml 7940 ml Output Total 200 ml 150 ml 4075 ml Balance 200 ml -150 ml 3865 ml Intake Oral 400 ml 6990 ml IV Total 0 ml 950 ml Output Urine Total 200 ml 150 ml 4075 ml # Voids 3 22 # Bowel Movements 0 Exam Constitutional: Elderly obese gentleman in no acute distress Head: Normocephalic and traumatic Eyes: PERRLA CMI Mouth: Dry mucosa Neck: No adenopathy Chest: Clear to auscultation Cor: Irregular regular rate and rhythm S1-S2 Abdomen: Soft nontender bowel sounds present Extremities: Trace bipedal edema with chronic venous stasis changes noted Neuro: He is alert he is oriented to person and place only, moves all extremities equally Psych: Difficult to assess as somewhat of a blunted affect Skin: No rashes IVs and Medications Medications Reviewed: Medications were reviewed in detail Lab and Diagnostics Result Diagram: 05/09/1781905/09/17 0820 X-Rays, CTs and MRIs . X-RAY CHEST ONE VIEW, PORTABLE IMPRESSION: No acute cardiopulmonary disease. Dictated by: Primitivo Uriostegui M.D. on 05/01/2017 CT BRAIN WITHOUT CONTRAST IMPRESSION: 1. No acute intracranial abnormality. 2. Confluent white matter hypodensities redemonstrated which are nonspecific but may represent severe chronic small vessel ischemic changes. 3. Mild cerebral volume loss. Dictated by: Saad Padilla M.D. on 05/01/2017 RENAL SONOGRAM IMPRESSION: No hydronephrosis. Dictated by: Justin Belle M.D. on 05/04/2017 12-lead ECG A fib at 78,incomplete LBBB,poor R wave progression across the precordium. Assessment & Plan # DAGO on Chronic kidney disease stage III, present on admission,IMPROVING -Initial cr 1.3, peaked at 1.7 . Prior baseline 2.0. seems he have a new baseline which is yet TBD ,probably 1.3. KUB US unremarkable.initially held torsemide. resumed at lower dose of 20 daily -DAGO due to prerenal due to poor renal intake in setting of diuretic use -Nephrology consulted and started him on IV fluids. Discontinued fluids 05/06 -Avoid nephrotoxic agents # Recurrent ground-level falls, subacute, present on admission -Unclear etiology. probably due to dehydration given symptoms improving with IVF and DAGO also improving . will lower torsemide to 20 from 40 daily up on discharge , Onset seems subacute in the last few weeks -May be due to his peripheral neuropathy as a contributing factor. it is also possible he has some dehydration due to poor oral intake given ongoing DAGO . IV fluids started by nephrology .now discontinued -Patient had evidence severe chronic small vessel ischemic changes on CT brain . MRI requested to see if any new stroke but patient not able to fit in our MRI machine due to size -Patient has history of atrial fibrillation on warfarin. Unable to do MRI and see if pattern is ischemic or embolic. Patient very high risk for bleeding due to multiple falls.will hold off warfarin and switch to aspirin until patient's fall risk improved.this may increase risk of stroke if embolic. discussed with Son and agrees to discontinuing warfarin until patient is deemed stable for AC from fall perspective -vit d,b12 21.5. 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 -We will place on subcutaneous insulin correction dose protocol -hemoglobin A1c 9.5, consistent with poor control -increased lantus from 8U(home dose) to 18 U hs,may need to switch to multiple oral agents and take him off Insulin for parts counterman placement purpose and compliance per patient's outpatient director social welfare who is working to get him parts counterman placement # Atrial fibrillation, chronic -Switched warfarin to ASA as above -Is rate controlled # DVT prophylaxis -We will use SCDs and subcutaneous prophylactic heparin twice a day #CODE STATUS -Patient is full code inpatient Disposition:PT rec SNF,awaitng placement,possibly to [facility] tomorrow dc med changes from home, lower torsemide dose,warfarin switched to ASA,insulin dose increased ,vitamin D started updated Son 05/05 VTE Prophylaxis: Sub-Q Heparin (Unfractionated), SCDs Resuscitation Status: CPR: Attempt Resuscitation Xander Rosa MD May 09, 2017 15:51
--- NOTE | 2017-05-09 16:40 | NUR ---
Social Work Note: Continued Discharge Planning Data& Assessment: ALUMINUM MOLDING MACHINE OPERATOR spoke with pt ELADIO Cho regarding discharge Planning. Pt major case detective has spoke to [facility] in [place] for possible residential care placement for pt. behavioral health care coordinator Leonardo Clemons ([phone]) Is planning on evaluating pt for appropriateness this 05/11/2017 "at the earliest." ALUMINUM MOLDING MACHINE OPERATOR spoke with Leonardo at length regarding pt possible acceptance for technician terminal and repeater care. Leonardo would like to ensure their facility can meet pt's needs prior to acceptance. Per Leonardo, if pt is appropriate and they accept pt, they would not be able to have pt move into their facility until next Monday at the earliest, one week from today. Per PT pt requires SNF. Pt is accepted at [facility] for rehab and strengthening prior to transitioning to LTC placement. ALUMINUM MOLDING MACHINE OPERATOR to discuss with MD and mandy HENDRICKS CM the potential for pt to go to [facility] for strengthening to improve function and increase abilities to complete ADL's independently while awaiting final LTC placement. ALUMINUM MOLDING MACHINE OPERATOR to continue to follow. Plan: Anticipated discharge to [facility] for rehab pending LTC placement. Pt being assessed by Leonardo from [facility] this 05/11/2017. ALUMINUM MOLDING MACHINE OPERATOR to follow up with MD and mandy HENDRICKS CM. ALUMINUM MOLDING MACHINE OPERATOR to continue to follow. AUDRA Lombardi
[2017-05-09 18:00] VITALS: BP 134/65; PULSE 70; RESP 20; O2SAT 94
--- NOTE | 2017-05-09 18:08 | NUR ---
Behavior/Activity Patient pleasant most of the shift, compliant with meds. Ambulated to the bathroom this shift. Patient offered a shower but refused saying " I will take care of myself when I get home", wash cloth offered and accepted. Awaiting placement.
[2017-05-09 20:30] VITALS: BP 155/98; PULSE 63; RESP 18; O2SAT 95
[2017-05-09] MEDS ORDERED: Insulin GLARgine 100 Unit/mL Syringe SUBQ SCH (21:00)
[2017-05-10 00:41] VITALS: BP 158/96; PULSE 61; RESP 16; O2SAT 95
[2017-05-10 05:23] VITALS: BP 167/89; PULSE 70; RESP 16; O2SAT 95
--- NOTE | 2017-05-10 05:24 | NUR ---
Noncompliant Pt. has continued to urinate onto the floor. He would not use the urinal or get up to use the restroom. Offered many times to change clothes but he refused. VSS/WCTM. Still awaiting placement.
[2017-05-10 08:24] LABS: BASOPHILS % (AUTO) 0.5 % (0-3); EOSINOPHILS % (AUTO) 2.6 % (0-5); Mean Corpuscular Hemoglobin 29.3 pg (27.0-35.0); Mean Corpuscular Volume 87.4 fL (81-100); NEUTROPHILS % (AUTO) 70.4 % (40-74); Platelet Count 277 bil/L (150-400)
[2017-05-10 08:37] VITALS: BP 147/86; PULSE 68; RESP 20; O2SAT 95
[2017-05-10] MEDS: Heparin 5,000 Unit/mL Inj SUBQ SCH ×2 (09:32→21:09)
[2017-05-10] MEDS: Artificial Tears 15 mL Ophthalmic Solution AFFECT_EYE SCH ×3 (09:32→20:30)
[2017-05-10] MEDS: Tolterodine ER 4 mg ER24 Capsule PO SCH (09:33)
[2017-05-10] MEDS: Potassium Chloride 20 mEq SR Tablet PO SCH (09:34)
[2017-05-10] MEDS: Insulin LISPRO 300 Unit/3 mL Inj SUBQ SCH ×4 (09:45→21:13)
--- NOTE | 2017-05-10 11:03 | PCM.PNMED ---
Subjective Date of Service May 10, 2017 Subjective Patient seen and examined. Says he is doing fine. Blunt affect. Not very interactive. Exam Vital Signs Vital Sign - Last Date Time Temp Pulse Resp B/P Pulse Ox O2 Delivery O2 Flow Rate FiO2 05/10/17 08:37 36.4 68 20 147/86 95 Room Air Intake and Output 05/09/17 05/09/17 05/10/17 Cumulative From/Thru 15:00 23:00 07:00 05/01/17 12:22 - 05/10/17 04:47 Intake Total 1440 ml 9380 ml Output Total 1050 ml 5125 ml Balance 390 ml 4255 ml Intake Oral 1440 ml 8430 ml IV Total 950 ml Output Urine Total 1050 ml 5125 ml # Voids 1 23 # Bowel Movements 1 1 Exam Constitutional: Elderly obese gentleman in no acute distressI Mouth: Dry mucosa Neck: No adenopathy Chest: Clear to auscultation Cor: Irregular regular rate and rhythm S1-S2 Abdomen: Soft nontender bowel sounds present Extremities: Trace bipedal edema with chronic venous stasis changes noted Psych: Difficult to assess as somewhat of a blunted affect Lab and Diagnostics Result Diagram: 05/10/1781405/10/1715 X-Rays, CTs and MRIs . X-RAY CHEST ONE VIEW, PORTABLE IMPRESSION: No acute cardiopulmonary disease. Dictated by: Primitivo Uriostegui M.D. on 05/01/2017 CT BRAIN WITHOUT CONTRAST IMPRESSION: 1. No acute intracranial abnormality. 2. Confluent white matter hypodensities redemonstrated which are nonspecific but may represent severe chronic small vessel ischemic changes. 3. Mild cerebral volume loss. Dictated by: Saad Padilla M.D. on 05/01/2017 US RENAL SONOGRAM IMPRESSION: No hydronephrosis. Dictated by: Justin Belle M.D. on 05/04/2017 12-lead ECG A fib at 78,incomplete LBBB,poor R wave progression across the precordium. Assessment & Plan # DAGO on Chronic kidney disease stage III, present on admission, going up again -Initial cr 1.3, variable based on oral intake . Prior baseline 2.0. seems he have a new baseline which is yet TBD ,probably 1.3. KUB US unremarkable.initially held torsemide. resumed at lower dose of 20 daily -DAGO due to prerenal due to poor renal intake in setting of diuretic use -Nephrology consulted and started him on IV fluids. Discontinued fluids 05/06 -Avoid nephrotoxic agents # Recurrent ground-level falls, subacute, present on admission -Unclear etiology. probably due to dehydration given symptoms improving with IVF and DAGO also improving . will lower torsemide to 20 from 40 daily up on discharge , Onset seems subacute in the last few weeks -May be due to his peripheral neuropathy as a contributing factor. it is also possible he has some dehydration due to poor oral intake given ongoing DAGO . IV fluids started by nephrology .now discontinued -Patient had evidence severe chronic small vessel ischemic changes on CT brain . MRI requested to see if any new stroke but patient not able to fit in our MRI machine due to size -Patient has history of atrial fibrillation on warfarin. Unable to do MRI and see if pattern is ischemic or embolic. Patient very high risk for bleeding due to multiple falls.will hold off warfarin and switch to aspirin until patient's fall risk improved.this may increase risk of stroke if embolic. discussed with Son and agrees to discontinuing warfarin until patient is deemed stable for AC from fall perspective -vit d,b12 21.5. 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 -We will place on subcutaneous insulin correction dose protocol -hemoglobin A1c 9.5, consistent with poor control -increased lantus from 8U(home dose) to 18 U hs,may need to switch to multiple oral agents and take him off Insulin for [facility]p placement purpose and compliance per patient's outpatient director social service who is working to 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
--- NOTE | 2017-05-10 11:47 | NUR ---
DETENTION TRANSFER : Called and spoke Rody at [facility] and let her know patient will likely be ready to come to them tomorrow after [facility] [place] come do there admission assessment. Updated SUPPORT ENGINEER Addendum: 05/10/17 at 1620 by IRA BUTLER Faxed clinicals to June Adkins at [facility] so she can give to Leonardo at the [facility] in [place], updated MAR included. Updated SUPPORT ENGINEER
[2017-05-10 12:40] VITALS: BP 143/84; PULSE 60; RESP 16; O2SAT 95
[2017-05-10] MEDS: glipiZIDE 2.5 mg ER24 Tablet PO SCH (17:51)
--- NOTE | 2017-05-10 18:03 | NUR ---
Shift Report Patient awaiting evaluation from [facility] tomorrow for placement after care at [place]. VSS. No pain. Was able to clean room thoroughly today and patient a bit until he asked for cares to stop. Got out of room in wheelchair. New orders to transition sub-q insulin to pill coverage for intermediate school teacher placement.
[2017-05-10 20:29] VITALS: BP 127/75; PULSE 79; RESP 19; O2SAT 94
[2017-05-10] MEDS ORDERED: Insulin GLARgine 100 Unit/mL Syringe SUBQ SCH (21:00)
[2017-05-11 06:10] VITALS: BP 158/85; PULSE 63; RESP 18; O2SAT 99
--- NOTE | 2017-05-11 06:13 | NUR ---
Shift note uneventful night took HS meds after getting into bed declined anything through night upon am vs "just want to go back to sleep!"
[2017-05-11 07:05] LABS: BASOPHILS % (AUTO) 0.5 % (0-3); MONOCYTES % (AUTO) 7.8 % (4-12); Mean Corpuscular Hemoglobin 29.1 pg (27.0-35.0); Mean Corpuscular Volume 87.6 fL (81-100); NEUTROPHILS % (AUTO) 65.3 % (40-74); Platelet Count 249 bil/L (150-400)
[2017-05-11] MEDS: Insulin LISPRO 300 Unit/3 mL Inj SUBQ SCH ×4 (08:42→22:00)
[2017-05-11] MEDS: Tolterodine ER 4 mg ER24 Capsule PO SCH (08:42)
[2017-05-11] MEDS: Heparin 5,000 Unit/mL Inj SUBQ SCH ×2 (08:42→20:30)
[2017-05-11] MEDS: Potassium Chloride 20 mEq SR Tablet PO SCH (08:42)
[2017-05-11] MEDS: Artificial Tears 15 mL Ophthalmic Solution AFFECT_EYE SCH ×2 (08:43→20:30)
[2017-05-11] MEDS: glipiZIDE 2.5 mg ER24 Tablet PO SCH (08:44)
--- NOTE | 2017-05-11 11:53 | PCM.PNMED ---
Subjective Date of Service May 11, 2017 Subjective Patient seen and examined today. No complaints. Not very interactive. Vitals stable. Exam Vital Signs Vital Sign - Last Date Time Temp Pulse Resp B/P Pulse Ox O2 Delivery O2 Flow Rate FiO2 05/11/17 06:10 36.4 63 18 158/85 99 Room Air Intake and Output 05/10/17 05/10/17 05/11/17 Cumulative From/Thru 15:00 23:00 07:00 05/01/17 12:22 - 05/11/17 06:11 Intake Total 200 ml 360 ml 9940 ml Output Total 350 ml 400 ml 5875 ml Balance 200 ml -350 ml -40 ml 4065 ml Intake Oral 360 ml 8790 ml IV Total 200 ml 1150 ml Output Urine Total 350 ml 400 ml 5875 ml # Voids 23 # Bowel Movements 1 Exam Constitutional: Elderly obese gentleman in no acute distressI Mouth: Dry mucosa Neck: No adenopathy Chest: Clear to auscultation Cor: Irregular regular rate and rhythm S1-S2 Abdomen: Soft nontender bowel sounds present Extremities: Trace bipedal edema with chronic venous stasis changes noted Psych: Difficult to assess as somewhat of a blunted affect Lab and Diagnostics Result Diagram: 05/11/17 0643 05/11/17 0643 X-Rays, CTs and MRIs . X-RAY CHEST ONE VIEW, PORTABLE IMPRESSION: No acute cardiopulmonary disease. Dictated by: Primitivo Uriostegui M.D. on 05/01/2017 CT BRAIN WITHOUT CONTRAST IMPRESSION: 1. No acute intracranial abnormality. 2. Confluent white matter hypodensities redemonstrated which are nonspecific but may represent severe chronic small vessel ischemic changes. 3. Mild cerebral volume loss. Dictated by: Saad Padilla M.D. on 05/01/2017 US RENAL SONOGRAM IMPRESSION: No hydronephrosis. Dictated by: Justin Belle M.D. on 05/04/2017 12-lead ECG A fib at 78,incomplete LBBB,poor R wave progression across the precordium. Assessment & Plan # DAGO on Chronic kidney disease stage III, present on admission, on going -Initial cr 1.3, variable based on oral intake . Prior baseline 2.0. seems he have a new baseline which is yet TBD based on trend here. KUB US unremarkable.initially held torsemide. resumed at lower dose of 20 daily -DAGO due to prerenal due to poor renal intake in setting of diuretic use -Nephrology consulted and started him on IV fluids. Discontinued fluids 05/06 -Avoid nephrotoxic agents # Recurrent ground-level falls, subacute, present on admission -May be due to his peripheral neuropathy as a contributing factor. -Patient had evidence severe chronic small vessel ischemic changes on CT brain . MRI requested to see if any new stroke but patient not able to fit in our MRI machine due to size -Patient has history of atrial fibrillation on warfarin. Unable to do MRI and see if pattern is ischemic or embolic. Patient very high risk for bleeding due to multiple falls.will hold off warfarin and switch to aspirin until patient's fall risk improved.this may increase risk of stroke if embolic. discussed by Dr. Rosa with Son and agrees to discontinuing warfarin until patient is deemed stable for AC from fall perspective -vit d,b12 21.5. 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 -We will place on subcutaneous insulin correction dose protocol -hemoglobin A1c 9.5, consistent with poor control -Started on glipizide in anticipation of being discharged on only oral hypoglycemics, will monitor # Atrial fibrillation, chronic -Switched warfarin to ASA as above -Is rate controlled # DVT prophylaxis -We will use SCDs and subcutaneous prophylactic heparin twice a day #CODE STATUS -Patient is full code inpatient Disposition:PT rec SNF,awaitng placement,possibly to [place] tomorrow de med changes from home, lower torsemide dose,warfarin switched to ASA,insulin dose increased ,vitamin D started VTE Prophylaxis: Sub-Q Heparin (Unfractionated), SCDs Resuscitation Status: CPR: Attempt Resuscitation Time spent 35 mins Kenan Solano MD May 11, 2017 11:53
--- NOTE | 2017-05-11 15:17 | NUR ---
Agitation/Noncompliance Pt has been more agitated today than other days that I've taken care of them. Pt took am meds and insulin, but complained about breakfast and has been noncompliant since. Pt refused cbg check before lunch, and was disappointed with lunch, and he forgot that he'd eaten already so he further agitated stating "you all are starving me, I haven't eaten in 3 days". Attempted to calmly redirect pt agitation and aggression, pt stated "get out of here before I throw you out the window". Pt has been left alone and he calmed down, however noncompliance has continued, with pt now urinating on the floor and refusing all care.
--- NOTE | 2017-05-11 16:28 | NUR ---
Social Work: Brief Note SW received a call from patient's CM June. June confirmed that she did receive updated patient information that was faxed over yesterday. June informed EDUARDO that no RN is available from [facility] to come to hospital to complete an assessment on patient today. Patient discussed in morning rounds. MD would like to keep pt 1 more today to monitor blood sugars. Potential DC tomorrow 05/12. Patient has been accepted to [facility] and will discharge there if medically stable. Assessment by [facility] can be completed at [facility] and will not delay discharge. EDUARDO will continue to follow. AUDRA Miller
[2017-05-11 18:00] VITALS: BP 164/85; PULSE 66; RESP 16; O2SAT 96
[2017-05-11 20:58] VITALS: BP 157/83; PULSE 67; RESP 19; O2SAT 96
[2017-05-12 06:00] VITALS: BP 132/68; PULSE 65; RESP 18; O2SAT 97
--- NOTE | 2017-05-12 06:30 | NUR ---
Shift note A start of my shift patient was agitated had had an incont episode in bed asked for towels refused to let me change bedding he did cooperate with blood sugar check and appears oral Meds are helping sugar numbers no SS needed.He also eventually threw sheet on floor and started using urinal through night!
[2017-05-12] MEDS: Tolterodine ER 4 mg ER24 Capsule PO SCH (07:43)
[2017-05-12] MEDS: glipiZIDE 2.5 mg ER24 Tablet PO SCH (07:44)
[2017-05-12] MEDS: Potassium Chloride 20 mEq SR Tablet PO SCH (07:44)
[2017-05-12] MEDS: Heparin 5,000 Unit/mL Inj SUBQ SCH ×2 (07:45→20:23)
[2017-05-12] MEDS: Artificial Tears 15 mL Ophthalmic Solution AFFECT_EYE SCH ×2 (07:49→20:23)
[2017-05-12] MEDS: Insulin LISPRO 300 Unit/3 mL Inj SUBQ SCH ×3 (07:58→16:31)
[2017-05-12 08:01] VITALS: BP 131/70; PULSE 64; RESP 15; O2SAT 95
--- NOTE | 2017-05-12 10:58 | NUR ---
FDC TRANSFER FOLLOW UP: Spoke with Niki Treat director of intelligence at [facility] and let her know about the medication changes and MD wanting patient to stay one more night. Likely to discharge tomorrow. Updated SUPERVISOR INSTRUMENT MECHANICS
--- NOTE | 2017-05-12 11:17 | NUR ---
Social Work: Readiness for Discharge/Multidisciplinary Rounds D: EMR reviewed. Pt is on day 11 of hospitalization. Pt discussed in multidisciplinary rounds - per MD, pt to stay another midnight to monitor pt on PO Acarbose and determine pt's safety discharging on PO Acarbose v Lantis. discharged [facility] and anticipates pt will be able to continue PO Acarbose rather than Lantis for a retirement care plan. stated that if pt does well on Acarbose overnight, pt will be ready for discharge to [facility] tomorrow. EDUARDO updated Regulatory Affairs Analyst who updated [facility]. Pt to discharge to [facility] and then the [facility]. aware that the [facility] will not accept pt on Lantis but will accept pt on PO Acarabose. A: Pt for whom a 1-2 week SNF stay is medically necessary and then transfer to intermission coordinator memory care at the [facility] in [place]. P: Pt anticipated to discharge to [facility] tomorrow via wheelchair van and then transfer to the [facility] after rehab at SNF. Pt's discharge pending MD clearance for Acarbose v Lantis. aware the the [facility] will not accept pt on Lantis and anticipates Acarbose will work for pt. holding pt one more midnight to determine if Acarbose will be appropriate for pt long-term as [facility] is not an option for pt's intermission coordinator placement. EDUARDO will continue to follow and update pt, pt's , [facility], and the [facility] when discharge orders are entered. AUDRA Maddox
--- NOTE | 2017-05-12 13:04 | NUR ---
Physical therapy Patient up with physical therapy using FWW in his room from bed to chair for meals. Offered shower and patient refused. Patient agrees for a new gown and linens changed. Housekeeping was called to mop the floor with patient's permission. Denies pain or discomfort. Blood sugar 174 and 195 so far this shift. Continue to monitor.
[2017-05-12 13:32] VITALS: BP 126/80; PULSE 69; RESP 16; O2SAT 96
--- NOTE | 2017-05-12 14:15 | PCM.PNMED ---
Subjective Date of Service May 12, 2017 Subjective Patient doing good. Didnt complain of anything today. Talkative. Vitals stable. Exam Vital Signs Vital Sign - Last Date Time Temp Pulse Resp B/P Pulse Ox O2 Delivery O2 Flow Rate FiO2 05/12/17 13:32 36.4 69 16 126/80 96 Room Air Intake and Output 05/11/17 05/11/17 05/12/17 Cumulative From/Thru 15:00 23:00 07:00 05/01/17 12:22 - 05/12/17 06:23 Intake Total 600 ml 360 ml 52149 ml Output Total 350 ml 6225 ml Balance 600 ml 10 ml 4675 ml Intake Oral 600 ml 360 ml 9750 ml IV Total 1150 ml Output Urine Total 350 ml 6225 ml # Voids 3 2 28 # Bowel Movements 1 Exam Constitutional: Elderly obese gentleman in no acute distressI Mouth: Dry mucosa Neck: No adenopathy Chest: Clear to auscultation Cor: Irregular regular rate and rhythm S1-S2 Abdomen: Soft nontender bowel sounds present Extremities: Trace bipedal edema with chronic venous stasis changes noted Psych: Difficult to assess as somewhat of a blunted affect Lab and Diagnostics Result Diagram: 05/11/17 0643 05/12/17 0605 X-Rays, CTs and MRIs . X-RAY CHEST ONE VIEW, PORTABLE IMPRESSION: No acute cardiopulmonary disease. Dictated by: Primitivo Uriostegui M.D. on 05/01/2017 CT BRAIN WITHOUT CONTRAST IMPRESSION: 1. No acute intracranial abnormality. 2. Confluent white matter hypodensities redemonstrated which are nonspecific but may represent severe chronic small vessel ischemic changes. 3. Mild cerebral volume loss. Dictated by: Saad Padilla M.D. on 05/01/2017 US RENAL SONOGRAM IMPRESSION: No hydronephrosis. Dictated by: Justin Belle M.D. on 05/04/2017 12-lead ECG A fib at 78,incomplete LBBB,poor R wave progression across the precordium. Assessment & Plan # DAGO on Chronic kidney disease stage III, present on admission, Resolved - Cr. plateaued -Initial cr 1.3, variable based on oral intake . Prior baseline 2.0. seems he have a new baseline which is yet TBD based on trend here. KUB US unremarkable.initially held torsemide. resumed at lower dose of 20 daily -DAGO due to prerenal due to poor renal intake in setting of diuretic use -Nephrology consulted and started him on IV fluids. Discontinued fluids 05/06 -Avoid nephrotoxic agents # Recurrent ground-level falls, subacute, present on admission -May be due to his peripheral neuropathy as a contributing factor. -Patient had evidence severe chronic small vessel ischemic changes on CT brain . MRI requested to see if any new stroke but patient not able to fit in our MRI machine due to size -Patient has history of atrial fibrillation on warfarin. Unable to do MRI and see if pattern is ischemic or embolic. Patient very high risk for bleeding due to multiple falls.will hold off warfarin and switch to aspirin until patient's fall risk improved.this may increase risk of stroke if embolic. discussed by Dr. Rosa with Son and agrees to discontinuing warfarin until patient is deemed stable for AC from fall perspective -vit d,b12 21.5. 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 -We will place on subcutaneous insulin correction dose protocol -hemoglobin A1c 9.5, consistent with poor control -Started on glipizide in anticipation of being discharged on only oral hypoglycemics, better controlled, will continue to monitor # Atrial fibrillation, chronic -Switched warfarin to ASA as above -Is rate controlled # DVT prophylaxis -We will use SCDs and subcutaneous prophylactic heparin twice a day #CODE STATUS -Patient is full code inpatient Disposition:PT rec SNF,awaitng placement,possibly to [facility] tomorrow VTE Prophylaxis: Sub-Q Heparin (Unfractionated), SCDs Resuscitation Status: CPR: Attempt Resuscitation Kenan Solano MD May 12, 2017 14:15
[2017-05-12 16:40] VITALS: BP 114/76; PULSE 70; RESP 16; O2SAT 95
--- NOTE | 2017-05-12 16:53 | NUR ---
Mentation Patient is alert with intermittent confusion. Denies pain or discomfort. blood sugars this shift.. 174, 195, and 251. insulin given as ordered. Stable vital signs. BP 114/76, pulse 70, oxygen 95%RA, Afebrile. Patient worked with Physical therapy this shift. Call light with in reach for safety and uses appropriately. Patient received all PO medications as ordered. continue to monitor.
[2017-05-12 20:23] VITALS: BP 148/88; PULSE 75; RESP 17; O2SAT 98
--- NOTE | 2017-05-13 06:16 | NUR ---
Refusal of Care assumed pt care at 1900, multiple attempts tried to obtain blood glucose, pt refused, no noted signs of hypo/hyperglycemia throughout night, alarm on for safety.
[2017-05-13] MEDS: glipiZIDE 2.5 mg ER24 Tablet PO SCH (08:11)
[2017-05-13] MEDS: Potassium Chloride 20 mEq SR Tablet PO SCH (08:46)
[2017-05-13] MEDS: Tolterodine ER 4 mg ER24 Capsule PO SCH (08:46)
[2017-05-13] MEDS: Artificial Tears 15 mL Ophthalmic Solution AFFECT_EYE SCH (08:47)
[2017-05-13] MEDS: Heparin 5,000 Unit/mL Inj SUBQ SCH (08:48)
[2017-05-13] MEDS ORDERED: ACAR25TA2 PO (10:47)
--- NOTE | 2017-05-13 10:52 | PCM.DC.MED ---
Discharge Summary Date of Service May 13, 2017 Dates of Hospitalization Date of Hospital Admission May 01, 2017 at 20:21 Date of Discharge: May 13, 2017 Providers: Admitting Physician: Susana Irving MD Primary Care Physician: Conner Newton MD Attending Physician: Viri Navas MD Diagnosis at Time of Discharge Diagnosis at Time of Discharge # DAGO on Chronic kidney disease stage III, present on admission #Recurrent ground-level falls due to dehydration , subacute, present on admissio #Generalized weakness, subacute, present on admission #Suspected vascular dementia #Diastolic congestive heart failure, chronic #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 X-RAY CHEST ONE VIEW, PORTABLE IMPRESSION: No acute cardiopulmonary disease. Dictated by: Primitivo Uriostegui M.D. on 05/01/2017 CT BRAIN WITHOUT CONTRAST IMPRESSION: 1. No acute intracranial abnormality. 2. Confluent white matter hypodensities redemonstrated which are nonspecific but may represent severe chronic small vessel ischemic changes. 3. Mild cerebral volume loss. Dictated by: Saad Padilla M.D. on 05/01/2017 RENAL SONOGRAM IMPRESSION: No hydronephrosis. Dictated by: Justin Belle M.D. on 05/04/2017 ECG 12 Lead A fib at 78,incomplete LBBB,poor R wave progression across the precordium. Brief History Mr. Jimenez is a 76-year-old male with past medical history of dementia, peripheral neuropathy, diabetes and atrial fibrillation who was admitted to the ED secondary to ground-level fall suffered at a assisted living facility. Review of records and speaking with the patient it appears that this admission is social admit in nature and that the facility can no longer care for him adequately. Patient denies any pain or discomfort does state that he fell but has no injuries from the fall. States that he has not felt sick of recent denies fevers. Does state that he has had a decrease in his urinary output recently which is accompanied with decrease in his oral intake. Nephrology consult in for increasing creatinine levels. Patient denies chest pain, shortness breath, abdominal pain, flank pain, difficulty urinating or pain with urination, extremity numbness swelling or tingling. Hospital Course # DAGO on Chronic kidney disease stage III, present on admission, Resolved - Cr. plateaued -Initial cr 1.3, variable based on oral intake . Prior baseline 2.0. seems he have a new baseline which is yet TBD based on trend here. KUB US unremarkable.initially held torsemide. resumed at lower dose of 20 daily -DAGO due to prerenal due to poor renal intake in setting of diuretic use -Nephrology consulted and started him on IV fluids. Discontinued fluids 05/06 -Avoid nephrotoxic agents # Recurrent ground-level falls, subacute, present on admission -May be due to his peripheral neuropathy as a contributing factor. -Patient had evidence severe chronic small vessel ischemic changes on CT brain . MRI requested to see if any new stroke but patient not able to fit in our MRI machine due to size -Patient has history of atrial fibrillation on warfarin. Unable to do MRI and see if pattern is ischemic or embolic. Patient very high risk for bleeding due to multiple falls.will hold off warfarin and switch to aspirin until patient's fall risk improved.this may increase risk of stroke if embolic. discussed by Dr. Salinas with Son and agrees to discontinuing warfarin until patient is deemed stable for AC from fall perspective -vit d,b12 21.5. 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 -We will place on subcutaneous insulin correction dose protocol -hemoglobin A1c 9.5, consistent with poor control -Started on glipizide with acarbose in anticipation of being discharged on only oral hypoglycemics, better controlled # Atrial fibrillation, chronic -Switched warfarin to ASA as above -Is rate controlled # DVT prophylaxis -We will use SCDs and subcutaneous prophylactic heparin twice a day #CODE STATUS -Patient is full code i Exam Vital Signs (Last) Date Time Temp Pulse Resp B/P Pulse Ox O2 Delivery O2 Flow Rate FiO2 05/12/17 20:23 36.8 75 17 148/88 98 Room Air Test 05/01/17 14:30 05/01/17 16:09 05/01/17 23:08 05/02/17 09:35 Prothrombin Time 14.1sec (8.1-12.5) Prothromb Time International Ratio 1.31ratio Troponin T < 0.010ug/L (0.0-0.011) Hold Tapia Top Tube Received (Received) Urine Color Straw (YELLOW) Urine Appearance Clear (CLEAR,HAZY) Urine pH 7.0 (5.0-8.0) Urine Specific [place] 1.010 (1.003-1.035) Urine Protein Tracemg/dL (NEG,TRACE) Urine Glucose (UA) Negativemg/dL (NEGATIVE) Urine Ketones Negativemg/dL (NEGATIVE) Urine Occult Blood Negative (NEGATIVE) Urine Nitrite Negative (NEGATIVE) Urine Bilirubin Negative (NEGATIVE) Urine Urobilinogen Normalmg/dL (NORMAL) Urine Leukocyte Esterase Negative (NEGATIVE) Urine RBC 0-2/hpf (0-2) Urine WBC 0-5/hpf (0-5) Urine Epithelial Cells None/hpf (NONE-MOD) Urine Crystals None seen (NONE SEEN) Urine Bacteria None/hpf (NONE-FEW) Urine Hyaline Casts None/lpf (NONE) Urine Granular Casts None seen (NONE SEEN) Urine Waxy Casts None seen (NONE SEEN) Urine Red Blood Cell Casts None seen (NONE SEEN) Urine White Blood Cell Casts None seen (NONE SEEN) Urine Mucus None seen (None Seen) Urine Trichomonas None seen (NONE SEEN) Urine Yeast None (NONE SEEN) Urinalysis Comment None Hemoglobin A1c 9.5% (4.8-5.6) Phosphorus Level 2.8mg/dL (2.5-4.9) Total Creatine Kinase 52U/L (21-232) Vitamin B12 Level 1233pg/mL (211-946) Vitamin D 25-Hydroxy 21.5ng/mL (30.0-100.0) Folate 18.9ng/mL (>3.0) Cortisol 12.1ug/dL (.) Test 05/09/17 08:20 05/11/17 06:43 05/12/17 06:05 Magnesium Level 1.9mg/dL (1.6-2.6) Total Bilirubin 0.4mg/dL (0.0-1.2) Aspartate Amino Transf (AST/SGOT) 14U/L (0-50) Alanine Aminotransferase (ALT/SGPT) 14U/L (0-44) Alkaline Phosphatase 89U/L (25-160) Total Protein 7.3g/dL (6.4-8.4) Albumin 4.0g/dL (3.4-5.0) White Blood Count 11.6th/mm3 (3.8-10.1) Red Blood Count 5.33mil/mm3 (4.40-5.80) Hemoglobin 15.5g/dL (13.8-17.2) Hematocrit 46.7% (41.0-50.0) Mean Corpuscular Volume 87.6fL (81-100) Mean Corpuscular Hemoglobin 29.1pg (27.0-35.0) Mean Corpuscular Hemoglobin Concent 33.2% (32.0-37.0) Red Cell Distribution Width 14.4% (12.3-15.4) Platelet Count 249bil/L (150-400) Neutrophils (%) (Auto) 65.3% (40-74) Lymphocytes (%) (Auto) 23.0% (14-46) Monocytes (%) (Auto) 7.8% (4-12) Eosinophils (%) (Auto) 3.0% (0-5) Basophils (%) (Auto) 0.5% (0-3) Procalcitonin 0.06ng/mL (0.00-0.08) Sodium Level 140mEq/L (134-144) Potassium Level 3.9mEq/L (3.5-5.2) Chloride Level 98mEq/L (97-108) Carbon Dioxide Level 28mmol/L (18-29) Blood Urea Nitrogen 44mg/dL (8-27) Creatinine 1.55mg/dL (0.76-1.27) Estimat Glomerular Filtration Rate 47mL/min (>59) Glucose Level 186mg/dL (60-99) Calcium Level 9.5mg/dL (8.5-10.1) Discharge Medications Discharge Medications Acarbose (Acarbose) 25 Mg Tablet 25 MG PO TIDWM Prescribed by: VIRI NAVAS MD Aspirin Chew (Aspirin Chew) 81 Mg Chew 81 MG PO DAILY Prescribed by: BALTAZAR SALINAS MD Carboxymethylcellulose Sodium (Refresh Tears) 15 Ml Drops 15 ML OP BID (Reported ) 2 DROPS IN EACH EYE Carvedilol (Carvedilol) 25 Mg Tablet 25 MG PO BID Prescribed by: BETO KWONG MD Chlorthalidone (Chlorthalidone) 25 Mg Tablet 25 MG PO DAILY (Reported) Cholecalciferol (Vitamin D3) (Vitamin D) 1,000 Unit Tablet 2,000 UNIT PO DAILY Prescribed by: BALTAZAR SALINAS MD Glipizide ER (Glipizide ER) 10 Mg Tab.er.24 10 MG PO QAM (Reported) Ketoconazole (Ketoconazole) 15 Gm Cream..g. 15 GM TP DAILY (Reported) Oxybutynin Chloride ER (Oxybutynin Chloride ER) 10 Mg Tab.er.24 10 MG PO DAILY ( Reported) Potassium Chloride ER (Potassium Chloride ER) 20 Meq Tablet.er 20 MEQ PO DAILY ( Reported) TAKE WITH FOOD Sertraline HCl (Sertraline) 50 Mg Tablet 50 MG PO DAILY (Reported) Tamsulosin (Flomax) 0.4 Mg Capsule 0.4 MG PO DAILY Prescribed by: JOSE WEBB MD Torsemide (Torsemide) 20 Mg Tablet 20 MG PO DAILY Prescribed by: BALTAZAR SALINAS MD As needed Acetaminophen (Acetaminophen) 325 Mg Capsule 650 MG PO Q4HR PRN PRN For Pain ( Reported) diphenhydrAMINE HCl (Benadryl) 25 Mg Capsule 25 MG PO Q4 PRN PRN For Itching Prescribed by: RADHAMES GUERRERO DO Followup Plan Discharge Diet: Low fat, Low Sodium, Heart Healthy, Diabetic Discharge Activity: Other (continue physical therapy at [facility] facility) Patient Instructions You were hospitalized to due to recurrent falls and generalized weakness. Workup revealed that you are dehydrated with some kidney injury. Treated with IV fluids. Symptoms and kidney injury improved. Please keep yourself hydrated.I have lowered your diuretic/water pill torsemide from 40 mg by mouth daily to 20 mg by mouth daily. I have stopped your warfarin and switched to aspirin for now until your risk of fall is reassessed by PCP. Your vitamin D level is low which may have contributed to fall and I started you vitamin D supplements. I have increased your Lantus from 8 units to 10 units at bedtime. Please check your blood glucose 3 times a day and follow-up with PCP for further insulin dose adjustment. Follow-up Provider: Conner Newton MD Follow-up with PCP in: 1 week (1 week after discharge from [facility] facility) Time spent 35 mins Viri Navas MD May 13, 2017 10:52
[2017-05-13 12:00] VITALS: BP 110/70; PULSE 77; O2SAT 96
--- NOTE | 2017-05-13 13:15 | NUR ---
Social Work: Readiness for Discharge/Multidisciplinary Rounds D: EMR reviewed. Pt is on day 12 of hospitalization. Pt discussed in multidisciplinary rounds - per MD, pt is medically stable for discharge to [facility] today on PO Acarbose. T/C to Renetta at [facility] who is willing to accept pt with Dr. Horn to follow. Renetta confirmed pt transport via wheelchair van at 1430 today. SW faxed discharge packet including PASRR and hard rx to [facility]. RN updated family on pt's transport time - all agreeable. SW completed transfer packet at left at RN station - UA updated. No other SW needs at this time, no other MD orders. A: Pt for whom a 1-2 week SNF stay is medically necessary and then transfer to snf memory care at the [facility] in [place]. P: Pt to discharge to [facility] today at 1430 via [employer] transport and then transfer to the [facility] after rehab at SNF. Pt will not need Lantis and will continue on PO Acarbose. No other discharge needs identified. AUDRA Maddox
--- NOTE | 2017-05-13 14:30 | NUR ---
Discharge Patient discharge to [facility] for continued rehab, transported via wheelchair van. Patient compliant with care before discharge able to change to new clothing and with brief on. Report given to Joanna, admission nurse at [facility]. Son informed of the discharge. Discharge packet given to davi.
--- NOTE | 2017-05-13 15:16 | NUR ---
Social Work: Discharge D: EMR reviewed. Pt is on day 12 of hospitalization. Pt discussed in multidisciplinary rounds - per MD, pt is medically stable for discharge to [facility] today on PO Acarbose. T/C to Renetta at [facility] who is willing to accept pt with Dr. Horn to follow. Renetta confirmed pt transport via wheelchair van at 1430 today. SW faxed discharge packet including PASRR and hard rx to [facility]. RN updated family on pt's transport time - all agreeable. SW completed transfer packet at left at RN station - UA updated. No other SW needs at this time, no other MD orders. A: Pt for whom a 1-2 week SNF stay is medically necessary and then transfer to machine long goods helper memory care at the [facility] in [place]. P: Pt to discharge to [facility] today at 1430 via [employer] transport and then transfer to the [facility] after rehab at SNF. Pt will not need Lantis and will continue on PO Acarbose. No other discharge needs identified. AUDRA Maddox
--- NOTE | 2017-05-15 14:38 | NUR ---
Social Work- late entry: SW received a call from pt's HCS worker June [phone] requesting an update on pt and medication list. EDUARDO informed June that pt had discharge and faxed medication list to [phone] regarding the change in insulin medication. AUDRA Michaels
== END 2017-05-13 14:30 | DRG 683 ==
LOC: SED 12:19 → EDBD 12:19 → MOC 20:21 → OBSVTOIN 20:21
PROVIDERS: ADMIT Specialist; ATTEND Specialist
DX: N17.9 Acute kidney failure, unspecified (principal); I50.32 Chronic diastolic (congestive) heart failure; I67.82 Cerebral ischemia; F01.51 Vascular dementia, unspecified severity, with behavioral disturbance; F05 Delirium due to known physiological condition; E11.22 Type 2 diabetes mellitus with diabetic chronic kidney disease; N18.3 Chronic kidney disease, stage 3 (moderate); Z79.01 Long term (current) use of anticoagulants; E11.42 Type 2 diabetes mellitus with diabetic polyneuropathy; E87.6 Hypokalemia; E11.21 Type 2 diabetes mellitus with diabetic nephropathy; E66.9 Obesity, unspecified; Z68.30 Body mass index [BMI] 30.0-30.9, adult; Z79.4 Long term (current) use of insulin; I48.2 Chronic atrial fibrillation; E86.0 Dehydration; I12.9 Hypertensive chronic kidney disease with stage 1 through stage 4 chronic kidney disease, or unspecified chronic kidney disease; W18.30XA Fall on same level, unspecified, initial encounter; Y93.9 Activity, unspecified; Y92.009 Unspecified place in unspecified non-institutional (private) residence as the place of occurrence of the external cause